=== PATIENT | female | born 1955 | race Caucasian/White ===

== ENCOUNTER 2019-06-19 05:43 | Day surgery (SDC) | payer OTHER, SELFPAY ==
[2019-06-12 08:03] VITALS: BMI 41.0
[2019-06-19] VITALS (7 sets, daily range): BP systolic 152–163; BP diastolic 71–91; PULSE 64–69; RESP 16; TEMP 36.1–36.6; O2SAT 92–96; BMI 41.2
[2019-06-19 06:16] LABS: Bedside Glucose 227 mg/dL (70-110)
[2019-06-19] MEDS: Lactated Ringers 1,000 ML 100 ML IV (06:30)
--- NOTE | 2019-06-19 06:43 | HP.PCM_ITS ---
History and Physical Date of Admission: 06/19/19 [facility] [address] [place] [address] OFFICE VISIT Date of Service: 06/12/19 MR#: [id number] Acct: [id number] Name: JAME TREJO Rep #: [id number] : [id number] Provider: Jose diaz MD Age/Sex: 64/F Location: [facility] Status: Signed Intake Vital Signs 06/12/19 Body Mass Index (BMI) 41.0 06/12/19 Height 5 ft 06/12/19 Weight: 210 lb 3 oz 06/12/19 Body Mass Index (BMI) 41.0 06/12/19 Blood Pressure 162/97 H 06/12/19 Blood Pressure Location Lt brachial 06/12/19 Blood Pressure Position Sitting 06/12/19 Respiratory Rate 20 H 06/12/19 Pulse Rate 70 06/12/19 Pulse Ox 94 Intake Visit Reasons: PORT PLACEMENT Chief Complaint: port consult--melanoma Painting Manager Required: No Is patient in pain?: No Allergies metformin [From Glucophage] Adverse Reaction (Verified 06/17/19 13:16) Nausea Medications Albuterol Inhaler [Ventolin Hfa] 2 inhaler INHALATION Q4H PRN PRN 10/17/16 [History Confirmed 06/17/19] Fluticasone Propionate 1 spray NASAL DAILY PRN 10/17/16 [History Confirmed 06/17/19] Glimepiride 4 mg PO BID 10/17/16 [History Confirmed 06/17/19] Lisinopril [Zestril] 20 mg PO BID 10/17/16 [History Confirmed 06/17/19] Pantoprazole Sodium [Protonix] 40 mg PO DAILY 10/17/16 [History Confirmed 06/17/19] Triamcinolone Acetonide 2 spry NASAL DAILY PRN 10/17/16 [History Confirmed 06/17/19] Aspirin E.C. [Ecotrin] 81 mg PO DAILY@0800 06/11/19 [History Confirmed 06/17/19] Cyclobenzaprine HCl 10 mg PO TID PRN 06/11/19 [History Confirmed 06/17/19] Gabapentin [Neurontin] 300 mg PO BIDCM 06/11/19 [History Confirmed 06/17/19] Insulin Aspart [Novolog Flexpen ([facility])] 10 units SUBCUT BIDCM 06/11/19 [History Confirmed 06/17/19] Insulin Detemir [Levemir ([facility])] 40 units SUBCUT QHS 06/11/19 [History Confirmed 06/17/19] Ipratropium/Albuterol Sulfate [Duoneb] 3 ml INHALATION Q6H.RT PRN 06/11/19 [History Confirmed 06/17/19] Meloxicam [Mobic] 15 mg PO DAILY 06/11/19 [History Confirmed 06/17/19] Metoprolol Tartrate 50 mg PO BID 06/11/19 [History Confirmed 06/17/19] Nitroglycerin [Nitrostat] 0.4 mg SL PRN PRN 06/11/19 [History Confirmed 06/17/19] Pravastatin [Pravachol] 80 mg PO DAILY 06/11/19 [History Confirmed 06/17/19] Verapamil HCl [Verapamil ER] 240 mg PO DAILY 06/11/19 [History Confirmed 06/17/19] Vitamin B Complex [B Complex] 1 ea PO 06/11/19 [History Confirmed 06/12/19] buPROPion SR [Wellbutrin Sr] 200 mg PO BID 06/11/19 [History Confirmed 06/17/19] traZODone [Desyrel] 50 mg PO QHS 06/11/19 [History Confirmed 06/17/19] Is last menstrual period known: No Post menopausal: Yes Patient : No PFSH Medical History Anhedonia (Acute) Anxiety (Acute) B12 deficiency (Acute) Breast cancer, left (Acute) CAD (coronary artery disease) (Acute) COPD (chronic obstructive pulmonary disease) (Acute) Carpal tunnel syndrome (Acute) Depression (Acute) Diabetes mellitus (Acute) Emphysema lung (Acute) Hyperlipidemia (Acute) Hyponatremia (Acute) Melanoma (Acute) Peripheral edema (Acute) Hypertension (Chronic) Surgical History H/O melanoma excision (Acute) History of cholecystectomy (Acute) History of excision of pilonidal cyst (Acute) History of lumpectomy (Acute) Status post trigger finger release (Acute) Family History Mother Skin cancer Hypertension Heart disease Father Diabetes Social History (Updated 06/18/19 @ 09:27 by Jose Stephens MD) Smoking Status: Current every day smoker HPI HPI HPI: JAME TREJO, is a 64 F who presents to the office today for HPI HPI Surgical H&P: Yes HPI: JAME TREJO, 64y.o.woman was diagnosed with breast cancer in 2007 she was treated with surgery, adjuvant chemotherapy and radiation [facility]. 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 She was referred to Dr. Jackson, she had wide resection and sentinel lymph node biopsy on 02/16/2016. Biopsy showed nodular melanoma 2.4 mm depth, sentinel nodes of right axilla 3 lymph nodes negative, pT3b pN0. She was seen on 03/21/2016 for consideration of adjuvant therapy and elected to do surveillance. She presented to [facility], was found to have multiple bilateral nodules, CT of the chest on 05/06/2019 showed multiple bilateral lung nodule's, CT of the abdomen was negative. She had CT-guided biopsy of the lung on 05/27/2019, pathology showed metastatic melanoma. ROS General General: Yes breast cancer; no weight change, appetite, fatigue, colon cancer or weakness HEENT HEENT: No difficulty swallowing, eye injury, eye surgery, swollen glands or hoarseness Endo Endocrine: Yes diabetes mellitus; no thyroid disease, thyroid cancer, Hair loss, heat intolerance or cold intolerance Cardio Cardiovascular: Yes high blood pressure; no murmur, pacemaker, heart disease, atrial fibrillation, heart attack, heart stent, palpitations, shortness of breat with exertion or chest pain Psych Psychiatric: Yes depression and anxiety; no hearing voices Resp Respiratory: No shortness of breath, No sleep apnea, No cough, Yes COPD, No asthma, No emphysema, No wheezing Gastro Gastrointestinal: No abdominal pain, No nausea or vomiting, No diarrhea, No constipation, No blood in stool, No acid reflux, No hemorrhoids, No ulcers, No gallbladder problem, No black,tarry stools Tk Hematologic: No blood thinners, No blood disorders, No bleeding, No anemia, No blood clots Neuro Neurologic: No weakness Exam Const General: no acute distress, well developed, well hydrated Orientation: oriented to person, oriented to place, oriented to time [facility] Head: normocephalic, atraumatic Ears: external ears normal Mouth: moist mucous membranes Eyes Sclera: sclerae normal Pupils: normal by confrontation Neck Neck: no lymphadenopathy noted Neck mass: No Thyroid: thyroid normal, symmetrical Chest Chest palpation & inspection: normal inspection of the chest Resp Effort & Inspection: normal respiratory effort Auscultation: clear to auscultation bilaterally Percussion: percussion normal Cardio Rate: regular rate Rhythm: regular rhythm Heart Sounds: no murmurs GI Inspection: obesity Palpation: soft, no hepatosplenomegaly, no masses, nontender Rectal Exam: other Other: Rectal exam deferred. Extrem General: normal to inspection, no clubbing, cyanosis or edema Assessment & Plan Problems 1. Vascular catheter fitting or adjustment Z45.2 Plan I plan to perform a Right internal jugular port a cath placement. The planned surgical procedure was discussed extensively with the patient. The risks, benefits, anticipated outcomes and possible complication were mentioned. My staff has also explained the procedure in understandable terms and the patient was given the option to take printed material concerning the planned procedure. The patient had the opportunity to ask questions concerning the planned procedure. The patient freely consents to the planned procedure. Coding Level of Care Code Off vis,new,level 3 Diagnoses Vascular catheter fitting or adjustment Z45.2 06/18/19 0927 <Electronically signed by Jose alvarez MD> Date _ Jose Stephens MD Cosigner Signature: Date (if applicable) CC: Yemi Ramos MD; Catherine Taveras, ~ I have re-examined the patient. There are no clinical changes since date of exam.
[2019-06-19] MEDS: Cefazolin 2 GM in 0.9% Normal Saline 100 ML IV (07:13)
[2019-06-19] MEDS: Bupivacaine Mpf 0.5% 30 ML VIAL (07:28)
--- NOTE | 2019-06-19 07:44 | PCM.OPRPT ---
Problem List (1) Vascular catheter fitting or adjustment Status: Acute Report of Operation Date of Procedure: 06/19/19 Pre-Operative Diagnosis: Vascular catheter fitting and adjustment Post-Operative Diagnosis: Same Surgery/Procedure Performed:: Placement of a right IJ PowerPort Type of Anesthesia:: Local MAC Anesthesiologist: Chad Barksdale Estimated Blood Loss (mL): < 25 cc Fluids Replaced: 300 cc Description of Procedure: Patient was brought into the operating room. Placed in the supine position. Under excellent MAC anesthetic placed her in the headdown position I ultrasound her neck identify the internal jugular vein. I marked the neck and chest appropriately it was then sterilely prepped and draped in usual fashion. Local was injected into the neck. Seldinger's technique was used to gain access to the right internal jugular vein without difficulty. Guidewire was placed to the needle the needle was removed. Fluoroscopy was used to confirm placement of the guidewire. It was in the superior vena cava. I injected local on the chest. An incision was made electrocautery was used to create a pocket for the port. A skin jacquie was made in the neck dilator and sheath were placed over the guidewire I removed the dilator and guidewire I placed a single lumen catheter through the sheath and removed the sheath. I used fluoroscopy to confirm proper length. I tunneled from the pocket over the collarbone into the neck and brought the catheter down cut at the length placed the locking hub under the catheter the port under the catheter and secured the 2 with a locking hub. It flushed and irrigated well it was flushed with 5 cc of Hepflush it was sutured into the pocket created with 2 sutures of 2-0 Prolene. Skin incisions were brought together with deep dermal stitches of 3-0 Vicryl. Dermabond was applied. Sterile dressings were applied. Patient tolerated the procedure well. Portable chest x-ray was obtained showing the catheter to be in the superior vena cava no pneumothorax. - Admit VTE Documentation VTE Present on Admission: No VTE Mechan Device Prophylaxis: SCD's VTE Pharm Prophylaxis ordered?: No Reason prophylaxis not ordered:: Treatment Not Indicated
--- NOTE | 2019-06-19 07:47 | PCM.DC.POR ---
Discharge Diet: No Restrictions - Pain medication may cause nausea. You should typically eat light foods as you take your pain medication. Discharge Activity: May Shower - with the bandage in place 1-2 days after surgery. DO NOT SHOWER WHEN YOUR PORT IS ACCESSED. Additional Activity Instructions:: May not drive, work with heavy equipment, or sign legal documents for [address] if you are no longer taking narcotic pain medications. You may drive when you are no longer taking pain medications. Additional Dressing/Incision Instructions:: Leave the bandage on for 2-3 days. When you remove the bandage, leave the steri-strips intact until they fall off. Allergies/Adverse Reactions: Allergies metformin [From Glucophage] Adverse Reaction (Verified 06/19/19 06:15) Nausea Medications to take at Discharge Albuterol Inhaler [Ventolin Hfa] 2 inhaler INHALATION Q4H PRN PRN 10/17/16 Fluticasone Propionate 1 spray NASAL DAILY PRN 10/17/16 Glimepiride 4 mg PO BID 10/17/16 Lisinopril [Zestril] 20 mg PO BID 10/17/16 Pantoprazole Sodium [Protonix] 40 mg PO DAILY 10/17/16 Triamcinolone Acetonide 2 spry NASAL DAILY PRN 10/17/16 Aspirin E.C. [Ecotrin] 81 mg PO DAILY@0800 06/11/19 Cyclobenzaprine HCl 10 mg PO TID PRN 06/11/19 Gabapentin [Neurontin] 300 mg PO BIDCM 06/11/19 Insulin Aspart [Novolog Flexpen ([facility])] 10 units SUBCUT BIDCM 06/11/19 Insulin Detemir [Levemir ([facility])] 40 units SUBCUT QHS 06/11/19 Ipratropium/Albuterol Sulfate [Duoneb] 3 ml INHALATION Q6H.RT PRN 06/11/19 Meloxicam [Mobic] 15 mg PO DAILY 06/11/19 Metoprolol Tartrate 50 mg PO BID 06/11/19 Nitroglycerin [Nitrostat] 0.4 mg SL PRN PRN 06/11/19 Pravastatin [Pravachol] 80 mg PO DAILY 06/11/19 Verapamil HCl [Verapamil ER] 240 mg PO DAILY 06/11/19 Vitamin B Complex [B Complex] 1 ea PO 06/11/19 buPROPion SR [Wellbutrin Sr] 200 mg PO BID 06/11/19 traZODone [Desyrel] 50 mg PO QHS 06/11/19 Oxycodone HCl/Acetaminophen [Percocet 5/325] 1 - 2 tablet PO Q4H PRN PRN 7 Days #30 tablet 06/19/19 The following prescriptions were given: Oxycodone HCl/Acetaminophen [Percocet 5/325] 1 - 2 tablet PO Q4H PRN PRN 7 Days #30 tablet PRN Reason: Pain Transmission Status: Sent to [facility] Primary Care Physician: Catherine Taveras DO [Primary Care Provider] - Test Results: Test results from this visit will be discussed in further detail at your follow-up appointment, if applicable. Please Follow Up With: Yemi Ramos MD - [phone] When: Please plan to follow up in 7 days in the office.
--- NOTE | 2019-06-19 08:17 | RAD_ITS ---
STUDY: X-RAY CHEST REASON FOR EXAM: Female, 64 years old. TECHNIQUE: COMPARISON: None. FINDINGS: There is a Port-A-Cath with the tip in the superior vena cava. The lungs are clear and expanded. There is no demonstrated pleural abnormality. Normal size heart. Normal mediastinum and lorena. Normal visualized pulmonary arteries. Normal visualized aortic arch and descending thoracic aorta. Normal visualized thoracic spine. Normal visualized ribs, clavicles, and shoulders. There is no demonstrated abnormality of the visualized soft tissue structures of the upper abdomen. RAD/CXR for Line Placement IMPRESSION: Normal x-ray examination of the chest. Electronically Signed: Milton Weathers, at 8:42 EST Tel , Service support ,
[2019-06-19] MEDS: oxyCODONE 5 MG Tablet PO (09:25)
[2019-06-19] MEDS: Acetaminophen 325 MG Tablet PO (09:25)
== END 2019-06-19 09:30 | disposition home or self-care (01) ==
LOC: SDC 05:44 → AC 05:45
PROVIDERS: Family Provider Family Medicine; PCP Family Medicine; Referring Provider Surgery; Visit Provider Surgery
PROC: (CPT 36561; principal; 2019-06-19 07:15)
DX: Z45.2 Encounter for adjustment and management of vascular access device (principal); C43.9 Malignant melanoma of skin, unspecified; C78.00 Secondary malignant neoplasm of unspecified lung; I25.10 Atherosclerotic heart disease of native coronary artery without angina pectoris; F41.9 Anxiety disorder, unspecified; F32.9 Major depressive disorder, single episode, unspecified; E11.9 Type 2 diabetes mellitus without complications; J43.9 Emphysema, unspecified; E78.00 Pure hypercholesterolemia, unspecified; I10 Essential (primary) hypertension; G56.00 Carpal tunnel syndrome, unspecified upper limb; K21.9 Gastro-esophageal reflux disease without esophagitis; Z85.3 Personal history of malignant neoplasm of breast; Z78.0 Asymptomatic menopausal state; Z79.4 Long term (current) use of insulin; Z79.82 Long term (current) use of aspirin; Z79.899 Other long term (current) drug therapy; F17.200 Nicotine dependence, unspecified, uncomplicated
CPT/HCPCS: 36561; 71045; 77001; 82962; J7120; C1788

== ENCOUNTER → 2019-06-23 12:25 | Outpatient (CLI) | payer OTHER, SELFPAY ==
[2019-06-11 15:37] VITALS: BMI 41.0
[2019-06-23 10:21] VITALS: BMI 42.0
--- NOTE | 2019-06-23 12:27 | MRI_ITS ---
We are attempting to reach an attending provider to discuss findings. An addendum with communication details will be sent when the communication is complete. STUDY: MRI BRAIN WITH AND WITHOUT CONTRAST REASON FOR EXAM: Female, 64 years old. History of metastatic melanoma and breast carcinoma. TECHNIQUE: Standardized multiplanar fat and water weighted pulse sequences were obtained. 20ml Dotarem thru port was administered for the contrast portion of the examination. COMPARISON: 07/11/2016. FINDINGS: No restricted diffusion to suspect acute or subacute ischemic infarct. Multiple enhancing brain metastatic mass lesions: 2 in the left cerebellar hemisphere, one in the left lingual gyrus, one in the right cuneus, one in the caudal aspect of the right central lobe, one in the posterior aspect of the left superior frontal gyrus and one in the left precentral gyrus. Several are hyperintense on T1 which are characteristic of metastatic melanoma. 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 Normal size of the ventricles and extra-axial spaces for the patient's age. Normal white matter tracts of the supratentorial brain. Normal bilateral basal ganglia. Normal thalami. There is no extra-axial fluid accumulation. Normal flow voids within the major intracranial circulation suggesting patency by spin echo criteria. Normal venous enhancement. No enhancing extra-axial abnormality. Normal sella turcica, pituitary gland, infundibular stalk, optic chiasm and hypothalamus. Normal tectal plate and pineal gland. Normal midbrain, miguelina and medulla. Normal right cerebellum. Normal basal cisterns. Normal bilateral temporal bones. Normal bilateral internal auditory canals. No demonstrated orbital abnormality, within the constraints of a routine brain study. Normal visualized paranasal sinuses. Normal calvarium and skull base. Normal visualized soft tissue structures. Normal visualized upper cervical spine. MRI/Brain W/WO Contrast IMPRESSION: 1. Multiple enhancing brain metastatic melanoma, 2 in the left cerebellar hemisphere, one in the left lingual gyrus, one in the right cutaneous, one in the caudal aspect of the right central lobe, one in the posterior aspect of the left superior frontal gyrus and one in the left precentral gyrus. 2. Focal cystic atrophy in the left inferior occipital gyrus. 3. The above are new when compared to 07/11/2016. Electronically Signed: Enrique Sanchez MD at 16:08 EST , Service support ,
[2019-06-23 13:10] LABS: CREATININE FINGERSTICK 0.9 mg/dL (0.55-1.02); EGFR FINGERSTICK > 60.0000 mL/min (>60)
== END ==
PROVIDERS: Family Provider Family Medicine; PCP Family Medicine; Referring Provider Internal Medicine Medical Oncology; Visit Provider Internal Medicine Medical Oncology
DX: C43.59 Malignant melanoma of other part of trunk (principal)
CPT/HCPCS: 70553

== ENCOUNTER → 2019-08-11 15:14 | Outpatient (CLI) | payer MEDICAID, SELFPAY ==
[2019-07-03 10:02] VITALS: BMI 40.8
[2019-08-06 11:38] VITALS: BMI 40.2
--- NOTE | 2019-08-11 15:29 | CT_ITS ---
STUDY: CT ABDOMEN AND PELVIS WITH CONTRAST REASON FOR EXAM: Female, 64 years old. RLQ pain, constipation, diarrhea, on immunotherapy for multiple myeloma. Prior cholecystectomy. RADIATION DOSAGE (If Supplied By Facility): CTDIvol = ( 19.85 ) mGy, DLP = ( 1147.19 ) mGycm TECHNIQUE: Transaxial images were obtained from the dome of the diaphragm to the symphysis pubis without oral contrast. Oral and amp; IV Readi-CAT and amp; 100mL Isovue-300 was administered. Sagittal and coronal images were reconstructed. Individualized dose optimization techniques were used for this CT. COMPARISON: None. FINDINGS: There are multiple small nodules within the lung bases, largest seen on the right and measuring 0.8 cm most compatible with metastatic disease. Heart maintains normal size. Coronary artery calcifications noted. There are 2 small low-attenuation structure within the right liver lobe measuring 9 mm and 6 at the level of the gallbladder fossa into small to be adequately characterize. Otherwise normal liver. There are surgical clips in the gallbladder fossa consistent with a prior cholecystectomy. Normal spleen. Normal pancreas. Normal bilateral adrenal glands. No specific bilateral perinephric stranding, otherwise normal right kidney. Small low-attenuation structure within the lower pole of the left kidney, too small to be adequately characterized and measuring 6.4 mm, statistically consistent with a cyst. Otherwise normal left kidney. Decompressed stomach otherwise unremarkable. No hiatal hernia. Normal small intestine. Multilevel diverticulosis throughout the colon with no signs of diverticulitis. The appendix is visualized and appears normal. There is diffuse atherosclerotic calcification of the abdominal aorta, without a demonstrated aneurysm. Normal inferior vena cava. Normal retroperitoneum. The urinary bladder is decompressed otherwise unremarkable. There is atrophy of the uterus. Normal abdominal wall. There are diffuse degenerative changes of the visualized lumbar spine. Minimal anterolisthesis of L4 on L5 with no pars defect. CT/Abdomen/Pelvis WITH Contrast IMPRESSION: 2 small low-attenuation liver lesions of indeterminate etiology, comparison to prior exam recommended to evaluate stability. Nonspecific bilateral perinephric stranding with small left-sided renal cysts, remainder of abdominal viscera are unremarkable. Diverticulosis with no signs of diverticulitis. No bowel obstruction or focal inflammatory process or gastrointestinal tract. No distinct lymphadenopathy or mass. Multiple bilateral lung nodules compatible with metastatic disease. Electronically Signed: Marcia Rojas MD at 4:00 EST , Service support ,
[2019-08-11] MEDS: 0.9% Saline Lock 10 ML Syringe IV (15:50)
== END ==
PROVIDERS: PCP Family Medicine; Referring Provider Nurse Practitioner Family; Visit Provider Nurse Practitioner Family
DX: K76.89 Other specified diseases of liver (principal); N28.1 Cyst of kidney, acquired; K57.30 Diverticulosis of large intestine without perforation or abscess without bleeding; R91.8 Other nonspecific abnormal finding of lung field
CPT/HCPCS: 74177; Q9967; A4216

== ENCOUNTER 2019-09-05 17:30 | Emergency (ER) | payer MEDICAID, SELFPAY ==
[2019-07-03 10:02] VITALS: BMI 40.8
[2019-08-24 11:02] VITALS: BMI 41.0
[2019-09-05 17:31] VITALS: BP 140/84; PULSE 78; RESP 15; TEMP 36.2; O2SAT 95; BMI 40.2
--- NOTE | 2019-09-05 17:57 | CT_ITS ---
STUDY: CT BRAIN WITHOUT CONTRAST REASON FOR EXAM: Female, 64 years old. Tremors slurred speech RADIATION DOSAGE (If Supplied By Facility): CTDIvol = ( 44.99 ) mGy, DLP = ( 779.24 ) mGycm TECHNIQUE: Transaxial CT imaging of the brain was performed without administration of intravenous contrast material. Individualized dose optimization techniques were used for this CT. COMPARISON: No relevant priors. FINDINGS: There are multiple hyperdense, partially calcified metastases bilaterally in the cerebral hemispheres and cerebellum. There is a remote left occipital infarct. There is no acute intracranial hemorrhage, hydrocephalus, herniation or extra parenchymal fluid collections. Appearance is similar to recent MR. The skull is intact. CT/Brain/Head without Contrast IMPRESSION: 1. No acute findings or change since prior. 2. Multiple brain metastases. Electronically Signed: Julia Cordova, at 19:28 EST Tel , Service support ,
--- NOTE | 2019-09-05 18:00 | ED.VIS.GEN ---
History of Present Illness Chief Complaint: Numb/Ting Narrative: Patient presents with intermittent right arm shaking. This is been ongoing for 3 days. She is worried because she thinks her brain metastases from melanoma may be getting worse. She was seen at an outside ED had an unremarkable CT at the time, she is here for an MRI. She has no current symptoms. She has no speech difficulties although she says at times her voice is shaky, she has no vision changes she has no weakness in her right arm or weakness in her lower extremities or left arm. No paresthesias. Past Medical History - Allergies and Home Meds Allergies/Adverse Reactions: Allergies metformin [From Glucophage] Adverse Reaction (Severe, Verified 09/05/19 17:31) Nausea Primary Care Physician: Catherine Taveras DO [Primary Care Provider] - 3-5 Days Past Medical History: - - Breast cancer, melanoma with brain metastases otherwise her medications and medical history was reviewed Smoking Status: Light Smoker (<10/day) Review of Systems General: Denies: Fever Eyes: Denies: Visual changes - bilaterally ENT: Denies: Rhinorrhea, Sore throat Cardiovascular: Denies: Chest pain Respiratory: Denies: Dyspnea Gastrointestinal: Denies: Abdominal pain, Nausea, Vomiting Musculoskeletal: Reports: - - Remittent right arm shaking. Denies: Myalgias, Arthralgias Skin: Denies: Rash, Abscess, Wounds Neurological: Denies: Headache, - - Intermittent right arm shaking Psych: Denies: Depression Hematologic: Denies: Easy bruising Allergy: Denies: Uticaria Physical Exam Vital Signs/Narrative: Vital Signs Temp Pulse Resp BP Pulse Ox 09/05/19 17:31 97.1 F L 78 15 140/84 H 95 General: Well nourished. Negative for: Acute Distress Head: Normocephalic Eyes: Perrl, EOMI ENT: Moist mucous membranes Neck: Supple Cardiovascular: Regular rate, Regular rhythm Respiratory: No distress, CTA bilaterally Abdomen: Soft, Nontender Back: Nontender, Normal Inspection Extremities: Nontender, No edema Skin: Normal color Neurological: Alert, Oriented x3, Cranial nerves II-XII grossly intact, Normal Strength, Normal Sensation Psychological: Normal affect Diagnostic/Tx/Re-eval - Medical Decision Making Patient has a CT consistent with multiple metastases, however these are unchanged her blood work is unremarkable. There is no visible edema therefore no steroids will be given. She is to follow-up with her physician it is Saturday night MRI is not available, she does not meet criteria for an emergent MRI. She may have partial seizures from her metastases, she is on Neurontin twice a day we increased it to 3 times a day. If anything changes she will return otherwise I told her she has not allowed to drive. ED Disposition - Plan for ED Patient: Disposition: Home or Assisted Living Diagnosis: Malignant melanoma metastatic to brain Instructions: Cancer of the Brain Referrals: Catherine Taveras DO [Primary Care Provider] - 3-5 Days Additional Instructions: Follow Up with your neurosurgeon as scheduled
[2019-09-05 20:14] LABS: Absolute Lymphocyte Count 3.19 X10^3/uL (0.83-4.51); Absolute Neutrophil Count 6.3 X10^3/uL (2.0-7.7); Basophil# 0.05 X10^3/uL; Basophil% 0.5 % (0-1); Eosinophil# 0.26 X10^3/uL; Eosinophils% 2.4 % (0-5); Hematocrit 40.1 % (37-47); Lymphocyte # 3.19 X10^3/ul (4.0); Lymphocyte % 29.6 % (19-41); Mean Corp Hgb Conc 32.4 g/dL (32-36); Mean Corpuscular Hgb 32.2 pg (27.0-32.0); Mean Corpuscular Volume 99.3 fL (81-99); Mean Platelet Vol. 11.1 fl (6.2-12.0); Monocyte# 0.85 X10^3/uL; Monocyte% 7.9 % (0-10); NRBC Flagged by Analyzer 0 % (0-5); Neutrophil # 6.29 X10^3/uL (2.7-7.7); Neutrophil % 58.3 % (47-70); POSITIVE COUNT YES; Platelet Count 168 K/mm3 (150-450); RBC Distribution Width CV 13.3 % (11.6-14.6); RBC Distribution Width SD 48.5 fl (35.1-43.9); Red Blood Count 4.04 M/mm3 (4.2-5.4); White Blood Count 10.8 K/mm3 (4.4-11.0)
[2019-09-05 20:18] LABS: Differential Indicated SCAN CRITERIA MET
[2019-09-05 20:27] VITALS: BP 119/61; PULSE 77; RESP 16; O2SAT 92
[2019-09-05 20:46] LABS: Differential Comment SCANNED
[2019-09-05 20:47] LABS: ALB/GLOB Ratio 0.8 RATIO (0.9-2.4); AST(SGOT) 7 U/L (15-37); Alanine Aminotransfer ALT/SGPT 23 U/L (13-56); Albumin, Serum 2.8 g/dL (3.2-5.0); Alkaline Phosphatase 83 U/L (45-117); Anion Gap 3 (5-15); BUN 15 mg/dL (7-18); Calcium,Total 8.3 mg/dL (8.5-10.1); Chloride 108 mmol/L (98-107); EST Glomerular Filtration Rate 59 mL/min (>60); Est Glom Filt Rate - Afr Amer 72 mL/min (>60); Estimated Creatinine Clearance 40.82 ml/min; Globulin 3.5 g/dL (2.2-4.2); Glucose 438 mg/dL (74-106); Potassium 4.5 mmol/L (3.5-5.1); Protein, Total 6.3 g/dL (6.4-8.2); Sodium Level 135 mmol/L (136-145); Total Bilirubin < 0.10 mg/dL (0.20-1.00)
[2019-09-05 22:19] VITALS: BP 119/61
== END 2019-09-05 22:20 | disposition home or self-care (01) ==
PROVIDERS: Emergency Provider Emergency Medicine; PCP Family Medicine
DX: C79.31 Secondary malignant neoplasm of brain (principal); C43.9 Malignant melanoma of skin, unspecified; Z85.3 Personal history of malignant neoplasm of breast; Z79.82 Long term (current) use of aspirin; Z79.899 Other long term (current) drug therapy; F17.200 Nicotine dependence, unspecified, uncomplicated
CPT/HCPCS: 36415; 70450; 80053; 85025; 99285; A4216

== ENCOUNTER 2019-09-07 09:49 | Emergency (ER) | payer MEDICAID, SELFPAY ==
[2019-07-03 10:02] VITALS: BMI 40.8
[2019-09-07 09:51] VITALS: BP 112/33; PULSE 72; RESP 17; TEMP 36.4; O2SAT 95; BMI 41.0
--- NOTE | 2019-09-07 10:01 | MRI_ITS ---
STUDY: MRI BRAIN WITH AND WITHOUT CONTRAST REASON FOR EXAM: Female, 64 years old. metastatic melanoma with new tremors -- gamma knife 1 month ago, immunotherapy TECHNIQUE: Standardized multiplanar fat and water weighted pulse sequences were obtained. IV 18ML DOTAREM was administered for the contrast portion of the examination. COMPARISON: CT 09/05/2019, MRI 06/23/2019 FINDINGS: There is mild cerebral atrophy with widening of the extra-axial spaces and ventricular dilatation. There are a limited number of small white matter hyperintensities, distributed throughout the deep white matter tracts of the cerebral hemispheres, consistent with mild chronic white matter ischemic changes. There is no evidence for recent intracranial ischemia or other cause of cytotoxic edema on diffusion weighted imaging (DWI). Normal T2* images of the brain without demonstrated susceptibility artifact. There is no demonstrated hemosiderin stain. Interval decrease in the size and number of multiple enhancing lesions consistent with improving melanoma metastases. The lesion in the inferior aspect left hemisphere of the cerebellum have resolved. The lesion periphery of the left hemisphere of the cerebellum has decreased in size from 10 mm in diameter to 7 mm in diameter. The lesion in the left occipital lobe has decreased in size from 10 mm in diameter to 7 mm in diameter. The lesion in the right occipital lobe has decreased in size from 14 mm to 10 mm in diameter. The lesion the right parietal lobe has resolved. The more anterior lesion in the left parietal lobe has resolved. The lesion in the posterior left parietal lobe has decreased in size from 16 mm in diameter to 10 mm in diameter. No change in small infarct in the left occipital lobe. Normal bilateral basal ganglia. Normal thalami. There is no extra-axial fluid accumulation. Normal flow voids within the major intracranial circulation suggesting patency by spin echo criteria. Normal venous enhancement. Normal sella turcica, pituitary gland, infundibular stalk, optic chiasm and hypothalamus. Normal tectal plate and pineal gland. Normal midbrain, miguelina and medulla. Normal cerebellum. Normal basal cisterns. Normal bilateral temporal bones. Normal bilateral internal auditory canals. No demonstrated orbital abnormality, within the constraints of a routine brain study. Normal visualized paranasal sinuses. Normal calvarium and skull base. Normal visualized soft tissue structures. Normal visualized upper cervical spine. MRI/Brain W/WO Contrast IMPRESSION: Improved metastatic malignant melanoma Electronically Signed: Loc Valdez MD at 12:53 EST Tel , Service support ,
--- NOTE | 2019-09-07 10:04 | ED.DCSUM_ITS ---
History of Present Illness Chief Complaint: Neuro S/Sx Informant: Patient Onset: Days Context: Gradual Onset Timing: Continuous Quality: Difficulty ambulating, tremor, unsteadiness headache Location: Neuro Current Severity: Mild Maximum Severity: Moderate Worsened by: Attempt to move or ambulate Relieved by: Nothing Associated Symptoms: Headache, diplopia, problems with balance Narrative: Patient is a 64-year-old woman with history hypertension and diabetes who was diagnosed approximately 3 months ago with metastatic melanoma. She states she has mets to the brain and underwent gamma knife therapy. She also has mets to lung. She was sent in by her oncologist because of neuro symptoms that have progressed rapidly. He does report headache. She does report diplopia which is gotten worse over the past several days. She also reports tremor, problems with balance and walking. She does have history of COPD and reports dyspnea with exertion. This is not new. She continues to smoke. She denies nausea or vomiting. She denies trouble with speech or swallowing. She denies urologic symptoms. She has not checked her blood sugar recently. Prior similar symptoms: Yes - Some symptoms are new and some are not Recent Illness/Hospitalization: Yes - Past Medical History (1) Metastatic melanoma to lung Status: Acute (2) Peau d'orange over breast Status: Acute (3) Malignant melanoma metastatic to brain Status: Chronic (4) Hypokalemia Status: Resolved Past Medical History - Allergies and Home Meds Allergies/Adverse Reactions: Allergies metformin [From Glucophage] Adverse Reaction (Severe, Verified 09/07/19 09:51) Nausea Primary Care Physician: Catherine Taveras DO [Primary Care Provider] - Prior records reviewed: Yes Surgical History: noncontributory, - - She states she had gamma knife therapy at [facility] facility located at [facility]. Lives: Alone Smoking Status: Current every day smoker Alcohol: None Drugs: None Review of Systems General: Reports: Malaise. Denies: Chills, Fever, Sweats Eyes: Reports: Diplopia. Denies: Visual changes - bilaterally, Blurred Vision - bilaterally ENT: Denies: Bilateral ear pain, Rhinorrhea, Sore throat Cardiovascular: Denies: Chest pain, Palpitations Respiratory: Reports: Dyspnea, Cough, Dyspnea on exertion. Denies: Sputum, Orthopnea Gastrointestinal: Denies: Abdominal pain, Nausea, Vomiting, Diarrhea, Melena, Hematochezia Genitourinary: Denies: Dysuria, Hematuria, Frequency Musculoskeletal: Denies: Myalgias, Arthralgias, Neck pain, Back pain, Swelling Skin: Denies: Rash, Wounds Neurological: Reports: Headache. Denies: Weakness, Parasthesia Endocrine: Denies: Polyuria, Polydipsia Physical Exam Vital Signs/Narrative: Vital Signs Temp Pulse Resp BP Pulse Ox 09/07/19 09:51 97.5 F L 72 17 112/33 L 95 Inital Vital Signs reviewed: Yes General: Well nourished, Well developed, Obese, Unkempt Head: Normocephalic, Atraumatic Eyes: Perrl, - - There is no APD. There is no stain or hemorrhage noted. Difficult to see optic nerve. Patient's gaze is disconjugate with with certain movement. She reports diplopia. She denies loss of blurred vision.. Negative for: EOMI, Pale conjunctiva, Scleral icterus ENT: Moist mucous membranes, No rhinorrhea, TM's clear Neck: Supple, Nontender, No lymphadenopathy, No JVD Cardiovascular: Regular rate, Regular rhythm, No murmurs, Normal S1, Normal S2 Respiratory: No distress, Chest nontender, Wheezing - Patient states she has chronic wheezing.. Negative for: CTA bilaterally Abdomen: Soft, Nontender, Nondistended, Normal bowel sounds, - - Is a large mid line well-healed incision. Rectal: Deferred Back: Nontender. Negative for: Normal Inspection - There is a large scar noted. This is the site of the melanoma that was removed. Extremities: Nontender, Edema Skin: Normal color, No rash Neurological: Alert, Oriented x3, Normal Strength, - - Franz has past-pointing on the right with finger-nose to finger.. Negative for: Cranial nerves II-XII grossly intact, Normal Sensation, Normal DTR, Normal Gait Psychological: Normal affect Diagnostic/Tx/Re-eval Impressions Brain MRI 09/07/19 10:01 IMPRESSION: Improved metastatic malignant melanoma Electronically Signed: Loc Valdez MD at 12:53 EST Tel , Service support , 09/07/19 10:01 MRI Brain [Brain W/WO Contrast] [MRI] Stat Laboratory Results 09/07/19 09/07/19 09/07/19 10:50 10:54 10:54 WBC 10.7 RBC 4.06 L Hgb 13.1 Hct 39.8 MCV 98.0 MCH 32.3 H MCHC 32.9 RDW Std Deviation 47.5 H RDW Coeff of Kosta 13.2 Plt Count 245 MPV 10.5 Immature Gran % (Auto) 0.700 Neut % (Auto) 77.6 H Lymph % (Auto) 12.8 L Wilkinson % (Auto) 6.7 Eos % (Auto) 1.7 Baso % (Auto) 0.5 Absolute Neuts (auto) 8.3 H Absolute Lymphs (auto) 1.37 Nucleated RBC % 0 Sodium 136 Potassium 5.1 Chloride 102 Carbon Dioxide 28.0 Anion Gap 6 BUN 15 Creatinine 1.07 H Estim Creat Clear Calc 38.15 Est GFR (MDRD) Af Amer 66 Est GFR (MDRD) Non-Af 55 L BUN/Creatinine Ratio 14.0 Glucose 508 H* Calcium 9.1 Total Bilirubin 0.20 AST 6 L ALT 23 Alkaline Phosphatase 94 Total Protein 6.9 Albumin 3.1 L Globulin 3.8 Albumin/Globulin Ratio 0.8 L POC Glucose > 500 H* - Medical Decision Making Complaint of headache, new and worsening neurologic symptoms will obtain MRI of the brain to assess for swelling and or new lesions. Since patient is diabetic will assess PTT prior to administration of Decadron. Basic metabolic panel was obtained to assess renal function as well as blood sugar. She was treated with normal saline and insulin for elevated blood sugar. Case was discussed with oncology. Agree outpatient follow-up for her neurologic symptoms is appropriate. ED Disposition - Plan for ED Patient: Disposition: Home or Assisted Living Diagnosis: Tremor due to disorder of central nervous system, Malignant melanoma metastatic to brain Instructions: Essential Tremor Disorder, ED Diabetic Hyperglycemia Referrals: Catherine Taveras DO [Primary Care Provider] - As Needed Yemi Ramos MD [NON-STAFF] - Keep Shayne appointment
[2019-09-07] MEDS: 0.9% Normal Saline 1,000 ML 150 ML IV (10:29)
[2019-09-07 11:00] LABS: Absolute Lymphocyte Count 1.37 X10^3/uL (0.83-4.51); Absolute Neutrophil Count 8.3 X10^3/uL (2.0-7.7); Basophil# 0.05 X10^3/uL; Basophil% 0.5 % (0-1); Eosinophil# 0.18 X10^3/uL; Eosinophils% 1.7 % (0-5); Hematocrit 39.8 % (37-47); Hemoglobin 13.1 g/dL (12.0-15.0); Lymphocyte # 1.37 X10^3/ul (4.0); Lymphocyte % 12.8 % (19-41); Mean Corp Hgb Conc 32.9 g/dL (32-36); Mean Corpuscular Hgb 32.3 pg (27.0-32.0); Mean Platelet Vol. 10.5 fl (6.2-12.0); Monocyte# 0.72 X10^3/uL; Monocyte% 6.7 % (0-10); NRBC Flagged by Analyzer 0 % (0-5); Neutrophil # 8.32 X10^3/uL (2.7-7.7); Neutrophil % 77.6 % (47-70); Platelet Count 245 K/mm3 (150-450); RBC Distribution Width CV 13.2 % (11.6-14.6); RBC Distribution Width SD 47.5 fl (35.1-43.9); Red Blood Count 4.06 M/mm3 (4.2-5.4); White Blood Count 10.7 K/mm3 (4.4-11.0)
[2019-09-07 11:19] LABS: ALB/GLOB Ratio 0.8 RATIO (0.9-2.4); AST(SGOT) 6 U/L (15-37); Alanine Aminotransfer ALT/SGPT 23 U/L (13-56); Albumin, Serum 3.1 g/dL (3.2-5.0); Alkaline Phosphatase 94 U/L (45-117); Anion Gap 6 (5-15); BUN 15 mg/dL (7-18); Calcium,Total 9.1 mg/dL (8.5-10.1); Chloride 102 mmol/L (98-107); Creatinine, Serum 1.07 mg/dL (0.55-1.02); EST Glomerular Filtration Rate 55 mL/min (>60); Est Glom Filt Rate - Afr Amer 66 mL/min (>60); Estimated Creatinine Clearance 38.15 ml/min; Globulin 3.8 g/dL (2.2-4.2); Glucose 508 mg/dL (74-106); Potassium 5.1 mmol/L (3.5-5.1); Protein, Total 6.9 g/dL (6.4-8.2); Sodium Level 136 mmol/L (136-145)
--- NOTE | 2019-09-07 11:49 | NURSING ---
UNABLE TO OBTAIN BLOOD RETURN FROM RT CHEST PORT. MRI CONTRAST GIVEN VIA BUTTERFLY IN LT AC X3 ATTEMPTS.
[2019-09-07] MEDS: 0.9% Normal Saline 1,000 ML 1000 ML IV (12:28)
[2019-09-07] MEDS: Insulin Lispro 100 UNIT/ML INSULN.PEN 10 UNIT SC (12:28)
[2019-09-07 12:29] VITALS: BMI 40.7
[2019-09-07 12:36] LABS: Bedside Glucose > 500 mg/dL (70-110)
[2019-09-07 15:20] VITALS: PULSE 77; RESP 17; O2SAT 97
== END 2019-09-07 15:21 | disposition home or self-care (01) ==
PROVIDERS: Emergency Provider Emergency Medicine; PCP Family Medicine
DX: R25.1 Tremor, unspecified (principal); G96.9 Disorder of central nervous system, unspecified; C43.9 Malignant melanoma of skin, unspecified; C79.31 Secondary malignant neoplasm of brain; C78.00 Secondary malignant neoplasm of unspecified lung; E66.9 Obesity, unspecified; I10 Essential (primary) hypertension; E11.9 Type 2 diabetes mellitus without complications; J44.9 Chronic obstructive pulmonary disease, unspecified; Z79.82 Long term (current) use of aspirin; Z79.4 Long term (current) use of insulin; Z79.899 Other long term (current) drug therapy; F17.200 Nicotine dependence, unspecified, uncomplicated
CPT/HCPCS: 70553; 80053; 82962; 85025; 96360; 96361; 96372; 99283; A9575; J7030; A4216

== ENCOUNTER 2019-09-18 14:30 | Observation (INO) | payer MEDICAID, SELFPAY ==
[2019-07-03 10:02] VITALS: BMI 40.8
[2019-09-14 11:06] VITALS: BMI 39.6
[2019-09-18] VITALS (10 sets, daily range): BP systolic 132–165; BP diastolic 71–81; PULSE 71–86; RESP 14–24; TEMP 36.4–37.2; O2SAT 88–97; BMI 39.6
--- NOTE | 2019-09-18 15:05 | ED.VIS.GEN ---
History of Present Illness Chief Complaint: Weakness Informant: Patient Onset: Today Narrative: Patient has a history of metastatic melanoma with lesions to her brain, lung, spine. She has been in the ER a few times recently with shaking episodes to her upper extremities. She had CT scan followed by MRI that showed multiple metastatic lesions that were unchanged when compared to prior studies. Patient states her shakes stopped in mid August but then recurred again a couple days ago. She is now states that she has shakes in her legs as well and is unable to stand. She states when she tries to stand she gets diffuse leg pain and weakness and she starts to fall. She is followed by Dr. Ramos from oncology. She is reportedly on immunotherapy. - Past Medical History (1) Metastatic melanoma to lung Status: Chronic (2) Peau d'orange over breast Status: Chronic (3) Malignant melanoma metastatic to brain Status: Chronic (4) Malignant melanoma metastatic to lung Status: Chronic (5) Melanoma Status: Resolved Comment: right upper back, stage IIB Past Medical History - Allergies and Home Meds Allergies/Adverse Reactions: Allergies metformin [From Glucophage] Adverse Reaction (Severe, Verified 09/14/19 11:06) Nausea Primary Care Physician: Catherine Taveras DO [Primary Care Provider] - Doctors: Dr. Ramos Prior records reviewed: Yes Surgical History: noncontributory, - - She states she had gamma knife therapy at [facility] facility located at [facility]. Smoking Status: Current every day smoker Review of Systems General: Denies: Chills, Fever Eyes: Denies: Visual changes - bilaterally ENT: Denies: Bilateral ear pain Cardiovascular: Denies: Chest pain Respiratory: Denies: Dyspnea, Cough Gastrointestinal: Denies: Abdominal pain, Nausea, Vomiting, Diarrhea Genitourinary: Denies: Dysuria Musculoskeletal: Reports: Extremity Pain Skin: Denies: Rash Neurological: Reports: Weakness. Denies: Headache, Numbness Allergy: Denies: Uticaria Physical Exam Vital Signs/Narrative: Vital Signs Temp Pulse Resp BP Pulse Ox 09/18/19 14:32 98.9 F 74 14 142/71 H 93 Inital Vital Signs reviewed: Yes General: Well nourished, Well developed Head: Normocephalic ENT: Moist mucous membranes Neck: Supple Cardiovascular: Regular rate, Regular rhythm Respiratory: No distress, CTA bilaterally Abdomen: Soft, Nontender Back: Nontender Extremities: Nontender Neurological: Alert, Oriented x3, - - Normal strength and sensation in the upper extremities. Patient is able to lift her lower extremities off the bed, however has jerking motions and they do fall to the bed. Psychological: Normal affect Diagnostic/Tx/Re-eval Laboratory Results 09/18/19 09/18/19 09/18/19 15:15 15:15 15:50 WBC 8.1 RBC 4.35 Hgb 13.8 Hct 43.2 MCV 99.3 H MCH 31.7 MCHC 31.9 L RDW Std Deviation 47.0 H RDW Coeff of Kosta 12.8 Plt Count 283 MPV 10.6 Immature Gran % (Auto) 0.600 Neut % (Auto) 61.1 Lymph % (Auto) 25.0 Graham % (Auto) 10.2 H Eos % (Auto) 2.1 Baso % (Auto) 1.0 Absolute Neuts (auto) 5.0 Absolute Lymphs (auto) 2.03 Nucleated RBC % 0 Sodium 132 L Potassium 7.4 H* Chloride 107 Carbon Dioxide 23.0 Anion Gap 2 L BUN 11 Creatinine 0.90 Estim Creat Clear Calc 45.36 Est GFR (MDRD) Af Amer 81 Est GFR (MDRD) Non-Af 67 BUN/Creatinine Ratio 12.2 Glucose 333 H Calcium 9.6 Urine Color Yellow Urine Clarity Clear Urine pH 6.0 Ur Specific [place] 1.010 Urine Protein 30 H Urine Glucose (UA) 1000 H Urine Ketones 5 H Urine Occult Blood Negative Urine Nitrite Negative Urine Bilirubin Negative Urine Urobilinogen Normal Ur Leukocyte Esterase Negative Urine RBC 0 SEEN Urine WBC 0 SEEN Ur Squamous Epith Cells 0-5 SEEN Urine Bacteria RARE Urine Mucus 0 SEEN 09/18/19 16:30 WBC RBC Hgb Hct MCV MCH MCHC RDW Std Deviation RDW Coeff of Kosta Plt Count MPV Immature Gran % (Auto) Neut % (Auto) Lymph % (Auto) Graham % (Auto) Eos % (Auto) Baso % (Auto) Absolute Neuts (auto) Absolute Lymphs (auto) Nucleated RBC % Sodium Potassium 6.7 H* Chloride Carbon Dioxide Anion Gap BUN Creatinine Estim Creat Clear Calc Est GFR (MDRD) Af Amer Est GFR (MDRD) Non-Af BUN/Creatinine Ratio Glucose Calcium Urine Color Urine Clarity Urine pH Ur Specific [place] Urine Protein Urine Glucose (UA) Urine Ketones Urine Occult Blood Urine Nitrite Urine Bilirubin Urine Urobilinogen Ur Leukocyte Esterase Urine RBC Urine WBC Ur Squamous Epith Cells Urine Bacteria Urine Mucus - EKG Initial EKG Interpretation: Sinus Rhythm - Sinus at 74. No acute ischemia. - Medical Decision Making Work-up was initiated. Potassium today returns at 7.4. This was repeated and is 6.7. EKG is okay at this point. She will be ordered albuterol, insulin, dextrose, and Kayexalate. Patient now states that she has been taking potassium supplements for the past 4 days. She states her primary care doctor wrote her for 20 mEq tabs. She states that Dr. Ramos wanted her to take more than this so she has been taking it 4 times a day. I spoke with hospitalist and patient will be admitted to PCU. ED Disposition - Plan for ED Patient: Disposition: Acute [facility] Diagnosis: Hyperkalemia Referrals: Catherine Taveras DO [Primary Care Provider] -
[2019-09-18 15:54] LABS: Mucous, Urine 0 SEEN /hpf (<or=2+); Red Blood Cells-Urine 0 SEEN /hpf (0-5); White Blood Cells 0 SEEN /hpf (0-5)
[2019-09-18] MEDS: 0.9% Normal Saline 1,000 ML 150 ML IV (15:54)
[2019-09-18 15:58] LABS: Absolute Lymphocyte Count 2.03 X10^3/uL (0.83-4.51); Basophil# 0.08 X10^3/uL; Eosinophil# 0.17 X10^3/uL; Eosinophils% 2.1 % (0-5); Hematocrit 43.2 % (37-47); Hemoglobin 13.8 g/dL (12.0-15.0); Lymphocyte # 2.03 X10^3/ul (4.0); Mean Corp Hgb Conc 31.9 g/dL (32-36); Mean Corpuscular Hgb 31.7 pg (27.0-32.0); Mean Corpuscular Volume 99.3 fL (81-99); Mean Platelet Vol. 10.6 fl (6.2-12.0); Monocyte# 0.83 X10^3/uL; Monocyte% 10.2 % (0-10); NRBC Flagged by Analyzer 0 % (0-5); Neutrophil # 4.95 X10^3/uL (2.7-7.7); Neutrophil % 61.1 % (47-70); Platelet Count 283 K/mm3 (150-450); RBC Distribution Width CV 12.8 % (11.6-14.6); Red Blood Count 4.35 M/mm3 (4.2-5.4); White Blood Count 8.1 K/mm3 (4.4-11.0)
[2019-09-18 15:59] LABS: Color, Urine Yellow (Yellow); Glucose, Dipstick 1000 mg/dl (Normal); Ketone-Dipstick 5 mg/dl (Negative); Leukocyte Esterase-Dipstick Negative /ul (Negative); Nitrite-Dipstick Negative (Negative); Occult Blood-Urine Negative /ul (Negative); Protein-Dipstick 30 mg/dl (Negative); Urine Bilirubin Dipstick Negative (Negative); Urine Clarity Clear (Clear); Urine Urobilinogen Normal (Normal)
[2019-09-18 16:05] LABS: Anion Gap 2 (5-15); BUN 11 mg/dL (7-18); BUN/Creat Ratio 12.2 RATIO (10-20); Calcium,Total 9.6 mg/dL (8.5-10.1); Chloride 107 mmol/L (98-107); EST Glomerular Filtration Rate 67 mL/min (>60); Est Glom Filt Rate - Afr Amer 81 mL/min (>60); Estimated Creatinine Clearance 45.36 ml/min; Glucose 333 mg/dL (74-106); Potassium 7.4 mmol/L (3.5-5.1); Sodium Level 132 mmol/L (136-145)
--- NOTE | 2019-09-18 16:07 | EKG12_ITS ---
Test Reason : ABNL LABS Blood Pressure : / mmHG Vent. Rate : 074 BPM Atrial Rate : 074 BPM P-R Int : 172 ms QRS Dur : 096 ms QT Int : 382 ms P-R-T Axes : 040 026 056 degrees QTc Int : 424 ms Normal sinus rhythm Low voltage QRS Borderline ECG Confirmed by RADHA VICK, MOO ([id number]), manuscript editor MERVAT KAPOOR ([id number]) on 09/21/2019 9:57:12 AM Referred By: JENA Confirmed By:MOO GARCIA MD
[2019-09-18 16:17] LABS: Bacteria RARE /hpf (None Seen); Squamous Epithelial Cells - UA 0-5 SEEN /hpf (5-10)
[2019-09-18 17:16] LABS: Potassium 6.7 mmol/L (3.5-5.1)
--- NOTE | 2019-09-18 17:21 | ED.RN ---
ATTEMPTED TO CALL [facility] TWICE. NEITHER TIME DID I REACH A PERSON OR A VOICEMAIL.
--- NOTE | 2019-09-18 17:25 | HP.PCM_ITS ---
Problem List (1) Hyperkalemia Status: Acute (2) COPD (chronic obstructive pulmonary disease) Status: Chronic Qualifiers: COPD type: unspecified COPD Qualified Code(s): J44.9 - Chronic obstructive pulmonary disease, unspecified (3) Tobacco use Status: Chronic (4) HTN (hypertension) Status: Chronic Qualifiers: Hypertension type: essential hypertension Qualified Code(s): I10 - Essential (primary) hypertension (5) HLD (hyperlipidemia) Status: Chronic Qualifiers: Hyperlipidemia type: unspecified Qualified Code(s): E78.5 - Hyperlipidemia, unspecified (6) CAD (coronary artery disease) Status: Chronic Qualifiers: Coronary Disease-Associated Artery/Lesion type: unspecified vessel or lesion type [place] vs. transplanted heart: unspecified whether [place] or transplanted heart Associated angina: angina presence unspecified Qualified Code(s): I25.10 - Atherosclerotic heart disease of [place] coronary artery without angina pectoris (7) Obesity Status: Acute (8) Diabetes mellitus, type II Status: Chronic Qualifiers: Diabetes mellitus extermination supervisor insulin use: with fdc use Diabetes mellitus complication status: with other specified complication Qualified Code(s): E11.69 - Type 2 diabetes mellitus with other specified complication; Z79.4 - terminal supervisor (current) use of insulin (9) History of breast cancer Status: Chronic (10) Metastatic melanoma Status: Chronic (11) Anxiety and depression Status: Chronic (12) History of left breast cancer Status: Chronic History of Present Illness Date of Admission: 09/18/19 Chief Complaint: Weakness, fatigue The patient is a 64 y/o F w/ PMHx: Chronic COPD, Chronic anemia, Depression and Anxiety, Obesity, Diabetes mellitus type II, CAD, History of L Breast CA, History of Metastatic Melanoma RU back diagnosed 01/24/2016 s/p wide resection w/ CT of the chest 05/06/2019 w/ multiple bilateral lung nodules w/ pathology showed metastatic melanoma 06/22/19 PET scan identifying increased glucose metabolism manifest in the left frontal cerebral cortex and left cerebellar hemisphere concerning for VISCOSITY TESTER metastatic disease w/ 06/23/19 demonstrated multiple enhancing lesions including 2 in the left cerebellar hemisphere, one in the left lingual gyrus, 1 in the right cuneus, 1 in the caudal aspect of the right central lobe, one in the posterior aspect of the left superior frontal gyrus and one in the left precentral gyrus suggestive metastatic melanoma s/p Opdivo and Yervoy 06/25/19, 2nd cycle on 07/20/2019 w/ onset severe diarrhea starting 07/24/2019 with prednisone start with taper now s/p SBRT to the brain w/ ongoing tremors and abnormal movement of BL upper extremity with recent o utpatient noted mild hypokalemia with start on potassium supplementation who now presents to the [facility] ED on 09/18/19 with onset severe fatigue, malaise prompting ED presentation in addition to onset x 3-4 days now onset BL LE tremors. Work-up in the ED included T 97.2, HR 75, BP 105/70, RR 16, 95% on RA, CBC w/ WBC 8.1, Hgb 13.8, Plts 283 without marked shift, BMP w/ Na 132, K 7.4 with repeat 6.7, E KG with SR without any acute findings, glucose 133, UA w/ SG 1.010, protein 30, glucose 1000, ketones 5 otherwise unremarkable appearing. In the ED patient administered albuterol, dextrose, insulin, Kayexalate and MiraLAX. 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) [place] over breast (Chronic) Medical History: Medical History (Last Reviewed 09/14/19 @ 11:06 by Blanche Braga) Anhedonia R45.84 Anxiety F41.9 B12 deficiency E53.8 Breast cancer, left C50.912 CAD (coronary artery disease) I25.10 COPD (chronic obstructive pulmonary disease) J44.9 Carpal tunnel syndrome G56.00 Depression F32.9 Diabetes mellitus E11.9 Emphysema lung J43.9 Hyperlipidemia E78.5 Hyponatremia E87.1 Melanoma C43.9 Peripheral edema R60.9 Hypertension I10 Allergies metformin [From Glucophage] Adverse Reaction (Severe, Verified 09/14/19 11:06) Nausea Home Medications: Ambulatory Orders Medication Instructions Recorded Albuterol Inhaler [Ventolin Hfa] 2 inhaler INHALATION Q4H PRN PRN 10/17/16 Lisinopril [Zestril] 40 mg PO QHS 10/17/16 Pantoprazole Sodium [Protonix] 40 mg PO DAILY 10/17/16 Aspirin E.C. [Ecotrin] 81 mg PO DAILY@0800 06/11/19 Cyclobenzaprine HCl 10 mg PO TID PRN PRN 06/11/19 Gabapentin [Neurontin] 300 mg PO TIDCM 06/11/19 Insulin Aspart [Novolog Flexpen 10 units SUBCUT BIDCM 06/11/19 ([facility])] Insulin Detemir [Levemir ([facility])] 50 units SUBCUT QHS 06/11/19 Meloxicam [Mobic] 15 mg PO DAILY 06/11/19 Nitroglycerin [Nitrostat] 0.4 mg SL PRN PRN 06/11/19 Pravastatin [Pravachol] 80 mg PO QHS 06/11/19 Verapamil HCl [Verapamil ER] 240 mg PO DAILY 06/11/19 buPROPion SR [Wellbutrin Sr] 200 mg PO BID 06/11/19 Nystatin Powder [Mycostatin Powder] 1 applic TOPICAL TID 30 Days #1 07/09/19 bottle Fluticasone 0.05% [Flonase Nasal 1 spray NASAL DAILY PRN PRN 09/18/19 [place]] Glimepiride 4 mg PO BID 09/18/19 Metoprolol Tartrate 50 mg PO BID 09/18/19 Potassium Chloride [Klor-Con M20] 40 meq PO TID 09/18/19 Surgical History: Surgical History (Last Reviewed 09/14/19 @ 11:06 by Blanche Braga) H/O melanoma excision Z98.890, Z85.820 back. [facility] 04/2019 History of cholecystectomy Z98.890, Z90.49 History of excision of pilonidal cyst Z98.890 History of lumpectomy Z98.890 History of lymph node excision Z98.890 Status post trigger finger release Z98.890 port placement Surgical History: noncontributory, - - Gamma knife therapy, left breast ectomy surgery, back melanoma wide excision, cholecystectomy. 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 Tobacco Use: Cigarettes Alcohol: None Drugs: None - *Family History Maternal Family History: Family History (Last Reviewed 09/14/19 @ 11:06 by Blanche Braga) Mother Heart disease Hypertension Father Diabetes Sister Lung cancer History Items: High Cholesterol, Heart Disease, Hypertension Paternal Family History: Family History (Last Reviewed 09/14/19 @ 11:06 by Blanche Braga) Mother Heart disease Hypertension Father Diabetes Sister Lung cancer History Items: Diabetes Review of Systems Constitutional: Reports: Malaise, Weakness, Fatigue. Denies: Anorexia, Chills, Fever, Weight Change HEENT: Denies: Head Aches, Sinus Congestion, Sinus Drainage Cardiovascular: Denies: Chest Pain, Palpitations Respiratory: Denies: Cough, Shortness of breath at rest, Sputum production Gastrointestinal: Denies: Abdominal Pain, Nausea, Vomiting Genitourinary: Denies: Dysuria Musculoskeletal: Reports: Back Pain, Joint Pain. Denies: Joint Tenderness Skin: Denies: Rash, Wounds Neurological: Reports: Tremor. Denies: Focal weakness, Numbness, Tingling Psychiatric: Reports: Anxiety, Depression. Denies: Homicidal Ideations, S uicidal Ideations Hematologic/ Lymphatic: Reports: Anemia. Denies: Easy Bruising, Easy Bleeding VTE Information - Inpt Only VTE Present on Admission: No VTE Mechan Device Prophylaxis: SCD's VTE Pharm Prophylaxis ordered?: Yes Patient Problems: Active and Suspected Problems (Last Reviewed 09/14/19 @ 11:06 by Blanche Braga) Hyperkalemia (Acute) Hyperkalemia (Acute) Obesity (Acute) Subjective: Seated upright in ED bed, fatigued appearance, initially sleeping but awakens with stimuli. Objective: Physical Examination: General: Initially sleeping but awakens to stimuli, alert, oriented x 3 putting person, place, recent events, remains cooperative, seated upright in bed in no apparent distress. Skin: normal color, turgor, no icterus, cyanosis. HEENT: AT/NC, EOMI, PERRLA, mildly dry MM, no carotid bruits or JVD noted. Lungs: Diminished breath sounds throughout, greater bases, moderate effort, no rales, ronchi or wheezing. Heart: Regular rate and rhythm; no gallop, rub audible. Abdomen: soft, obese, NTTP, ND, normal BS, no HSM. Extremities: no cyanosis, clubbing, or edema. Neurological: patient awake, alert, oriented as noted; cognitive function appears baseline intact; pupils equally reactive to light and accomodation; cranial nerves II-XII grossly normal, moving all 4 extremities, no focal deficits, strength moderately to severely global decrease likely secondary to acute presentation, no current tremors noted. Psychiatric: affect appears fatigued, no acute evidence of depressive or anxiety feelings. - Physical Exam Vitals/I&O's: Vital Signs Temp Pulse Resp BP Pulse Ox 98.9 F 74 24 H 140/74 H 92 09/18/19 14:32 09/18/19 16:38 09/18/19 16:38 09/18/19 16:38 09/18/19 16:38 Oxygen Delivery Method Room Air Weight: 203 lb Body Mass Index (BMI) 39.6 Finger Stick Blood Glucose 514 Laboratory Results 09/18/19 15:15: WBC 8.1, RBC 4.35, Hgb 13.8, Hct 43.2, MCV 99.3 H, MCH 31.7, MCHC 31.9 L, RDW Std Deviation 47.0 H, RDW Coeff of [place] 12.8, Plt Count 283, MPV 10.6, Immature Gran % (Auto) 0.600, Neut % (Auto) 61.1, Lymph % (Auto) 25.0, Elbert % (Auto) 10.2 H, Eos % (Auto) 2.1, Baso % (Auto) 1.0, Absolute Neuts (auto) 5.0, Absolute Lymphs (auto) 2.03, Nucleated RBC % 0 09/18/19 15:15: Sodium 132 L, Potassium 7.4 H*, Chloride 107, Carbon Dioxide 23.0, Anion Gap 2 L, BUN 11, Creatinine 0.90, Estim Creat Clear Calc 45.36, Est GFR (MDRD) Af Amer 81, Est GFR (MDRD) Non-Af 67, BUN/Creatinine Ratio 12.2, Glucose 333 H, Calcium 9.6 09/18/19 15:50: Urine Color Yellow, Urine Clarity Clear, Urine pH 6.0, Ur Specific [place] 1.010, Urine Protein 30 H, Urine Glucose (UA) 1000 H, Urine Ketones 5 H, Urine Occult Blood Negative, Urine Nitrite Negative, Urine Bilirubin Negative, Urine Urobilinogen Normal, Ur Leukocyte Esterase Negative, Urine RBC 0 SEEN, Urine WBC 0 SEEN, Ur Squamous Epith Cells 0-5 SEEN, Urine Bacteria RARE, Urine Mucus 0 SEEN 09/18/19 16:30: Potassium 6.7 H* Current Medications Sodium Chloride () 1,000 mls @ 150 mls/hr IV .Q6H40M JOSE Last Admin: 09/18/19 15:54 Dose: 150 mls/hr Documented by: Polyethylene Glycol (Miralax) 34 gm PO X1 PRN PRN Reason: Bowel Movement Assessment/Plan All Active Problems (Last Reviewed 09/14/19 @ 11:06 by Blanche Braga) RLQ abdominal pain (Acute) Diarrhea (Acute) Hyperglycemia (Acute) Fatigue (Acute) Hyperkalemia (Acute) Hyperkalemia (Acute) Obesity (Acute) Melanoma (Resolved) Vascular catheter fitting or adjustment (Acute) Encounter for education (Acute) Candidiasis of breast (Acute) Bloody diarrhea (Resolved) Hypokalemia (Resolved) The patient is a 64 y/o F w/ PMHx: Chronic COPD, Chronic anemia, Depression and Anxiety, Obesity, Diabetes mellitus type II, CAD, History of L Breast CA, Metastatic Melanoma to the lung and brain who presents to the [facility] ED on 09/18/19 with onset severe fatigue, malaise prompting ED presentation in addition to onset x 3-4 days now onset BL LE tremors. 1. Iatrogenic hyperkalemia with fatigue, malaise, tremors: Given ED presentation with level 7.4 although suspected mild analysis, repeat 6.7, admit to PCU, maintain on telemetry monitoring, EKG with no acute significant peak T waves or acute evidence of ischemia, administered albuterol, Kayexalate, MiraLAX, dextrose and insulin in the ED, will repeat BMP serially and continue to dose as needed to normalize potassium level, discussed strongly avoidance of taking her potassium supplementations above recommended. 2. Metastatic melanoma: Diagnosed 01/24/2016 s/p wide resection w/ CT of the chest 05/06/2019 w/ multiple bilateral lung nodules w/ pathology showed metastatic melanoma 06/22/19 PET scan identifying increased glucose metabolism manifest in the left frontal cerebral cortex and left cerebellar hemisphere concerning for VISCOSITY TESTER metastatic disease w06/23/19 demonstrated multiple enhancing lesions including 2 in the left cerebellar hemisphere, one in the left lingual gyrus, 1 in the right cuneus, 1 in the caudal aspect of the right central lobe, one in the posterior aspect of the left superior frontal gyrus and one in the left precentral gyrus suggestive metastatic melanoma s/p Opdivo and Yervoy 06/25/19, 2nd cycle on 07/20/2019 w/ onset severe diarrhea starting 07/24/2019 with prednisone start with taper now s/p SBRT to the brain w/ ongoing tremors. 3. Depression and anxiety: We will continue patient home Wellbutrin regimen. 4. Chronic anemia: Admission hemoglobin 13.8, stable, continue to trend. 5. Chronic COPD: ATC duonebs, PRN albuterol, HOB, IS parameters. 6. Tobacco Abuse: Encouraged cessation, inpatient consultation per RT, NR if desired. 7. Diabetes mellitus type II with neuropathy: Will continue home insulin regimen, will hold oral regimen, ADA diet, accu checks w/ ISS, continue home gabapentin regimen. 8. Hypertension: Continue home regimen including verapamil, metoprolol, lisinopril, PRN hydralazine. 9. Hyperlipidemia: We will continue home statin regimen. 10. Obesity: Weight loss and lifestyle changes encouraged. 11. CAD: Nonobstructive, continue aspirin, statin, metoprolol, ROBIN inhibitor therapy. 12. History of left breast cancer: Diagnosed 2007, status post surgical intervention, adjuvant chemotherapy and radiation, remission. 13. GERD: We will continue home PPI. 14. DVT prophylaxis: SCDs, Lovenox. 15. CODE status: Despite significant patient underlying history and ongoing a ctive cancer she has no healthcare power of senior attorney nor living will in place, strongly encouraged her to discuss these items with case management during her admission for assistance in going about setting these up. Discussed CODE status at length including difference between FULL code, DNR-CCA and DNR-CC status. Following discussions about the differences in these status, requested full CODE STATUS. Discussed at length likely outcome if an acute cardiopulmonary event did occur requiring resuscitative efforts, noting that her significant comorbidities including active metastatic cancer would likely make these unsuccessful. Advanced Care Planning Face to Face Time: 16 minutes. Code Visit Inpatient E&M: 43408 Init Hosp L3 Procedures: 93388 Advncd Care Plan 30 Min
[2019-09-18] MEDS: Albuterol 2.5 MG/3 ML VIAL.NEB. INHALATION ×3 (17:47→17:48)
[2019-09-18] MEDS: Insulin Lispro 10 UNIT in Syringe 0 ML 6 UNIT IV (17:59)
[2019-09-18] MEDS: Sodium Polystyrene Sulfonate 15 GM/60 ML UDC 30 GM PO (17:59)
[2019-09-18] MEDS: Polyethylene Glycol 3350 17 GM PACKET 34 GM PO (18:00)
[2019-09-18] MEDS: Dextrose 50%-Water 25 GM/50 ML DISP.SYRIN IV (18:00)
[2019-09-18] MEDS: 0.9% Normal Saline 1,000 ML 125 ML IV (20:13)
[2019-09-18 20:15] LABS: Magnesium 1.8 mg/dL (1.6-2.6); Phosphorus 3.1 mg/dL (2.5-4.9)
[2019-09-18] MEDS: Insulin Lispro 100 UNIT/ML INSULN.PEN SC (21:30)
[2019-09-18] MEDS: buPROPion (SR) 100 MG TABLET.SA 200 MG PO (21:31)
[2019-09-18] MEDS: Pravastatin 80 MG Tablet PO (21:32)
[2019-09-18] MEDS: Metoprolol Tartrate 50 MG Tablet PO (21:32)
[2019-09-18] MEDS: Lisinopril 40 MG Tablet PO (21:32)
[2019-09-18 21:46] LABS: Bedside Glucose 339 mg/dL (70-110)
[2019-09-18] MEDS: Ipratropium/Albuterol Sulfate 3 ML AMPUL.NEB INHALATION (23:14)
[2019-09-18 23:34] LABS: Anion Gap 4 (5-15); BUN 11 mg/dL (7-18); BUN/Creat Ratio 11.5 RATIO (10-20); Calcium,Total 9.2 mg/dL (8.5-10.1); Chloride 109 mmol/L (98-107); Creatinine, Serum 0.96 mg/dL (0.55-1.02); EST Glomerular Filtration Rate 62 mL/min (>60); Est Glom Filt Rate - Afr Amer 76 mL/min (>60); Estimated Creatinine Clearance 42.52 ml/min; Glucose 408 mg/dL (74-106); Potassium 5.6 mmol/L (3.5-5.1); Sodium Level 137 mmol/L (136-145)
[2019-09-19 03:13] VITALS: PULSE 82
[2019-09-19 03:30] VITALS: BP 137/87; PULSE 70; RESP 16; TEMP 36.6; O2SAT 96
[2019-09-19 03:56] LABS: Absolute Lymphocyte Count 2.23 X10^3/uL (0.83-4.51); Absolute Neutrophil Count 3.5 X10^3/uL (2.0-7.7); Basophil# 0.07 X10^3/uL; Eosinophil# 0.18 X10^3/uL; Eosinophils% 2.7 % (0-5); Hematocrit 39.6 % (37-47); Hemoglobin 12.4 g/dL (12.0-15.0); Lymphocyte # 2.23 X10^3/ul (4.0); Lymphocyte % 32.8 % (19-41); Mean Corp Hgb Conc 31.3 g/dL (32-36); Mean Corpuscular Hgb 31.2 pg (27.0-32.0); Mean Corpuscular Volume 99.7 fL (81-99); Mean Platelet Vol. 10.2 fl (6.2-12.0); Monocyte# 0.74 X10^3/uL; Monocyte% 10.9 % (0-10); NRBC Flagged by Analyzer 0 % (0-5); Neutrophil # 3.54 X10^3/uL (2.7-7.7); Neutrophil % 52.2 % (47-70); Platelet Count 224 K/mm3 (150-450); RBC Distribution Width CV 12.9 % (11.6-14.6); Red Blood Count 3.97 M/mm3 (4.2-5.4); White Blood Count 6.8 K/mm3 (4.4-11.0)
[2019-09-19 04:14] LABS: Anion Gap 6 (5-15); BUN 10 mg/dL (7-18); BUN/Creat Ratio 11.4 RATIO (10-20); Calcium,Total 8.6 mg/dL (8.5-10.1); Chloride 107 mmol/L (98-107); Creatinine, Serum 0.88 mg/dL (0.55-1.02); EST Glomerular Filtration Rate 69 mL/min (>60); Est Glom Filt Rate - Afr Amer 84 mL/min (>60); Estimated Creatinine Clearance 46.39 ml/min; Glucose 309 mg/dL (74-106); Potassium 4.7 mmol/L (3.5-5.1); Sodium Level 137 mmol/L (136-145)
[2019-09-19 07:07] VITALS: PULSE 75
[2019-09-19] MEDS: Insulin Lispro 100 UNIT/ML INSULN.PEN 10 UNIT SC (08:01)
[2019-09-19] MEDS: Insulin Lispro 100 UNIT/ML INSULN.PEN SC (08:02)
[2019-09-19] MEDS: Aspirin E.C. 81 MG Tablet PO (08:02)
[2019-09-19] MEDS: Gabapentin 300 MG Capsule PO (08:03)
[2019-09-19 08:16] LABS: Bedside Glucose 247 mg/dL (70-110)
[2019-09-19 08:33] VITALS: BP 136/72; PULSE 78; RESP 18; TEMP 36.6; O2SAT 94
[2019-09-19 09:24] LABS: Anion Gap 4 (5-15); BUN 9 mg/dL (7-18); BUN/Creat Ratio 10.6 RATIO (10-20); Calcium,Total 9.2 mg/dL (8.5-10.1); Chloride 110 mmol/L (98-107); Creatinine, Serum 0.85 mg/dL (0.55-1.02); EST Glomerular Filtration Rate 71 mL/min (>60); Est Glom Filt Rate - Afr Amer 86 mL/min (>60); Estimated Creatinine Clearance 48.03 ml/min; Glucose 248 mg/dL (74-106); Potassium 4.8 mmol/L (3.5-5.1); Sodium Level 137 mmol/L (136-145)
[2019-09-19] MEDS: Enoxaparin 40 MG/0.4 ML Syringe SC (09:47)
[2019-09-19] MEDS: Pantoprazole Sodium 40 MG Tablet PO (09:47)
[2019-09-19] MEDS: Meloxicam 15 MG Tablet PO (09:47)
[2019-09-19] MEDS: buPROPion (SR) 100 MG TABLET.SA 200 MG PO (09:47)
[2019-09-19] MEDS: Verapamil SR 240 MG Tablet PO (09:47)
[2019-09-19 09:48] VITALS: BP 136/72; PULSE 78
[2019-09-19] MEDS: Metoprolol Tartrate 50 MG Tablet PO (09:48)
--- NOTE | 2019-09-19 11:30 | DCINST_ITS ---
- Discharge Diagnoses Current Active Problems: Current Active and Chronic Problems (Last Reviewed 09/14/19 @ 11:06 by Blanche Barga) Hyperkalemia (Acute) Hyperkalemia (Acute) COPD (chronic obstructive pulmonary disease) (Chronic) Tobacco use (Chronic) HTN (hypertension) (Chronic) HLD (hyperlipidemia) (Chronic) CAD (coronary artery disease) (Chronic) Obesity (Acute) Diabetes mellitus, type II (Chronic) History of breast cancer (Chronic) Metastatic melanoma (Chronic) Anxiety and depression (Chronic) History of left breast cancer (Chronic) You will use the following diet at home:: No restrictions Discharge Activity: Return to Normal Activity Call your doctor if you observe: Shortness of breath, Dizziness, Fainting spells, Chest pain Additional Instructions: Recommend repeat BMP saturday to re-check potassium. Allergies/Adverse Reactions: Allergies metformin [From Glucophage] Adverse Reaction (Severe, Verified 09/14/19 11:06) Nausea Medications to take at Discharge Albuterol Inhaler [Ventolin Hfa] 2 inhaler INHALATION Q4H PRN PRN 10/17/16 Lisinopril [Zestril] 40 mg PO QHS 10/17/16 Pantoprazole Sodium [Protonix] 40 mg PO DAILY 10/17/16 Aspirin E.C. [Ecotrin] 81 mg PO DAILY@0800 06/11/19 Cyclobenzaprine HCl 10 mg PO TID PRN PRN 06/11/19 Gabapentin [Neurontin] 300 mg PO TIDCM 06/11/19 Insulin Aspart [Novolog Flexpen] 10 units SUBCUT BIDCM 06/11/19 Insulin Detemir [Levemir FlexPen] 50 units SUBCUT QHS 06/11/19 Meloxicam [Mobic] 15 mg PO DAILY 06/11/19 Nitroglycerin [Nitrostat] 0.4 mg SL PRN PRN 06/11/19 Pravastatin [Pravachol] 80 mg PO QHS 06/11/19 Verapamil HCl [Verapamil ER] 240 mg PO DAILY 06/11/19 buPROPion SR [Wellbutrin Sr] 200 mg PO BID 06/11/19 Nystatin Powder [Mycostatin Powder] 1 applic TOPICAL TID 30 Days #1 bottle 07/09/19 Fluticasone 0.05% [Flonase Nasal [place]] 1 spray NASAL DAILY PRN PRN 09/18/19 Glimepiride 4 mg PO BID 09/18/19 Metoprolol Tartrate 50 mg PO BID 09/18/19 Primary Care Physician: Catherine Taveras DO [Primary Care Provider] - Please follow up with your Primary Care Physician in: As scheduled, Saturday09/20/2019 Test Results: Test results from this visit will be discussed in further detail at your follow- up appointment, if applicable. Proposed Discharge Date: 09/19/19
[2019-09-19 11:56] LABS: Bedside Glucose 241 mg/dL (70-110)
--- NOTE | 2019-09-19 12:53 | DS.PCM_ITS ---
<Desiree Morse - Last Filed: 09/19/19 13:01> Discharge Date and Diagnosis Date of Admission: 09/18/19 Date of Discharge: 09/19/19 - Primary Discharge Diagnosis 1. Iatrogenic hyperkalemia 2. Metastatic melanoma 3. Depression with anxiety 4. Chronic anemia 5. Chronic COPD 6. Tobacco dependence 7. Type 2 diabetes mellitus with neuropathy 8. Hypertension 9. Hyperlipidemia 10. Obesity 11. CAD 12. History of left breast cancer 13. GERD - Secondary Discharge Diagnosis Chronic Problems (Last Reviewed 09/14/19 @ 11:06 by Blanche Braga) COPD (chronic obstructive pulmonary disease) (Chronic) Tobacco use (Chronic) HTN (hypertension) (Chronic) HLD (hyperlipidemia) (Chronic) CAD (coronary artery disease) (Chronic) Diabetes mellitus, type II (Chronic) History of breast cancer (Chronic) Metastatic melanoma (Chronic) Anxiety and depression (Chronic) History of left breast cancer (Chronic) Metastatic melanoma to lung (Chronic) Malignant melanoma metastatic to lung (Chronic) Malignant melanoma metastatic to brain (Chronic) Peau d'orange over breast (Chronic) Hospital Course and Treatment Operations: None Procedures: None Summary of Care Provided: The patient is a 64 year old F admitted 09/18/2019 due to weakness and fatigue. Following correction of potassium, patient feels significantly improved. Denies further tremors or weakness. 1. Iatrogenic hyperkalemia-patient reports recent low potassium which she has been supplementing at home. Potassium on admission 7.4, repeat 6.7. Patient received albuterol, Kayexalate, MiraLAX, dextrose and insulin. Potassium at discharge 4.8. Patient's home potassium supplement discontinued. Recommend repeat BMP on Saturday-patient reports she has follow-up with primary care physician on Saturday which she will continue. 2. Metastatic melanoma-following with [facility]. Upcoming bone scan. Continue outpatient treatment and follow-up. 3. Depression with anxiety-continue home Wellbutrin regimen. 4. Chronic anemia-stable. 5. Chronic COPD-no exacerbation. 6. Tobacco dependence-encouraged cessation. 7. Type 2 diabetes mellitus with neuropathy-continue home insulin regimen and oral regimen. 8. Hypertension-stable, continue verapamil, metoprolol, lisinopril. 9. Hyperlipidemia-continue statin. 10. Obesity-encouraged diet lifestyle modifications. 11. CAD-continue aspirin, statin, beta-camacho, ROBIN inhibitor. 12. History of left breast cancer-status post surgical intervention, chemotherapy and radiation-in remission. 13. GERD- continue PPI. Patient seen and examined prior to discharge. Physical assessment as noted below. Patient is stable for discharge with follow up recommendations as noted above. This patient was seen by KURT Mcknight under the supervision of Dr. Rodriguez. - Physical Exam Vitals/I&O's: Vital Signs Temp Pulse Resp BP Pulse Ox 98 F 78 18 136/72 H 94 09/19/19 08:33 09/19/19 09:48 09/19/19 08:33 09/19/19 09:48 09/19/19 08:33 Oxygen Flow Rate (L/min) 2 Oxygen Delivery Method Room Air Weight: 203 lb Body Mass Index (BMI) 39.6 Finger Stick Blood Glucose 514 Intake and Output for Last 24 Hours 09/17/19 09/18/19 09/19/19 23:59 23:59 23:59 Intake Total 1145 / 1145 4.17 / 2123.17 Balance 1145 / 1145 2123.17 / 2123.17 General: Alert, Oriented x3, Cooperative HEENT: Atraumatic, PERRLA, EOMI, Normocephalic Neck: Supple, No JVD, Negative Carotid Bruits Lungs: Clear to auscultation, Normal air movement Cardiovascular: Regular rate, Regular Rhythm, Normal S1, Normal S2, No murmurs Abdomen: Bowel Sounds Present, Soft, Non Tender, Non-Distended Extremities: No clubbing, No cyanosis, No edema, Capillary Refill Less than 3 Seconds Skin: No rashes, No breakdown Musculoskeletal: No Tenderness to Palpation of Joints or Extremities Neurological: Cranial nerves II-XII grossly intact, Neuro grossly intact Psych/Mental Status: Normal Affect, Appropriate Laboratory Results 09/18/19 15:15: WBC 8.1, RBC 4.35, Hgb 13.8, Hct 43.2, MCV 99.3 H, MCH 31.7, MCHC 31.9 L, RDW Std Deviation 47.0 H, RDW Coeff of K[place] 12.8, Plt Count 283, MPV 10.6, Immature Gran % (Auto) 0.600, Neut % (Auto) 61.1, Lymph % (Auto) 25.0, [place] % (Auto) 10.2 H, Eos % (Auto) 2.1, Baso % (Auto) 1.0, Absolute Neuts (auto) 5.0, Absolute Lymphs (auto) 2.03, Nucleated RBC % 0 09/18/19 15:15: Sodium 132 L, Potassium 7.4 H*, Chloride 107, Carbon Dioxide 23.0, Anion Gap 2 L, BUN 11, Creatinine 0.90, Estim Creat Clear Calc 45.36, Est GFR (MDRD) Af Amer 81, Est GFR (MDRD) Non-Af 67, BUN/Creatinine Ratio 12.2, Glucose 333 H, Calcium 9.6 09/18/19 15:50: Urine Color Yellow, Urine Clarity Clear, Urine pH 6.0, Ur Specific [place] 1.010, Urine Protein 30 H, Urine Glucose (UA) 1000 H, Urine Ketones 5 H, Urine Occult Blood Negative, Urine Nitrite Negative, Urine Bilirubin Negative, Urine Urobilinogen Normal, Ur Leukocyte Esterase Negative, Urine RBC 0 SEEN, Urine WBC 0 SEEN, Ur Squamous Epith Cells 0-5 SEEN, Urine Bacteria RARE, Urine Mucus 0 SEEN 09/18/19 16:30: Potassium 6.7 H* 09/18/19 16:30: Sodium Cancelled, Potassium Cancelled, Chloride Cancelled, Carbon Dioxide Cancelled, Anion Gap Cancelled, BUN Cancelled, Creatinine Cancelled, Est GFR (MDRD) Af Amer Cancelled, Est GFR (MDRD) Non-Af Cancelled, BUN/Creatinine Ratio Cancelled, Glucose Cancelled, Calcium Cancelled, Phosphorus 3.1, Magnesium 1.8 09/18/19 21:25: POC Glucose 339 H 09/18/19 23:02: Sodium 137, Potassium 5.6 H, Chloride 109 H, Carbon Dioxide 24.0, Anion Gap 4 L, BUN 11, Creatinine 0.96, Estim Creat Clear Calc 42.52, Est GFR (MDRD) Af Amer 76, Est GFR (MDRD) Non-Af 62, BUN/Creatinine Ratio 11.5, Glucose 408 H, Calcium 9.2 09/19/19 03:45: Sodium 137, Potassium 4.7, Chloride 107, Carbon Dioxide 24.0, Anion Gap 6, BUN 10, Creatinine 0.88, Estim Creat Clear Calc 46.39, Est GFR (MDRD) Af Amer 84, Est GFR (MDRD) Non-Af 69, BUN/Creatinine Ratio 11.4, Glucose 309 H, Calcium 8.6 09/19/19 03:45: WBC 6.8, RBC 3.97 L, Hgb 12.4, Hct 39.6, MCV 99.7 H, MCH 31.2, MCHC 31.3 L, RDW Std Deviation 47.0 H, RDW Coeff of [place] 12.9, Plt Count 224, MPV 10.2, Immature Gran % (Auto) 0.400, Neut % (Auto) 52.2, Lymph % (Auto) 32.8, [place] % (Auto) 10.9 H, Eos % (Auto) 2.7, Baso % (Auto) 1.0, Absolute Neuts (auto) 3.5, Absolute Lymphs (auto) 2.23, Nucleated RBC % 0 09/19/19 07:57: POC Glucose 247 H 09/19/19 08:06: Sodium 137, Potassium 4.8, Chloride 110 H, Carbon Dioxide 23.0, Anion Gap 4 L, BUN 9, Creatinine 0.85, Estim Creat Clear Calc 48.03, Est GFR (MDRD) Af Amer 86, Est GFR (MDRD) Non-Af 71, BUN/Creatinine Ratio 10.6, Glucose 248 H, Calcium 9.2 09/19/19 11:50: POC Glucose 241 H Discharge Diet: No Restrictions Discharge Activity: Return to Normal Activity Call your doctor if you observe: Shortness of breath, Dizziness, Fainting spells, Chest pain Home Medications: Medications to take at Discharge Albuterol Inhaler [Ventolin Hfa] 2 inhaler INHALATION Q4H PRN PRN 10/17/16 Lisinopril [Zestril] 40 mg PO QHS 10/17/16 Pantoprazole Sodium [Protonix] 40 mg PO DAILY 10/17/16 Aspirin E.C. [Ecotrin] 81 mg PO DAILY@0800 06/11/19 Cyclobenzaprine HCl 10 mg PO TID PRN PRN 06/11/19 Gabapentin [Neurontin] 300 mg PO TIDCM 06/11/19 Insulin Aspart [Novolog Flexpen] 10 units SUBCUT BIDCM 06/11/19 Insulin Detemir [Levemir FlexPen] 50 units SUBCUT QHS 06/11/19 Meloxicam [Mobic] 15 mg PO DAILY 06/11/19 Nitroglycerin [Nitrostat] 0.4 mg SL PRN PRN 06/11/19 Pravastatin [Pravachol] 80 mg PO QHS 06/11/19 Verapamil HCl [Verapamil ER] 240 mg PO DAILY 06/11/19 buPROPion SR [Wellbutrin Sr] 200 mg PO BID 06/11/19 Nystatin Powder [Mycostatin Powder] 1 applic TOPICAL TID 30 Days #1 bottle 07/09/19 Fluticasone 0.05% [Flonase Nasal [place]] 1 spray NASAL DAILY PRN PRN 09/18/19 Glimepiride 4 mg PO BID 09/18/19 Metoprolol Tartrate 50 mg PO BID 09/18/19 Primary Care Physician: Catherine Taveras DO [Primary Care Provider] - Please follow up with your Primary Care Physician in: As scheduled, Saturday09/20/2019 Disposition: Home Minutes spent on discharge:: 35 Patient Condition:: Stable Medical Necessity - Tobacco Use Smoking Status: Current every day smoker Tobacco Use: Cigarettes Meaningful Use Info Meaningful Use Diagnoses (Choose all that apply): None applicable <Jason Rodriguez - Last Filed: 09/19/19 14:23> Discharge Date and Diagnosis - Secondary Discharge Diagnosis Chronic Problems (Last Reviewed 09/14/19 @ 11:06 by Blanche Braga) COPD (chronic obstructive pulmonary disease) (Chronic) Tobacco use (Chronic) HTN (hypertension) (Chronic) HLD (hyperlipidemia) (Chronic) CAD (coronary artery disease) (Chronic) Diabetes mellitus, type II (Chronic) History of breast cancer (Chronic) Metastatic melanoma (Chronic) Anxiety and depression (Chronic) History of left breast cancer (Chronic) Metastatic melanoma to lung (Chronic) Malignant melanoma metastatic to lung (Chronic) Malignant melanoma metastatic to brain (Chronic) Peau d'orange over breast (Chronic) Hospital Course and Treatment Summary of Care Provided: This patient was seen in conjunction with KURT Mcknight . I have independently interviewed and examined the patient and reviewed pertinent historical, laboratory, and other data. Please refer to KURT Mcknight note for details of this patient's presentation, findings, and recommendations. I have reviewed KURT Mcknight note and concur with documented findings. In brief, patient is a 64-year-old lady with history of metastatic melanoma who presented with tremors found to have hyperkalemia. Admitted to monitored bed for further management Hospital course: As documented above - Physical Exam Vitals/I&O's: Vital Signs Temp Pulse Resp BP Pulse Ox 98 F 78 18 136/72 H 94 09/19/19 08:33 09/19/19 09:48 09/19/19 08:33 09/19/19 09:48 09/19/19 08:33 Oxygen Flow Rate (L/min) 2 Oxygen Delivery Method Room Air Weight: 92.079 kg Body Mass Index (BMI) 39.6 Finger Stick Blood Glucose 514 Intake and Output for Last 24 Hours 09/17/19 09/18/19 09/19/19 23:59 23:59 23:59 Intake Total 1145 / 1145 2123.17 / 2123.17 Balance 1145 / 1145 2123. / 2123. Laboratory Results 09/18/19 15:15: WBC 8.1, RBC 4.35, Hgb 13.8, Hct 43.2, MCV 99.3 H, MCH 31.7, MCHC 31.9 L, RDW Std Deviation 47.0 H, RDW Coeff of [place] 12.8, Plt Count 283, MPV 10.6, Immature Gran % (Auto) 0.600, Neut % (Auto) 61.1, Lymph % (Auto) 25.0, [place] % (Auto) 10.2 H, Eos % (Auto) 2.1, Baso % (Auto) 1.0, Absolute Neuts (auto) 5.0, Absolute Lymphs (auto) 2.03, Nucleated RBC % 0 09/18/19 15:15: Sodium 132 L, Potassium 7.4 H*, Chloride 107, Carbon Dioxide 23.0, Anion Gap 2 L, BUN 11, Creatinine 0.90, Estim Creat Clear Calc 45.36, Est GFR (MDRD) Af Amer 81, Est GFR (MDRD) Non-Af 67, BUN/Creatinine Ratio 12.2, Glucose 333 H, Calcium 9.6 09/18/19 15:50: Urine Color Yellow, Urine Clarity Clear, Urine pH 6.0, Ur Specific [place] 1.010, Urine Protein 30 H, Urine Glucose (UA) 1000 H, Urine Ketones 5 H, Urine Occult Blood Negative, Urine Nitrite Negative, Urine Bilirubin Negative, Urine Urobilinogen Normal, Ur Leukocyte Esterase Negative, Urine RBC 0 SEEN, Urine WBC 0 SEEN, Ur Squamous Epith Cells 0-5 SEEN, Urine Bacteria RARE, Urine Mucus 0 SEEN 09/18/19 16:30: Potassium 6.7 H* 09/18/19 16:30: Sodium Cancelled, Potassium Cancelled, Chloride Cancelled, Carbon Dioxide Cancelled, Anion Gap Cancelled, BUN Cancelled, Creatinine Cancelled, Est GFR (MDRD) Af Amer Cancelled, Est GFR (MDRD) Non-Af Cancelled, BUN/Creatinine Ratio Cancelled, Glucose Cancelled, Calcium Cancelled, Phosphorus 3.1, Magnesium 1.8 09/18/19 21:25: POC Glucose 339 H 09/18/19 23:02: Sodium 137, Potassium 5.6 H, Chloride 109 H, Carbon Dioxide 24.0, Anion Gap 4 L, BUN 11, Creatinine 0.96, Estim Creat Clear Calc 42.52, Est GFR (MDRD) Af Amer 76, Est GFR (MDRD) Non-Af 62, BUN/Creatinine Ratio 11.5, Glucose 408 H, Calcium 9.2 09/19/19 03:45: Sodium 137, Potassium 4.7, Chloride 107, Carbon Dioxide 24.0, Anion Gap 6, BUN 10, Creatinine 0.88, Estim Creat Clear Calc 46.39, Est GFR (MDRD) Af Amer 84, Est GFR (MDRD) Non-Af 69, BUN/Creatinine Ratio 11.4, Glucose 309 H, Calcium 8.6 09/19/19 03:45: WBC 6.8, RBC 3.97 L, Hgb 12.4, Hct 39.6, MCV 99.7 H, MCH 31.2, MCHC 31.3 L, RDW Std Deviation 47.0 H, RDW Coeff of [place] 12.9, Plt Count 224, MPV 10.2, Immature Gran % (Auto) 0.400, Neut % (Auto) 52.2, Lymph % (Auto) 32.8, [place] % (Auto) 10.9 H, Eos % (Auto) 2.7, Baso % (Auto) 1.0, Absolute Neuts (auto) 3.5, Absolute Lymphs (auto) 2.23, Nucleated RBC % 0 09/19/19 07:57: POC Glucose 247 H 09/19/19 08:06: Sodium 137, Potassium 4.8, Chloride 110 H, Carbon Dioxide 23.0, Anion Gap 4 L, BUN 9, Creatinine 0.85, Estim Creat Clear Calc 48.03, Est GFR (MDRD) Af Amer 86, Est GFR (MDRD) Non-Af 71, BUN/Creatinine Ratio 10.6, Glucose 248 H, Calcium 9.2 09/19/19 11:50: POC Glucose 241 H Code Visit Inpatient E&M: 34003 Disch Hosp
== END 2019-09-19 12:47 | disposition home or self-care (01) ==
LOC: ED 17:21 → PCU 09-19 07:24
PROVIDERS: Admitting Provider Family Medicine; Emergency Provider Emergency Medicine; PCP Family Medicine; Visit Provider Internal Medicine
DX: E87.5 Hyperkalemia (principal); C43.9 Malignant melanoma of skin, unspecified; C78.00 Secondary malignant neoplasm of unspecified lung; E11.40 Type 2 diabetes mellitus with diabetic neuropathy, unspecified; Z23 Encounter for immunization; J44.9 Chronic obstructive pulmonary disease, unspecified; C79.31 Secondary malignant neoplasm of brain; F41.8 Other specified anxiety disorders; I10 Essential (primary) hypertension; E78.5 Hyperlipidemia, unspecified; F17.210 Nicotine dependence, cigarettes, uncomplicated; I25.10 Atherosclerotic heart disease of native coronary artery without angina pectoris; K21.9 Gastro-esophageal reflux disease without esophagitis; E66.9 Obesity, unspecified; Z79.899 Other long term (current) drug therapy; Z79.82 Long term (current) use of aspirin; Z79.4 Long term (current) use of insulin; Z68.39 Body mass index [BMI] 39.0-39.9, adult; Z71.3 Dietary counseling and surveillance; Z85.3 Personal history of malignant neoplasm of breast
CPT/HCPCS: 36415; 80048; 81001; 82962; 83735; 84100; 84132; 85025; 93005; 94640; 96361; 96372; 96374; 96375; 99218; 99251; 99285; 99406; J7030; 90686; G0378; G0463

== ENCOUNTER → 2019-09-22 14:11 | Outpatient (CLI) | payer MEDICAID, SELFPAY ==
[2019-07-03 10:02] VITALS: BMI 40.8
[2019-09-14 11:06] VITALS: BMI 39.6
[2019-09-18 14:32] VITALS: BMI 39.6
--- NOTE | 2019-09-22 14:17 | CT_ITS ---
We are attempting to reach an attending provider to discuss findings. An addendum with communication details will be sent when the communication is complete. STUDY: CT CHEST WITH CONTRAST REASON FOR EXAM: Female, 64 years old. Malignant melanoma with lung metastases. RADIATION DOSAGE (If Supplied By Facility): CTDIvol = ( 14.81 ) mGy, DLP = ( 638.33 ) mGycm TECHNIQUE: Transaxial imaging was performed following intravenous administration of IV 100mL Isovue-300. Multiplanar coronal and sagittal images were reformatted. Individualized dose optimization techniques were used for this CT. COMPARISON: PET/CT scan, July 12, 2019. FINDINGS: Lungs well-expanded. There are numerous bilateral pulmonary nodules. These range between between 2 and 8 mm in size. These are overall smaller in size when compared to the PET/CT scan. There is no demonstrated pleural abnormality. Normal heart and pericardium. There are calcifications of the coronary arteries. Stable mediastinal lymphadenopathy. Normal hilar regions. There is pulmonary embolus in peripheral vessels to the posterior right upper lobe. No other evidence of pulmonary embolus is noted. There is atherosclerotic calcification of the aortic arch with tortuosity and elongation of the aortic arch and descending thoracic aorta. There are multi-level degenerative changes of the thoracic spine. There is a spiculated soft tissue mass in the left breast with uncovering of the overlying skin. There is nonspecific right axillary lymph nodes. There is no demonstrated abnormality of the visualized upper abdomen. CT/Chest WITH Contrast IMPRESSION: 1. Multiple bilateral pulmonary nodules. These appear smaller in size when compared to the PET scan of June 22, 2019. 2. Pulmonary embolus in the peripheral vessels of the posterior right upper lobe. 3. Atherosclerotic changes of the coronary arteries and thoracic aorta. Electronically Signed: Anup Carpenter DO at 19:56 EST Tel [phone], Service support ,
[2019-09-22 14:49] VITALS: BMI 39.0
[2019-09-22] MEDS: Alteplase 2 MG/2 ML Vial IV (15:09)
== END ==
PROVIDERS: PCP Family Medicine; Referring Provider Internal Medicine Medical Oncology; Visit Provider Internal Medicine Medical Oncology
DX: C78.00 Secondary malignant neoplasm of unspecified lung (principal); C43.9 Malignant melanoma of skin, unspecified; I26.99 Other pulmonary embolism without acute cor pulmonale; I25.10 Atherosclerotic heart disease of native coronary artery without angina pectoris
CPT/HCPCS: 36593; 71260; J2997; Q9967; A4216

== ENCOUNTER → 2019-09-23 07:19 | Outpatient (CLI) | payer MEDICAID, SELFPAY ==
[2019-07-03 10:02] VITALS: BMI 40.8
[2019-09-14 11:06] VITALS: BMI 39.6
[2019-09-22 14:49] VITALS: BMI 39.0
--- NOTE | 2019-09-23 07:20 | NM_ITS ---
CLINICAL: 64-year-old female with history of malignant melanoma. WHOLE BODY 99m Tc MDP RADIONUCLIDE BONE SCINTIGRAPHY COMPARISON: [facility] PET/CT report 06/22/2019, CT of the chest report 09/22/2019, CT of the abdomen-pelvis report 08/11/2019 FINDINGS: Following the intravenous administration of 25.0 mCi of 99m Tc MDP, whole body bone images reveal: 1. Increased radiopharmaceutical concentration is identified in the mid cervical spine posteriorly on the left, ninth thoracic vertebra posteriorly on the left, third lumbar vertebra posteriorly on the left and right, fifth lumbar vertebra posteriorly on the right, the acromioclavicular and sternoclavicular compartments of both shoulders, knees bilaterally. 2. The remaining skeletal structures are scintigraphically unremarkable with normal-appearing renal images and urinary bladder activity identified. Enhanced tracer concentration is apparent in the periosseous soft tissue at the level of the right iliac crest most consistent with probable posttraumatic soft tissue calcification. Facilitated uptake is noted in the bilateral mandible and maxilla most consistent with periodontal disease and/or periostitis. NM/Bone Scan Whole Body IMPRESSION: 1. The increase in radiopharmaceutical concentration identified in the cervical, thoracic and lumbar spine, bilateral shoulders, right and left knees is most consistent with degenerative arthritis. 2. There is no definitive typical scintigraphic evidence of skeletal metastatic disease on the current examination. Electronically Signed: Loc Oliver DO at 10:18 EST Tel , Service support ,
== END ==
PROVIDERS: PCP Family Medicine; Referring Provider Internal Medicine Medical Oncology; Visit Provider Internal Medicine Medical Oncology
DX: C78.00 Secondary malignant neoplasm of unspecified lung (principal); C43.9 Malignant melanoma of skin, unspecified; C79.51 Secondary malignant neoplasm of bone
CPT/HCPCS: 78306

== ENCOUNTER 2019-10-07 16:50 | Observation (INO) | payer MEDICAID, SELFPAY ==
[2019-07-03 10:02] VITALS: BMI 40.8
[2019-09-24 14:35] VITALS: BMI 39.5
[2019-10-07] VITALS (22 sets, daily range): BP systolic 118–207; BP diastolic 66–114; PULSE 76–100; RESP 15–26; TEMP 35.9–37; O2SAT 92–100; BMI 40.2; BMI 39.9; BMI 40.0
[2019-10-07 17:01] LABS: Bedside Glucose 400 mg/dL (70-110)
--- NOTE | 2019-10-07 17:03 | CT_ITS ---
We are attempting to reach an attending provider to discuss findings. An addendum with communication details will be sent when the communication is complete. STUDY: CT BRAIN WITHOUT CONTRAST REASON FOR EXAM: Female, 64 years old. CVA, right arm/leg numbness and tingling. Hx malignant melanoma with brain mets, immunotherapy, diabetes. RADIATION DOSAGE (If Supplied By Facility): CTDIvol = ( 44.99 ) mGy, DLP = ( 762.36 ) mGycm TECHNIQUE: Transaxial CT imaging of the brain was performed without administration of intravenous contrast material. Individualized dose optimization techniques were used for this CT. COMPARISON: 09/05/2019 FINDINGS: Normal soft tissue structures. Normal calvarium. Normal size ventricles and extra-axial spaces for the patient''s age. Once again, multiple hyperdense brain masses are present compatible with the given history of malignant melanoma. Overall, conspicuity of individual lesions has decreased somewhat compared to prior study. The largest visible lesion is in the high left frontal lobe, measuring 14 x 11 mm on image 33 of series 2. Normal basal ganglia and thalami. Normal brainstem. There is no intracranial hemorrhage. There are no findings of an acute ischemic infarction. Stable left occipital encephalomalacia. Stable deformity of the right maxillary sinus. CT/Brain/Head without Contrast IMPRESSION: No CT evidence of acute infarct. Once again, multiple hyperdense brain masses are present compatible with the given history of malignant melanoma. Overall, conspicuity of individual lesions has decreased somewhat compared to prior study. Comment: If there is clinical concern for hyperacute ischemia that is not yet apparent by CT, MRI should be considered if possible. Electronically Signed: Harry Benson MD at 17:17 EDT Tel , Service support ,
--- NOTE | 2019-10-07 17:08 | CM.ED ---
Social Work Responding to stroke alert. Support provided to patient family. Jonas KAUFMAN, LUL
--- NOTE | 2019-10-07 17:41 | EKG12_ITS ---
Test Reason : STROKETEAM Blood Pressure : / mmHG Vent. Rate : 091 BPM Atrial Rate : 091 BPM P-R Int : 146 ms QRS Dur : 088 ms QT Int : 376 ms P-R-T Axes : 048 020 059 degrees QTc Int : 462 ms Normal sinus rhythm Low voltage QRS Borderline ECG Confirmed by FADIA VICK, ELSA ([id number]), editor managing newspaper MISAEL PEREZ ([id number]) on 10/12/2019 11:26:28 AM Referred By: ROHITH Confirmed By:GREGG LOAIZA MD
--- NOTE | 2019-10-07 17:42 | ED.DCSUM_ITS ---
- ER Visit Summary Date of Service: 10/07/19 Chief Complaint: Stroke History of Present Illness: The patient is a 64 F who presents with right upper and lower extremity weakness that began today when she woke up from a nap. Patient states that she had difficulty moving her right arm and leg when she woke up from her nap at approximately 1600 hrs. Patient laid down for her nap at approximately 1500 hrs. Patient denies any difficulty swallowing difficulty talking. Patient denies any visual deficits. Patient denies any facial weakness. Patient states her weakness in her right arm and leg are improving. Patient is on Eliquis for a pulmonary embolism. Patient also has a history of melanoma with metastases to the lung and brain. Physical Examination: Vital signs are stable. Patient is afebrile. Patient is in no acute distress. Cranial nerves II through XII are grossly intact. Pupils are equal, round, and reactive to light bilaterally. Extraocular muscles are intact. There are no visual field deficits noted. Strength is 4/5 in the right upper and lower extremity and 5/5 in the left upper and lower extremity. There are no sensory deficits noted. Ckin-am-kvpo and dwylme-jm-elbo are intact. Neck is supple. Trachea is midline. Heart was regular rate and rhythm. Lungs are clear and equal bilaterally. Abdomen is soft. Bowel sounds are normal. There is no tenderness. Test Results: CT scan of the brain was obtained. There are metastatic lesions noted which are similar to previous CT. There is no acute intracranial infarct or hemorrhage. This was interpreted by the radiologist and reviewed by myself. EKG showed a normal sinus rhythm with a rate of 91. There are no acute ST or T wave changes. This was unchanged compared to previous EKG dated 09/18/2019. CBC and metabolic profile were obtained and were essentially within normal limits. Glucose was elevated at 399. Troponin was normal. PT with INR and PTT were normal. Emergency Department Course and Treatment: NIH stroke scale was 2 on my exam. Stroke neurologist from [facility] evaluated patient via the robot. She reviewed the CT scan and feels that her weakness is due to 1 of the metastatic lesions. Patient is not a candidate for thrombolytic therapy due to her metastatic brain lesions as well as being on Eliquis. She recommended giving the patient Decadron and keeping her blood pressure below 140 systolic. She did not want the patient to have a CTA of the head neck since she felt the weakness is due to a metastatic lesion. Patient was given labetalol and Decadron here. Patient's blood pressure improved. Case was discussed with Dr. Ramirez, the hospitalist. He did not want to admit the patient here because the stroke neurologist thought that there was some mild bleeding around the meta static lesion in the left parietal area. I discussed the case with the radiologist again who did not report any bleeding on the original CT scan. He stated that the metastatic lesion from melanoma is similar to blood on a CT scan. However, compared to the prior CT scan the brightness of the lesion was less on today's exam and he did not feel this was bleeding. He did recommend obtaining an MRI to compare to the previous MRI in August to evaluate for bleeding. MRI was obtained. There is no hemorrhage. There is increasing edema around the metastatic lesion in the left parietal area. Case was discussed with the hospitalist, Dr. Iverson. He recommended consulting tele-neurology and asking them if the patient should be on aspirin instead of Eliquis, what the blood pressure recommendations would be, and recommendations for MRA of the head and neck. He recommended continuing the Eliquis and does not feel the patient requires aspirin. He also recommended permissive hypertension and does not feel the patient's blood pressure needs to be treated at this time. He did also recommend an MRA of the head and neck. Hospitalist will admit the patient to PCU for observation. Patient understood and was agreeable with the plan. All questions were answered. Disposition: Admit to hospital Impression: 1. Acute stroke This note was generated with [employer] dictation software. It may contain incorrect words, spelling, and punctuation that were not noted in review of the chart prior to signing ED Disposition - Plan for ED Patient: Disposition: Acute Care Hospital [facility] Diagnosis: Weakness due to acute stroke Referrals: Catherine Taveras DO [Primary Care Provider] -
[2019-10-07] MEDS: dexAMETHasone 10 MG/ML Vial IV (17:45)
--- NOTE | 2019-10-07 17:49 | RAD_ITS ---
STUDY: X-RAY CHEST REASON FOR EXAM: Female, 64 years old. 4 pm sudden onset of rt arm weakness. Pt having difficulty walking on rt side TECHNIQUE: Single frontal view of the chest. COMPARISON: None. FINDINGS: Right chest wall port. Chronic interstitial lung changes without superimposed acute alveolar disease. There is no demonstrated pleural abnormality. Normal size heart. Normal mediastinum and lore[place]. Normal visualized pulmonary arteries. Normal visualized aortic arch and descending thoracic aorta. Normal visualized thoracic spine. Normal visualized ribs, clavicles, and shoulders. There is no demonstrated abnormality of the visualized soft tissue structures of the upper abdomen. RAD/Chest 1 View IMPRESSION: Chronic interstitial lung changes without superimposed acute alveolar disease. Electronically Signed: Harry Benson MD at 18:00 EDT Tel , Service support ,
[2019-10-07 18:11] LABS: Absolute Lymphocyte Count 1.95 X10^3/uL (0.83-4.51); Absolute Neutrophil Count 4.7 X10^3/uL (2.0-7.7); Basophil# 0.08 X10^3/uL; Eosinophil# 0.21 X10^3/uL; Eosinophils% 2.7 % (0-5); Hematocrit 42.4 % (37-47); Hemoglobin 13.8 g/dL (12.0-15.0); Lymphocyte # 1.95 X10^3/ul (4.0); Lymphocyte % 25.4 % (19-41); Mean Corp Hgb Conc 32.5 g/dL (32-36); Mean Corpuscular Hgb 31.2 pg (27.0-32.0); Mean Corpuscular Volume 95.9 fL (81-99); Mean Platelet Vol. 10.6 fl (6.2-12.0); Monocyte# 0.74 X10^3/uL; Monocyte% 9.6 % (0-10); NRBC Flagged by Analyzer 0 % (0-5); Neutrophil # 4.68 X10^3/uL (2.7-7.7); Neutrophil % 60.9 % (47-70); Platelet Count 257 K/mm3 (150-450); RBC Distribution Width CV 12.6 % (11.6-14.6); RBC Distribution Width SD 44.5 fl (35.1-43.9); Red Blood Count 4.42 M/mm3 (4.2-5.4); White Blood Count 7.7 K/mm3 (4.4-11.0)
[2019-10-07 18:16] LABS: Prothrombin Time (Protime)PT. 13.1 SECONDS (11.7-14.9)
[2019-10-07 18:25] LABS: Anion Gap 6 (5-15); BUN 14 mg/dL (7-18); Calcium,Total 9.3 mg/dL (8.5-10.1); Chloride 103 mmol/L (98-107); Creatinine, Serum 0.88 mg/dL (0.55-1.02); EST Glomerular Filtration Rate 69 mL/min (>60); Est Glom Filt Rate - Afr Amer 83 mL/min (>60); Estimated Creatinine Clearance 46.39 ml/min; Glucose 399 mg/dL (74-106); Potassium 4.4 mmol/L (3.5-5.1); Sodium Level 136 mmol/L (136-145)
--- NOTE | 2019-10-07 19:01 | MRI_ITS ---
STUDY: MRI BRAIN WITH AND WITHOUT CONTRAST REASON FOR EXAM: Female, [address] -- rt sided weakness started today, hx metastatic melanoma , gamma knife done 08/2019 TECHNIQUE: Standardized multiplanar fat and water weighted pulse sequences were obtained. IV doteram 18ml was administered for the contrast portion of the examination. COMPARISON: CT same day, MRI 09/07/2019 FINDINGS: Normal size of the ventricles and extra-axial spaces for the patient''s age. Focal restricted diffusion is present in the deep right frontal lobe white matter. A small acute infarct cannot be excluded. Normal bilateral basal ganglia. Normal thalami. There is no extra-axial fluid accumulation. Normal flow voids within the major intracranial circulation suggesting patency by spin echo criteria. Multiple T1 hyperintense, T2 hypointense, and enhancing brain lesions are present compatible with the clinical history of metastatic melanoma. Although most of these lesions were less conspicuous on concomitant CT, MRI reveals that most of the lesions have slightly increased in size compared to prior MRI exam. The following index lesions are noted, with measurements given in the transverse plane: Left parietal cortex, 19 x 16 mm, right temporal cortex, subcentimeter, right occipital lobe, 18 x 16 mm, left occipital lobe, 12 mm, left cerebellum, 9 mm. Vasogenic edema adjacent to the left parietal lesion has progressed compared to prior MRI. Stable left occipital encephalomalacia. Normal sella turcica, pituitary gland, infundibular stalk, optic chiasm and hypothalamus. Normal tectal plate and pineal gland. Normal midbrain, miguelina and medulla. Normal basal cisterns. Normal bilateral temporal bones. Normal bilateral internal auditory canals. No demonstrated orbital abnormality, within the constraints of a routine brain study. Normal visualized paranasal sinuses. Normal calvarium and skull base. Normal visualized soft tissue structures. Normal visualized upper cervical spine. MRI/Brain W/WO Contrast IMPRESSION: Focal restricted diffusion is present in the deep right frontal lobe white matter. A small acute infarct cannot be excluded. When compared to prior MRI, there has been interval enlargement of several parenchymal metastatic lesions. Progressing vasogenic edema adjacent to the largest lesion in the left parietal cortex. No evidence of new hemorrhage. Electronically Signed: Harry Benson MD at 20:54 EDT Tel , Service support ,
--- NOTE | 2019-10-07 21:07 | HP.PCM_ITS ---
Problem List (1) Stroke-like symptoms Status: Acute (2) Hyperglycemia Status: Acute (3) COPD (chronic obstructive pulmonary disease) Status: Chronic Qualifiers: COPD type: unspecified COPD Qualified Code(s): J44.9 - Chronic obstructive pulmonary disease, unspecified (4) Tobacco use Status: Chronic (5) HTN (hypertension) Status: Chronic Qualifiers: Hypertension type: essential hypertension Qualified Code(s): I10 - Essential (primary) hypertension (6) HLD (hyperlipidemia) Status: Chronic Qualifiers: Hyperlipidemia type: unspecified Qualified Code(s): E78.5 - Hyperlipidemia, unspecified (7) CAD (coronary artery disease) Status: Chronic Qualifiers: Coronary Disease-Associated Artery/Lesion type: unspecified vessel or lesion type [place] vs. transplanted heart: unspecified whether [place] or transplanted heart Associated angina: angina presence unspecified Qualified Code(s): I25.10 - Atherosclerotic heart disease of [place] coronary artery without angina pectoris (8) Obesity Status: Chronic (9) Diabetes mellitus, type II Status: Chronic Qualifiers: Diabetes mellitus mcc insulin use: with mcc use Diabetes mellitus complication status: with other specified complication Qualified Code(s): E11.69 - Type 2 diabetes mellitus with other specified complication; Z79.4 - shaper setter (current) use of insulin (10) History of breast cancer Status: Chronic (11) Metastatic melanoma Status: Chronic (12) Anxiety and depression Status: Chronic (13) History of left breast cancer Status: Chronic (14) Pulmonary embolism Status: Chronic Qualifiers: Pulmonary embolism type: unspecified Chronicity: acute (15) Weakness due to acute stroke Status: Acute (16) Melanoma Status: Chronic Qualifiers: Laterality: right Comment: right upper back, stage IIB (17) Metastatic melanoma to lung Status: Chronic (18) Malignant melanoma metastatic to lung Status: Chronic (19) 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 Patient woke up from the nap and she had tremors of her right arm. The tremors subsided and then she realized she could not move her right arm. She called her girlfriend to come see her and then patient realized that she could not move her right leg. Emergency department discussed the case with tele-neurology at [facility] who felt that patient may be having hemorrhagic bleed and so recommended that blood pressure be maintained below 140 and then patient be given Decadron for vasogenic edema. Emergent department doctor discussed the case with radiologist who did not see any bleed. MRI was subsequently done. MRI showed possible small acute infarct. In the deep right frontal lobe white matter. Of note patient symptoms is in the right side. Emergency department doctor then discussed the case with [facility] neurologist who recommended imaging of neck vessels and said it is okay to continue Eliquis. Past Medical History Past Medical History (Chronic Problems): Chronic Problems (Last Reviewed 10/07/19 @ 22:[address] Yemi Iverson MD) COPD (chronic obstructive pulmonary disease) (Chronic) Tobacco use (Chronic) HTN (hypertension) (Chronic) HLD (hyperlipidemia) (Chronic) CAD (coronary artery disease) (Chronic) Obesity (Chronic) Diabetes mellitus, type II (Chronic) History of breast cancer (Chronic) Metastatic melanoma (Chronic) Anxiety and depression (Chronic) History of left breast cancer (Chronic) Pulmonary embolism (Chronic) Melanoma (Chronic) right upper back, stage IIB Metastatic melanoma to lung (Chronic) Malignant melanoma metastatic to lung (Chronic) Malignant melanoma metastatic to brain (Chronic) [place]au [place]orange over breast (Chronic) Medical History: Medical History (Last Reviewed 10/07/19 @ 22:[address] Yemi Iverson MD) Anhedonia R45.84 Anxiety F41.9 B12 deficiency E53.8 Breast cancer, left C50.912 CAD (coronary artery disease) I25.10 COPD (chronic obstructive pulmonary disease) J44.9 Carpal tunnel syndrome G56.00 Depression F32.9 Diabetes mellitus E11.9 Emphysema lung J43.9 Hyperlipidemia E78.5 Hyponatremia E87.1 Melanoma C43.9 Peripheral edema R60.9 Hypertension I10 Allergies metformin [From Glucophage] Adverse Reaction (Severe, Verified 10/07/19 16:58) Nausea Home Medications: Ambulatory Orders Medication Instructions Recorded Albuterol Inhaler [Ventolin Hfa] 2 inhaler INHALATION Q4H PRN PRN 10/17/16 Lisinopril [Zestril] 40 mg PO QHS 10/17/16 Pantoprazole Sodium [Protonix] 40 mg PO DAILY 10/17/16 Aspirin E.C. [Ecotrin] 81 mg PO DAILY@0800 06/11/19 Cyclobenzaprine HCl 10 mg PO TID PRN PRN 06/11/19 Gabapentin [Neurontin] 300 mg PO TIDCM 06/11/19 Insulin Aspart [Novolog Flexpen] 12 units SUBCUT BIDCM 06/11/19 Insulin Detemir [Levemir FlexPen] 50 units SUBCUT QHS 06/11/19 Meloxicam [Mobic] 15 mg PO DAILY 06/11/19 Nitroglycerin [Nitrostat] 0.4 mg SL PRN PRN 06/11/19 Pravastatin [Pravachol] 80 mg PO QHS 06/11/19 Verapamil HCl [Verapamil ER] 240 mg PO DAILY 06/11/19 buPROPion SR [Wellbutrin Sr] 200 mg PO BID 06/11/19 Fluticasone 0.05% [Flonase Nasal 1 spray NASAL DAILY PRN PRN 09/18/19 [place]] Glimepiride 4 mg PO BID 09/18/19 Metoprolol Tartrate 50 mg PO BID 09/18/19 Apixaban [Eliquis] 5 mg PO BID #60 tab 09/24/19 Surgical History: Surgical History (Last Reviewed 10/07/19 @ 22:[address] Yemi Iverson MD) H/O melanoma excision Z98.890, Z85.820 back. [facility] [place] 04/2019 History of cholecystectomy Z98.890, Z90.49 History of excision of pilonidal cyst Z98.890 History of lumpectomy Z98.890 History of lymph node excision Z98.890 Status post trigger finger release Z98.890 port placement Surgical History: noncontributory, - - Gamma knife therapy, left breast ectomy surgery, back melanoma wide excision, cholecystectomy. Psychiatric History: Anxiety, Depression CLINICAL NURSE OCCUPATIONAL MEDICINE History: No pertinent CLINICAL NURSE OCCUPATIONAL MEDICINE history Smoking Status: Current every day smoker - *Family History Maternal Family History: Family History (Last Reviewed 10/07/19 @ 22:[address] Yemi Iverson MD) Mother Heart disease Hypertension Father Diabetes Sister Lung cancer History Items: High Cholesterol, Heart Disease, Hypertension Paternal Family History: Family History (Last Reviewed 10/07/19 @ 22:[address] Yemi Iverson MD) Mother Heart disease Hypertension Father Diabetes Sister Lung cancer History Items: Diabetes Review of Systems Constitutional: Denies: Chills, Fever, Weight Change HEENT: Denies: Head Aches, Sinus Congestion, Sinus Drainage Cardiovascular: Denies: Chest Pain, Palpitations Respiratory: Denies: Shortness of Breath, Wheezing Gastrointestinal: Denies: Abdominal Pain, Nausea, Vomiting Genitourinary: Denies: Dysuria Musculoskeletal: Denies: Joint Pain, Joint Tenderness Skin: Denies: Rash, Wounds Neurological: Reports: Focal weakness, Tremor. Denies: Numbness, Tingling Psychiatric: Denies: Anxiety, Depression, Homicidal Ideations, Suicidal Ideations Hematologic/ Lymphatic: Denies: Easy Bruising, Easy Bleeding VTE Information - Inpt Only VTE Present on Admission: No VTE Mechan Device Prophylaxis: None VTE Pharm Prophylaxis ordered?: No Reason prophylaxis not ordered:: Treatment Not Indicated - Eliquis for history of PE continued Patient Problems: Active and Suspected Problems (Last Reviewed 10/07/19 @ 22:[address] Yemi Iverson MD) Weakness due to acute stroke (Acute) Stroke-like symptoms (Acute) - Physical Exam Vitals/I&O's: Vital Signs Temp Pulse Resp BP Pulse Ox 98.6 F 82 18 176/93 H 92 10/07/19 21:06 10/07/19 21:02 10/07/19 21:02 10/07/19 21:02 10/07/19 21:02 Oxygen Flow Rate (L/min) 2 Oxygen Delivery Method Nasal Cannula Weight: 93.5 kg Body Mass Index (BMI) 40.2 Finger Stick Blood Glucose 400 General: Alert, Oriented x3, Cooperative HEENT: Atraumatic, PERRLA, EOMI, Normocephalic Neck: Supple, No JVD, Negative Carotid Bruits Lungs: Clear to auscultation, Normal air movement, No rhonchi, No wheeze, No rales Cardiovascular: Regular rate, Regular Rhythm, Normal S1, Normal S2, No murmurs Abdomen: Bowel Sounds Present, Soft, Non Tender Extremities: No edema, Capillary Refill Less than 3 Seconds Skin: No rashes, No breakdown Musculoskeletal: No Tenderness to Palpation of Joints or Extremities Neurological: Cranial nerves II-XII grossly intact, Deep Tendon Reflexes 2+/4 and Symmetrical, - - Right upper extremity strength 3 out of 5; right lower extremity strength 4 out of 5. Left upper and left lower extremity strength 5 out of 5. No dysmetria. Psych/Mental Status: Normal Affect, Appropriate Laboratory Results 10/07/19 16:58: POC Glucose 400 H 10/07/19 17:10: WBC 7.7, RBC 4.42, Hgb 13.8, Hct 42.4, MCV 95.9, MCH 31.2, MCHC 32.5, RDW Std Deviation 44.5 H, RDW Coeff of [place] 12.6, Plt Count 257, MPV 10.6, Immature Gran % (Auto) 0.400, Neut % (Auto) 60.9, Lymph % (Auto) 25.4, [place] % (Auto) 9.6, Eos % (Auto) 2.7, Baso % (Auto) 1.0, Absolute Neuts (auto) 4.7, Absolute Lymphs (auto) 1.95, Nucleated RBC % 0 10/07/19 17:10: PT 13.1, INR 1.0, APTT 33.0 10/07/19 17:10: Sodium 136, Potassium 4.4, Chloride 103, Carbon Dioxide 27.0, Anion Gap 6, BUN 14, Creatinine 0.88, Estim Creat Clear Calc 46.39, Est GFR (MDRD) Af Amer 83, Est GFR (MDRD) Non-Af 69, BUN/Creatinine Ratio 16.0, Glucose 399 H, Calcium 9.3, Troponin I < 0.015 Assessment/Plan All Active Problems (Last Reviewed 10/07/19 @ 22:[address] Yemi Iverson MD) Hyperglycemia (Acute) Weakness due to acute stroke (Acute) Stroke-like symptoms (Acute) The patient is a 64 year old F with a significant history of COPD; metastatic melanoma to spine; lungs and brain who presented with right upper extremity weakness and right lower extremity weakness that started about 1 hour prior to presentation to the emergency department consistent with a probable metastatic melanoma or CVA. Strokelike symptoms Strokelike symptoms could be due to infarct or could be due to enlarging metastatic melanoma. We will continue patient on home aspirin and Eliquis. Patient received Decadron in the emergency department. We will continue patient on Decadron. PT and OT to work with patient. Permissive hypertension with labetalol IV and hydralazine IV for the next 24 hours. Give labetalol or hydralazine if systolic blood pressure is more than 220 or diastolic blood pressure is more than 120. Get lipid level and A1c. Patient is on home pravastatin 80 mg daily. Because patient reports that both her father and her mother had a severe allergic reaction to Lipitor patient will like to be kept on pravastatin; and not initiated on other statins. We will continue patient on pravastatin. Will get CTA of head and neck. We will get an echocardiogram. PT and OT to work with patient. Placed on telemetry at the PCU. We will get an echocardiogram. Metastatic melanoma. Decadron as above. Patient sees Dr. Kenney. Will consult oncologist. Diabetes mellitus. Patient with hyperglycemia on presentation. Continue home basal insulin. Amaryl continued. Adjust home prandial insulin. Add correction scale insulin. Accu-Chek q. ACHS. Hypertension: On presentation blood pressure was not within goal. Because of possible stroke home blood pressure medication held. Permissive hypertension as above. COPD: PRN albuterol continued. Tobacco abuse: Counseled. Declined nicotine patch. History of PE: Eliquis continued Morbid obesity: BMI of 40.3. Complicates care. Lifestyle modification recommended. Depression: Wellbutrin continued DVT prophylaxis: On Eliquis for history of PE. Eliquis continued. OBSV E&M: [id number] Initial observation care L2
--- NOTE | 2019-10-07 21:30 | ED.RN ---
[facility] NEUROLOGY CONTACT BY THIS NURSE FOR DR NEWBERRY
--- NOTE | 2019-10-07 21:53 | ED.RN ---
discussed BP with ED MD. PER neurologist at [facility] [place], okay to keep BP above 140/x.
--- NOTE | 2019-10-07 22:10 | ECHOCS_ITS ---
Version 2 Reason For Study: TIA/CVA Procedure This was a 2D Doppler, Color Flow transthoracic echocardiogram. The study was technically difficult. Contrast injection was performed. Exam performed portable in patient room. Left Ventricle Normal LV size. The estimated ejection fraction is 65 %. Normal diastology for age. No regional wall motion abnormalities noted. Right Ventricle Normal RV size. Normal systolic function. Atria Normal left atrium. Normal right atrium. No doppler evidence for ASD. Bubble contrast study negative for right to left interatrial shunt. Mitral Valve There is no mitral valve stenosis. No mitral valve insufficiency. Tricuspid Valve There is no tricuspid stenosis. No tricuspid valve insufficiency. Unable to estimate RV systolic pressure due to inadequate jet, pulmonary artery pressure probably normal. Aortic Valve Trisinus/trileaflet aortic valve. Aortic sclerosis, no stenosis. There is no aortic stenosis. No aortic valve insufficiency. Pulmonic Valve There is no pulmonic valvular stenosis. No pulmonic valve insufficiency. Great Vessels Normal aortic root. Pericardium/Pleural No pericardial effusion. Medication Diluted definity 2.0ml given slow IV push to enhance endocardial definition. Performed a rapid injection of agitated mix of 9 cc saline and 1cc air to assess for atrial septal defect. MMode/2D Measurements & Calculations LVIDd: 3.7 cm IVSd: 1.1 cm Ao root diam: 3.4 cm LVIDs: 2.2 cm LVPWd: 1.2 cm RVDd: 3.0 cm FS: 39.9 % LAV(MOD-bp): 30.0 ml LVAd ap4: 27.0 cm2 SV(MOD-sp4): 50.7 ml LAV(MOD-bp) Indexed: 15.9 ml/m2 EDV(MOD-sp4): 74.6 ml LAV(MOD-sp2): 27.0 ml EDV(sp4-el): 77.9 ml LAV(MOD-sp4): 30.7 ml LVAs ap4: 12.9 cm2 ESV(MOD-sp4): 23.9 ml ESV(sp4-el): 21.8 ml EF(MOD-sp4): 67.9 % EF(sp4-el): 72.0 % SV(sp4-el): 56.0 ml LA A4 area: 13.4 cm2 LA dimension(2D): 3.4 cm RA A4 area: 11.0 cm2 Doppler Measurements & Calculations MV E max alexandr: 75.1 cm/sec Lat Peak E' Alexandr: 9.6 cm/sec Med Peak E' Alexandr: 7.1 cm/sec MV A max alexandr: 164.0 cm/sec E/E' lat: 7.9 E/E' med: 10.6 MV E/A: 0.46 Ao V2 max: 180.0 cm/sec LV V1 max: 139.7 cm/sec PA V2 max: 121.2 cm/sec Ao max P.0 mmHg LV V1 max P.8 mmHg Interpretation Summary The estimated ejection fraction is 65 %. Normal diastology for age. Bubble contrast study negative for right to left interatrial shunt. The study was technically difficult. Contrast injection was performed. Ordering Physician: Yemi Iverson Referring Physician: TAMMY ROGER Performed By: Alix Robledo RDCS, RVT
--- NOTE | 2019-10-07 22:10 | CT_ITS ---
STUDY: CTA HEAD AND NECK WITH CONTRAST REASON FOR EXAM: Female, 64 years old. STROKE LIKE SYMPTOMS, SUDDEN ONSET RIGHT ARM WEAKNESS AT 4PM, TROUBLE WALKING RADIATION DOSAGE (If Supplied By Facility): CTDIvol = ( 24.82 ) mGy, DLP = ( 786.44 ) mGycm TECHNIQUE: CT angiography was performed with a multi-detector CT scanner. Data acquisition was obtained from the skull base through the vertex following intravenous administration of IV 100mL [id number]-[id number]. MIP images were reconstructed from the axial data set. Post-processing of the angiographic images was performed, with multiplanar reformation and 3D reconstruction. Individualized dose optimization techniques were used for this CT. COMPARISON: Brain MRI same day FINDINGS: Normal bilateral petrous carotid arteries. Normal right cavernous carotid artery with a normal supraclinoid bifurcation. Normal left cavernous carotid artery with a normal supraclinoid bifurcation. Normal right A1 segments of the anterior cerebral artery. Normal left A1 segments of the anterior cerebral artery. Normal intact anterior communicating artery (ACOM). Normal bilateral A2 segments of the anterior cerebral arteries. Normal right M1 and M2 segments of the middle cerebral arteries, with a normal M1 bifurcation. Normal left M1 and M2 segments of the middle cerebral arteries, with a normal M1 bifurcation. Normal right posterior communicating artery (PCOM). Normal left posterior communicating artery (PCOM). Normal bilateral vertebral arteries. Normal basilar artery with a normal basilar bifurcation. The visualized bilateral superior cerebellar (SCA) arteries are normal. Normal bilateral P1, P2 and visualized P3 segments of the posterior cerebral arteries. There is no demonstrated aneurysm of the [place]. There is no demonstrated abnormality of the visualized brain. AORTIC ARCH: Normal visualized aortic arch. Normal origins of the brachiocephalic, left common carotid, and left subclavian arteries. RIGHT CAROTID ARTERIES: Normal right common carotid artery (CCA). Normal right common carotid bulb. Normal origin of the right internal carotid (ICA) artery without a hemodynamically significant stenosis. Normal visualized cervical portion of the right internal carotid artery. Normal origin of the right external carotid artery (ECA). LEFT CAROTID ARTERIES: Normal left common carotid artery (CCA). Normal left common carotid bulb. Normal origin of the left internal carotid (ICA) artery without a hemodynamically significant stenosis. Normal visualized cervical portion of the left internal carotid artery. Normal origin of the left external carotid artery (ECA). VERTEBRAL ARTERIES: Normal bilateral vertebral arteries. Right jugular catheter. CT/CTA Head AND Neck W/ Contrast IMPRESSION: No CTA evidence of significant intracranial arterial pathology. No CTA evidence of significant arterial pathology in the neck. NASCET criteria was used. Electronically Signed: Harry Benson MD at 22:45 EDT Tel , Service support ,
[2019-10-07 23:26] LABS: Bedside Glucose 444 mg/dL (70-110)
[2019-10-07 23:34] LABS: Hemoglobin A1c 10.9 % (4.2-6.3)
[2019-10-07] MEDS: Pravastatin 80 MG Tablet PO (23:43)
[2019-10-07] MEDS: APIXABAN 5 MG TABLET PO (23:43)
[2019-10-07] MEDS: Glimepiride 4 MG Tablet PO (23:43)
[2019-10-07] MEDS: buPROPion (SR) 100 MG TABLET.SA 200 MG PO (23:43)
[2019-10-07] MEDS: Insulin Lispro 100 UNIT/ML INSULN.PEN SC (23:44)
[2019-10-07] MEDS: Insulin Lispro 100 UNIT/ML INSULN.PEN 8 UNIT SC (23:47)
[2019-10-08] VITALS (14 sets, daily range): BP systolic 151–179; BP diastolic 84–99; PULSE 88–113; RESP 16–20; TEMP 36.5–36.8; O2SAT 92–95; BMI 39.9
[2019-10-08] MEDS: Acetaminophen 325 MG Tablet 650 MG PO ×3 (00:39→19:21)
[2019-10-08] MEDS: dexAMETHasone 4 MG Tablet PO ×4 (05:12→23:17)
[2019-10-08 05:39] LABS: Cholesterol 201 mg/dL (200); High Density Lipoprotein 50 mg/dL; Triglycerides 102 mg/dL; Very Low Density Lipoprotein 20 mg/dL (5-40)
[2019-10-08] MEDS: Insulin Lispro 100 UNIT/ML INSULN.PEN 8 UNIT SC ×3 (08:24→17:04)
[2019-10-08] MEDS: Insulin Lispro 100 UNIT/ML INSULN.PEN SC ×4 (08:25→22:01)
[2019-10-08] MEDS: Glimepiride 4 MG Tablet PO ×2 (08:29→17:03)
[2019-10-08] MEDS: Gabapentin 300 MG Capsule PO ×3 (08:29→17:03)
[2019-10-08] MEDS: Aspirin E.C. 81 MG Tablet PO (08:29)
[2019-10-08 08:41] LABS: Bedside Glucose 416 mg/dL (70-110)
[2019-10-08] MEDS: Pantoprazole Sodium 40 MG Tablet PO (10:29)
[2019-10-08] MEDS: Meloxicam 15 MG Tablet PO (10:29)
[2019-10-08] MEDS: buPROPion (SR) 100 MG TABLET.SA 200 MG PO ×2 (10:29→22:04)
[2019-10-08] MEDS: APIXABAN 5 MG TABLET PO ×2 (10:29→22:01)
[2019-10-08 11:35] LABS: Bedside Glucose 367 mg/dL (70-110)
--- NOTE | 2019-10-08 12:53 | PCM.PN.HOSP ---
<Aleks Cedeño - Last Filed: 10/08/19 12:53> Patient Problems: Active and Suspected Problems (Last Reviewed 10/07/19 @ 22:[address] Yemi Iverson MD) Weakness due to acute stroke (Acute) Stroke-like symptoms (Acute) Reason for Visit: right sided weakness Subjective: Patient with ongoing right-sided weakness, upper and lower extremities. No dizziness or lightheadedness, no slurred speech, no swallowing difficulties. Patient is anxious to get home to be with her dogs however she did poorly with PT and OT. She is not interested in rehab at this time. Vitals/I&O's: Vital Signs Temp Pulse Resp BP Pulse Ox 98.3 F 103 H 16 177/93 H 93 10/08/19 08:20 10/08/19 08:20 10/08/19 08:20 10/08/19 08:20 10/08/19 08:20 Oxygen Flow Rate (L/min) 2 Oxygen Delivery Method Room Air Weight: 204 lb 9.423 oz Body Mass Index (BMI) 39.9 Finger Stick Blood Glucose 400 Intake and Output for Last 24 Hours 10/06/19 10/07/19 10/08/19 23:59 23:59 23:59 Intake Total 560 / 560 Balance 560 / 560 General: Alert, Oriented x3, Cooperative HEENT: Atraumatic, PERRLA, EOMI, Normocephalic Neck: Supple, No JVD, Negative Carotid Bruits Lungs: Clear to auscultation, Normal air movement Cardiovascular: Regular rate, No murmurs Abdomen: Bowel Sounds Present, Soft, Non Tender Extremities: No edema, Capillary Refill Less than 3 Seconds Skin: No rashes, No breakdown Musculoskeletal: No Tenderness to Palpation of Joints or Extremities Neurological: Cranial nerves II-XII grossly intact, - - Right upper and lower extremity weakness. Psych/Mental Status: Normal Affect, Appropriate Laboratory Results 10/07/19 16:58: POC Glucose 400 H 10/07/19 17:10: WBC 7.7, RBC 4.42, Hgb 13.8, Hct 42.4, MCV 95.9, MCH 31.2, MCHC 32.5, RDW Std Deviation 44.5 H, RDW Coeff of Kosta 12.6, Plt Count 257, MPV 10.6, Immature Gran % (Auto) 0.400, Neut % (Auto) 60.9, Lymph % (Auto) 25.4, Tyrrell % (Auto) 9.6, Eos % (Auto) 2.7, Baso % (Auto) 1.0, Absolute Neuts (auto) 4.7, Absolute Lymphs (auto) 1.95, Nucleated RBC % 0 10/07/19 17:10: PT 13.1, INR 1.0, APTT 33.0 10/07/19 17:10: Sodium 136, Potassium 4.4, Chloride 103, Carbon Dioxide 27.0, Anion Gap 6, BUN 14, Creatinine 0.88, Estim Creat Clear Calc 46.39, Est GFR (MDRD) Af Amer 83, Est GFR (MDRD) Non-Af 69, BUN/Creatinine Ratio 16.0, Glucose 399 H, Calcium 9.3, Troponin I < 0.015 10/07/19 17:10: Hemoglobin A1c 10.9 H 10/07/19 23:21: POC Glucose 444 H 10/08/19 05:02: Triglycerides 102, Cholesterol 201 H, LDL Cholesterol 131 H, VLDL Cholesterol 20, HDL Cholesterol 50 10/08/19 08:21: POC Glucose 416 H 10/08/19 11:28: POC Glucose 367 H Current Medications Acetaminophen (Tylenol) 650 mg PO Q6H PRN PRN PRN Reason: Pain Score 1-10/10 or T >100.4 Last Admin: 10/08/19 06:48 Dose: 650 mg Documented by: Albuterol Sulfate (Ventolin Aerosols) 2.5 mg INHALATION Q2H PRN PRN PRN Reason: sob/wheezing Apixaban (Eliquis) 5 mg PO BID [facility] Last Admin: 10/08/19 10:29 Dose: 5 mg Documented by: Aspirin (Ecotrin) 81 mg PO DAILY@0800 [facility] Last Admin: 10/08/19 08:29 Dose: 81 mg Documented by: Bupropion HCl (Wellbutrin Sr (100mg Tablets)) 200 mg PO BID [facility] Last Admin: 10/08/19 10:29 Dose: 200 mg Documented by: Cyclobenzaprine HCl (Flexeril) 10 mg PO TID PRN PRN PRN Reason: SPASMS Dexamethasone (Decadron) 4 mg PO Q6 [facility] Last Admin: 10/08/19 05:12 Dose: 4 mg Documented by: Fluticasone Propionate (Flonase Nasal [place]) 1 spray NASAL DAILY PRN PRN PRN Reason: ALLERGIES Gabapentin (Neurontin) 300 mg PO TIDCM [facility] Last Admin: 10/08/19 08:29 Dose: 300 mg Documented by: Glimepiride (Amaryl) 4 mg PO BIDCM [facility] Last Admin: 10/08/19 08:29 Dose: 4 mg Documented by: Glucagon () 1 mg IM .X1 PRN PRN Reason: Hypoglycemia Hydralazine HCl (Apresoline Iv) 5 mg IV Q30M PRN PRN Reason: to maintain BP goals Dextrose (Dextrose 10%-Water) 250 mls @ 999 mls/hr IV .Q16M PRN; Protocol PRN Reason: HYPOGLYCEMIA Sodium Chloride () 250 mls @ 15 mls/hr IV .[id number] PRN PRN Reason: Saline Flush Sodium Chloride () 250 mls @ 15 mls/hr IV .[id number] PRN PRN Reason: Additional IVPB Infusion Insulin Glargine (Lantus (Bkc)) 50 units SC QHS [facility] Last Admin: 10/07/19 23:44 Dose: 50 u Documented by: Insulin Human Lispro (Humalog Kwikpen (Bkc)) 0 unit SC [facility]; Protocol Last Admin: 10/08/19 08:25 Dose: 11 unit Documented by: Insulin Human Lispro (Humalog Kwikpen (Bkc)) 8 unit SC TIDAC [facility] Last Admin: 10/08/19 08:24 Dose: 8 u Documented by: Labetalol HCl (Trandate) 10 mg IV Q10M PRN PRN PRN Reason: to maintain BP goals Melatonin (Melatonin) 3 mg PO QHS PRN PRN PRN Reason: INSOMNIA Meloxicam (Mobic) 15 mg PO DAILY [facility] Last Admin: 10/08/19 10:29 Dose: 15 mg Documented by: Ondansetron HCl (Zofran) 4 mg IV Q8H PRN PRN PRN Reason: NAUSEA/VOMITING Pantoprazole Sodium (Protonix) 40 mg PO DAILY [facility] Last Admin: 10/08/19 10:29 Dose: 40 mg Documented by: Pravastatin Sodium (Pravachol) 80 mg PO QHS [facility] Last Admin: 10/07/19 23:43 Dose: 80 mg Documented by: Medical Necessity - Tobacco Use Smoking Status: Current every day smoker Tobacco Use: Cigarettes Assessment/Plan All Active Problems (Last Reviewed 10/07/19 @ 22:[address] Yemi Iverson MD) Hyperglycemia (Acute) Weakness due to acute stroke (Acute) Stroke-like symptoms (Acute) 1. Right-sided weakness, stroke versus mass-effect from mets-MRI shows possible small acute infarct in the deep right frontal lobe, but there is also enlargement of several parenchymal metastatic lesions and vasogenic edema adjacent to the largest lesion in the left parietal cortex which may actually be accounting for her right-sided weakness. She has been started on Decadron. Will monitor to see if the Decadron is able to improve the edema and possibly her associated right-sided weakness. Continue aspirin, Eliquis, pravastatin. CTA of the head and neck showed no significant stenosis. 2. 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 3. Type 2 diabetes with morbid obesity-continue Lantus, mealtime insulin, sliding scale insulin, Amaryl. Gabapentin for this associated neuropathy. 4. History of CAD-aspirin, statin. DVT prophylaxis: Eliquis DC planning: Ideally she would go to rehab before going home, she is reluctant to consider this, she will be monitored overnight to look for improvement in her right-sided weakness with the Decadron therapy. This patient was seen by Aleks Cedeño PA-C under the supervision of Doctor Carlos. <David Gonzalez F - Last Filed: 10/08/19 13:17> Vitals/I&O's: Vital Signs Temp Pulse Resp BP Pulse Ox 98.3 F 103 H 16 177/93 H 93 10/08/19 08:20 10/08/19 08:20 10/08/19 08:20 10/08/19 08:20 10/08/19 08:20 Oxygen Flow Rate (L/min) 2 Oxygen Delivery Method Room Air Weight: 204 lb 9.423 oz Body Mass Index (BMI) 39.9 Finger Stick Blood Glucose 400 Intake and Output for Last 24 Hours 10/06/19 10/07/19 10/08/19 23:59 23:59 23:59 Intake Total 560 / 560 Balance 560 / 560 Laboratory Results 10/07/19 16:58: POC Glucose 400 H 10/07/19 17:10: WBC 7.7, RBC 4.42, Hgb 13.8, Hct 42.4, MCV 95.9, MCH 31.2, MCHC 32.5, RDW Std Deviation 44.5 H, RDW Coeff of Kosta 12.6, Plt Count 257, MPV 10.6, Immature Gran % (Auto) 0.400, Neut % (Auto) 60.9, Lymph % (Auto) 25.4, Tyrrell % (Auto) 9.6, Eos % (Auto) 2.7, Baso % (Auto) 1.0, Absolute Neuts (auto) 4.7, Absolute Lymphs (auto) 1.95, Nucleated RBC % 0 10/07/19 17:10: PT 13.1, INR 1.0, APTT 33.0 10/07/19 17:10: Sodium 136, Potassium 4.4, Chloride 103, Carbon Dioxide 27.0, Anion Gap 6, BUN 14, Creatinine 0.88, Estim Creat Clear Calc 46.39, Est GFR (MDRD) Af Amer 83, Est GFR (MDRD) Non-Af 69, BUN/Creatinine Ratio 16.0, Glucose 399 H, Calcium 9.3, Troponin I < 0.015 10/07/19 17:10: Hemoglobin A1c 10.9 H 10/07/19 23:21: POC Glucose 444 H 10/08/19 05:02: Triglycerides 102, Cholesterol 201 H, LDL Cholesterol 131 H, VLDL Cholesterol 20, HDL Cholesterol 50 10/08/19 08:21: POC Glucose 416 H 10/08/19 11:28: POC Glucose 367 H Current Medications Acetaminophen (Tylenol) 650 mg PO Q6H PRN PRN PRN Reason: Pain Score 1-10/10 or T >100.4 Last Admin: 10/08/19 06:48 Dose: 650 mg Documented by: Albuterol Sulfate (Ventolin Aerosols) 2.5 mg INHALATION Q2H PRN PRN PRN Reason: sob/wheezing Apixaban (Eliquis) 5 mg PO BID [facility] Last Admin: 10/08/19 10:29 Dose: 5 mg Documented by: Aspirin (Ecotrin) 81 mg PO DAILY@0800 [facility] Last Admin: 10/08/19 08:29 Dose: 81 mg Documented by: Bupropion HCl (Wellbutrin Sr (100mg Tablets)) 200 mg PO BID [facility] Last Admin: 10/08/19 10:29 Dose: 200 mg Documented by: Cyclobenzaprine HCl (Flexeril) 10 mg PO TID PRN PRN PRN Reason: SPASMS Dexamethasone (Decadron) 4 mg PO Q6 [facility] Last Admin: 10/08/19 05:12 Dose: 4 mg Documented by: Fluticasone Propionate (Flonase Nasal [place]) 1 spray NASAL DAILY PRN PRN PRN Reason: ALLERGIES Gabapentin (Neurontin) 300 mg PO TIDCM [facility] Last Admin: 10/08/19 08:29 Dose: 300 mg Documented by: [facility] Last Admin: 10/08/19 08:29 Dose: 4 mg Documented by: Glucagon () 1 mg IM .X1 PRN PRN Reason: Hypoglycemia Hydralazine HCl (Apresoline Iv) 5 mg IV Q30M PRN PRN Reason: to maintain BP goals Dextrose (Dextrose 10%-Water) 250 mls @ 999 mls/hr IV .Q16M PRN; Protocol PRN Reason: HYPOGLYCEMIA Sodium Chloride () 250 mls @ 15 mls/hr IV .[id number] PRN PRN Reason: Saline Flush Sodium Chloride () 250 mls @ 15 mls/hr IV .[id number] PRN PRN Reason: Additional IVPB Infusion Insulin Glargine (Lantus (Bkc)) 50 units SC QHS [facility] Last Admin: 10/07/19 23:44 Dose: 50 u Documented by: Insulin Human Lispro (Humalog Kwikpen (Bkc)) 0 unit SC ACHS [facility]; Protocol Last Admin: 10/08/19 08:25 Dose: 11 unit Documented by: Insulin Human Lispro (Humalog Kwikpen (Bkc)) 8 unit SC TIDAC [facility] Last Admin: 10/08/19 08:24 Dose: 8 u Documented by: Labetalol HCl (Trandate) 10 mg IV Q10M PRN PRN PRN Reason: to maintain BP goals Melatonin (Melatonin) 3 mg PO QHS PRN PRN PRN Reason: INSOMNIA Meloxicam (Mobic) 15 mg PO DAILY [facility] Last Admin: 10/08/19 10:29 Dose: 15 mg Documented by: Ondansetron HCl (Zofran) 4 mg IV Q8H PRN PRN PRN Reason: NAUSEA/VOMITING Pantoprazole Sodium (Protonix) 40 mg PO DAILY [facility] Last Admin: 10/08/19 10:29 Dose: 40 mg Documented by: Pravastatin Sodium (Pravachol) 80 mg PO QHS [facility] Last Admin: 10/07/19 23:43 Dose: 80 mg Documented by: Addendum: Dr. Gonzalez I personally examined the patient and reviewed the chart. I agree with the above. 64-year-old female with metastatic melanoma presenting with right-sided weakness consistent with stroke. MRI shows a right frontal potential infarct which is unlikely to be causing the symptoms however there is an increased metastatic lesion in the left parietal lobe with increasing vasogenic edema which is likely the culprit for her strokelike symptoms. We will continue with Decadron to attempt to decrease swelling and in the meantime work to get her into rehab so she can be discharged home as independent as possible. I did discuss with her the clinical stage of her cancer, she stated that she was told since she was diagnosed with a stage II that she would always be a stage II. I did express to her that she is stage IV melanoma since it has metastasized from its original location. We did discuss advanced care planning for 20 minutes as well as the difference between palliative care and hospice. At this time she does not feel that she is end-stage enough to warrant a hospice consultation. She states that she is supposed to try a different immunotherapy and see if she can get any results. Her oncologist Dr. Ramos, was consulted to talk with her and for any further recommendations for the enlarging metastatic lesions. OBSV E&M: [id number] Subsequent observation care L2 Procedures: [id number] Advncd Care Plan 30 Min
--- NOTE | 2019-10-08 13:00 | CASEMGMT ---
SW completed PHQ-9 w/pt, pt scored an 11. Pt denies wanting to harm self, denies being suicidal. Pt states has struggled w/depression in the past. Pt states her cancer has a lot to do with how she is feeling. She explains that her health is not good, and this leads to her feeling down. Pt has been in counseling in the past, is not in counseling now. Pt states it was helpful at times. Pt open to taking information regarding counseling resources. SW gave pt a list of counseling agencies that take her insurance, from the [facility] website. Pt will follow up if needed. PASHA Marsh
--- NOTE | 2019-10-08 13:06 | CASEMGMT ---
SW spoke w/pt about Meals on Wheels(MOW) and about palliative care. Pt may be interested in both, would like information on both. SW gave pt the number for MOW, and gave a brochure to pt on palliative care. Pt states she is not ready for palliative now, but may be at some point. SW available for any additional social service needs. PASHA Marsh
[2019-10-08 16:46] LABS: Bedside Glucose 423 mg/dL (70-110)
--- NOTE | 2019-10-08 17:36 | CON.PCM_ITS ---
Subjective Date of Service:: 10/08/19 Chief Complaint: Metastatic melanoma History of Present Illness: Ms. Nazia Carmona is a pleasant 64 year old woman with a past medical history significant for COPD, diabetes, and metastatic melanoma who developed right upper extremity pain followed by weakness and immobility and right lower extremity immobility. She presented to [facility] emergency department on 10/07/2019. Brain imaging by way of MRI showed possible small acute infarct and interval enlargement of several parenchymal metastatic lesions, as well as progressing vasogenic edema adjacent to the largest lesion in the left parietal cortex. Patient was evaluated by neurology at [facility] via telehealth technologies and started on dexamethasone 4 mg every 6 hours. Oncologic history: 2007- Diagnosed with breast cancer. She was treated with surgery, adjuvant chemotherapy and radiation [facility]. 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 Underwent wide resection and sentinel lymph node biopsy 02/16/2016. Biopsy showed nodular melanoma 2.4 mm depth sentinel nodes of right axilla 09/21 LN negative (pT3b pN0.) Declined adjuvant therapy and elected surveillance, however was lost to follow-up until April 2019. 05/06/2019?she presented to [facility] underwent CT chest which revealed multiple bilateral lung nodules. CT abdomen negative 05/27/2019?underwent CT-guided biopsy of lung nodule pathology confirmed metastatic melanoma. 06/22/2019?PET/CT demonstrated newly identified uptake in the left frontal cerebral cortex and left cerebellar hemisphere concerning for REHAB LIAISON disease and multiple nodular foci of uptake newly apparent in the bilateral sam-thorax pulmonary parenchyma, too many to individually articulate with a maximum calculated SUV of 3 with the largest being 1.6 cm and new avidity in the first lumbar vertebrae. 06/23/2019 MRI brain demonstrated multiple enhancing lesions including 2 in the left cerebellar hemisphere, one in the left lingual gyrus, 1 in the right cuneus, 1 in the caudal aspect of the right central lobe, one in the posterior aspect of the left superior frontal gyrus and one in the left precentral gyrus. Several of these lesions are hyperintense on T1 suggesting metastatic melanoma 06/25/2019?received cycle 1 duplet immunotherapy with ipilimumab and nivolumab. 07/20/2019?received cycle 2 ipilimumab and nivolumab. Developed immunotherapy mediated colitis with diarrhea, began corticosteroids and systemic therapy suspended. 08/13/2019?underwent SBRT to the brain at [facility]. 09/07/2019?patient experienced tremors and abnormal movement of right upper extremity presented to [place] [facility] underwent MRI brain which was reported as improved metastatic disease. 09/22/2019-CT chest with contrast demonstrates bilateral pulmonary nodules, reported as smaller in size when compared to PET from June 2019. Also reveals pulmonary embolus in the peripheral vessels of the posterior right upper lobe. Patient began Eliquis 5 mg twice daily. Patient was tentatively scheduled to restart systemic immunotherapy with single agent pembrolizumab on 10/12/2019 Past Medical History: Chronic Problems (Last Reviewed 10/07/19 @ 22:[address] Yemi Iverson MD) COPD (chronic obstructive pulmonary disease) (Chronic) Tobacco use (Chronic) HTN (hypertension) (Chronic) HLD (hyperlipidemia) (Chronic) CAD (coronary artery disease) (Chronic) Obesity (Chronic) Diabetes mellitus, type II (Chronic) History of breast cancer (Chronic) Metastatic melanoma (Chronic) Anxiety and depression (Chronic) History of left breast cancer (Chronic) Pulmonary embolism (Chronic) Melanoma (Chronic) right upper back, stage IIB Metastatic melanoma to lung (Chronic) Malignant melanoma metastatic to lung (Chronic) Malignant melanoma metastatic to brain (Chronic) Peau d'orange over breast (Chronic) Past Medical/Surgical History: Past Medical History - Most Recent Inpatient Visit Past Medical History Start: 10/07/19 23:08 Text: Status: Complete Freq: ONCE Protocol: Document 10/07/19 23:08 KATHY (Rec: 10/07/19 23:39 [facility] [id number]) BMI Required to complete PMH What is Patient's BMI 40.0 Past Medical History Unable History Recalled No Query Text:Pt Unable/Family Not Present Neurologic Medical History Hx Stroke/TIA No Hx Dementia/Alzheimer's No Hx Parkinson's Disease No Hx Seizures No Hx Multiple Sclerosis No Hx Migraines No Cardiac Medical History VTE Present on Admission No Hx of Deep Vein Thrombosis/VTE/PE No Hx Hypertension Yes: ON MED Hx Chest Pain/Angina No Hx Heart Attack No Hx Cardiac Surgery/Stents/Etc. 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 Hx Anticoagulant Therapy Yes Query Text:(Coumadin, Aspirin, Plavix, Xarelto, etc.) Hx Pain in Legs when Walking/Leg Cramps No Respiratory Medical History Hx COPD Yes Hx Emphysema No Hx Smoking Yes Smoking Status Current every day smoker Hx Smoking Cessation Counseling Yes Hx Smoking Exposure No Hx Tobacco Use in last 12 months Yes Sent to [facility] Yes Hx of Pipe Smoking No Hx Sleep Apnea Yes CPAP No BIPAP No STOP Results Positive GI Medical History Hx Ulcer No Hx Hepatitis No Hx Cirrhosis No Hx GI Bleed No Hx Unplanned Weight Loss No Genitourinary Medical History Indwelling Catheter in Place on Arrival/ No Admission Hx Renal Disease No Hx Dialysis No Musculoskeletal History Hx Arthritis Yes Hx Rheumatoid Arthritis No Endocrine Medical History Hx Diabetes Yes Hx Thyroid Disease No Hematologic Medical History Hx of Blood Transfusion No Hx of Transfusion in last 3 Months No Ever experience any problems with No transfusion(s)? Hx of Preganancy in last 3 Months N/A Nurse Filling Out Transfusion & [id number] Questions: Date: 10/07/19 Time: 23:39 Psycho/Social Medical History Hx Depression Yes Hx Anxiety Yes Hx Behavior Disorder No Hx Alcohol Use No Hx Substance Use No Other Medical History Hx Blood Disorders No Hx Anemia No Hx Cancer Yes: BREAST & MELANOMA-METS TO BRAIN,LUNG,SPINE Hx Drug Resistant Organism No Wound/Pressure Injury Present on Arrival No /Admission Query Text:If yes, chart assessment in Shift/Clinical Findings Central Line/PICC/VAD Present on Arrival No /Admission Antibiotics within last 7 days? No Methicillin Resistant Staphylococcus aureus Screening Active MRSA No Risk for Readmission Number of Risk Factors 6 At Risk for Readmission Patient is At Risk For Readmission Patient is eligible for Call Back Y Past Medical History (Last Reviewed 10/07/19 @ 22:[address] Yemi Iverson MD) Anhedonia (Acute) Anxiety (Acute) B12 deficiency (Acute) Breast cancer, left (Acute) CAD (coronary artery disease) (Acute) COPD (chronic obstructive pulmonary disease) (Acute) Carpal tunnel syndrome (Acute) Depression (Acute) Diabetes mellitus (Acute) Emphysema lung (Acute) Hyperlipidemia (Acute) Hyponatremia (Acute) Melanoma (Acute) Peripheral edema (Acute) Hypertension (Chronic) Past Surgical History (Last Reviewed 10/07/19 @ 22:[address] Yemi Iverson MD) H/O melanoma excision (Acute) History of cholecystectomy (Acute) History of excision of pilonidal cyst (Acute) History of lumpectomy (Acute) History of lymph node excision (Acute) Status post trigger finger release (Acute) port placement (Acute) Maternal Family History: Family History (Last Reviewed 10/07/19 @ 22:[address] Yemi Iverson MD) Mother Heart disease Hypertension Father Diabetes Sister Lung cancer Family History: High Cholesterol, Heart Disease, Hypertension Paternal Family History: Family History (Last Reviewed 10/07/19 @ 22:[address] Yemi Iverson MD) Mother Heart disease Hypertension Father Diabetes Sister Lung cancer Family History: Diabetes - Social History Smoking Status: Current every day smoker Tobacco Use: Cigarettes Allergies/Adverse Reactions: Allergy/AdvReac Type Severity Reaction Status Date / Time metformin [From Glucophage] AdvReac Severe Nausea Verified 10/07/19 16:58 Review of Systems Constitutional:: Reports: Weakness, Fatigue. Denies: Fever, Sweats, Weight loss, Appetite change, Chills Cardiovascular:: Reports: Dyspnea on exertion. Denies: Chest pain, Palpitations, Orthopnea, PND Respiratory: Reports: Cough, Shortness of Breath, Wheezing. Denies: Hemoptysis Gastrointestinal:: Denies: Abdominal pain, Nausea, Vomiting, Diarrhea, Constipation, Melena, Hematochezia Genitourinary: Denies: Dysuria, Hematuria, 15, Flank pain Musculoskeletal:: Denies: Back pain, Myalgia, Arthralgia Skin: Denies: Rash, Skin Changes, Wounds Neurological:: Reports: Headache, Muscle weakness. Denies: Dizziness, Visual changes, Tinnitus, Hearing loss Psychiatric: Reports: Depression - Well-controlled on current medications. Denies: Anxiety, Homicidal Ideations, Suicidal Ideations Vital Signs Height 5 ft Weight: 204 lb 9.423 oz Weight in Pounds 204.6 lbs BMI 40.8 Pulse Ox 92 Temperature 98.2 F Pulse Rate 113 Respiratory Rate 18 Blood Pressure 151/95 Blood Pressure Position Semi-Fowlers - Physical Exam General: Alert, Oriented x3, No apparent distress HEENT: Atraumatic, PERRLA, EOMI, Normocephalic Oropharynx:: Negative for: Dry mucosa, Ulcerated lesions Neck:: Supple, Trachea midline. Negative for: JVD, bilateral Cardiac:: Regular rate, Regular rhythm, Normal S1, Normal S2. Negative for: Murmur Lungs: Wheezes, Diminished, Excusion symmetrical. Negative for: Rhonchi, Increased respiratory effort Abdomen:: Bowel sounds x 4, Soft, Non-tender, Non-distended, Obese. Negative for: Hepatosplenomegaly Extremities:: Negative for: Cyanosis, Edema Neurological: Neuro grossly intact, - - Right upper and right lower extremity weakness Skin:: Negative for: Lesions, Rash, Petechiae, Ecchymosis Psychiatric:: Appropriate affect, Euthymic Lymphatics:: Negative for: Cervical lymphadenopathy Laboratory Data: Laboratory Tests 10/08/19 10/08/19 10/08/19 Range/Units 16:41 11:28 08:21 WBC (4.4-11.0) K/mm3 RBC (4.2-5.4) M/mm3 Hgb (12.0-15.0) g/dL Hct (37-47) % MCV (81-99) fL MCH (27.0-32.0) pg MCHC (32-36) g/dL RDW Std Deviation (35.1-43.9) fl RDW Coeff of Kosta (11.6-14.6) % Plt Count (150-450) K/mm3 MPV (6.2-12.0) fl Immature Gran % (Auto) (0.0-0.9) % Neut % (Auto) (47-70) % Lymph % (Auto) (19-41) % [place] % (Auto) (0-10) % Eos % (Auto) (0-5) % Baso % (Auto) (0-1) % Absolute Neuts (auto) (2.0-7.7) X10^3/uL Absolute Lymphs (auto) (0.83-4.51) X10^3/uL Nucleated RBC % (0-5) % PT (11.7-14.9) SECONDS INR APTT (24.1-36.2) Seconds Sodium (136-145) mmol/L Potassium (3.5-5.1) mmol/L Chloride (98-107) mmol/L Carbon Dioxide (21.0-32.0) mmol/L Anion Gap (5-15) BUN (7-18) mg/dL Creatinine (0.55-1.02) mg/dL Estim Creat Clear Calc ml/min Est GFR (MDRD) Af Amer (>60) mL/min Est GFR (MDRD) Non-Af (>60) mL/min BUN/Creatinine Ratio (10-20) RATIO Glucose (74-106) mg/dL Hemoglobin A1c (4.2-6.3) % Calcium (8.5-10.1) mg/dL Troponin I (<0.045) ng/mL Triglycerides ( - 199) mg/dL Cholesterol (200) mg/dL LDL Cholesterol (0-130) mg/dL VLDL Cholesterol (5-40) mg/dL HDL Cholesterol (40 - ) mg/dL POC Glucose 423 H 367 H 416 H (70-110) mg/dL 10/08/19 10/07/19 10/07/19 Range/Units 05:02 23:21 17:10 WBC (4.4-11.0) K/mm3 RBC (4.2-5.4) M/mm3 Hgb (12.0-15.0) g/dL Hct (37-47) % MCV (81-99) fL MCH (27.0-32.0) pg MCHC (32-36) g/dL RDW Std Deviation (35.1-43.9) fl RDW Coeff of Kosta (11.6-14.6) % Plt Count (150-450) K/mm3 MPV (6.2-12.0) fl Immature Gran % (Auto) (0.0-0.9) % Neut % (Auto) (47-70) % Lymph % (Auto) (19-41) % [place] % (Auto) (0-10) % Eos % (Auto) (0-5) % Baso % (Auto) (0-1) % Absolute Neuts (auto) (2.0-7.7) X10^3/uL Absolute Lymphs (auto) (0.83-4.51) X10^3/uL Nucleated RBC % (0-5) % PT (11.7-14.9) SECONDS INR APTT (24.1-36.2) Seconds Sodium (136-145) mmol/L Potassium (3.5-5.1) mmol/L Chloride (98-107) mmol/L Carbon Dioxide (21.0-32.0) mmol/L Anion Gap (5-15) BUN (7-18) mg/dL Creatinine (0.55-1.02) mg/dL Estim Creat Clear Calc ml/min Est GFR (MDRD) Af Amer (>60) mL/min Est GFR (MDRD) Non-Af (>60) mL/min BUN/Creatinine Ratio (10-20) RATIO Glucose (74-106) mg/dL Hemoglobin A1c 10.9 H (4.2-6.3) % Calcium (8.5-10.1) mg/dL Troponin I (<0.045) ng/mL Triglycerides 102 ( - 199) mg/dL Cholesterol 201 H (200) mg/dL LDL Cholesterol 131 H (0-130) mg/dL VLDL Cholesterol 20 (5-40) mg/dL HDL Cholesterol 50 (40 - ) mg/dL POC Glucose 444 H (70-110) mg/dL 10/07/19 10/07/19 10/07/19 Range/Units 17:10 17:10 17:10 WBC 7.7 (4.4-11.0) K/mm3 RBC 4.42 (4.2-5.4) M/mm3 Hgb 13.8 (12.0-15.0) g/dL Hct 42.4 (37-47) % MCV 95.9 (81-99) fL MCH 31.2 (27.0-32.0) pg MCHC 32.5 (32-36) g/dL RDW Std Deviation 44.5 H (35.1-43.9) fl RDW Coeff of Kosta 12.6 (11.6-14.6) % Plt Count 257 (150-450) K/mm3 MPV 10.6 (6.2-12.0) fl Immature Gran % (Auto) 0.400 (0.0-0.9) % Neut % (Auto) 60.9 (47-70) % Lymph % (Auto) 25.4 (19-41) % [place] % (Auto) 9.6 (0-10) % Eos % (Auto) 2.7 (0-5) % Baso % (Auto) 1.0 (0-1) % Absolute Neuts (auto) 4.7 (2.0-7.7) X10^3/uL Absolute Lymphs (auto) 1.95 (0.83-4.51) X10^3/uL Nucleated RBC % 0 (0-5) % PT 13.1 (11.7-14.9) SECONDS INR 1.0 APTT 33.0 (24.1-36.2) Seconds Sodium 136 (136-145) mmol/L Potassium 4.4 (3.5-5.1) mmol/L Chloride 103 (98-107) mmol/L Carbon Dioxide 27.0 (21.0-32.0) mmol/L Anion Gap 6 (5-15) BUN 14 (7-18) mg/dL Creatinine 0.88 (0.55-1.02) mg/dL Estim Creat Clear Calc 46.39 ml/min Est GFR (MDRD) Af Amer 83 (>60) mL/min Est GFR (MDRD) Non-Af 69 (>60) mL/min BUN/Creatinine Ratio 16.0 (10-20) RATIO Glucose 399 H (74-106) mg/dL Hemoglobin A1c (4.2-6.3) % Calcium 9.3 (8.5-10.1) mg/dL Troponin I < 0.015 (<0.045) ng/mL Triglycerides ( - 199) mg/dL Cholesterol (200) mg/dL LDL Cholesterol (0-130) mg/dL VLDL Cholesterol (5-40) mg/dL HDL Cholesterol (40 - ) mg/dL POC Glucose (70-110) mg/dL Diagnostic Data: Diagnostic Data Brain CT 10/07/19 17:03 IMPRESSION: No CT evidence of acute infarct. Once again, multiple hyperdense brain masses are present compatible with the given history of malignant melanoma. Overall, conspicuity of individual lesions has decreased somewhat compared to prior study. Comment: If there is clinical concern for hyperacute ischemia that is not yet apparent by CT, MRI should be considered if possible. Electronically Signed: Harry Benson MD at 17:17 EDT Tel , Service support , ADDENDUM: 10/07/19 9100 IMPRESSION: No CT evidence of acute infarct. Once again, multiple hyperdense brain masses are present compatible with the given history of malignant melanoma. Overall, conspicuity of individual lesions has decreased somewhat compared to prior study. Comment: If there is clinical concern for hyperacute ischemia that is not yet apparent by CT, MRI should be considered if possible. N.B. : The above information has been verbally conveyed by Harry Benson MD to Chad Lawson DO on 10/07/2019 17:24:37 (ET). Electronically Signed: Harry Benson MD at 17:17 EDT Tel , Service support , ADDENDUM: 10/07/19 1905 Chest X-Ray 10/07/19 17:49 IMPRESSION: Chronic interstitial lung changes without superimposed acute alveolar disease. Electronically Signed: Harry Benson MD at 18:00 EDT Tel , Service support , Brain MRI 10/07/19 19:01 IMPRESSION: Focal restricted diffusion is present in the deep right frontal lobe white matter. A small acute infarct cannot be excluded. When compared to prior MRI, there has been interval enlargement of several parenchymal metastatic lesions. Progressing vasogenic edema adjacent to the largest lesion in the left parietal cortex. No evidence of new hemorrhage. Electronically Signed: Harry Benson MD at 20:54 EDT Tel , Service support , Head/Neck CTA 10/07/19 22:10 IMPRESSION: No CTA evidence of significant intracranial arterial pathology. No CTA evidence of significant arterial pathology in the neck. NASCET criteria was used. Electronically Signed: Harry Benson MD at 22:45 EDT Tel , Service support , Assessment and Plan Ms. Afshan Carmona is a pleasant 64-year-old woman with stage IV melanoma with metastatic disease in the lungs and brain admitted to [facility] for right upper and lower extremity weakness, stroke versus mass-effect associated with REHAB LIAISON involvement. 1. Metastatic melanoma?disease in the lungs is stable per CT chest obtained 09/22/2019. Tentatively she is scheduled to restart systemic immunotherapy with single agent pembrolizumab on 10/12/2019. 2. Cancer metastatic to brain?MRI obtained 10/07/2019 demonstrates enlargement of brain lesions. Patient underwent SBRT to several lesions 08/13/2019 in [place]. Unfortunately I do not have treatment records from [place] to confirm that the brain lesions visualized on MRI yesterday were previously treated with focal radiation. I will have [place] cancer care staff obtain those records immediately. I briefly discussed with patient the utility of whole brain irradiation but a formal discussion about whole brain irradiation with radiation oncologist would be best. Recommend rad onc referral. In the interim, continue dexamethasone at current dose. 3. PE-continue Eliquis. We engaged in a lengthy conversation about the differences between palliative medicine and hospice care. I thoroughly reviewed options for care moving forward inclusive of continuance of systemic therapy?exploration of additional radiation to control REHAB LIAISON disease versus hospice care. At this time patient elects to pursue treatment but would like to discuss with a friend before making a formal decision. Thus, I believe a palliative referral is appropriate and the patient is amenable to that upon discharge. This case was discussed with Dr. Ramos who was in agreement with aforementioned plan. Siria Britt, MSN, WO[employer]ER, AOCNP Medications: Medications Added to Medication List This Visit Category Date Time Status Meloxicam [Mobic] Med 10/08/19 10:00 Active 15 mg PO DAILY Pantoprazole Sodium [Protonix] Med 10/08/19 10:00 Active 40 mg PO DAILY Primary Care Provider: Catherine Taveras DO Referring Provider:
[2019-10-08] MEDS: Pravastatin 80 MG Tablet PO (22:03)
[2019-10-08 22:56] LABS: Bedside Glucose 493 mg/dL (70-110)
[2019-10-08] MEDS: Benzonatate 100 MG Capsule PO (23:17)
[2019-10-09] VITALS (9 sets, daily range): BP systolic 155–183; BP diastolic 82–102; PULSE 63–98; RESP 16–20; TEMP 36.2–36.7; O2SAT 92–95
[2019-10-09 03:26] LABS: Bedside Glucose 377 mg/dL (70-110)
[2019-10-09] MEDS: dexAMETHasone 4 MG Tablet PO ×2 (06:45→11:33)
[2019-10-09] MEDS: Benzonatate 100 MG Capsule PO (06:48)
[2019-10-09] MEDS: Insulin Lispro 100 UNIT/ML INSULN.PEN SC ×2 (07:56→11:30)
[2019-10-09] MEDS: Aspirin E.C. 81 MG Tablet PO (07:57)
[2019-10-09] MEDS: Insulin Lispro 100 UNIT/ML INSULN.PEN 8 UNIT SC (07:57)
[2019-10-09] MEDS: Glimepiride 4 MG Tablet PO (07:57)
[2019-10-09] MEDS: Gabapentin 300 MG Capsule PO ×2 (07:57→11:33)
[2019-10-09 08:50] LABS: Bedside Glucose 444 mg/dL (70-110)
[2019-10-09] MEDS: APIXABAN 5 MG TABLET PO (09:31)
[2019-10-09] MEDS: Metoprolol Tartrate 50 MG Tablet PO (09:31)
[2019-10-09] MEDS: Verapamil SR 240 MG Tablet PO (09:31)
[2019-10-09] MEDS: Lisinopril 40 MG Tablet PO (09:32)
[2019-10-09] MEDS: Meloxicam 15 MG Tablet PO (09:32)
[2019-10-09] MEDS: Pantoprazole Sodium 40 MG Tablet PO (09:32)
[2019-10-09] MEDS: buPROPion (SR) 100 MG TABLET.SA 200 MG PO (09:32)
[2019-10-09] MEDS: Acetaminophen 325 MG Tablet 650 MG PO (09:34)
--- NOTE | 2019-10-09 09:56 | CASEMGMT ---
RN CM assessment: Face to Face with patient for initial transition planning/care coordination assessment. RN CM introduced self and role at [facility], pt voices understanding and consents to assessment at this time. Pt is lying in bed in no distress at this time. Pt is A/Ox4 at this time and answers all questions appropriately at this time. Care providers, pharmacy, and demographics verified at this time. Presentation: Sudden onset right arm weakness at 1600 and pt having difficulty walking with right leg. Admitting dx: Stroke-like symptoms PCP: [facility] Specialists: nancy Ramos; stephanie Traylor onc Preferred Pharmacy: [facility] Insurance: [facility] Prescription Benefit: [facility] Living Will/HPOA: Pt states does not have LW/HPOA but she is interested in completing at this time. Maritza BUTLER aware, voices understanding. LNOK: Corry Yao, friend/HPOA now; Rosita Kruger, sis-in-law Living Arrangements: Pt states lives alone in home with her dogs and with 2-3 steps in and states no concerns at home at this time. Pt states is normally independent with ADL's. Transportation: Pt states normally drives self but states will be having friends drive at this point until she feels its safe for her to drive and/or physician agrees. Pt states no transportation concerns. DME/HHC: Pt states has a walker, grab bars and shower bench at home and states no further DME needed at this time. Pt states no hx of HHC or SNF in the past. Therapy recommends pt home with HHC at discharge at this time. Pt picks [facility] and then [facility] as secondary choice. Call to [facility] and they state they do not service the [place] area, so call to [facility] and per intake, they should be able to take pt at this time. Referral faxed to [facility] at this time. Radiation oncology to bedside at the end of this RN CM's assessment and state they would like to start pt on radiation treatments on Saturday10/12/19 and pt is agreeable at this time. Pt states no concerns with going home at discharge. Pt states is retired. Pt states smokes 1/2pk/day and does not drink ETOH. Pt states she is aware that she should stop smoking. Pt states no further concerns/needs at this time. CM to follow for any further discharge planning/needs. Advised pt to ask for CM if any further questions/concerns/needs arise, voices understanding. Pt Goal: Home w/ HHC Plan: Home w/ HHC. Ignacia SAMPSON CM
--- NOTE | 2019-10-09 11:07 | CASEMGMT ---
SW completed a Healthcare Power of Rehabilitation Services Director and a Healthcare Living Will with patient. Copies were made and given to patient along with originals. A copy of each was also placed in patient's chart. Sheba KAUFMAN
--- NOTE | 2019-10-09 11:13 | PCM.DC ---
- Discharge Diagnoses Current Active Problems: Current Active and Chronic Problems (Last Reviewed 10/07/19 @ 22:[address] Yemi Iverson MD) Weakness due to acute stroke (Acute) Stroke-like symptoms (Acute) You will use the following diet at home:: Calorie/Carbohydrate Controlled (specify 1200, 1400, etc) - 1800 jossue / day, Cardiac Your food should be the consistency of: Regular Your liquids should be the consistency of: Regular/Thin Discharge Activity: Return to Normal Activity Additional Instructions: Discuss with your oncologist whether you need to extend your treatment of dexamethasone after you run out. Allergies/Adverse Reactions: Allergies metformin [From Glucophage] Adverse Reaction (Severe, Verified 10/07/19 16:58) Nausea Medications to take at Discharge Albuterol Inhaler [Ventolin Hfa] 2 inhaler INHALATION Q4H PRN PRN 10/17/16 Lisinopril [Zestril] 40 mg PO QHS 10/17/16 Pantoprazole Sodium [Protonix] 40 mg PO DAILY 10/17/16 Aspirin E.C. [Ecotrin] 81 mg PO DAILY@0800 06/11/19 Cyclobenzaprine HCl 10 mg PO TID PRN PRN 06/11/19 Gabapentin [Neurontin] 300 mg PO TIDCM 06/11/19 Meloxicam [Mobic] 15 mg PO DAILY 06/11/19 Nitroglycerin [Nitrostat] 0.4 mg SL PRN PRN 06/11/19 Pravastatin [Pravachol] 80 mg PO QHS 06/11/19 Verapamil HCl [Verapamil ER] 240 mg PO DAILY 06/11/19 buPROPion SR [Wellbutrin Sr] 200 mg PO BID 06/11/19 Fluticasone 0.05% [Flonase Nasal [place]] 1 spray NASAL DAILY PRN PRN 09/18/19 Glimepiride 4 mg PO BID 09/18/19 Metoprolol Tartrate 50 mg PO BID 09/18/19 Apixaban [Eliquis] 5 mg PO BID #60 tab 09/24/19 Dexamethasone [Decadron] 4 mg PO Q6 #28 tab 10/09/19 Insulin Glargine [Lantus SoloStar Pen] 28 units SC BID pen 10/09/19 Insulin Lispro [Humalog KwikPen] 10 unit SC TIDAC insuln.pen 10/09/19 The following prescriptions were given: Dexamethasone [Decadron] 4 mg PO Q6 #28 tab Transmission Status: Pending to [id number] Orders to be completed after discharge: RAD ONC: CT Sim [RAD[facility]ONC[facility]] Facility: [facility], Location: [facility] Primary Care Physician: Catherine Taveras DO [Primary Care Provider] - Please follow up with your Primary Care Physician in: 1-2 weeks Test Results: Test results from this visit will be discussed in further detail at your follow-up appointment, if applicable. Please Follow Up With: Radiation oncology When: Saturday, 10/11 Proposed Discharge Date: 10/09/19
[2019-10-09] MEDS: cycloBENZAPRine HCl 10 MG Tablet PO (11:20)
[2019-10-09] MEDS: Insulin Lispro 100 UNIT/ML INSULN.PEN 10 UNIT SC (11:30)
--- NOTE | 2019-10-09 11:54 | CASEMGMT ---
Pt is now interested in speaking w/palliative care once she goes home. SW called palliative care, message left and referral faxed. PASHA Marsh
--- NOTE | 2019-10-09 12:04 | CON.PCM_ITS ---
Date of Service: 10/09/19 Referring Provider: Name: NAZIA TREJO Date of : 1955 Patient Status: Observation Attending Provider: Tiff Chapman Date: 10/09/19 09:30 Initialization Date: 10/09/19 09:30 Subjective Date of Service:: 10/09/19 Chief Complaint: Metastatic melanoma History of Present Illness: Ms. Nazia Trejo is a pleasant 64 year old woman with a past medical history significant for COPD, diabetes, and metastatic melanoma who developed right upper extremity pain followed by weakness and immobility and right lower extremity immobility. She presented to [facility] emergency department on 10/07/2019. Brain imaging by way of MRI(10/07/2019) showed possible small acute infarct and interval enlargement of several parenchymal metastatic lesions, iwona. the left parietal currently measuring [id number], as well as progressing vasogenic edema adjacent to the largest lesion in the left parietal cortex, and as possible rt frontal infarct, unrelated to her present admitting symptoms of right sided upper and lower ext weakness. She recently received Brain SRS to 8 lesions in the brain(dated 08/13/2019@[facility]). Patient was evaluated by neurology at [facility] via telehealth technologies and started on dexamethasone 4 mg every 6 hours, currently with improvement of her weakness. Oncologic history: 2008- Diagnosed with breast cancer. She was treated with surgery, adjuvant chemotherapy and radiation [facility]. 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 Underwent wide resection and sentinel lymph node biopsy 02/16/2016. Biopsy cedrick wed nodular melanoma 2.4 mm depth sentinel nodes of right axilla 3/3 LN negative (pT3b pN0.) Declined adjuvant therapy and elected surveillance, however was lost to follow-up until April 2019. 05/06/2019?she presented to [facility] underwent CT chest which revealed multiple bilateral lung nodules. CT abdomen negative 05/27/2019?underwent CT-guided biopsy of lung nodule pathology confirmed metastatic melanoma. 06/22/2019?PET/CT demonstrated newly identified uptake in the left frontal cerebral cortex and left cerebellar hemisphere concerning for [employer] disease and multiple nodular foci of uptake newly apparent in the bilateral sam-thorax pulmonary parenchyma, too many to individually articulate with a maximum calculated SUV of 3 with the largest being 1.6 cm and new avidity in the first lumbar vertebrae. 06/23/2019 MRI brain demonstrated multiple enhancing lesions including 2 in the left cerebellar hemisphere, one in the left lingual gyrus, 1 in the right cuneus, 1 in the caudal aspect of the right central lobe, one in the posterior aspect of the left superior frontal gyrus and one in the left precentral gyrus. Several of these lesions are hyperintense on T1 suggesting metastatic melanoma 06/25/2019?received cycle 1 duplet immunotherapy with ipilimumab and nivolumab. 07/20/2019?received cycle 2 ipilimumab and nivolumab. Developed immunotherapy mediated colitis with diarrhea, began corticosteroids and systemic therapy suspended. 08/13/2019?underwent SBRT to the brain at [facility]. 09/07/2019?patient experienced tremors and abnormal movement of right upper extremity presented to [place] ER underwent MRI brain which was reported as improved metastatic disease. 09/22/2019-CT chest with contrast demonstrates bilateral pulmonary nodules, reported as smaller in size when compared to PET from June 2019. Also reveals pulmonary embolus in the peripheral vessels of the posterior right upper lobe. Patient began Eliquis 5 mg twice daily. Patient was tentatively scheduled to restart systemic immunotherapy with single agent pembrolizumab on 10/12/2019 Past Medical History: Chronic Problems (Last Reviewed 10/07/19 @ 22:[address] Yemi Iverson MD) COPD (chronic obstructive pulmonary disease) (Chronic) Tobacco use (Chronic) HTN (hypertension) (Chronic) HLD (hyperlipidemia) (Chronic) CAD (coronary artery disease) (Chronic) Obesity (Chronic) Diabetes mellitus, type II (Chronic) History of breast cancer (Chronic) Metastatic melanoma (Chronic) Anxiety and depression (Chronic) History of left breast cancer (Chronic) Pulmonary embolism (Chronic) Melanoma (Chronic) right upper back, stage IIB Metastatic melanoma to lung (Chronic) Malignant melanoma metastatic to lung (Chronic) Malignant melanoma metastatic to brain (Chronic) Peau d'orange over breast (Chronic) Past Medical/Surgical History: Past Medical History - Most Recent Inpatient Visit Past Medical History Start: 10/07/19 23:08 Text: Status: Complete Freq: ONCE Protocol: Document 10/07/19 23:08 KATHY (Rec: 10/07/19 23:39 KATHY [id number]) BMI Required to complete PMH What is Patient's BMI 40.0 Past Medical History Unable History Recalled No Query Text:Pt Unable/Family Not Present Neurologic Medical History Hx Stroke/TIA No Hx Dementia/Alzheimer's No Hx Parkinson's Disease No Hx Seizures No Hx Multiple Sclerosis No Hx Migraines No Cardiac Medical History VTE Present on Admission No Hx of Deep Vein Thrombosis/VTE/PE No Hx Hypertension Yes: ON MED Hx Chest Pain/Angina No Hx Heart Attack No Hx Cardiac Surgery/Stents/Etc. 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 Hx Anticoagulant Therapy Yes Query Text:(Coumadin, Aspirin, Plavix, Xarelto, etc.) Hx Pain in Legs when Walking/Leg Cramps No Respiratory Medical History Hx COPD Yes Hx Emphysema No Hx Smoking Yes Smoking Status Current every day smoker Hx Smoking Cessation Counseling Yes Hx Smoking Exposure No Hx Tobacco Use in last 12 months Yes Sent to [facility] Yes Hx of Pipe Smoking No Hx Sleep Apnea Yes CPAP No BIPAP No STOP Results Positive GI Medical History Hx Ulcer No Hx Hepatitis No Hx Cirrhosis No Hx GI Bleed No Hx Unplanned Weight Loss No Genitourinary Medical History Indwelling Catheter in Place on Arrival/ No Admission Hx Renal Disease No Hx Dialysis No Musculoskeletal History Hx Arthritis Yes Hx Rheumatoid Arthritis No Endocrine Medical History Hx Diabetes Yes Hx Thyroid Disease No Hematologic Medical History Hx of Blood Transfusion No Hx of Transfusion in last 3 Months No Ever experience any problems with No transfusion(s)? Hx of Preganancy in last 3 Months N/A Nurse Filling Out Transfusion & [id number] Questions: Date: 10/07/19 Time: 23:39 Psycho/Social Medical History Hx Depression Yes Hx Anxiety Yes Hx Behavior Disorder No Hx Alcohol Use No Hx Substance Use No Other Medical History Hx Blood Disorders No Hx Anemia No Hx Cancer Yes: BREAST & MELANOMA-METS TO BRAIN,LUNG,SPINE Hx Drug Resistant Organism No Wound/Pressure Injury Present on Arrival No /Admission Query Text:If yes, chart assessment in Shift/Clinical Findings Central Line/PICC/VAD Present on Arrival No /Admission Antibiotics within last 7 days? No Methicillin Resistant Staphylococcus aureus Screening Active MRSA No Risk for Readmission Number of Risk Factors 6 At Risk for Readmission Patient is At Risk For Readmission Patient is eligible for Call Back Y Past Medical History (Last Reviewed 10/07/19 @ 22:[address] Yemi Iverson MD) Anhedonia (Acute) Anxiety (Acute) B12 deficiency (Acute) Breast cancer, left (Acute) CAD (coronary artery disease) (Acute) COPD (chronic obstructive pulmonary disease) (Acute) Carpal tunnel syndrome (Acute) Depression (Acute) Diabetes mellitus (Acute) Emphysema lung (Acute) Hyperlipidemia (Acute) Hyponatremia (Acute) Melanoma (Acute) Peripheral edema (Acute) Hypertension (Chronic) Past Surgical History (Last Reviewed 10/07/19 @ 22:[address] Yemi Iverson MD) H/O melanoma excision (Acute) History of cholecystectomy (Acute) History of excision of pilonidal cyst (Acute) History of lumpectomy (Acute) History of lymph node excision (Acute) Status post trigger finger release (Acute) port placement (Acute) Maternal Family History: Family History (Last Reviewed 10/07/19 @ 22:[address] Yemi Iverson MD) Mother Heart disease Hypertension Father Diabetes Sister Lung cancer Family History: High Cholesterol, Heart Disease, Hypertension Paternal Family History: Family History (Last Reviewed 10/07/19 @ 22:[address] Yemi Iverson MD) Mother Heart disease Hypertension Father Diabetes Sister Lung cancer Family History: Diabetes - Social History Smoking Status: Current every day smoker Tobacco Use: Cigarettes Allergies/Adverse Reactions: Allergy/AdvReac Type Severity Reaction Status Date / Time metformin [From Glucophage] AdvReac Severe Nausea Verified 10/07/19 16:58 Review of Systems Constitutional:: Reports: Weakness, Fatigue. Denies: Fever, Sweats, Weight loss, Appetite change, Chills Cardiovascular:: Reports: Dyspnea on exertion. Denies: Chest pain, Palpitations, Orthopnea, PND Respiratory: Reports: Cough, Shortness of Breath, Wheezing. Denies: Hemoptysis Gastrointestinal:: Denies: Abdominal pain, Nausea, Vomiting, Diarrhea, Constipation, Melena, Hematochezia Genitourinary: Denies: Dysuria, Hematuria, 15, Flank pain Musculoskeletal:: Denies: Back pain, Myalgia, Arthralgia Skin: Denies: Rash, Skin Changes, Wounds Neurological:: Reports: Headache, Muscle weakness. Denies: Dizziness, Visual changes, Tinnitus, Hearing loss Psychiatric: Reports: Depression - Well-controlled on current medications. Denies: Anxiety, Homicidal Ideations, Suicidal Ideations Vital Signs Height 5 ft Weight: 204 lb 9.423 oz Weight in Pounds 204.6 lbs BMI 40.8 Pulse Ox 92 Temperature 98.2 F Pulse Rate 113 Respiratory Rate 18 Blood Pressure 181/85 Blood Pressure Position Semi-Fowlers - Physical Exam: General: Alert, Oriented x3, No apparent distress ECO KAR[place]FSKY: 60% HEENT: Atraumatic, PERRLA, EOMI, Normocephalic Oropharynx:: Negative for: Dry mucosa, Ulcerated lesions Neck:: Supple, Trachea midline. Negative for: JVD, bilateral Cardiac:: Regular rate, Regular rhythm, Normal S1, Normal S2. Negative for: Murmur Lungs: Wheezes, Diminished, Excusion symmetrical. Negative for: Rhonchi, Increased respiratory effort Abdomen:: Bowel sounds x 4, Soft, Non-tender, Non-distended, Obese. Negative for: Hepatosplenomegaly Extremities:: Negative for: Cyanosis, Edema Neurological: Neuro grossly intact, - - Right upper and right lower extremity weakness Skin:: Negative for: Lesions, Rash, Petechiae, Ecchymosis Psychiatric:: Appropriate affect, Euthymic Lymphatics:: Negative for: Cervical lymphadenopathy Laboratory Data: Laboratory Tests 10/08/19 10/08/19 10/08/19 Range/Units 16:41 11:28 08:21 WBC (4.4-11.0) K/mm3 RBC (4.2-5.4) M/mm3 Hgb (12.0-15.0) g/dL Hct (37-47) % MCV (81-99) fL MCH (27.0-32.0) pg MCHC (32-36) g/dL RDW Std Deviation (35.1-43.9) fl RDW Coeff of Kosta (11.6-14.6) % Plt Count (150-450) K/mm3 MPV (6.2-12.0) fl Immature Gran % (Auto) (0.0-0.9) % Neut % (Auto) (47-70) % Lymph % (Auto) (19-41) % [place] % (Auto) (0-10) % Eos % (Auto) (0-5) % Baso % (Auto) (0-1) % Absolute Neuts (auto) (2.0-7.7) X10^3/uL Absolute Lymphs (auto) (0.83-4.51) X10^3/uL Nucleated RBC % (0-5) % PT (11.7-14.9) SECONDS INR APTT (24.1-36.2) Seconds Sodium (136-145) mmol/L Potassium (3.5-5.1) mmol/L Chloride (98-107) mmol/L Carbon Dioxide (21.0-32.0) mmol/L Anion Gap (5-15) BUN (7-18) mg/dL Creatinine (0.55-1.02) mg/dL Estim Creat Clear Calc ml/min Est GFR (MDRD) Af Amer (>60) mL/min Est GFR (MDRD) Non-Af (>60) mL/min BUN/Creatinine Ratio (10-20) RATIO Glucose (74-106) mg/dL Hemoglobin A1c (4.2-6.3) % Calcium (8.5-10.1) mg/dL Troponin I (<0.045) ng/mL Triglycerides ( - 199) mg/dL Cholesterol (200) mg/dL LDL Cholesterol (0-130) mg/dL VLDL Cholesterol (5-40) mg/dL HDL Cholesterol (40 - ) mg/dL POC Glucose 423 H 367 H 416 H (70-110) mg/dL 10/08/19 10/07/19 10/07/19 Range/Units 05:02 23:21 17:10 WBC (4.4-11.0) K/mm3 RBC (4.2-5.4) M/mm3 Hgb (12.0-15.0) g/dL Hct (37-47) % MCV (81-99) fL MCH (27.0-32.0) pg MCHC (32-36) g/dL RDW Std Deviation (35.1-43.9) fl RDW Coeff of Kosta (11.6-14.6) % Plt Count (150-450) K/mm3 MPV (6.2-12.0) fl Immature Gran % (Auto) (0.0-0.9) % Neut % (Auto) (47-70) % Lymph % (Auto) (19-41) % [place] % (Auto) (0-10) % Eos % (Auto) (0-5) % Baso % (Auto) (0-1) % Absolute Neuts (auto) (2.0-7.7) X10^3/uL Absolute Lymphs (auto) (0.83-4.51) X10^3/uL Nucleated RBC % (0-5) % PT (11.7-14.9) SECONDS INR APTT (24.1-36.2) Seconds Sodium (136-145) mmol/L Potassium (3.5-5.1) mmol/L Chloride (98-107) mmol/L Carbon Dioxide (21.0-32.0) mmol/L Anion Gap (5-15) BUN (7-18) mg/dL Creatinine (0.55-1.02) mg/dL Estim Creat Clear Calc ml/min Est GFR (MDRD) Af Amer (>60) mL/min Est GFR (MDRD) Non-Af (>60) mL/min BUN/Creatinine Ratio (10-20) RATIO Glucose (74-106) mg/dL Hemoglobin A1c 10.9 H (4.2-6.3) % Calcium (8.5-10.1) mg/dL Troponin I (<0.045) ng/mL Triglycerides 102 ( - 199) mg/dL Cholesterol 201 H (200) mg/dL LDL Cholesterol 131 H (0-130) mg/dL VLDL Cholesterol 20 (5-40) mg/dL HDL Cholesterol 50 (40 - ) mg/dL POC Glucose 444 H (70-110) mg/dL 10/07/19 10/07/19 10/07/19 Range/Units 17:10 17:10 17:10 WBC 7.7 (4.4-11.0) K/mm3 RBC 4.42 (4.2-5.4) M/mm3 Hgb 13.8 (12.0-15.0) g/dL Hct 42.4 (37-47) % MCV 95.9 (81-99) fL MCH 31.2 (27.0-32.0) pg MCHC 32.5 (32-36) g/dL RDW Std Deviation 44.5 H (35.1-43.9) fl RDW Coeff of Kosta 12.6 (11.6-14.6) % Plt Count 257 (150-450) K/mm3 MPV 10.6 (6.2-12.0) fl Immature Gran % (Auto) 0.400 (0.0-0.9) % Neut % (Auto) 60.9 (47-70) % Lymph % (Auto) 25.4 (19-41) % [place] % (Auto) 9.6 (0-10) % Eos % (Auto) 2.7 (0-5) % Baso % (Auto) 1.0 (0-1) % Absolute Neuts (auto) 4.7 (2.0-7.7) X10^3/uL Absolute Lymphs (auto) 1.95 (0.83-4.51) X10^3/uL Nucleated RBC % 0 (0-5) % PT 13.1 (11.7-14.9) SECONDS INR 1.0 APTT 33.0 (24.1-36.2) Seconds Sodium 136 (136-145) mmol/L Potassium 4.4 (3.5-5.1) mmol/L Chloride 103 (98-107) mmol/L Carbon Dioxide 27.0 (21.0-32.0) mmol/L Anion Gap 6 (5-15) BUN 14 (7-18) mg/dL Creatinine 0.88 (0.55-1.02) mg/dL Estim Creat Clear Calc 46.39 ml/min Est GFR (MDRD) Af Amer 83 (>60) mL/min Est GFR (MDRD) Non-Af 69 (>60) mL/min BUN/Creatinine Ratio 16.0 (10-20) RATIO Glucose 399 H (74-106) mg/dL Hemoglobin A1c (4.2-6.3) % Calcium 9.3 (8.5-10.1) mg/dL Troponin I < 0.015 (<0.045) ng/mL Triglycerides ( - 199) mg/dL Cholesterol (200) mg/dL LDL Cholesterol (0-130) mg/dL VLDL Cholesterol (5-40) mg/dL HDL Cholesterol (40 - ) mg/dL POC Glucose (70-110) mg/dL POC Glucose: 10/09/2019@1200: 427 mg/dL H Diagnostic Data Brain CT 10/07/19 17:03 IMPRESSION: No CT evidence of acute infarct. Once again, multiple hyperdense brain masses are present compatible with the given history of malignant melanoma. Overall, conspicuity of individual lesions has decreased somewhat compared to prior study. Comment: If there is clinical concern for hyperacute ischemia that is not yet apparent by CT, MRI should be considered if possible. Electronically Signed: Harry Benson MD at 17:17 EDT Tel , Service support , ADDENDUM: 10/07/19 1731 IMPRESSION: No CT evidence of acute infarct. Once again, multiple hyperdense brain masses are present compatible with the given history of malignant melanoma. Overall, conspicuity of individual lesions has decreased somewhat compared to prior study. Comment: If there is clinical concern for hyperacute ischemia that is not yet apparent by CT, MRI should be considered if possible. N.B. : The above information has been verbally conveyed by Harry Benson MD to Chad Lawson DO on 10/07/2019 17:24:37 (ET). Electronically Signed: Harry Benson MD at 17:17 EDT Tel , Service support , Chest X-Ray 10/07/19 17:49 IMPRESSION: Chronic interstitial lung changes without superimposed acute alveolar disease. Electronically Signed: Harry Benson MD at 18:00 EDT Tel , Service support , Brain MRI 10/07/19 19:01 IMPRESSION: Focal restricted diffusion is present in the deep right frontal lobe white matter. A small acute infarct cannot be excluded. When compared to prior MRI, there has been interval enlargement of several parenchymal metastatic lesions. Progressing vasogenic edema adjacent to the largest lesion in the left parietal cortex. No evidence of new hemorrhage. Assessment and Plan Ms. Afshan Trejo is a pleasant 64-year-old woman with stage IV melanoma with metastatic disease in the lungs and brain admitted to [facility] for right upper and lower extremity weakness, stroke versus mass-effect associated with [employer] involvement. 1. Metastatic melanoma?disease in the lungs is stable per CT chest obtained 09/22/2019. Tentatively she is scheduled to restart systemic immunotherapy with single agent pembrolizumab on 10/12/2019. 2. Cancer metastatic to brain?MRI obtained 10/07/2019 demonstrates enlargement of brain lesions. Patient S/P SRS Gamma Knife to eight lesions 08/13/2019 in [facility]. 3. PE-continue Eliquis. 4. We discussed palliative whole brain radiation as she has deferred Hospice care at this time, and she has agreed to palliative treatments to begin 10/12/2019. We will simulate today in preparation for treatments. All risks and benefits were discuseed as well, which she agreed, and she has also agreed to concomitant Memantine to palliative cognitive issues, in addition to her treatments. Medications: Medications Added to Medication List This Visit Category Date Time Status Meloxicam [Mobic] Med 10/08/19 10:00 Active 15 mg PO DAILY Pantoprazole Sodium [Protonix] Med 10/08/19 10:00 Active 40 mg PO DAILY PCP: Cc: Catherine Taveras DO, Chad Lawson DO Thank you for allowing me to participate in the management and care of your patient. If I may answer any questions in the interim, please do not hesitate to contact me at any time. Garry Christopher MD for Will Traylor DO, MS Business Banking Manager, Department of Radiation Oncology [facility]
[2019-10-09 12:11] LABS: Bedside Glucose 427 mg/dL (70-110)
--- NOTE | 2019-10-09 12:45 | PCM.DC.SUM ---
<Aleks Cedeño - Last Filed: 10/09/19 12:45> Discharge Date and Diagnosis Date of Admission: 10/07/19 Date of Discharge: 10/09/19 - Primary Discharge Diagnosis Active and Suspected Problems (Last Reviewed 10/07/19 @ 22:[address] Yemi Iverson MD) Right-sided weakness, stroke versus affect of metastatic brain disease Malignant melanoma Type 2 diabetes History of CAD - Secondary Discharge Diagnosis Chronic Problems (Last Reviewed 10/07/19 @ 22:[address] Yemi Iverson MD) COPD (chronic obstructive pulmonary disease) (Chronic) Tobacco use (Chronic) HTN (hypertension) (Chronic) HLD (hyperlipidemia) (Chronic) CAD (coronary artery disease) (Chronic) Obesity (Chronic) Diabetes mellitus, type II (Chronic) History of breast cancer (Chronic) Metastatic melanoma (Chronic) Anxiety and depression (Chronic) History of left breast cancer (Chronic) Pulmonary embolism (Chronic) Melanoma (Chronic) right upper back, stage IIB Metastatic melanoma to lung (Chronic) Malignant melanoma metastatic to lung (Chronic) Malignant melanoma metastatic to brain (Chronic) Peau d'orange over breast (Chronic) Hospital Course and Treatment Imaging Results: IMPRESSION: No CT evidence of acute infarct. Once again, multiple hyperdense brain masses are present compatible with the given history of malignant melanoma. Overall, conspicuity of individual lesions has decreased somewhat compared to prior study. Comment: If there is clinical concern for hyperacute ischemia that is not yet apparent by CT, MRI should be considered if possible. Addendum: I discussed this case with Dr. Lawson in the ER at 6:54 PM EST on 10/07/2019. There was some question by neurology of acute hemorrhage associated with one of the larger brain lesions on the current study. Although a small amount of acute superimposed hemorrhage cannot be entirely excluded, the overall size and number of intracranial lesions has remained stable or slightly improved compared to prior CT from 09/05/2019. This suggests that melanoma metastases are more likely than acute hemorrhage. Consider repeat pre and postcontrast brain MRI, which could be compared with MRI obtained on 09/07/2019. RAD/Chest 1 View IMPRESSION: Chronic interstitial lung changes without superimposed acute alveolar disease. MRI/Brain W/WO Contrast IMPRESSION: Focal restricted diffusion is present in the deep right frontal lobe white matter. A small acute infarct cannot be excluded. When compared to prior MRI, there has been interval enlargement of several parenchymal metastatic lesions. Progressing vasogenic edema adjacent to the largest lesion in the left parietal cortex. No evidence of new hemorrhage. Echo: Interpretation Summary The estimated ejection fraction is 65 %. Normal diastology for age. Bubble contrast study negative for right to left interatrial shunt. The study was technically difficult. Contrast injection was performed. Consults: Tele neuro Operations: None Procedures: 2-D Echocardiogram Summary of Care Provided: Hospital Course: The patient is a 64 year old F past medical history of malignant melanoma with metastatic disease of the brain, prior gamma knife, history of CAD, type 2 diabetes, obesity, who presented to the emergency room with complaints of new right-sided weakness. [facility] stroke neurologist evaluated the patient via the robot and felt that her weakness was due to her metastatic lesions. Patient was not considered a candidate for TPA. There is question about bleeding around the mats so this was discussed with the radiologist by the ER physician and it was noted that there was not any bleeding on the CT scan. The patient was admitted with concern for new right-sided weakness from mets versus stroke. She was started on Decadron. MRI was obtained which showed questionable stroke on the right side, mets were on the left side more consistent with the symptoms she was demonstrating. It was felt that her symptoms were secondary to mets and not acute stroke. She had some fluctuations in her blood sugars with the Decadron therapy, her insulin therapies were increased. She is to continue aspirin and Eliquis. Regarding her brain mets oncology was consulted and met with the patient, determined that the next step would be whole brain radiation. She will start this on Saturday. The patient worked with PT and OT and was able to ambulate without assistance, initially we recommended rehab however she was not interested in this option and wanted to go home with home health care. She was discharged home with home health care in stable condition. She will need to follow-up on Saturday for radiation. She will need to follow-up with her PCP in 1 to 2 weeks. She will need to discuss duration of Decadron therapy with her oncologist, and will need to closely monitor her blood sugars and possibly need further adjustments to her insulin regimen particularly while on Decadron. This patient was seen by Aleks Cedeño PA-C under the supervision of Doctor Chapman. [] - Physical Exam Vitals/I&O's: Vital Signs Temp Pulse Resp BP Pulse Ox 97.2 F L 92 18 183/85 H 94 10/09/19 08:05 10/09/19 09:31 10/09/19 08:05 10/09/19 09:38 10/09/19 08:05 Oxygen Flow Rate (L/min) 2 Oxygen Delivery Method Room Air Weight: 204 lb 9.423 oz Body Mass Index (BMI) 39.9 Finger Stick Blood Glucose 400 Intake and Output for Last 24 Hours 10/07/19 10/08/19 10/09/19 23:59 23:59 23:59 Intake Total 1959 340 / 340 Balance 1959 340 / 340 General: Alert, Oriented x3, Cooperative HEENT: Atraumatic, PERRLA, EOMI, Normocephalic Neck: Supple, No JVD, Negative Carotid Bruits Lungs: Clear to auscultation, Normal air movement Cardiovascular: Regular rate, No murmurs Abdomen: Bowel Sounds Present, Soft, Non Tender Extremities: No edema, Capillary Refill Less than 3 Seconds Skin: No rashes, No breakdown Musculoskeletal: No Tenderness to Palpation of Joints or Extremities Neurological: Cranial nerves II-XII grossly intact, - - mild residual right upp/lower ext weakness, improved Psych/Mental Status: Normal Affect, Appropriate, Alert and oriented to time, place, person, mood and affect Laboratory Results 10/08/19 16:41: POC Glucose 423 H 10/08/19 21:55: POC Glucose 493 H* 10/09/19 03:20: POC Glucose 377 H 10/09/19 07:50: POC Glucose 444 H 10/09/19 12:07: POC Glucose 427 H Current Medications Acetaminophen (Tylenol) 650 mg PO Q6H PRN PRN PRN Reason: Pain Score 1-10/10 or T >100.4 Last Admin: 10/09/19 09:34 Dose: 650 mg Documented by: Albuterol Sulfate (Ventolin Aerosols) 2.5 mg INHALATION Q2H PRN PRN PRN Reason: sob/wheezing Apixaban (Eliquis) 5 mg PO BID [facility] Last Admin: 10/09/19 09:31 Dose: 5 mg Documented by: Aspirin (Ecotrin) 81 mg PO DAILY@0800 [facility] Last Admin: 10/09/19 07:57 Dose: 81 mg Documented by: Benzonatate (Tessalon Perle) 100 mg PO Q8H PRN PRN PRN Reason: COUGH Last Admin: 10/09/19 06:48 Dose: 100 mg Documented by: Bupropion HCl (Wellbutrin Sr (100mg Tablets)) 200 mg PO BID [facility] Last Admin: 10/09/19 09:32 Dose: 200 mg Documented by: Cyclobenzaprine HCl (Flexeril) 10 mg PO TID PRN PRN PRN Reason: SPASMS Last Admin: 10/09/19 11:20 Dose: 10 mg Documented by: Dexamethasone (Decadron) 4 mg PO Q6 [facility] Last Admin: 10/09/19 11:33 Dose: 4 mg Documented by: Fluticasone Propionate (Flonase Nasal [place]) 1 spray NASAL DAILY PRN PRN PRN Reason: ALLERGIES Gabapentin (Neurontin) 300 mg PO TIDCM [facility] Last Admin: 10/09/19 11:33 Dose: 300 mg Documented by: [facility] Last Admin: 10/09/19 07:57 Dose: 4 mg Documented by: Glucagon () 1 mg IM .X1 PRN PRN Reason: Hypoglycemia Hydralazine HCl (Apresoline Iv) 5 mg IV Q30M PRN PRN Reason: to maintain BP goals Dextrose (Dextrose 10%-Water) 250 mls @ 999 mls/hr IV .Q16M PRN; Protocol PRN Reason: HYPOGLYCEMIA Sodium Chloride () 250 mls @ 15 mls/hr IV .[id number] PRN PRN Reason: Additional IVPB Infusion Insulin Glargine (Lantus (Bkc)) 28 units SC BID [facility] Last Admin: 10/09/19 11:31 Dose: 28 u Documented by: Insulin Human Lispro (Humalog Kwikpen (Bkc)) 0 unit SC ACHS [facility]; Protocol Last Admin: 10/09/19 11:30 Dose: 16 unit Documented by: Insulin Human Lispro (Humalog Kwikpen (Bkc)) 10 unit SC TIDAC [facility] Last Admin: 10/09/19 11:30 Dose: 10 u Documented by: Lisinopril (Zestril) 40 mg PO DAILY [facility] Last Admin: 10/09/19 09:32 Dose: 40 mg Documented by: Melatonin (Melatonin) 3 mg PO QHS PRN PRN PRN Reason: INSOMNIA Meloxicam (Mobic) 15 mg PO DAILY [facility] Last Admin: 10/09/19 09:32 Dose: 15 mg Documented by: Metoprolol Tartrate (Lopressor (Beta Gissell)) 50 mg PO BID [facility] Last Admin: 10/09/19 09:31 Dose: 50 mg Documented by: Ondansetron HCl (Zofran) 4 mg IV Q8H PRN PRN PRN Reason: NAUSEA/VOMITING Pantoprazole Sodium (Protonix) 40 mg PO DAILY [facility] Last Admin: 10/09/19 09:32 Dose: 40 mg Documented by: Pravastatin Sodium (Pravachol) 80 mg PO QHS [facility] Last Admin: 10/08/19 22:03 Dose: 80 mg Documented by: Sodium Chloride () 10 - 40 ml IV UD PRN PRN Reason: SALINE FLUSH Verapamil HCl (Calan Sr) 240 mg PO DAILY [facility] Last Admin: 10/09/19 09:31 Dose: 240 mg Documented by: Discharge Diet: Low fat/ Low Cholesterol, 1800 Calorie Control Diet, 2000 mg Sodium Diet Discharge Activity: Return to Normal Activity Home Medications: Medications to take at Discharge Albuterol Inhaler [Ventolin Hfa] 2 inhaler INHALATION Q4H PRN PRN 10/17/16 Lisinopril [Zestril] 40 mg PO QHS 10/17/16 Pantoprazole Sodium [Protonix] 40 mg PO DAILY 10/17/16 Aspirin E.C. [Ecotrin] 81 mg PO DAILY@0800 06/11/19 Cyclobenzaprine HCl 10 mg PO TID PRN PRN 06/11/19 Gabapentin [Neurontin] 300 mg PO TIDCM 06/11/19 Meloxicam [Mobic] 15 mg PO DAILY 06/11/19 Nitroglycerin [Nitrostat] 0.4 mg SL PRN PRN 06/11/19 Pravastatin [Pravachol] 80 mg PO QHS 06/11/19 Verapamil HCl [Verapamil ER] 240 mg PO DAILY 06/11/19 buPROPion SR [Wellbutrin Sr] 200 mg PO BID 06/11/19 Fluticasone 0.05% [Flonase Nasal [place]] 1 spray NASAL DAILY PRN PRN 09/18/19 Glimepiride 4 mg PO BID 09/18/19 Metoprolol Tartrate 50 mg PO BID 09/18/19 Apixaban [Eliquis] 5 mg PO BID #60 tab 09/24/19 Dexamethasone [Decadron] 4 mg PO Q6 #28 tab 10/09/19 Insulin Glargine [Lantus SoloStar Pen] 28 units SUBCUT BID pen 10/09/19 Insulin Lispro [Humalog KwikPen] 10 unit SUBCUT TIDAC insuln.pen 10/09/19 Insulin Lispro [Humalog KwikPen] See Protocol SUBCUT ACHS #0 insuln.pen 10/09/19 Memantine HCl 5 mg PO DAILY #30 tab 10/09/19 Following Prescrptions Were Given to Patient: Dexamethasone [Decadron] 4 mg PO Q6 #28 tab Transmission Status: Received by [facility] Memantine HCl 5 mg PO DAILY #30 tab Transmission Status: Received by [facility] Other Amb Orders: RAD ONC: CT Sim [RAD.ONC.WO] Facility: [facility], Location: [facility] Primary Care Physician: Catherine Taveras DO [Primary Care Provider] - Please follow up with your Primary Care Physician in: 1-2 weeks Please Follow Up With: Radiation oncology When: Saturday, 10/11 Disposition: Home with Home Health Minutes spent on discharge:: 40 Patient Condition:: Stable Medical Necessity - Tobacco Use Smoking Status: Current every day smoker Tobacco Use: Cigarettes Meaningful Use Info Meaningful Use Diagnoses (Choose all that apply): None applicable <Tiff Chapman - Last Filed: 10/09/19 16:15> Discharge Date and Diagnosis - Secondary Discharge Diagnosis Chronic Problems (Last Reviewed 10/07/19 @ 22:[address] Yemi Iverson MD) COPD (chronic obstructive pulmonary disease) (Chronic) Tobacco use (Chronic) HTN (hypertension) (Chronic) HLD (hyperlipidemia) (Chronic) CAD (coronary artery disease) (Chronic) Obesity (Chronic) Diabetes mellitus, type II (Chronic) History of breast cancer (Chronic) Metastatic melanoma (Chronic) Anxiety and depression (Chronic) History of left breast cancer (Chronic) Pulmonary embolism (Chronic) Melanoma (Chronic) right upper back, stage IIB Metastatic melanoma to lung (Chronic) Malignant melanoma metastatic to lung (Chronic) Malignant melanoma metastatic to brain (Chronic) Peau d'orange over breast (Chronic) Hospital Course and Treatment Summary of Care Provided: Patient seen by Aleks Cedeño PA-C The patient is a 64 year old F with a past medical history as outlined which includes malignant melanoma with metastasis to the brain in., Knife surgery. She was admitted through the ED on 10/07/2019 with a complaint of new onset right-sided weakness. She was brought into the emergency room; CT of the brain done showed multiple hypodense brain masses compatible with malignant melanoma. And the case was discussed with [facility]-neurology who were concerned the patient may be having a brain bleed is recommended a blood pressure be maintained below 140 systolic and patient be given Decadron for vasogenic edema. MRI was done on account of concern for brain bleed which showed interval enlargement of several parenchymal metastatic lesions and progressing vasogenic edema adjacent to the largest lesion of the left parietal cortex with no evidence of new hemorrhage. Patient was started on Decadron and symptoms improved. Oncology was consulted and determined that the next up would be whole brain radiation for the brain mets. Patient was evaluated by physical and Occupational Therapy. Rehab was recommended but patient was not interested in going to a rehab facility and wanted to go home with home therapy. She was also reviewed by radiation oncology in preparation for starting radiation therapy on 10/12/2019. Patient remained stable and was discharged home on 10/09/2019. She is to follow-up with her primary care doctor and with radiation college. She was discharged home with a prescription for Decadron p.o 4 mg every 6 hours for a total of 28 tablets. Patient seen and examined prior to discharge. She looked well and had no complaints. She said her right-sided weakness had improved. She denied any blurred vision, headache, fever or chills, nausea vomiting or diarrhea. Review of symptoms otherwise negative. Labs and vitals reviewed. Home medication reviewed and reconciled. o/e: Vital Signs Height 5 ft Weight: 204 lb 9.423 oz Weight in Pounds 204.6 lbs BMI 40.8 Pulse Ox 95 Temperature 97.7 F Pulse Rate 63 Respiratory Rate 16 Blood Pressure [BP] 183/85 Blood Pressure 155/82 Blood Pressure Position [BP] Sitting Blood Pressure Position Sitting [] General: Alert, Oriented x3, Cooperative HEENT: Atraumatic, PERRLA, EOMI, Normocephalic Neck: Supple, No JVD, Negative Carotid Bruits Lungs: Clear to auscultation, Normal air movement Cardiovascular: Regular rate, No murmurs Abdomen: Bowel Sounds Present, Soft, Non Tender Extremities: No edema, Capillary Refill Less than 3 Seconds Skin: No rashes, No breakdown Musculoskeletal: No Tenderness to Palpation of Joints or Extremities Neurological: Cranial nerves II-XII grossly intact, - -minimal RUE and RLE weakness Psych/Mental Status: Normal Affect, Appropriate, Alert and oriented to time, place, person, mood and affect Plan is for discharge home today. Rest as per Aleks Cedeño PA-C's note, which I have reviewed and endorsed. - Physical Exam Vitals/I&O's: Vital Signs Temp Pulse Resp BP Pulse Ox 97.7 F L 63 16 155/82 H 95 10/09/19 13:10 10/09/19 13:10 10/09/19 13:10 10/09/19 13:10 10/09/19 13:10 Oxygen Flow Rate (L/min) 2 Oxygen Delivery Method Room Air Weight: 204 lb 9.423 oz Body Mass Index (BMI) 39.9 Finger Stick Blood Glucose 400 Intake and Output for Last 24 Hours 10/07/19 10/08/19 10/09/19 23:59 23:59 23:59 Intake Total 1959 340 / 340 Balance 1959 340 / 340 Laboratory Results 10/08/19 16:41: POC Glucose 423 H 10/08/19 21:55: POC Glucose 493 H* 10/09/19 03:20: POC Glucose 377 H 10/09/19 07:50: POC Glucose 444 H 10/09/19 11:17: POC Glucose 500 H* 10/09/19 11:19: POC Glucose > 500 H* 10/09/19 12:07: POC Glucose 427 H 10/09/19 13:05: POC Glucose 371 H OBSV E&M: [id number] Observation care discharge
[2019-10-09 13:16] LABS: Bedside Glucose 371 mg/dL (70-110)
--- NOTE | 2019-10-09 13:54 | CASEMGMT ---
D/C summ/instructions obtained and faxed to [facility] at this time. Call to [facility] intake and they state they are just waiting communications equipment supervisor back from pt's PCP to make sure they will write orders and they are aware that pt to discharge today. [facility] number:[phone] Ignacia SAMPSON CM
[2019-10-09 15:31] LABS: Bedside Glucose 500 mg/dL (70-110)
[2019-10-09 15:31] LABS: Bedside Glucose > 500 mg/dL (70-110)
== END 2019-10-09 11:13 | disposition home or self-care (01) ==
LOC: ED 18:47 → PCU 22:07
PROVIDERS: Family Medicine; Admitting Provider Hospitalist; Emergency Provider Emergency Medicine; PCP Family Medicine; Visit Provider Student in an Organized Health Care Education/Training Program
DX: R53.1 Weakness (principal); I25.10 Atherosclerotic heart disease of native coronary artery without angina pectoris; E11.65 Type 2 diabetes mellitus with hyperglycemia; C79.31 Secondary malignant neoplasm of brain; C78.00 Secondary malignant neoplasm of unspecified lung; R29.702 NIHSS score 2; J44.9 Chronic obstructive pulmonary disease, unspecified; I10 Essential (primary) hypertension; E78.5 Hyperlipidemia, unspecified; E11.40 Type 2 diabetes mellitus with diabetic neuropathy, unspecified; C43.9 Malignant melanoma of skin, unspecified; F41.9 Anxiety disorder, unspecified; F32.9 Major depressive disorder, single episode, unspecified; E66.01 Morbid (severe) obesity due to excess calories; Z79.899 Other long term (current) drug therapy; Z79.82 Long term (current) use of aspirin; Z79.4 Long term (current) use of insulin; Z86.711 Personal history of pulmonary embolism; Z79.01 Long term (current) use of anticoagulants; Z68.41 Body mass index [BMI] 40.0-44.9, adult; Z71.3 Dietary counseling and surveillance; F17.210 Nicotine dependence, cigarettes, uncomplicated
CPT/HCPCS: 36415; 70450; 70496; 70498; 70553; 71045; 80048; 80061; 82962; 83036; 84484; 85025; 85610; 85730; 93005; 93306; 94762; 96374; 96375; 96376; 97116; 97162; 97167; 97530; 97535; 99218; 99251; 99284; 99406; A9575; Q9957; Q9967; A4216; C8929; G0378; G0463

== ENCOUNTER 2019-10-14 10:48 | Emergency (ER) | payer MEDICAID, SELFPAY ==
[2019-07-03 10:02] VITALS: BMI 40.8
[2019-10-14 10:48] VITALS: BMI 39.9
[2019-10-14 10:51] VITALS: BP 171/90; PULSE 70; RESP 17; TEMP 37.1; O2SAT 94; BMI 42.5
[2019-10-14] MEDS: cloNIDine HCl 0.1 MG Tablet PO (11:10)
--- NOTE | 2019-10-14 11:25 | ED.DCSUM_ITS ---
- ER Visit Summary Date of Service: 10/14/19 Chief Complaint: Hypertension History of Present Illness: The patient is a 64 F who was at the hospital today for radiation therapy. She has metastatic cancer to her brain and a history of melanoma. She presented to therapy and her blood pressure was high so she was referred to the ED. She said she is taking her blood pressure medicines. In triage she said she had a headache, but she denies headache for me. She says she has a headache all the time and this is not new. She said if she was not instructed to come here, she would not have come here. Extensive review of systems showed no other problems. Physical Examination: Blood pressure 171/90 and otherwise vitals unremarkable. HEENT exam unremarkable. Cranial nerves normal. Heart regular lungs clear. Moves all extremities. Good strength sensation, gait. Test Results: None indicated. Emergency Department Course and Treatment: Repeat blood pressure at the bedside was 205 systolic. Patient was treated with a dose of Catapres. Will observe the patient. Repeat 180/94, requesting discharge. No symptoms. She may need to increase her medications, and is advised to follow-up with her PCP. She should return if she has any new or worsening issues, headache, neurologic symptoms, chest pain, or any other unexplained issues. Treatment Plan: As above Disposition: Discharge Impression: Hypertension, established diagnosis This note was generated with [employer] dictation software. It may contain incorrect words, spelling, and punctuation that were not noted in review of the chart prior to signing ED Disposition - Plan for ED Patient: Referrals: Catherine Taveras DO [Primary Care Provider] -
[2019-10-14 11:50] VITALS: BP 195/98; PULSE 65; RESP 16; O2SAT 94
--- NOTE | 2019-10-14 12:00 | ED.DEP ---
ED Disposition - Plan for ED Patient: Instructions: ED Hypertension Established Referrals: Catherine Taveras DO [Primary Care Provider] -
[2019-10-14 12:03] VITALS: BP 182/94; PULSE 65; RESP 17; O2SAT 93
== END 2019-10-14 12:19 | disposition home or self-care (01) ==
LOC: ED 11:25
PROVIDERS: Emergency Provider Emergency Medicine; PCP Family Medicine
DX: I10 Essential (primary) hypertension (principal); I25.10 Atherosclerotic heart disease of native coronary artery without angina pectoris; E11.9 Type 2 diabetes mellitus without complications; J44.9 Chronic obstructive pulmonary disease, unspecified; C79.31 Secondary malignant neoplasm of brain; Z85.820 Personal history of malignant melanoma of skin; Z79.82 Long term (current) use of aspirin; Z79.01 Long term (current) use of anticoagulants; Z79.4 Long term (current) use of insulin; Z72.0 Tobacco use
CPT/HCPCS: 99283

== ENCOUNTER 2019-10-19 22:41 | Inpatient (IN) | payer MEDICAID, SELFPAY ==
[2019-07-03 10:02] VITALS: BMI 40.8
[2019-10-19] VITALS (7 sets, daily range): BP systolic 75–130; BP diastolic 42–93; PULSE 76–83; RESP 18–21; TEMP 36.6; O2SAT 93–98; BMI 39.9
--- NOTE | 2019-10-19 21:20 | NURSING ---
Kaity Roberts notified Dianne Ball of pt. coming to PCU from [facility] with sepsis, CA with mets, and was swabbed for COVID19 at [facility]. Questioned whether pt. needed to be on COVID isolation unit. Also notified that Dr. Hyde did not think it necessary to isolate pt. for COVID19 . Dianne stated OK to keep pt. on PCU with no isolation.
--- NOTE | 2019-10-19 22:30 | PCM.HP.STD ---
Problem List (1) COPD (chronic obstructive pulmonary disease) Status: Chronic Qualifiers: (2) Tobacco use Status: Chronic (3) HTN (hypertension) Status: Chronic Qualifiers: (4) HLD (hyperlipidemia) Status: Chronic Qualifiers: (5) CAD (coronary artery disease) Status: Chronic Qualifiers: (6) Obesity Status: Chronic (7) Diabetes mellitus, type II Status: Chronic Qualifiers: (8) History of breast cancer Status: Chronic (9) Metastatic melanoma Status: Chronic (10) Anxiety and depression Status: Chronic (11) Metastatic melanoma to lung Status: Chronic (12) UTI (urinary tract infection) Status: Acute History of Present Illness Date of Admission: 10/19/19 Chief Complaint: change in mental status The patient is a 64 year old female patient with a significant past medical history of melanoma with metastatic disease to lungs and brain, history of breast cancer 2007, pulmonary hypertension with diabetes type 2, COPD who presents to the emergency room from [facility] due to change in mental status. Earlier today the patient had radiation therapy and was seen by her power of head of global strategic partnerships and was acting her normal baseline status however when she went to check on her again later in the day she was found to be confused and disoriented. Due to her agitated state they used Ativan to sedate her to get a CT scan done of the head neck and spine which were negative for acute findings. Laboratory studies reveal a white blood cell count of 13.1, hemoglobin 14.9, hematocrit 45.1 platelets 154, sodium 136 potassium 4.2, chloride 99 bicarb 26, BUN 24, creatinine 0.78, blood sugar 353, total bilirubin 6.3 AST 25 ALT 41, lactic acid elevated at 2.6, troponin negative, urinalysis positive nitrites positive leukocytes positive bacteria. Per ER physician at [facility] the patient was DNR Com[facility] Care arrest as he has had a long conversation with her power of head of global strategic partnerships there. The patient was admitted to progressive care unit for treatment of urinary tract infection with sepsis. Past Medical History Past Medical History (Chronic Problems): Chronic Problems (Last Reviewed 10/07/19 @ 22:[address] Yemi Iverson MD) COPD (chronic obstructive pulmonary disease) (Chronic) Tobacco use (Chronic) HTN (hypertension) (Chronic) HLD (hyperlipidemia) (Chronic) CAD (coronary artery disease) (Chronic) Obesity (Chronic) Diabetes mellitus, type II (Chronic) History of breast cancer (Chronic) Metastatic melanoma (Chronic) Anxiety and depression (Chronic) History of left breast cancer (Chronic) Pulmonary embolism (Chronic) Melanoma (Chronic) right upper back, stage IIB Metastatic melanoma to lung (Chronic) Malignant melanoma metastatic to lung (Chronic) Malignant melanoma metastatic to brain (Chronic) Peau d'orange over breast (Chronic) Medical History: Medical History (Last Reviewed 10/07/19 @ 22:[address] Yemi Iverson MD) Anhedonia R45.84 Anxiety F41.9 B12 deficiency E53.8 Breast cancer, left C50.912 CAD (coronary artery disease) I25.10 COPD (chronic obstructive pulmonary disease) J44.9 Carpal tunnel syndrome G56.00 Depression F32.9 Diabetes mellitus E11.9 Emphysema lung J43.9 Hyperlipidemia E78.5 Hyponatremia E87.1 Melanoma C43.9 Peripheral edema R60.9 Hypertension I10 Allergies metformin [From Glucophage] Adverse Reaction (Severe, Verified 10/14/19 10:50) Nausea Home Medications: Ambulatory Orders Medication Instructions Recorded Albuterol Inhaler [Ventolin Hfa] 2 inhaler INHALATION Q4H PRN PRN 10/17/16 Lisinopril [Zestril] 40 mg PO QHS 10/17/16 Pantoprazole Sodium [Protonix] 40 mg PO DAILY 10/17/16 Aspirin E.C. [Ecotrin] 81 mg PO DAILY@0800 06/11/19 Cyclobenzaprine HCl 10 mg PO TID PRN PRN 06/11/19 Gabapentin [Neurontin] 300 mg PO TIDCM 06/11/19 Meloxicam [Mobic] 15 mg PO DAILY 06/11/19 Nitroglycerin [Nitrostat] 0.4 mg SL PRN PRN 06/11/19 Pravastatin [Pravachol] 80 mg PO QHS 06/11/19 Verapamil HCl [Verapamil ER] 240 mg PO DAILY 06/11/19 buPROPion SR [Wellbutrin Sr] 200 mg PO BID 06/11/19 Fluticasone 0.05% [Flonase Nasal 1 spray NASAL DAILY PRN PRN 09/18/19 Maunie] Glimepiride 4 mg PO BID 09/18/19 Metoprolol Tartrate 50 mg PO BID 09/18/19 Apixaban [Eliquis] 5 mg PO BID #60 tab 09/24/19 Dexamethasone [Decadron] 4 mg PO Q6 #28 tab 10/09/19 Insulin Glargine [Lantus SoloStar 28 units SUBCUT BID pen 10/09/19 Pen] Insulin Lispro [Humalog KwikPen] 10 unit SUBCUT TIDAC insuln.pen 10/09/19 Insulin Lispro [Humalog KwikPen] See Protocol SUBCUT ACHS #0 10/09/19 insuln.pen Memantine HCl 5 mg PO DAILY #30 tab 10/09/19 Surgical History: Surgical History (Last Reviewed 10/07/19 @ 22:[address] Yemi Iverson MD) H/O melanoma excision Z98.890, Z85.820 back. [facility] 04/2019 History of cholecystectomy Z98.890, Z90.49 History of excision of pilonidal cyst Z98.890 History of lumpectomy Z98.890 History of lymph node excision Z98.890 Status post trigger finger release Z98.890 port placement Surgical History: noncontributory, - - Gamma knife therapy, left breast ectomy surgery, back melanoma wide excision, cholecystectomy. 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 Yemi Iverson MD) Mother Heart disease Hypertension Father Diabetes Sister Lung cancer History Items: High Cholesterol, Heart Disease, Hypertension Paternal Family History: Family History (Last Reviewed 10/07/19 @ 22:[address] Yemi Iverson MD) Mother Heart disease Hypertension Father Diabetes Sister Lung cancer History Items: Diabetes Review of Systems Constitutional: Reports: Fever. Denies: Chills, Weight Change HEENT: Denies: Head Aches, Sinus Congestion, Sinus Drainage Cardiovascular: Denies: Chest Pain, Palpitations Respiratory: Denies: Cough, Shortness of breath at rest, Sputum production Gastrointestinal: Denies: Abdominal Pain, Nausea, Vomiting Genitourinary: Reports: Dysuria Musculoskeletal: Denies: Joint Pain, Joint Tenderness Skin: Denies: Rash, Wounds Neurological: Reports: Confusion. Denies: Focal weakness, Numbness, Tingling Psychiatric: Denies: Anxiety, Depression, Homicidal Ideations, Suicidal Ideations Hematologic/ Lymphatic: Denies: Easy Bruising, Easy Bleeding VTE Information - Inpt Only VTE Present on Admission: No VTE Mechan Device Prophylaxis: None VTE Pharm Prophylaxis ordered?: Yes Patient Problems: Active and Suspected Problems (Last Reviewed 10/07/19 @ 22:[address] Yemi Iverson MD) UTI (urinary tract infection) (Acute) - Physical Exam Vitals/I&O's: Body Mass Index (BMI) 42.5 Finger Stick Blood Glucose 400 General: Confused, Lethargic HEENT: Atraumatic, PERRLA, Normocephalic Neck: Supple Lungs: Clear to auscultation, Normal air movement Cardiovascular: Regular rate, Normal S1, Normal S2, No murmurs Abdomen: Bowel Sounds Present, Soft, Non Tender, Obese Extremities: No edema Skin: No rashes, No breakdown Musculoskeletal: No Tenderness to Palpation of Joints or Extremities Neurological: Neuro grossly intact Psych/Mental Status: Normal Affect, Appropriate Assessment/Plan All Active Problems (Last Reviewed 10/07/19 @ 22:[address] Yemi Iverson MD) Hyperglycemia (Acute) Weakness due to acute stroke (Acute) Stroke-like symptoms (Acute) UTI (urinary tract infection) (Acute) Chronic Problems (Last Reviewed 10/07/19 @ 22:[address] Yemi Iverson MD) COPD (chronic obstructive pulmonary disease) (Chronic) Tobacco use (Chronic) HTN (hypertension) (Chronic) HLD (hyperlipidemia) (Chronic) CAD (coronary artery disease) (Chronic) Obesity (Chronic) Diabetes mellitus, type II (Chronic) History of breast cancer (Chronic) Metastatic melanoma (Chronic) Anxiety and depression (Chronic) History of left breast cancer (Chronic) Pulmonary embolism (Chronic) Melanoma (Chronic) right upper back, stage IIB Metastatic melanoma to lung (Chronic) Malignant melanoma metastatic to lung (Chronic) Malignant melanoma metastatic to brain (Chronic) Peau d'orange over breast (Chronic) Plan 1. UTI with sepsis?admit to progressive care unit, start sepsis protocol, start Rocephin 1 g IV every 24 hours repeat CBC BMP, lactic acid level upon arrival. And as appropriate in the a.m. 2. Hypertension hold p.o. medications until patient is more alert 3. Hyperlipidemia?hold p.o. medications for now 4. Diabetes?blood sugars every 6 hours along with sliding scale insulin 5. DVT prophylaxis?low molecular weight heparin Would review home medications for chronic medical conditions when patient is more alert Inpatient E&M: 39700 Init Hosp L3
--- NOTE | 2019-10-19 22:45 | NURSING ---
Pt. arrived to room 102 PCU , not responding verbally. BP low, second NS bolus infusing. Unable to complete admission questions due to pt. not responding.
[2019-10-19 23:17] LABS: Hematocrit 36.4 % (37-47); Mean Corpuscular Hgb 32.6 pg (27.0-32.0); Mean Corpuscular Volume 98.9 fL (81-99); Mean Platelet Vol. 10.5 fl (6.2-12.0); POSITIVE COUNT YES; Platelet Count 121 K/mm3 (150-450); RBC Distribution Width CV 13.2 % (11.6-14.6); RBC Distribution Width SD 46.7 fl (35.1-43.9); Red Blood Count 3.68 M/mm3 (4.2-5.4)
[2019-10-19 23:19] LABS: White Blood Count 30.9 K/mm3 (4.4-11.0)
[2019-10-19 23:20] LABS: Scan Indicated on CBC? Y/N YES- FLAGS NOTED
[2019-10-19 23:36] LABS: Bedside Glucose 313 mg/dL (70-110)
[2019-10-19 23:37] LABS: Anion Gap 6 (5-15); BUN 28 mg/dL (7-18); BUN/Creat Ratio 20.9 RATIO (10-20); Calcium,Total 7.7 mg/dL (8.5-10.1); Chloride 110 mmol/L (98-107); Creatinine, Serum 1.34 mg/dL (0.55-1.02); EST Glomerular Filtration Rate 42 mL/min (>60); Est Glom Filt Rate - Afr Amer 51 mL/min (>60); Glucose 322 mg/dL (74-106); Potassium 4.5 mmol/L (3.5-5.1); Sodium Level 140 mmol/L (136-145)
[2019-10-19 23:45] LABS: Lactic Acid 3.9 mmol/L (0.4-1.9)
[2019-10-20] VITALS (18 sets, daily range): BP systolic 83–167; BP diastolic 56–94; PULSE 76–105; RESP 14–20; TEMP 36.4–36.8; O2SAT 93–98; BMI 40.8
[2019-10-20 03:14] LABS: Reflex Lactate? Y
[2019-10-20 03:46] LABS: Hematocrit 37.9 % (37-47); Hemoglobin 12.6 g/dL (12.0-15.0); Mean Corp Hgb Conc 33.2 g/dL (32-36); Mean Corpuscular Hgb 32.2 pg (27.0-32.0); Mean Corpuscular Volume 96.9 fL (81-99); Mean Platelet Vol. 10.6 fl (6.2-12.0); POSITIVE COUNT YES; POSITIVE DIFFERENTIAL YES; POSITIVE MORPHOLOGY YES; Platelet Count 117 K/mm3 (150-450); RBC Distribution Width SD 46.4 fl (35.1-43.9); Red Blood Count 3.91 M/mm3 (4.2-5.4)
[2019-10-20 03:47] LABS: Differential Indicated MANUAL DIFF; White Blood Count 34.9 K/mm3 (4.4-11.0)
[2019-10-20 04:14] LABS: Anion Gap 9 (5-15); BUN 30 mg/dL (7-18); BUN/Creat Ratio 24.8 RATIO (10-20); Calcium,Total 7.7 mg/dL (8.5-10.1); Chloride 106 mmol/L (98-107); Creatinine, Serum 1.21 mg/dL (0.55-1.02); EST Glomerular Filtration Rate 48 mL/min (>60); Est Glom Filt Rate - Afr Amer 58 mL/min (>60); Glucose 369 mg/dL (74-106); Potassium 5.1 mmol/L (3.5-5.1); Sodium Level 138 mmol/L (136-145)
[2019-10-20 04:36] LABS: Lymphocyte 1 % (19-41); Monocyte 3 % (0-10); Neutrophil-Band 7 % (0-5); Neutrophil-Segmented 89 % (47-70); Total Cells Counted 100 (MANUAL DIFF)
[2019-10-20 04:37] LABS: Absolute Lymphocyte Count 0.35 X10^3/uL (0.83-4.51); Absolute Neutrophil Count 33.5 X10^3/uL (2.0-7.7); Lymphocyte # 0.35 X10^3/ul (4.0); Monocyte# 1.05 X10^3/uL; Neutrophil # 33.48 X10^3/uL (2.7-7.7)
[2019-10-20 07:00] LABS: Bedside Glucose 316 mg/dL (70-110)
[2019-10-20] MEDS: Insulin Lispro 100 UNIT/ML INSULN.PEN 10 UNIT SC ×2 (08:37→12:50)
[2019-10-20] MEDS: Insulin Lispro 100 UNIT/ML INSULN.PEN SC ×4 (08:38→21:09)
--- NOTE | 2019-10-20 08:55 | CASEMGMT ---
CARRIE made a referral to Palliative Care for patient on last admission. (10-09-2019). CARRIE called Palliative Care and spoke with Lin. She said they scheduled and appt to meet and sign papers for Saturday 4-3 at 1p. CARRIE told Lin we will keep them up to date. Sheba MCCARTY MSW
--- NOTE | 2019-10-20 10:05 | PN_ITS ---
Patient Problems: Active and Suspected Problems (Last Reviewed 10/07/19 @ 22:[address] Yemi Iverson MD) UTI (urinary tract infection) (Acute) Subjective: Patient seen and examined. Reports significant headache. Denies fever, chills. Denies other complaints - Physical Exam Vitals/I&O's: Vital Signs Temp Pulse Resp BP Pulse Ox 98.0 F 82 14 129/79 H 97 10/20/19 08:03 10/20/19 08:03 10/20/19 08:03 10/20/19 08:03 10/20/19 08:03 Oxygen Flow Rate (L/min) 3 Oxygen Delivery Method Nasal Cannula Weight: 208 lb 1.862 oz Body Mass Index (BMI) 40.8 Finger Stick Blood Glucose 400 Intake and Output for Last 24 Hours 10/18/19 10/19/19 10/20/19 23:59 23:59 23:59 Intake Total 0 / 0 Output Total 750 / 750 Balance -750 / -750 General: Alert, Oriented x3, Cooperative HEENT: Atraumatic, PERRLA, EOMI, Normocephalic Neck: Supple, No JVD, Negative Carotid Bruits Lungs: Diminished, Wheezes Cardiovascular: Regular rate, Regular Rhythm, Normal S1, Normal S2, No murmurs Abdomen: Bowel Sounds Present, Soft, Non Tender, Non-Distended, Obese Extremities: No clubbing, No cyanosis, No edema, Capillary Refill Less than 3 Seconds Skin: No rashes, No breakdown Musculoskeletal: No Tenderness to Palpation of Joints or Extremities Neurological: Cranial nerves II-XII grossly intact, Neuro grossly intact Psych/Mental Status: Normal Affect, Appropriate Laboratory Results 10/19/19 23:00: WBC 30.9 H*, RBC 3.68 L, Hgb 12.0, Hct 36.4 L, MCV 98.9, MCH 32.6 H, MCHC 33.0, RDW Std Deviation 46.7 H, RDW Coeff of Kosta 13.2, Plt Count 121 L, MPV 10.5, Differential Comment COMMENT, Diff Path Review November10/19/19 23:00: Sodium 140, Potassium 4.5, Chloride 110 H, Carbon Dioxide 24.0, Anion Gap 6, BUN 28 H, Creatinine 1.34 H, Est GFR (MDRD) Af Amer 51 L, Est GFR (MDRD) Non-Af 42 L, BUN/Creatinine Ratio 20.9 H, Glucose 322 H, Calcium 7.7 L 10/19/19 23:00: Lactic Acid 3.9 H* 10/19/19 23:29: POC Glucose 313 H 10/20/19 03:35: WBC 34.9 H*, RBC 3.91 L, Hgb 12.6, Hct 37.9, MCV 96.9, MCH 32.2 H, MCHC 33.2, RDW Std Deviation 46.4 H, RDW Coeff of Kosta 13.0, Plt Count 117 L, MPV 10.6, Neut % (Auto) Not Reportable, Absolute Neuts (auto) 33.5 H, Absolute Lymphs (auto) 0.35 L, Total Counted 100, Neutrophils % (Manual) 89 H, Band Neutrophils % 7 H, Lymphocytes % (Manual) 1 L, Monocytes % (Manual) 3, Diff Path Review November10/20/19 03:35: Sodium 138, Potassium 5.1, Chloride 106, Carbon Dioxide 23.0, Anion Gap 9, BUN 30 H, Creatinine 1.21 H, Estim Creat Clear Calc 70.00, Est GFR (MDRD) Af Amer 58 L, Est GFR (MDRD) Non-Af 48 L, BUN/Creatinine Ratio 24.8 H, Glucose 369 H, Calcium 7.7 L 10/20/19 03:35: Lactic Acid 2.0 10/20/19 06:38: POC Glucose 316 H Current Medications Apixaban (Eliquis) 5 mg PO BID JOSE Aspirin (Ecotrin) 81 mg PO DAILY@0800 JOSE Bupropion HCl (Wellbutrin Sr (100mg Tablets)) 200 mg PO BID JOSE Cyclobenzaprine HCl (Flexeril) 10 mg PO TID PRN PRN PRN Reason: SPASMS Dextrose (D50w Syringe) 0 gm IV X1 PRN; Protocol PRN Reason: Hypoglycemia Gabapentin (Neurontin) 300 mg PO TIDCM JOSE Glucagon () 1 mg IM .X1 PRN PRN Reason: Hypoglycemia Sodium Chloride () 250 mls @ 15 mls/hr IV .[id number] PRN PRN Reason: Saline Flush Sodium Chloride () 250 mls @ 15 mls/hr IV .[id number] PRN PRN Reason: Additional IVPB Infusion Ceftriaxone Sodium (Rocephin) 1 gm in 50 mls @ 100 mls/hr IV Q24 [facility] Insulin Human Lispro (Humalog Kwikpen (Bkc)) 10 unit SC TIDAC [facility] Last Admin: 10/20/19 08:37 Dose: 10 units Documented by: Insulin Human Lispro (Humalog Kwikpen (Bkc)) 0 unit SC ACHS [facility]; Protocol Last Admin: 10/20/19 08:38 Dose: 9 units Documented by: Lisinopril (Zestril) 40 mg PO QHS [facility] Memantine (Namenda) 5 mg PO BID [facility] Metoprolol Tartrate (Lopressor (Beta Gissell)) 50 mg PO BID [facility] Last Admin: 10/20/19 09:46 Dose: Not Given Documented by: Pantoprazole Sodium (Protonix) 40 mg PO DAILY [facility] Pravastatin Sodium (Pravachol) 80 mg PO QHS [facility] Sodium Chloride () 10 - 40 ml IV UD PRN PRN Reason: SALINE FLUSH Verapamil HCl (Calan Sr) 240 mg PO DAILY [facility] Last Admin: 10/20/19 09:46 Dose: Not Given Documented by: Medical Necessity - Tobacco Use Smoking Status: Current every day smoker Assessment/Plan All Active Problems (Last Reviewed 10/07/19 @ 22:[address] Yemi Iverson MD) Hyperglycemia (Acute) Weakness due to acute stroke (Acute) Stroke-like symptoms (Acute) UTI (urinary tract infection) (Acute) 1. Severe sepsis secondary to acute UTI-on IV Rocephin. Urine culture and blood culture obtained from [facility], pending. Preliminary to be faxed when results are available. 2. Metastatic melanoma-following with [facility]. Undergoing brain radiation, last treatment scheduled for Saturday. On Decadron. 3. Acute kidney injury on chronic kidney disease stage III-improving, continue IV fluids. Trend BMP. 4. Chronic anemia-stable. 5. Chronic COPD-no exacerbation. 6. Tobacco dependence-encouraged cessation. 7. Type 2 diabetes mellitus with neuropathy-continue home insulin regimen and oral regimen. 8. Hypertension-Hold BP regimen given hypotension. Patient on verapamil, metoprolol, lisinopril. 9. Hyperlipidemia-continue statin. 10. Obesity-encouraged diet lifestyle modifications. 11. CAD-continue aspirin, statin, beta-gissell, ROBIN inhibitor. 12. History of left breast cancer-status post surgical intervention, chemotherapy and radiation-in remission. 13. GERD- continue PPI. 14. Depression with anxiety-continue home Wellbutrin regimen. DVT prophylaxis- Lovenox sc This patient was seen by KURT Mcknight under the supervision of Dr. Valladares.
[2019-10-20] MEDS: APIXABAN 5 MG TABLET PO ×2 (10:18→21:13)
[2019-10-20] MEDS: Pantoprazole Sodium 40 MG Tablet PO (10:18)
[2019-10-20] MEDS: buPROPion (SR) 100 MG TABLET.SA 200 MG PO ×2 (10:18→21:07)
[2019-10-20] MEDS: Ceftriaxone 1 GM/50 ML BAG IV (10:19)
--- NOTE | 2019-10-20 11:07 | CASEMGMT ---
Patient has a Healthcare Power of Medical Review Specialist and a Healthcare Living will on file at [facility]. Sheba MCCARTY MSW
[2019-10-20 11:18] LABS: Pathologist Review Reviewed
[2019-10-20 11:18] LABS: Pathologist Review Reviewed
[2019-10-20] MEDS: Gabapentin 300 MG Capsule PO ×2 (12:53→16:26)
[2019-10-20 13:41] LABS: Bedside Glucose > 500 mg/dL (70-110)
[2019-10-20 14:16] LABS: Bedside Glucose > 500 mg/dL (70-110)
[2019-10-20] MEDS: Insulin Lispro 100 UNIT/ML INSULN.PEN 15 UNIT SC (14:24)
--- NOTE | 2019-10-20 15:17 | CASEMGMT ---
Readmission chart review: Pt admitted as OBS 09/18-09/19/19 for Hyperkalemia and then readmitted as OBS on 10/06-10/09/2019 for Stroke-like sx's but pt had new brain mets lesions with swelling noted and placed on decadron and sent home with [facility]. Pt then started brain radiation on 10/12/2019 at [facility]. Pt then was direct admit from [facility] for UTI w/ sepsis on 10/19/2019. Pt has hx breast CA and metastatic melanoma with mult bilat lung nodules/brain lesions. CM to follow PT/OT evals for any further discharge planning/needs. Pt has 3 more radiation treatments left at this time which are being continued while inpt at this time. Ignacia SAMPSON CM
[2019-10-20] MEDS: Insulin Lispro 100 UNIT/ML INSULN.PEN 20 UNIT SC (16:24)
[2019-10-20] MEDS: dexAMETHasone 4 MG Tablet PO (16:29)
[2019-10-20 16:55] LABS: Bedside Glucose 391 mg/dL (70-110)
--- NOTE | 2019-10-20 17:50 | NURSING ---
This RN received phone call from [facility] BAGGAGE CLERK giving results that Resp panel, rapid Flu and COVID 19 Test were all three negative.
[2019-10-20] MEDS: Memantine Hydrochloride 5 MG Tablet 10 MG PO (21:07)
[2019-10-20] MEDS: Pravastatin 80 MG Tablet PO (21:08)
[2019-10-20] MEDS: Metoprolol Tartrate 50 MG Tablet PO (21:08)
[2019-10-20] MEDS: Lisinopril 40 MG Tablet PO (21:08)
[2019-10-20 21:50] LABS: Bedside Glucose 209 mg/dL (70-110)
[2019-10-21] VITALS (13 sets, daily range): BP systolic 122–209; BP diastolic 65–109; PULSE 52–92; RESP 16–20; TEMP 36.3–36.7; O2SAT 94–97
[2019-10-21 06:31] LABS: Hematocrit 35.7 % (37-47); Hemoglobin 12.1 g/dL (12.0-15.0); Mean Corp Hgb Conc 33.9 g/dL (32-36); Mean Corpuscular Hgb 32.8 pg (27.0-32.0); Mean Corpuscular Volume 96.7 fL (81-99); Mean Platelet Vol. 11.5 fl (6.2-12.0); POSITIVE COUNT YES; Platelet Count 93 K/mm3 (150-450); RBC Distribution Width CV 13.2 % (11.6-14.6); RBC Distribution Width SD 46.9 fl (35.1-43.9); Red Blood Count 3.69 M/mm3 (4.2-5.4); White Blood Count 26.8 K/mm3 (4.4-11.0)
[2019-10-21 06:54] LABS: Anion Gap 7 (5-15); BUN 30 mg/dL (7-18); BUN/Creat Ratio 32.1 RATIO (10-20); Chloride 102 mmol/L (98-107); Creatinine, Serum 0.94 mg/dL (0.55-1.02); EST Glomerular Filtration Rate 64 mL/min (>60); Est Glom Filt Rate - Afr Amer 77 mL/min (>60); Glucose 338 mg/dL (74-106); Sodium Level 134 mmol/L (136-145)
[2019-10-21] MEDS: Insulin Lispro 100 UNIT/ML INSULN.PEN SC ×4 (08:09→21:32)
[2019-10-21] MEDS: Insulin Lispro 100 UNIT/ML INSULN.PEN 20 UNIT SC ×3 (08:10→17:07)
[2019-10-21] MEDS: Aspirin E.C. 81 MG Tablet PO (08:13)
[2019-10-21] MEDS: Gabapentin 300 MG Capsule PO ×3 (08:13→17:07)
[2019-10-21] MEDS: dexAMETHasone 4 MG Tablet PO ×2 (08:13→17:07)
[2019-10-21] MEDS: Metoprolol Tartrate 50 MG Tablet PO ×2 (08:14→21:34)
[2019-10-21] MEDS: APIXABAN 5 MG TABLET PO ×2 (08:14→21:31)
[2019-10-21] MEDS: Verapamil SR 240 MG Tablet PO (08:14)
[2019-10-21] MEDS: Memantine Hydrochloride 5 MG Tablet 10 MG PO (08:14)
[2019-10-21] MEDS: buPROPion (SR) 100 MG TABLET.SA 200 MG PO ×2 (08:15→21:32)
[2019-10-21] MEDS: Pantoprazole Sodium 40 MG Tablet PO (08:15)
[2019-10-21] MEDS: 0.9% Saline Lock 10 ML Syringe IV (08:16)
[2019-10-21] MEDS: Ceftriaxone 1 GM/50 ML BAG IV (08:16)
[2019-10-21 08:31] LABS: Bedside Glucose 351 mg/dL (70-110)
[2019-10-21] MEDS: Acetaminophen/Butalbital/Caffe 1 Tablet 2 TABLET PO (10:36)
--- NOTE | 2019-10-21 12:01 | PCM.PROGNOTE ---
<Desiree Morse - Last Filed: 10/21/19 12:04> Patient Problems: Active and Suspected Problems (Last Reviewed 10/07/19 @ 22:[address] Yemi Iverson MD) UTI (urinary tract infection) (Acute) Subjective: Patient seen and examined. Feeling improved. Awaiting final urine and blood cultures. PT recommending SNF, patient like to return home with home therapy at discharge. - Physical Exam Vitals/I&O's: Vital Signs Temp Pulse Resp BP Pulse Ox 97.4 F L 61 20 H 209/109 H 94 10/21/19 08:00 10/21/19 11:08 10/21/19 08:28 10/21/19 08:14 10/21/19 08:00 Oxygen Flow Rate (L/min) 2 Oxygen Delivery Method Room Air Weight: 208 lb 1.862 oz Body Mass Index (BMI) 40.8 Finger Stick Blood Glucose 400 Intake and Output for Last 24 Hours 10/19/19 10/20/19 10/21/19 23:59 23:59 23:59 Intake Total 550 / 550 450 / 450 Output Total 2800 / 2800 1600 / 1600 Balance -2250 / -2250 -1150 / -1150 General: Alert, Oriented x3, Cooperative HEENT: Atraumatic, PERRLA, EOMI, Normocephalic Neck: Supple, No JVD, Negative Carotid Bruits Lungs: Clear to auscultation, Diminished Cardiovascular: Regular rate, Regular Rhythm, Normal S1, Normal S2, No murmurs Abdomen: Bowel Sounds Present, Soft, Non Tender, Non-Distended, Obese Extremities: No clubbing, No cyanosis, No edema Skin: No rashes, No breakdown Musculoskeletal: No Tenderness to Palpation of Joints or Extremities Neurological: Cranial nerves II-XII grossly intact, Neuro grossly intact Psych/Mental Status: Normal Affect, Appropriate Laboratory Results 10/20/19 11:59: POC Glucose > 500 H* 10/20/19 14:07: POC Glucose > 500 H* 10/20/19 16:22: POC Glucose 391 H 10/20/19 21:05: POC Glucose 209 H 10/21/19 06:14: WBC 26.8 H, RBC 3.69 L, Hgb 12.1, Hct 35.7 L, MCV 96.7, MCH 32.8 H, MCHC 33.9, RDW Std Deviation 46.9 H, RDW Coeff of Kosta 13.2, Plt Count 93 L, MPV 11.5 10/21/19 06:14: Sodium 134 L, Potassium 5.0, Chloride 102, Carbon Dioxide 25.0, Anion Gap 7, BUN 30 H, Creatinine 0.94, Estim Creat Clear Calc 90.10, Est GFR (MDRD) Af Amer 77, Est GFR (MDRD) Non-Af 64, BUN/Creatinine Ratio 32.1 H, Glucose 338 H, Calcium 9.0 10/21/19 08:00: POC Glucose 351 H Current Medications Acetaminophen/Butalbital/Caffeine (Fioricet) 2 tablet PO Q4H PRN PRN PRN Reason: HEADACHE Last Admin: 10/21/19 10:36 Dose: 2 tablet Documented by: Apixaban (Eliquis) 5 mg PO BID [facility] Last Admin: 10/21/19 08:14 Dose: 5 mg Documented by: Aspirin (Ecotrin) 81 mg PO DAILY@0800 [facility] Last Admin: 10/21/19 08:13 Dose: 81 mg Documented by: Bupropion HCl (Wellbutrin Sr (100mg Tablets)) 200 mg PO BID [facility] Last Admin: 10/21/19 08:15 Dose: 200 mg Documented by: Cyclobenzaprine HCl (Flexeril) 10 mg PO TID PRN PRN PRN Reason: SPASMS Dexamethasone (Decadron) 4 mg PO BIDCM [facility] Last Admin: 10/21/19 08:13 Dose: 4 mg Documented by: Dextrose (D50w Syringe) 0 gm IV X1 PRN; Protocol PRN Reason: Hypoglycemia Gabapentin (Neurontin) 300 mg PO TIDCM [facility] Last Admin: 10/21/19 11:58 Dose: 300 mg Documented by: Glucagon () 1 mg IM .X1 PRN PRN Reason: Hypoglycemia Sodium Chloride () 250 mls @ 15 mls/hr IV .[id number] PRN PRN Reason: Saline Flush Sodium Chloride () 250 mls @ 15 mls/hr IV .[id number] PRN PRN Reason: Additional IVPB Infusion Ceftriaxone Sodium (Rocephin) 1 gm in 50 mls @ 100 mls/hr IV Q24 [facility] Last Infusion: 10/21/19 08:46 Dose: Infused Documented by: Insulin Glargine (Lantus (Bkc)) 35 units SC BID [facility] Last Admin: 10/21/19 08:11 Dose: 35 units Documented by: Insulin Human Lispro (Humalog Kwikpen (Bkc)) 0 unit SC ACHS [facility]; Protocol Last Admin: 10/21/19 11:58 Dose: 16 units Documented by: Insulin Human Lispro (Humalog Kwikpen (Bkc)) 20 unit SC TIDAC [facility] Last Admin: 10/21/19 11:59 Dose: 20 units Documented by: Lisinopril (Zestril) 40 mg PO QHS [facility] Last Admin: 10/20/19 21:08 Dose: 40 mg Documented by: Memantine (Namenda) 5 mg PO BID [facility] Metoprolol Tartrate (Lopressor (Beta Gissell)) 50 mg PO BID [facility] Last Admin: 10/21/19 08:14 Dose: 50 mg Documented by: Pantoprazole Sodium (Protonix) 40 mg PO DAILY [facility] Last Admin: 10/21/19 08:15 Dose: 40 mg Documented by: Pravastatin Sodium (Pravachol) 80 mg PO QHS [facility] Last Admin: 10/20/19 21:08 Dose: 80 mg Documented by: Sodium Chloride () 10 - 40 ml IV UD PRN PRN Reason: SALINE FLUSH Last Admin: 10/21/19 08:16 Dose: 10 ml Documented by: Verapamil HCl (Calan Sr) 240 mg PO DAILY [facility] Last Admin: 10/21/19 08:14 Dose: 240 mg Documented by: Medical Necessity - Tobacco Use Smoking Status: Current every day smoker Assessment/Plan All Active Problems (Last Reviewed 10/07/19 @ 22:[address] Yemi Iverson MD) Hyperglycemia (Acute) Weakness due to acute stroke (Acute) Stroke-like symptoms (Acute) UTI (urinary tract infection) (Acute) 1. Severe sepsis secondary to acute UTI with gram-negative bacteremia-on IV Rocephin. Urine culture and blood culture obtained from [facility], pending. Will call to follow-up with any updated results. Plan for transition to oral antibiotics pending final cultures. Suspect ongoing leukocytosis related to dexamethasone use. Patient is otherwise clinically improved. Afebrile. 2. Metastatic melanoma-following with [facility]. Undergoing brain radiation, last treatment scheduled for Saturday. On Decadron. 3. Acute kidney injury on chronic kidney disease stage III-improving, continue IV fluids. Trend BMP. 4. Chronic anemia-stable. 5. Chronic COPD-no exacerbation. 6. Tobacco dependence-encouraged cessation. 7. Type 2 diabetes mellitus with neuropathy-continue home insulin regimen and oral regimen. 8. Hypertension-Hold BP regimen given hypotension. Patient on verapamil, metoprolol, lisinopril. 9. Hyperlipidemia-continue statin. 10. Obesity-encouraged diet lifestyle modifications. 11. CAD-continue aspirin, statin, beta-gissell, ROBIN inhibitor. 12. History of left breast cancer-status post surgical intervention, chemotherapy and radiation-in remission. 13. GERD- continue PPI. 14. Depression with anxiety-continue home Wellbutrin regimen. DVT prophylaxis- Lovenox sc This patient was seen by KURT Mcknight under the supervision of Dr. Gonzalez. <David Gonzalez F - Last Filed: 10/21/19 12:28> - Physical Exam Vitals/I&O's: Vital Signs Temp Pulse Resp BP Pulse Ox 97.6 F L 59 L 18 122/65 H 94 10/21/19 12:02 10/21/19 12:02 10/21/19 12:02 10/21/19 12:02 10/21/19 12:02 Oxygen Flow Rate (L/min) 2 Oxygen Delivery Method Room Air Weight: 208 lb 1.862 oz Body Mass Index (BMI) 40.8 Finger Stick Blood Glucose 400 Intake and Output for Last 24 Hours 10/19/19 10/20/19 10/21/19 23:59 23:59 23:59 Intake Total 550 / 550 810 / 810 Output Total 2800 / 2800 1600 / 1600 Balance -2250 / -2250 -790 / -790 Laboratory Results 10/20/19 11:59: POC Glucose > 500 H* 10/20/19 14:07: POC Glucose > 500 H* 10/20/19 16:22: POC Glucose 391 H 10/20/19 21:05: POC Glucose 209 H 10/21/19 06:14: WBC 26.8 H, RBC 3.69 L, Hgb 12.1, Hct 35.7 L, MCV 96.7, MCH 32.8 H, MCHC 33.9, RDW Std Deviation 46.9 H, RDW Coeff of Kosta 13.2, Plt Count 93 L, MPV 11.5 10/21/19 06:14: Sodium 134 L, Potassium 5.0, Chloride 102, Carbon Dioxide 25.0, Anion Gap 7, BUN 30 H, Creatinine 0.94, Estim Creat Clear Calc 90.10, Est GFR (MDRD) Af Amer 77, Est GFR (MDRD) Non-Af 64, BUN/Creatinine Ratio 32.1 H, Glucose 338 H, Calcium 9.0 10/21/19 08:00: POC Glucose 351 H Current Medications Acetaminophen/Butalbital/Caffeine (Fioricet) 2 tablet PO Q4H PRN PRN PRN Reason: HEADACHE Last Admin: 10/21/19 10:36 Dose: 2 tablet Documented by: Apixaban (Eliquis) 5 mg PO BID [facility] Last Admin: 10/21/19 08:14 Dose: 5 mg Documented by: Aspirin (Ecotrin) 81 mg PO DAILY@0800 [facility] Last Admin: 10/21/19 08:13 Dose: 81 mg Documented by: Bupropion HCl (Wellbutrin Sr (100mg Tablets)) 200 mg PO BID [facility] Last Admin: 10/21/19 08:15 Dose: 200 mg Documented by: Cyclobenzaprine HCl (Flexeril) 10 mg PO TID PRN PRN PRN Reason: SPASMS Dexamethasone (Decadron) 4 mg PO BIDCM [facility] Last Admin: 10/21/19 08:13 Dose: 4 mg Documented by: Dextrose (D50w Syringe) 0 gm IV X1 PRN; Protocol PRN Reason: Hypoglycemia Gabapentin (Neurontin) 300 mg PO TIDCM [facility] Last Admin: 10/21/19 11:58 Dose: 300 mg Documented by: Glucagon () 1 mg IM .X1 PRN PRN Reason: Hypoglycemia Sodium Chloride () 250 mls @ 15 mls/hr IV .[id number] PRN PRN Reason: Saline Flush Sodium Chloride () 250 mls @ 15 mls/hr IV .[id number] PRN PRN Reason: Additional IVPB Infusion Ceftriaxone Sodium (Rocephin) 1 gm in 50 mls @ 100 mls/hr IV Q24 [facility] Last Infusion: 10/21/19 08:46 Dose: Infused Documented by: Insulin Glargine (Lantus (Bkc)) 35 units SC BID [facility] Last Admin: 10/21/19 08:11 Dose: 35 units Documented by: Insulin Human Lispro (Humalog Kwikpen (Bk)) 0 unit SC ACHS [facility]; Protocol Last Admin: 10/21/19 11:58 Dose: 16 units Documented by: Insulin Human Lispro (Humalog Kwikpen (Bk)) 20 unit SC TIDAC [facility] Last Admin: 10/21/19 11:59 Dose: 20 units Documented by: Lisinopril (Zestril) 40 mg PO QHS [facility] Last Admin: 10/20/19 21:08 Dose: 40 mg Documented by: Memantine (Namenda) 5 mg PO BID [facility] Metoprolol Tartrate (Lopressor (Beta Gissell)) 50 mg PO BID [facility] Last Admin: 10/21/19 08:14 Dose: 50 mg Documented by: Pantoprazole Sodium (Protonix) 40 mg PO DAILY [facility] Last Admin: 10/21/19 08:15 Dose: 40 mg Documented by: Pravastatin Sodium (Pravachol) 80 mg PO QHS [facility] Last Admin: 10/20/19 21:08 Dose: 80 mg Documented by: Sodium Chloride () 10 - 40 ml IV UD PRN PRN Reason: SALINE FLUSH Last Admin: 10/21/19 08:16 Dose: 10 ml Documented by: Verapamil HCl (Calan Sr) 240 mg PO DAILY [facility] Last Admin: 10/21/19 08:14 Dose: 240 mg Documented by: Addendum: Dr. Gonzalez I personally examined the patient and reviewed the chart. I agree with the above. 64-year-old female with stage IV melanoma with metastatic lesions to the brain and swallowing. She was started on Decadron a few weeks ago and has had some improvement in her strokelike symptoms, however she now presents with a UTI. She presented an outside hospital first and third blood cultures came back positive. We are attempting to contact them to get updated information on the results of her cultures so as to be able to narrow down the antibacterial spectrum. She will proceed with brain radiation on Saturday as well as meet with palliative care at that time. Radiation oncology said that they would help manage the taper down of her Decadron as well as tapering up of her Namenda. She is doing much better compared to when she came in and hopefully will be able to be discharged home soon, she does not want to go to a [facility] facility and likely will need home health care. Inpatient E&M: [id number] Subs Hosp L2
[2019-10-21 12:36] LABS: Bedside Glucose 414 mg/dL (70-110)
[2019-10-21 17:15] LABS: Bedside Glucose 250 mg/dL (70-110)
[2019-10-21] MEDS: Glucerna Shake 120 ML LIQUID PO (21:31)
[2019-10-21] MEDS: Memantine Hydrochloride 5 MG Tablet PO (21:33)
[2019-10-21] MEDS: Lisinopril 40 MG Tablet PO (21:33)
[2019-10-21] MEDS: Pravastatin 80 MG Tablet PO (21:34)
[2019-10-21 23:11] LABS: Bedside Glucose 202 mg/dL (70-110)
[2019-10-22 00:05] VITALS: PULSE 61
[2019-10-22 07:10] VITALS: PULSE 80
[2019-10-22] MEDS: hydrALAZINE 20 MG/ML Vial 10 MG IV (07:10)
[2019-10-22 08:00] VITALS: BP 163/88; PULSE 80; RESP 18; TEMP 36.6; O2SAT 94
[2019-10-22 08:10] VITALS: BP 163/88; PULSE 80
[2019-10-22] MEDS: Memantine Hydrochloride 5 MG Tablet PO (08:10)
[2019-10-22] MEDS: APIXABAN 5 MG TABLET PO (08:10)
[2019-10-22] MEDS: Insulin Lispro 100 UNIT/ML INSULN.PEN 20 UNIT SC ×2 (08:10→12:13)
[2019-10-22] MEDS: buPROPion (SR) 100 MG TABLET.SA 200 MG PO (08:10)
[2019-10-22] MEDS: Aspirin E.C. 81 MG Tablet PO (08:10)
[2019-10-22] MEDS: Metoprolol Tartrate 50 MG Tablet PO (08:10)
[2019-10-22] MEDS: dexAMETHasone 4 MG Tablet PO (08:10)
[2019-10-22] MEDS: Pantoprazole Sodium 40 MG Tablet PO (08:10)
[2019-10-22] MEDS: Glucerna Shake 120 ML LIQUID PO (08:10)
[2019-10-22] MEDS: Gabapentin 300 MG Capsule PO ×2 (08:10→12:12)
[2019-10-22] MEDS: Verapamil SR 240 MG Tablet PO (08:10)
[2019-10-22 08:26] LABS: Bedside Glucose 135 mg/dL (70-110)
[2019-10-22] MEDS: Ceftriaxone 1 GM/50 ML BAG IV (09:25)
--- NOTE | 2019-10-22 10:54 | DCINST_ITS ---
- Discharge Diagnoses Current Active Problems: Current Active and Chronic Problems (Last Reviewed 10/07/19 @ 22:[address] Yemi Iverson MD) UTI (urinary tract infection) (Acute) You will use the following diet at home:: No restrictions Your food should be the consistency of: Regular Your liquids should be the consistency of: Regular/Thin Discharge Activity: Return to Normal Activity Allergies/Adverse Reactions: Allergies metformin [From Glucophage] Adverse Reaction (Severe, Verified 10/21/19 10:28) Nausea Medications to take at Discharge Albuterol Inhaler [Ventolin Hfa] 2 inhaler INHALATION Q4H PRN PRN 10/17/16 Lisinopril [Zestril] 40 mg PO QHS 10/17/16 Pantoprazole Sodium [Protonix] 40 mg PO DAILY 10/17/16 Aspirin E.C. [Ecotrin] 81 mg PO DAILY@0800 06/11/19 Cyclobenzaprine HCl 10 mg PO TID PRN PRN 06/11/19 Gabapentin [Neurontin] 300 mg PO TIDCM 06/11/19 Nitroglycerin [Nitrostat] 0.4 mg SL PRN PRN 06/11/19 Pravastatin [Pravachol] 80 mg PO QHS 06/11/19 Verapamil HCl [Verapamil ER] 240 mg PO DAILY 06/11/19 buPROPion SR [Wellbutrin Sr] 200 mg PO BID 06/11/19 Fluticasone 0.05% [Flonase Nasal [place]] 1 spray NASAL DAILY PRN PRN 09/18/19 Glimepiride 4 mg PO BID 09/18/19 Metoprolol Tartrate 50 mg PO BID 09/18/19 Apixaban [Eliquis] 5 mg PO BID 10/20/19 Cefdinir [Omnicef [equiv]] 300 mg PO Q12H #22 cap 10/22/19 Dexamethasone [Decadron] 4 mg PO BIDCM tab 10/22/19 Insulin Glargine [Lantus SoloStar Pen] 35 units SUBCUT BID #0 pen 10/22/19 Insulin Lispro [Humalog KwikPen] 20 unit SUBCUT TIDAC insuln.pen 10/22/19 Memantine HCl 5 mg PO DAILY #30 tab 10/22/19 The following prescriptions were given: Cefdinir [Omnicef [equiv]] 300 mg PO Q12H #22 cap Transmission Status: Pending to [facility] Primary Care Physician: Catherine Taveras DO [Primary Care Provider] - Please follow up with your Primary Care Physician in: 1-2 weeks Test Results: Test results from this visit will be discussed in further detail at your follow- up appointment, if applicable. Please Follow Up With: Will Traylor DO When: as directed Proposed Discharge Date: 10/22/19
[2019-10-22] MEDS: 0.9% Saline Lock 10 ML Syringe IV ×2 (11:15→13:11)
--- NOTE | 2019-10-22 11:36 | CASEMGMT ---
Addendum entered by Sydni Norris 10/22/19 14:28: D/C summ faxed to [facility] to [facility] at this time. Ignacia SAMPSON CM Original Note: This RN CM to room to discuss discharge plan with pt at this time. Pt states that she would like to still go home with Heart to [facility] at this time. Pt is aware of therapy recommendations and she states that her friend, Corry, will be staying with her 'for awhile.' Pt states 'I know I can't be home alone.' D/C instructions and PEDRO order faxed to [facility] to [facility] at this time. D/C summ will be faxed once obtained. Call to [facility] to [facility] to notify of discharge, voices understanding. Pt voices no further questions/concerns/needs at this time. Ignacia SAMPSON CM
[2019-10-22] MEDS: Insulin Lispro 100 UNIT/ML INSULN.PEN SC (12:13)
[2019-10-22 12:21] LABS: Bedside Glucose 187 mg/dL (70-110)
--- NOTE | 2019-10-22 12:29 | DS.PCM_ITS ---
<Aleks Cedeño - Last Filed: 10/22/19 12:29> Discharge Date and Diagnosis - Problem List Patient Problems: Active and Suspected Problems (Last Reviewed 10/07/19 @ 22:[address] Yemi Iverson MD) UTI (urinary tract infection) (Acute) Date of Admission: 10/19/19 Date of Discharge: 10/22/19 - Primary Discharge Diagnosis Active and Suspected Problems (Last Reviewed 10/07/19 @ 22:[address] Yemi Iverson MD) UTI, bacteremia 2/2 E coli metastatic melanoma, brain mets ISIDRO on CKDIII chronic anemia COPD no exacerbation T2DM with neuropathy HTN HLD Obesity CAD Hx L Breast cancer GERD Depression - Secondary Discharge Diagnosis Chronic Problems (Last Reviewed 10/07/19 @ 22:[address] Yemi Iverson MD) COPD (chronic obstructive pulmonary disease) (Chronic) Tobacco use (Chronic) HTN (hypertension) (Chronic) HLD (hyperlipidemia) (Chronic) CAD (coronary artery disease) (Chronic) Obesity (Chronic) Diabetes mellitus, type II (Chronic) History of breast cancer (Chronic) Metastatic melanoma (Chronic) Anxiety and depression (Chronic) History of left breast cancer (Chronic) Pulmonary embolism (Chronic) Melanoma (Chronic) right upper back, stage IIB Metastatic melanoma to lung (Chronic) Malignant melanoma metastatic to lung (Chronic) Malignant melanoma metastatic to brain (Chronic) Peau d'orange over breast (Chronic) Hospital Course and Treatment Operations: None Procedures: None Summary of Care Provided: Hospital course: The patient is a 64 year old F with pmhx as above notably melanoma with brain mets on high dose decadron who presented to the ER with c/o AMS. Pt had underwent radiation that day, later was confused with her POA. She was brought to the ER and found to have a UTI and ISIDRO. She was admitted and placed on rocephin and IV fluids. She responded well to abx. She had had blood cultures taken at [facility] and these were positive for E coli. Final C&S are pending. She had no further symptoms on rocephin with resolution of her ISIDRO and normalization of her vitals and behavior. She was transitioned to omnicef and will complete 14 days of therapy. We will need to obtain the final C&S to ensure proper therapy once it is available. She was discharged home in stable condition. She will need to follow up with radiation oncology as directed and with her PCP in 1-2 weeks. Also of note her insulin therapy was adjusted while here as she had hyperglycemia, and she is on an up tapering dose of namenda given her brain mets and radiation. This patient was seen by Aleks Cedeño PA-C under the supervision of Doctor Gonzalez. [] Patient Problems: Active and Suspected Problems (Last Reviewed 10/07/19 @ 22:[address] Yemi Iverson MD) UTI (urinary tract infection) (Acute) - Physical Exam Vitals/I&O's: Vital Signs Temp Pulse Resp BP Pulse Ox 97.9 F 80 18 163/88 H 94 10/22/19 08:00 10/22/19 08:10 10/22/19 08:00 10/22/19 08:10 10/22/19 08:00 Oxygen Flow Rate (L/min) 2 Oxygen Delivery Method Room Air Weight: 208 lb 1.862 oz Body Mass Index (BMI) 40.8 Finger Stick Blood Glucose 400 Intake and Output for Last 24 Hours 10/20/19 10/21/19 10/22/19 23:59 23:59 23:59 Intake Total 550 / 550 1170 / 1170 770 / 770 Output Total 2800 / 2800 1999 / 1999 Balance -2250 / -2250 -830 / -830 770 / 770 General: Alert, Oriented x3, Cooperative HEENT: Atraumatic, PERRLA, EOMI, Normocephalic Neck: Supple, No JVD, Negative Carotid Bruits Lungs: Clear to auscultation, Normal air movement Cardiovascular: Regular rate, No murmurs Abdomen: Bowel Sounds Present, Soft, Non Tender Extremities: No edema, Capillary Refill Less than 3 Seconds Skin: No rashes, No breakdown Musculoskeletal: No Tenderness to Palpation of Joints or Extremities Neurological: Cranial nerves II-XII grossly intact Psych/Mental Status: Normal Affect, Appropriate, Alert and oriented to time, place, person, mood and affect Laboratory Results 10/21/19 11:56: POC Glucose 414 H 10/21/19 17:01: POC Glucose 250 H 10/21/19 21:21: POC Glucose 202 H 10/22/19 08:00: POC Glucose 135 H 10/22/19 12:10: POC Glucose 187 H Current Medications Acetaminophen/Butalbital/Caffeine (Fioricet) 2 tablet PO Q4H PRN PRN PRN Reason: HEADACHE Last Admin: 10/21/19 10:36 Dose: 2 tablet Documented by: Apixaban (Eliquis) 5 mg PO BID [facility] Last Admin: 10/22/19 08:10 Dose: 5 mg Documented by: Aspirin (Ecotrin) 81 mg PO DAILY@0800 [facility] Last Admin: 10/22/19 08:10 Dose: 81 mg Documented by: Bupropion HCl (Wellbutrin Sr (100mg Tablets)) 200 mg PO BID [facility] Last Admin: 10/22/19 08:10 Dose: 200 mg Documented by: Cyclobenzaprine HCl (Flexeril) 10 mg PO TID PRN PRN PRN Reason: SPASMS [facility]) [facility] Last Admin: 10/22/19 08:10 Dose: 4 mg Documented by: Dextrose (D50w Syringe) 0 gm IV X1 PRN; Protocol PRN Reason: Hypoglycemia Gabapentin (Neurontin) 300 mg PO TIDCM [facility] Last Admin: 10/22/19 12:12 Dose: 300 mg Documented by: Glucagon () 1 mg IM .X1 PRN PRN Reason: Hypoglycemia Hydralazine HCl (Apresoline Iv) 10 mg IV Q4H PRN PRN PRN Reason: SBP >160 Last Admin: 10/22/19 07:10 Dose: 10 mg Documented by: Sodium Chloride () 250 mls @ 15 mls/hr IV .[id number] PRN PRN Reason: Saline Flush Sodium Chloride () 250 mls @ 15 mls/hr IV .[id number] PRN PRN Reason: Additional IVPB Infusion Ceftriaxone Sodium (Rocephin) 1 gm in 50 mls @ 100 mls/hr IV Q24 [facility] Last Infusion: 10/22/19 11:14 Dose: Infused Documented by: Insulin Glargine (Lantus (Bkc)) 35 units SC BID [facility] Last Admin: 10/22/19 08:10 Dose: 35 units Documented by: Insulin Human Lispro (Humalog Kwikpen (Bkc)) 0 unit SC ACHS [facility]; Protocol Last Admin: 10/22/19 12:13 Dose: 3 units Documented by: Insulin Human Lispro (Humalog Kwikpen (Bkc)) 20 unit SC TIDAC [facility] Last Admin: 10/22/19 12:13 Dose: 20 units Documented by: Lisinopril (Zestril) 40 mg PO QHS [facility] Last Admin: 10/21/19 21:33 Dose: 40 mg Documented by: Memantine (Namenda) 5 mg PO BID [facility] Last Admin: 10/22/19 08:10 Dose: 5 mg Documented by: Metoprolol Tartrate (Lopressor (Beta Gissell)) 50 mg PO BID [facility] Last Admin: 10/22/19 08:10 Dose: 50 mg Documented by: Nutritional Formula (Lactose Free) (Glucerna Shake) 120 ml PO 4X/DAY [facility] Last Admin: 10/22/19 08:10 Dose: 120 ml Documented by: Pantoprazole Sodium (Protonix) 40 mg PO DAILY [facility] Last Admin: 10/22/19 08:10 Dose: 40 mg Documented by: Pravastatin Sodium (Pravachol) 80 mg PO QHS [facility] Last Admin: 10/21/19 21:34 Dose: 80 mg Documented by: Sodium Chloride () 10 - 40 ml IV UD PRN PRN Reason: SALINE FLUSH Last Admin: 10/22/19 11:15 Dose: 20 ml Documented by: Verapamil HCl (Calan Sr) 240 mg PO DAILY [facility] Last Admin: 10/22/19 08:10 Dose: 240 mg Documented by: Discharge Diet: No Restrictions Discharge Activity: Return to Normal Activity Home Medications: Medications to take at Discharge Albuterol Inhaler [Ventolin Hfa] 2 inhaler INHALATION Q4H PRN PRN 10/17/16 Lisinopril [Zestril] 40 mg PO QHS 10/17/16 Pantoprazole Sodium [Protonix] 40 mg PO DAILY 10/17/16 Aspirin E.C. [Ecotrin] 81 mg PO DAILY@0800 06/11/19 Cyclobenzaprine HCl 10 mg PO TID PRN PRN 06/11/19 Gabapentin [Neurontin] 300 mg PO TIDCM 06/11/19 Nitroglycerin [Nitrostat] 0.4 mg SL PRN PRN 06/11/19 Pravastatin [Pravachol] 80 mg PO QHS 06/11/19 Verapamil HCl [Verapamil ER] 240 mg PO DAILY 06/11/19 buPROPion SR [Wellbutrin Sr] 200 mg PO BID 06/11/19 Fluticasone 0.05% [Flonase Nasal [place]] 1 spray NASAL DAILY PRN PRN 09/18/19 Glimepiride 4 mg PO BID 09/18/19 Metoprolol Tartrate 50 mg PO BID 09/18/19 Apixaban [Eliquis] 5 mg PO BID 10/20/19 Cefdinir [Omnicef [equiv]] 300 mg PO Q12H #22 cap 10/22/19 Dexamethasone [Decadron] 4 mg PO BIDCM tab 10/22/19 Insulin Glargine [Lantus SoloStar Pen] 35 units SUBCUT BID #0 pen 10/22/19 Insulin Lispro [Humalog KwikPen] 20 unit SUBCUT TIDAC insuln.pen 10/22/19 Memantine HCl 5 mg PO DAILY #30 tab 10/22/19 Following Prescrptions Were Given to Patient: Cefdinir [Omnicef [equiv]] 300 mg PO Q12H #22 cap Transmission Status: Received by [id number] Primary Care Physician: Catherine Taveras DO [Primary Care Provider] - Please follow up with your Primary Care Physician in: 1-2 weeks Please Follow Up With: Will Traylor DO When: as directed Disposition: Home Minutes spent on discharge:: 35 Patient Condition:: Stable Medical Necessity - Tobacco Use Smoking Status: Current every day smoker Meaningful Use Info Meaningful Use Diagnoses (Choose all that apply): None applicable <David Gonzalez - Last Filed: 10/22/19 13:33> Discharge Date and Diagnosis - Primary Discharge Diagnosis Active and Suspected Problems (Last Reviewed 10/07/19 @ 22:[address] Yemi Iverson MD) UTI (urinary tract infection) (Acute) - Secondary Discharge Diagnosis Chronic Problems (Last Reviewed 10/07/19 @ 22:[address] Yemi Iverson MD) COPD (chronic obstructive pulmonary disease) (Chronic) Tobacco use (Chronic) HTN (hypertension) (Chronic) HLD (hyperlipidemia) (Chronic) CAD (coronary artery disease) (Chronic) Obesity (Chronic) Diabetes mellitus, type II (Chronic) History of breast cancer (Chronic) Metastatic melanoma (Chronic) Anxiety and depression (Chronic) History of left breast cancer (Chronic) Pulmonary embolism (Chronic) Melanoma (Chronic) right upper back, stage IIB Metastatic melanoma to lung (Chronic) Malignant melanoma metastatic to lung (Chronic) Malignant melanoma metastatic to brain (Chronic) Peau d'orange over breast (Chronic) Hospital Course and Treatment Summary of Care Provided: The patient is a 64 year old F [] - Physical Exam Vitals/I&O's: Vital Signs Temp Pulse Resp BP Pulse Ox 98 F 63 17 137/81 H 93 10/22/19 13:00 10/22/19 13:00 10/22/19 13:00 10/22/19 13:00 10/22/19 13:00 Oxygen Flow Rate (L/min) 2 Oxygen Delivery Method Room Air Weight: 208 lb 1.862 oz Body Mass Index (BMI) 40.8 Finger Stick Blood Glucose 400 Intake and Output for Last 24 Hours 10/20/19 10/21/19 10/22/19 23:59 23:59 23:59 Intake Total 550 / 550 1170 / 1170 770 / 770 Output Total 2800 / 2800 1999 / 1999 Balance -2250 / -2250 -830 / -830 770 / 770 Laboratory Results 10/21/19 17:01: POC Glucose 250 H 10/21/19 21:21: POC Glucose 202 H 10/22/19 08:00: POC Glucose 135 H 10/22/19 12:10: POC Glucose 187 H Current Medications Acetaminophen/Butalbital/Caffeine (Fioricet) 2 tablet PO Q4H PRN PRN PRN Reason: HEADACHE Last Admin: 10/21/19 10:36 Dose: 2 tablet Documented by: Apixaban (Eliquis) 5 mg PO BID [facility] Last Admin: 10/22/19 08:10 Dose: 5 mg Documented by: Aspirin (Ecotrin) 81 mg PO DAILY@0800 [facility] Last Admin: 10/22/19 08:10 Dose: 81 mg Documented by: Bupropion HCl (Wellbutrin Sr (100mg Tablets)) 200 mg PO BID [facility] Last Admin: 10/22/19 08:10 Dose: 200 mg Documented by: Cyclobenzaprine HCl (Flexeril) 10 mg PO TID PRN PRN PRN Reason: SPASMS [facility] ([facility]) [facility] Last Admin: 10/22/19 08:10 Dose: 4 mg Documented by: Dextrose (D50w Syringe) 0 gm IV X1 PRN; Protocol PRN Reason: Hypoglycemia Gabapentin (Neurontin) 300 mg PO TIDCM [facility] Last Admin: 10/22/19 12:12 Dose: 300 mg Documented by: Glucagon () 1 mg IM .X1 PRN PRN Reason: Hypoglycemia Heparin Sodium (Beef Lung) () 50 units IV UD PRN PRN Reason: Port-a-Cath (VAD)Heparin Flush Last Admin: 10/22/19 13:12 Dose: 50 units Documented by: Hydralazine HCl (Apresoline Iv) 10 mg IV Q4H PRN PRN PRN Reason: SBP >160 Last Admin: 10/22/19 07:10 Dose: 10 mg Documented by: Sodium Chloride () 250 mls @ 15 mls/hr IV .[id number] PRN PRN Reason: Saline Flush Sodium Chloride () 250 mls @ 15 mls/hr IV .[id number] PRN PRN Reason: Additional IVPB Infusion Ceftriaxone Sodium (Rocephin) 1 gm in 50 mls @ 100 mls/hr IV Q24 [facility] Last Infusion: 10/22/19 11:14 Dose: Infused Documented by: Insulin Glargine (Lantus (Bk)) 35 units SC BID [facility] Last Admin: 10/22/19 08:10 Dose: 35 units Documented by: Insulin Human Lispro (Humalog Kwikpen (Bkc)) 0 unit SC ACHS [facility]; Protocol Last Admin: 10/22/19 12:13 Dose: 3 units Documented by: Insulin Human Lispro (Humalog Kwikpen (Bk)) 20 unit SC TIDAC [facility] Last Admin: 10/22/19 12:13 Dose: 20 units Documented by: Lisinopril (Zestril) 40 mg PO QHS [facility] Last Admin: 10/21/19 21:33 Dose: 40 mg Documented by: Memantine (Namenda) 5 mg PO BID [facility] Last Admin: 10/22/19 08:10 Dose: 5 mg Documented by: Metoprolol Tartrate (Lopressor (Beta Gissell)) 50 mg PO BID [facility] Last Admin: 10/22/19 08:10 Dose: 50 mg Documented by: Nutritional Formula (Lactose Free) (Glucerna Shake) 120 ml PO 4X/DAY [facility] Last Admin: 10/22/19 08:10 Dose: 120 ml Documented by: Pantoprazole Sodium (Protonix) 40 mg PO DAILY [facility] Last Admin: 10/22/19 08:10 Dose: 40 mg Documented by: Pravastatin Sodium (Pravachol) 80 mg PO QHS [facility] Last Admin: 10/21/19 21:34 Dose: 80 mg Documented by: Sodium Chloride () 10 - 40 ml IV UD PRN PRN Reason: SALINE FLUSH Last Admin: 10/22/19 13:11 Dose: 10 ml Documented by: Sodium Chloride () 10 - 40 ml IV UD PRN PRN Reason: Port-a-Cath (VAD) Flush Sodium Chloride (0.9% Nacl (Sterile) Posiflush) 10 - 40 ml IV UD PRN PRN Reason: Port access or dressing change Verapamil HCl (Calan Sr) 240 mg PO DAILY [facility] Last Admin: 10/22/19 08:10 Dose: 240 mg Documented by: Addendum: Dr. Gonzalez I personally examined the patient and reviewed the chart. I agree with the above. 64-year-old female with metastatic melanoma to the brain with a recent lesion showing increased edema. She was started on Decadron and now she has developed a UTI with gram-negative lanette bacteremia. She had gone to an outside hospital first and they were able to fax over the culture data today, it shows that her urine and her blood are both E. coli that are fairly sensitive. She was on Rocephin while she was here in the hospital and improved significantly. She should be able to be discharged home today on Omnicef for another 11 days. She is also on a tapering dose of Decadron, however this will be managed by radiation oncology. She is also on Namenda which she is on 5 mg p.o. twice daily at the moment, on Saturday she will be increased to 10 mg in the morning and 5 mg at night for a week and then she should be increased ultimately to 10 mg p.o. twice daily. This will also be managed by radiation oncology. She does have a meeting with palliative care on Saturday which I highly recommend she continue with. I also recommend that she have continued self-isolation to his immunocompromise status with the Decadron and her current cancer. Blood pressures in the morning do become fairly significantly elevated though I do think part of this can be related to the Decadron. Once her morning medications are in her blood pressure does improve into the 120s and 130s. I did not make any changes to her blood pressure medication at this time, once her Decadron is discontinued can evaluate her blood pressure as an outpatient make any adjustments as necessary. Inpatient E&M: [id number] Disch Hosp
[2019-10-22 13:00] VITALS: BP 137/81; PULSE 63; RESP 17; TEMP 36.6; O2SAT 93
== END 2019-10-22 14:09 | disposition home or self-care (01) | DRG 463 ==
PROVIDERS: Internal Medicine; Nurse Practitioner Family; Admitting Provider Family Medicine; PCP Family Medicine; Visit Provider Family Medicine
DX: N39.0 Urinary tract infection, site not specified (principal); Z51.0 Encounter for antineoplastic radiation therapy; J44.9 Chronic obstructive pulmonary disease, unspecified; E11.22 Type 2 diabetes mellitus with diabetic chronic kidney disease; I12.9 Hypertensive chronic kidney disease with stage 1 through stage 4 chronic kidney disease, or unspecified chronic kidney disease; N18.3 Chronic kidney disease, stage 3 (moderate); N17.9 Acute kidney failure, unspecified; E78.5 Hyperlipidemia, unspecified; E66.9 Obesity, unspecified; C43.9 Malignant melanoma of skin, unspecified; Z68.41 Body mass index [BMI] 40.0-44.9, adult; I25.10 Atherosclerotic heart disease of native coronary artery without angina pectoris; Z85.3 Personal history of malignant neoplasm of breast; K21.9 Gastro-esophageal reflux disease without esophagitis; F32.9 Major depressive disorder, single episode, unspecified; C76.8 Malignant neoplasm of other specified ill-defined sites; C79.31 Secondary malignant neoplasm of brain; C78.00 Secondary malignant neoplasm of unspecified lung; Z86.711 Personal history of pulmonary embolism
CPT/HCPCS: 36415; 77336; 77412; 77417; 80048; 82962; 83605; 85025; 85027; 94762; 97116; 97162; 97166; 97535; A4216

== ENCOUNTER 2019-11-06 12:13 | Observation (INO) | payer MEDICAID, SELFPAY ==
[2019-07-03 10:02] VITALS: BMI 40.8
[2019-11-03 13:52] VITALS: BMI 38.0
[2019-11-06 12:15] VITALS: BP 136/72; PULSE 114; RESP 18; TEMP 36.6; O2SAT 98; BMI 39.0
--- NOTE | 2019-11-06 12:46 | ED.VISSUMM ---
- ER Visit Summary Date of Service: 11/06/19 Chief Complaint: Here for medical clearance for palliative care History of Present Illness: The patient is a 64 F history of lung CA with both brain and spine meds. Previously on chemo and radiation therapy and states is not working. Also prior history of stroke, diabetes and COPD. Patient was sent here today for clearance to start undergoing palliative care. She denies any recent fever. States that she does have nausea from time to time. No other significant complaints just generalized weakness and malaise. Physical Examination: Older female vital signs are stable afebrile. She is lying in bed. H EENT exam pupils are reactive eyes motions are intact. Neck nontender. Lungs clear to auscultation bilaterally. Heart tachycardic rate about 110 no murmur. Abdomen soft nontender normal bowel sounds no peritoneal signs. Remedies moves all 4. Neurovascular intact. Calves nontender without edema. Neurologically she is awake and alert. Answering questions and following commands. Test Results: CBC white count 8. Hemoglobin 14. Chemistries unremarkable normal gap. Normal creatinine. Blood glucose is elevated 331 she is a diabetic. Liver enzymes normal. Emergency Department Course and Treatment: I will discuss with administrator social welfare what we need to do specifically to have this patient set up with palliative care. Treatment Plan: Repeat exam no change. Spoke to the hospitalist and the social research assistant about admission. Patient needs hospitalization for physical therapy assessment and then will undergo penitentiary placement. Disposition: Assign 23-hour observation Impression: Generalized weakness History of lung CA with mets to her brain and spine Valuation for penitentiary placement. Acute hyperglycemia with a history of diabetes This note was generated with [employer] dictation software. It may contain incorrect words, spelling, and punctuation that were not noted in review of the chart prior to signing ED Disposition - Plan for ED Patient: Referrals: Catherine Taveras DO [Primary Care Provider] -
[2019-11-06 13:04] LABS: Absolute Lymphocyte Count 0.95 X10^3/uL (0.83-4.51); Absolute Neutrophil Count 6.6 X10^3/uL (2.0-7.7); Basophil# 0.03 X10^3/uL; Basophil% 0.4 % (0-1); Eosinophil# 0.09 X10^3/uL; Eosinophils% 1.1 % (0-5); Hematocrit 42.5 % (37-47); Hemoglobin 14.2 g/dL (12.0-15.0); Lymphocyte # 0.95 X10^3/ul (4.0); Lymphocyte % 11.2 % (19-41); Mean Corp Hgb Conc 33.4 g/dL (32-36); Mean Corpuscular Hgb 31.2 pg (27.0-32.0); Mean Corpuscular Volume 93.4 fL (81-99); Mean Platelet Vol. 10.5 fl (6.2-12.0); Monocyte# 0.74 X10^3/uL; Monocyte% 8.7 % (0-10); NRBC Flagged by Analyzer 0 % (0-5); Neutrophil # 6.55 X10^3/uL (2.7-7.7); Neutrophil % 77.4 % (47-70); Platelet Count 187 K/mm3 (150-450); RBC Distribution Width CV 12.8 % (11.6-14.6); RBC Distribution Width SD 44.1 fl (35.1-43.9); Red Blood Count 4.55 M/mm3 (4.2-5.4); White Blood Count 8.5 K/mm3 (4.4-11.0)
[2019-11-06 13:20] LABS: ALB/GLOB Ratio 0.7 RATIO (0.9-2.4); AST(SGOT) 15 U/L (15-37); Alanine Aminotransfer ALT/SGPT 30 U/L (13-56); Alkaline Phosphatase 93 U/L (45-117); Anion Gap 7 (5-15); BUN 16 mg/dL (7-18); Calcium,Total 9.3 mg/dL (8.5-10.1); Chloride 102 mmol/L (98-107); Creatinine, Serum 0.84 mg/dL (0.55-1.02); EST Glomerular Filtration Rate 72 mL/min (>60); Est Glom Filt Rate - Afr Amer 87 mL/min (>60); Globulin 4.1 g/dL (2.2-4.2); Glucose 331 mg/dL (74-106); Potassium 3.9 mmol/L (3.5-5.1); Protein, Total 7.1 g/dL (6.4-8.2); Sodium Level 136 mmol/L (136-145)
--- NOTE | 2019-11-06 13:20 | CM.ED ---
SOCIAL WORK INFORMANT: DR. MAYS REASON FOR REFERRAL: DISCHARGE PLANNING/PALLIATIVE SERVICES REFERRAL MET WITH PATIENT IN ROOM. INTRODUCED ROLE AND REASON FOR REFERRAL. PATIENT WITH HISTORY OF CANCER RECEIVING IMMUNOTHERAPY EVERY 3 WEEKS. PATIENT STATES LIVES HOME ALONE AND HAS BEEN GETTING WEAKER. PATIENT STATES CANNOT GO HOME. PATIENT STATES WANTING PALLIATIVE SERVICES AND STATES, I DO NOT WANT HOSPICE YET. I'M NOT READY TO GIVE UP. DISCUSSED JAIL PLACEMENT. PATIENT REQUESTED THIS WORKER CONTACT FRIEND, JEANETTE TO DISCUSS DISCHARGE PLANS. CALL TO JEANETTE. JEANETTE STATES CHECKS ON PATIENT EVERY DAY AND BELIEVES PATIENT WOULD BENEFIT FROM SOME REHAB PRIOR TO HOME GOING. JEANETTE STATES PATIENT IS WANTING PALLIATIVE SERVICES, BUT IS NOT READY FOR HOSPICE. JEANETTE REQUESTING REFERRAL TO [facility] IT IS CLOSE TO HOME FOR PATIENT. DISCUSSED WITH PATIENT AND PATIENT IN AGREEMENT WITH REFERRAL. PATIENT WILL NEED PRECERT. COLLABORATION WITH DR. MAYS. HOSPITALIST TO BE PAGED. PLAN: ADMIT- REFERRAL TO [facility], WILL NEED PRECERT. Parth FIORE MSW, METAL ROOFING MECHANIC.
--- NOTE | 2019-11-06 13:33 | ED.RN ---
HOSPITALIST PAGED FOR DR MAYS
--- NOTE | 2019-11-06 13:51 | HP.PCM_ITS ---
<Aleks Cedeño - Last Filed: 11/06/19 13:51> Problem List (1) Debility Status: Chronic (2) COPD (chronic obstructive pulmonary disease) Status: Chronic (3) Tobacco use Status: Chronic (4) HTN (hypertension) Status: Chronic (5) HLD (hyperlipidemia) Status: Chronic (6) CAD (coronary artery disease) Status: Chronic (7) Obesity Status: Chronic (8) Diabetes mellitus, type II Status: Chronic (9) History of breast cancer Status: Chronic (10) Metastatic melanoma Status: Chronic (11) Anxiety and depression Status: Chronic (12) Pulmonary embolism Status: Chronic History of Present Illness Date of Admission: 11/06/19 Chief Complaint: Weakness The patient is a 64 year old F with pmhx as above notably Malignant melanoma with mets to the brain, pt of dr. Ramos undergoing immunotherapy every 3 weeks, recently admitted with UTI and E coli bacteremia, discharged home, who presents to the ER with debility. The patient states other than weakness she has no complaints. She states she needs palliative care. She has progressively become weak throughout her whole body over the past several days to the point where she cannot ambulate. She denies fevers/chills, cough, SOB, dysuria, nausea, vomiting, diarrhea. [] Past Medical History Past Medical History (Chronic Problems): Chronic Problems (Last Reviewed 11/03/19 @ 13:39 by Blanche Braga) Debility (Chronic) COPD (chronic obstructive pulmonary disease) (Chronic) Tobacco use (Chronic) HTN (hypertension) (Chronic) HLD (hyperlipidemia) (Chronic) CAD (coronary artery disease) (Chronic) Obesity (Chronic) Diabetes mellitus, type II (Chronic) History of breast cancer (Chronic) Metastatic melanoma (Chronic) Anxiety and depression (Chronic) History of left breast cancer (Chronic) Pulmonary embolism (Chronic) Melanoma (Chronic) right upper back, stage IIB Metastatic melanoma to lung (Chronic) Malignant melanoma metastatic to lung (Chronic) Malignant melanoma metastatic to brain (Chronic) Peau d'orange over breast (Chronic) Medical History: Medical History (Last Reviewed 11/03/19 @ 13:39 by Blanche Braga) Anhedonia R45.84 Anxiety F41.9 B12 deficiency E53.8 Breast cancer, left C50.912 CAD (coronary artery disease) I25.10 COPD (chronic obstructive pulmonary disease) J44.9 Carpal tunnel syndrome G56.00 Depression F32.9 Diabetes mellitus E11.9 Emphysema lung J43.9 Hyperlipidemia E78.5 Hyponatremia E87.1 Melanoma C43.9 Peripheral edema R60.9 Hypertension I10 Allergies metformin [From Glucophage] Adverse Reaction (Severe, Verified 11/06/19 12:17) Nausea Home Medications: Ambulatory Orders Medication Instructions Recorded Albuterol Inhaler [Ventolin Hfa] 2 inhaler INHALATION Q4H PRN PRN 10/17/16 Lisinopril [Zestril] 40 mg PO QHS 10/17/16 Pantoprazole Sodium [Protonix] 40 mg PO DAILY 10/17/16 Aspirin E.C. [Ecotrin] 81 mg PO DAILY@0800 06/11/19 Cyclobenzaprine HCl 10 mg PO TID PRN PRN 06/11/19 Gabapentin [Neurontin] 300 mg PO TIDCM 06/11/19 Nitroglycerin [Nitrostat] 0.4 mg SL PRN PRN 06/11/19 Pravastatin [Pravachol] 80 mg PO QHS 06/11/19 Verapamil HCl [Verapamil ER] 240 mg PO DAILY 06/11/19 buPROPion SR [Wellbutrin Sr] 100 mg PO BID 06/11/19 Fluticasone 0.05% [Flonase Nasal 1 spray NASAL DAILY PRN PRN 09/18/19 [place]] Glimepiride 4 mg PO BID 09/18/19 Metoprolol Tartrate 50 mg PO BID 09/18/19 Apixaban [Eliquis] 5 mg PO BID 10/20/19 Insulin Glargine [Lantus SoloStar 35 units SUBCUT BID #0 pen 10/22/19 Pen] Insulin Lispro [Humalog KwikPen] 20 unit SUBCUT TIDAC insuln.pen 10/22/19 Memantine HCl 5 mg PO DAILY #30 tab 10/22/19 Surgical History: Surgical History (Last Reviewed 11/03/19 @ 13:39 by Blanche Braga) H/O melanoma excision Z98.890, Z85.820 back. [facility] 04/2019 History of cholecystectomy Z98.890, Z90.49 History of excision of pilonidal cyst Z98.890 History of lumpectomy Z98.890 History of lymph node excision Z98.890 Status post trigger finger release Z98.890 port placement Surgical History: noncontributory, - - Gamma knife therapy, left breast ectomy surgery, back melanoma wide excision, cholecystectomy. 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 Denies: Chills, Fever, Weight Change HEENT: Denies: Head Aches, Sinus Congestion, Sinus Drainage Cardiovascular: Denies: Chest Pain, Palpitations Respiratory: Denies: Cough, Shortness of breath at rest, Sputum production Gastrointestinal: Denies: Abdominal Pain, Nausea, Vomiting Genitourinary: Denies: Dysuria Musculoskeletal: Denies: Joint Pain, Joint Tenderness Skin: Denies: Rash, Wounds Neurological: Denies: Numbness, Tingling, Focal weakness Psychiatric: Denies: Anxiety, Depression, Homicidal Ideations, Suicidal Ideations Hematologic/ Lymphatic: Denies: Easy Bruising, Easy Bleeding VTE Information - Inpt Only VTE Present on Admission: No VTE Mechan Device Prophylaxis: None VTE Pharm Prophylaxis ordered?: Yes - Physical Exam Vitals/I&O's: Vital Signs Temp Pulse Resp BP Pulse Ox 98 F 114 H 18 136/72 H 98 11/06/19 12:15 11/06/19 12:15 11/06/19 12:15 11/06/19 12:15 11/06/19 12:15 Oxygen Delivery Method Room Air Weight: 200 lb Body Mass Index (BMI) 39.0 Finger Stick Blood Glucose 400 General: Alert, Oriented x3, Cooperative HEENT: Atraumatic, PERRLA, EOMI, Normocephalic Neck: Supple, No JVD, Negative Carotid Bruits Lungs: Clear to auscultation, Normal air movement Cardiovascular: Regular rate, No murmurs Abdomen: Bowel Sounds Present, Soft, Non Tender, Obese Extremities: No edema, Capillary Refill Less than 3 Seconds Skin: No rashes, No breakdown Musculoskeletal: No Tenderness to Palpation of Joints or Extremities Neurological: Cranial nerves II-XII grossly intact Psych/Mental Status: Normal Affect, Appropriate, Alert and oriented to time, place, person, mood and affect Laboratory Results 11/06/19 13:00: WBC 8.5, RBC 4.55, Hgb 14.2, Hct 42.5, MCV 93.4, MCH 31.2, MCHC 33.4, RDW Std Deviation 44.1 H, RDW Coeff of Kosta 12.8, Plt Count 187, MPV 10.5, Immature Gran % (Auto) 1.200 H, Neut % (Auto) 77.4 H, Lymph % (Auto) 11.2 L, [place] % (Auto) 8.7, Eos % (Auto) 1.1, Baso % (Auto) 0.4, Absolute Neuts (auto) 6.6, Absolute Lymphs (auto) 0.95, Nucleated RBC % 0 11/06/19 13:00: Sodium 136, Potassium 3.9, Chloride 102, Carbon Dioxide 27.0, A nion Gap 7, BUN 16, Creatinine 0.84, Estim Creat Clear Calc 48.60, Est GFR (MDRD) Af Amer 87, Est GFR (MDRD) Non-Af 72, BUN/Creatinine Ratio 19.0, Glucose 331 H, Calcium 9.3, Total Bilirubin 0.70, AST 15, ALT 30, Alkaline Phosphatase 93, Total Protein 7.1, Albumin 3.0 L, Globulin 4.1, Albumin/Globulin Ratio 0.7 L Assessment/Plan 1. Debility - pt is declining 2/2 multiple underlying medical conditions notably metastatic melanoma to the brain. PTOT evals. 2. Melanoma stage IV - mets to brain. on immunotherapy (keytruda) with Dr. Ramos. pt unsure if she is still on decadron. Pt on eliquis. On memantine for brain mets. 3. Recent UTI/Bacteremia - currently no evidence of acute infection 4. CKDIII - stable 5. T2DM - hyperglycemia - will adjust insulin regimen as needed + SSI. 6. COPD - no exacerbation - prn aerosols 7. CAD - home meds. 8. hx left breast cancer in remission 9. Depression - continue home meds. DVT ppx: [email or web address] LUANNE planning: SNF placement This patient was seen by Aleks Cedeño PA-C under the supervision of Dr. Rizzo. <TachoharrisErica barnett E - Last Filed: 11/06/19 14:20> Problem List (1) HTN (hypertension) Status: Chronic Qualifiers: (2) HLD (hyperlipidemia) Status: Chronic Qualifiers: (3) CAD (coronary artery disease) Status: Chronic Qualifiers: (4) Diabetes mellitus, type II Status: Chronic Qualifiers: (5) Anxiety and depression Status: Chronic (6) Pulmonary embolism Status: Chronic (7) Malignant melanoma metastatic to lung Status: Chronic (8) Malignant melanoma metastatic to brain Status: Chronic History of Present Illness The patient is a 64 year old F [] Past Medical History Medical History: Medical History (Last Reviewed 11/03/19 @ 13:39 by Blanche Braga) Anhedonia R45.84 Anxiety F41.9 B12 deficiency E53.8 Breast cancer, left C50.912 CAD (coronary artery disease) I25.10 COPD (chronic obstructive pulmonary disease) J44.9 Carpal tunnel syndrome G56.00 Depression F32.9 Diabetes mellitus E11.9 Emphysema lung J43.9 Hyperlipidemia E78.5 Hyponatremia E87.1 Melanoma C43.9 Peripheral edema R60.9 Hypertension I10 Allergies metformin [From Glucophage] Adverse Reaction (Severe, Verified 11/06/19 12:17) Nausea Surgical History: Surgical History (Last Reviewed 11/03/19 @ 13:39 by Blanche Braga) H/O melanoma excision Z98.890, Z85.820 back. [facility] 04/2019 History of cholecystectomy Z98.890, Z90.49 History of excision of pilonidal cyst Z98.890 History of lumpectomy Z98.890 History of lymph node excision Z98.890 Status post trigger finger release Z98.890 port placement - *Family History Maternal Family History: Family History (Last Reviewed 11/06/19 @ 13:54 by MARY Alva) Mother Heart disease Hypertension Father Diabetes Sister Lung cancer Paternal Family History: Family History (Last Reviewed 11/06/19 @ 13:54 by MARY Alva) Mother Heart disease Hypertension Father Diabetes Sister Lung cancer - Physical Exam Vitals/I&O's: Vital Signs Temp Pulse Resp BP Pulse Ox 97.7 F L 112 H 22 H 161/93 H 93 11/06/19 14:05 11/06/19 14:05 11/06/19 14:05 11/06/19 14:05 11/06/19 14:05 Oxygen Delivery Method Room Air Weight: 200 lb Body Mass Index (BMI) 39.0 Finger Stick Blood Glucose 400 Laboratory Results 11/06/19 13:00: WBC 8.5, RBC 4.55, Hgb 14.2, Hct 42.5, MCV 93.4, MCH 31.2, MCHC 33.4, RDW Std Deviation 44.1 H, RDW Coeff of Kosta 12.8, Plt Count 187, MPV 10.5, Immature Gran % (Auto) 1.200 H, Neut % (Auto) 77.4 H, Lymph % (Auto) 11.2 L, [place] % (Auto) 8.7, Eos % (Auto) 1.1, Baso % (Auto) 0.4, Absolute Neuts (auto) 6.6, Absolute Lymphs (auto) 0.95, Nucleated RBC % 0 11/06/19 13:00: Sodium 136, Potassium 3.9, Chloride 102, Carbon Dioxide 27.0, Anion Gap 7, BUN 16, Creatinine 0.84, Estim Creat Clear Calc 48.60, Est GFR (MDRD) Af Amer 87, Est GFR (MDRD) Non-Af 72, BUN/Creatinine Ratio 19.0, Glucose 331 H, Calcium 9.3, Total Bilirubin 0.70, AST 15, ALT 30, Alkaline Phosphatase 93, Total Protein 7.1, Albumin 3.0 L, Globulin 4.1, Albumin/Globulin Ratio 0.7 L Assessment/Plan Hospitalist note: I am seeing this patient in conjunction with Aleks Cedeño. I independently seen and examined the patient. History and physical and laboratory data reviewed and I concur with the above admission and work-up plan. Patient presented to the emergency room because of generalized weakness and fatigue and she requested to be seen by hospice and palliative care team. Apart from weakness and fatigue, she has no complaints. She was recently admitted for UTI with bacteremia and she was discharged home. She was diagnosed with metastatic stage IV melanoma with mets to the brain, bones and lungs and she has been on immunotherapy with Dr. Ramos. Her last session of immunotherapy was this past Saturday which is 3 days ago. Apparently, patient was seen by her oncologist 3 days ago and he had discussion about hospice with the patient but she stated she is not ready. Today, she mentioned that she is ready for hospice and palliative care. She will history of type 2 diabetes mellitus and she has been on insulin and apparently, her blood sugar has not been under control and her hemoglobin A1c was 10.9% on September,. She will history of pulmonary embolism and she has been on Eliquis for anticoagulation. In the emergency department, her vital signs were stable apart from mild tachycardia. Routine blood work was notable for blood glucose of 331, otherwise normal. No evidence of DKA. She is being admitted for physical debility/functional decline in context of history of metastatic melanoma with mets to brain, bone and lung and not responding to treatment and she will placement to half-way facility and eventually, will need to be seen by hospice and palliative care. - Physical Exam General: Alert, Oriented x3, Cooperative, No apparent distress. HEENT: Atraumatic, PERRLA, EOMI. Neck: Supple, No JVD, Negative Carotid Bruits, Trachea Midline, Thyroid Normal. Lungs: Diminished breath sounds bilateral, otherwise clear, No rhonchi, No wheeze, No rales. Cardiovascular: Regular rate, Regular Rhythm, Normal S1, Normal S2, PMI Normal, tachycardia. Abdomen: Bowel Sounds Present, Soft, Non Tender, Non-Distended, No Hepato- splenomegaly, obese. Extremities: No clubbing, No cyanosis, trace edema edema Skin: No rashes, No breakdown Neurological: Cranial nerves are intact, neuro grossly intact Assessment and plan: #1 physical debility/functional decline: Multifactorial mainly secondary to metastatic melanoma with mets to brain, bone and lungs in addition to other chronic medical problems. Patient lives alone at home. No evidence of acute illness. She was seen by oncology 3 days ago, had discussion about hospice and palliative care but patient stated that she is not ready at that time. Today, she states that she is ready for hospice and Perative care. Plan: Admit to [facility] floor for observation, regular diet, IV morphine PRN, Tylenol PRN, OxyIR PRN, Zofran PRN, PT OT evaluation and treatment, case management consult for placement to half-way facility. Patient will be seen by hospice and palliative care after discharge to SNF. #2 metastatic stage IV melanoma: With mets to brain, bone and lungs, was on immunotherapy, last dose was this past Saturday which was 3 days ago. Patient was deemed to be appropriate for hospice and Perative care. Hospice and palliative care team will be involved either in the hospital or after discharge to SNF. #3 CODE STATUS: DNR CCA, no intubation. I discussed different types of CODE STATUS with the patient. Clearly patient mentioned that she does not want any type of aggressive treatments, CPR, resuscitation, intubation mechanical ventilation. She stated that she still wants to be treated with simple medical problems such as pneumonia with IV antibiotics and dehydration with IV fluids. I explained to the patient that with hospice and palliative care, they will make her comfortable in terms of pain and discomfort and they can treat simple medical problems and she agreed to this approach. She will be DNR CCA, no intubation. #4 other chronic medical problems: Stable, continue current medications as above. This note was generated with TxtFeedback dictation software. It may contain incorrect words, spelling, and punctuation that were not noted in checking the note before signing. OBSV E&M: [id number] Initial observation care L3
[2019-11-06 14:05] VITALS: BP 161/93; PULSE 112; RESP 22; TEMP 36.5; O2SAT 93
[2019-11-06 14:45] VITALS: BMI 37.8
[2019-11-06 14:52] VITALS: BMI 37.8
[2019-11-06 15:14] VITALS: BP 137/67; PULSE 111; RESP 14; TEMP 36.7; O2SAT 94
--- NOTE | 2019-11-06 15:18 | CM.ED ---
SOCIAL WORK CALL TO [facility]. ADMISSION STATES WILL REVIEW REFERRAL. WILL NEED TO FAX PT/OT EVALUATION ONCE COMPLETED. WILL FOLLOW UP. CALL TO [facility]ERR[facility], SPOKE WITH MADHU. PER MADHU, PATIENT ALREADY IN SYSTEM AND PATIENT WAS SEEN ON 10/23/2019. [facility] REPORTS DID DISCUSS HOSPICE DURING VISIT WITH PATIENT AND PATIENT REPORTED, NOT READY FOR HOSPICE. UPDATED ON ANTICIPATED D/C PLAN TO ASSISTED. WILL UPDATE [facility] UPON D/C. D. MANDEEP FIORE, MANAGER OF CUSTOMER BILLING.
[2019-11-06 16:11] LABS: Bedside Glucose 394 mg/dL (70-110)
[2019-11-06] MEDS: Glimepiride 4 MG Tablet PO (16:14)
[2019-11-06] MEDS: Insulin Lispro 100 UNIT/ML INSULN.PEN 20 UNIT SC (16:14)
[2019-11-06] MEDS: Gabapentin 300 MG Capsule PO (16:14)
[2019-11-06] MEDS: Insulin Lispro 100 UNIT/ML INSULN.PEN SC ×2 (16:14→23:53)
--- NOTE | 2019-11-06 16:36 | NURSING ---
per pt, pt would like Corry Maximilian, friend, ([phone]) and Rosita Kruger, sister, ([phone]) to be updated daily by staff on pt's POC. pt stated both Corry and Rosita were contacted today.
[2019-11-06 20:25] VITALS: BP 135/66; PULSE 105; RESP 17; TEMP 37.1; O2SAT 95
[2019-11-06] MEDS: APIXABAN 5 MG TABLET PO (23:52)
[2019-11-06 23:57] VITALS: PULSE 107
[2019-11-06] MEDS: buPROPion (SR) 100 MG TABLET.SA PO (23:57)
[2019-11-06] MEDS: Memantine Hydrochloride 5 MG Tablet PO (23:57)
[2019-11-06] MEDS: Metoprolol Tartrate 50 MG Tablet PO (23:57)
[2019-11-06] MEDS: Pravastatin 80 MG Tablet PO (23:58)
[2019-11-06] MEDS: 0.9% Saline Lock 10 ML Syringe IV (23:58)
[2019-11-06] MEDS: Lisinopril 40 MG Tablet PO (23:58)
[2019-11-07] VITALS (7 sets, daily range): BP systolic 93–141; BP diastolic 51–85; PULSE 75–92; RESP 17–18; TEMP 36.8–37.5; O2SAT 92–99
[2019-11-07 00:11] LABS: Bedside Glucose 207 mg/dL (70-110)
[2019-11-07] MEDS: Insulin Lispro 100 UNIT/ML INSULN.PEN 20 UNIT SC ×3 (06:41→16:16)
[2019-11-07] MEDS: Insulin Lispro 100 UNIT/ML INSULN.PEN SC ×2 (06:41→11:18)
[2019-11-07 07:11] LABS: Bedside Glucose 185 mg/dL (70-110)
[2019-11-07] MEDS: Gabapentin 300 MG Capsule PO ×3 (08:33→16:16)
[2019-11-07] MEDS: Metoprolol Tartrate 50 MG Tablet PO ×2 (08:33→22:04)
[2019-11-07] MEDS: Glimepiride 4 MG Tablet PO ×2 (08:34→16:16)
[2019-11-07] MEDS: buPROPion (SR) 100 MG TABLET.SA PO ×2 (08:35→22:06)
[2019-11-07] MEDS: APIXABAN 5 MG TABLET PO ×2 (08:35→22:04)
[2019-11-07] MEDS: Memantine Hydrochloride 5 MG Tablet 10 MG PO (08:35)
[2019-11-07] MEDS: Aspirin E.C. 81 MG Tablet PO (08:35)
[2019-11-07] MEDS: Pantoprazole Sodium 40 MG Tablet PO (08:36)
[2019-11-07] MEDS: Verapamil SR 240 MG Tablet PO (08:36)
[2019-11-07 11:31] LABS: Bedside Glucose 258 mg/dL (70-110)
--- NOTE | 2019-11-07 13:17 | PCM.PN.HOSP ---
Reason for Visit: debility Subjective: no change overnight. c/o weakness. no fever/chills. No cough/sob. No CP/palp/LH. No LE edema. No skin changes/wounds. No nausea/vomiting/diarrhea/abd pain. Vitals/I&O's: Vital Signs Temp Pulse Resp BP Pulse Ox 98.3 F 88 18 99/58 L 95 11/07/19 08:38 11/07/19 08:38 11/07/19 08:38 11/07/19 08:38 11/07/19 10:40 Oxygen Delivery Method Room Air Weight: 193 lb 6.4 oz Body Mass Index (BMI) 37.8 Finger Stick Blood Glucose 400 Intake and Output for Last 24 Hours 11/05/19 11/06/19 11/07/19 23:59 23:59 23:59 Intake Total 600 / 900 740 / 740 Balance 600 / 900 740 / 740 General: Alert, Oriented x3, Cooperative HEENT: Atraumatic, PERRLA, EOMI, Normocephalic Neck: Supple, No JVD, Negative Carotid Bruits Lungs: Clear to auscultation, Normal air movement Cardiovascular: Regular rate, No murmurs Abdomen: Bowel Sounds Present, Soft, Non Tender Extremities: No edema, Capillary Refill Less than 3 Seconds Skin: No rashes, No breakdown Musculoskeletal: No Tenderness to Palpation of Joints or Extremities Neurological: Cranial nerves II-XII grossly intact Psych/Mental Status: Normal Affect, Appropriate, Alert and oriented to time, place, person, mood and affect Laboratory Results 11/06/19 13:00: Sodium 136, Potassium 3.9, Chloride 102, Carbon Dioxide 27.0, Anion Gap 7, BUN 16, Creatinine 0.84, Estim Creat Clear Calc 48.60, Est GFR (MDRD) Af Amer 87, Est GFR (MDRD) Non-Af 72, BUN/Creatinine Ratio 19.0, Glucose 331 H, Calcium 9.3, Total Bilirubin 0.70, AST 15, ALT 30, Alkaline Phosphatase 93, Total Protein 7.1, Albumin 3.0 L, Globulin 4.1, Albumin/Globulin Ratio 0.7 L 11/06/19 16:07: POC Glucose 394 H 11/06/19 23:51: POC Glucose 207 H 11/07/19 06:39: POC Glucose 185 H 11/07/19 11:15: POC Glucose 258 H Current Medications Acetaminophen (Tylenol) 650 mg PO Q6H PRN PRN PRN Reason: Pain Score 1-10/Temp > 100.7 F Apixaban (Eliquis) 5 mg PO BID [facility] Last Admin: 11/07/19 08:35 Dose: 5 mg Documented by: Aspirin (Ecotrin) 81 mg PO DAILY@0800 [facility] Last Admin: 11/07/19 08:35 Dose: 81 mg Documented by: Bupropion HCl (Wellbutrin Sr (100mg Tablets)) 100 mg PO BID [facility] Last Admin: 11/07/19 08:35 Dose: 100 mg Documented by: Cyclobenzaprine HCl (Flexeril) 10 mg PO TID PRN PRN PRN Reason: SPASMS Dextrose (D50w Syringe) 0 gm IV X1 PRN; Protocol PRN Reason: Hypoglycemia Gabapentin (Neurontin) 300 mg PO TIDCM [facility] Last Admin: 11/07/19 11:19 Dose: 300 mg Documented by: [facility] Last Admin: 11/07/19 08:34 Dose: 4 mg Documented by: Glucagon () 1 mg IM .X1 PRN PRN Reason: Hypoglycemia Insulin Glargine (Lantus (Bkc)) 35 units SC BID [facility] Last Admin: 11/07/19 08:34 Dose: 35 u Documented by: Insulin Human Lispro (Humalog Kwikpen (Bkc)) 0 unit SC ACHS [facility]; Protocol Last Admin: 11/07/19 11:18 Dose: 3 units Documented by: Insulin Human Lispro (Humalog Kwikpen (Bkc)) 20 unit SC TIDAC [facility] Last Admin: 11/07/19 11:17 Dose: 20 units Documented by: Lisinopril (Zestril) 40 mg PO QHS [facility] Last Admin: 11/06/19 23:58 Dose: 40 mg Documented by: Memantine (Namenda) 5 mg PO QHS [facility] Stop: 11/12/19 22:01 Last Admin: 11/06/19 23:57 Dose: 5 mg Documented by: Memantine (Namenda) 10 mg PO QAM [facility] Stop: 11/12/19 10:01 Last Admin: 11/07/19 08:35 Dose: 10 mg Documented by: Memantine (Namenda) 10 mg PO BID [facility] Metoprolol Tartrate (Lopressor (Beta Gissell)) 50 mg PO BID [facility] Last Admin: 11/07/19 08:33 Dose: 50 mg Documented by: Morphine Sulfate () 2 mg IV Q4H PRN PRN PRN Reason: Pain Score 6-10/10 Ondansetron HCl (Zofran) 4 mg IV Q8H PRN PRN PRN Reason: NAUSEA/VOMITING Oxycodone HCl (Oxyir) 5 mg PO Q6H PRN PRN PRN Reason: Pain Score 6-10/10 Pantoprazole Sodium (Protonix) 40 mg PO DAILY [facility] Last Admin: 11/07/19 08:36 Dose: 40 mg Documented by: Pravastatin Sodium (Pravachol) 80 mg PO QHS [facility] Last Admin: 11/06/19 23:58 Dose: 80 mg Documented by: Senna/Docusate Sodium (Senokot-S, Glenys-Colace) 2 tablet PO BID PRN PRN PRN Reason: Constipation Sodium Chloride () 10 - 40 ml IV UD PRN PRN Reason: SALINE FLUSH Last Admin: 11/06/19 23:58 Dose: 10 ml Documented by: Verapamil HCl (Calan Sr) 240 mg PO DAILY [facility] Last Admin: 11/07/19 08:36 Dose: 240 mg Documented by: Zolpidem Tartrate (Ambien (Generic)) 5 mg PO QHS PRN PRN PRN Reason: INSOMNIA STROKE Vital Signs/Narrative: Vital Signs Pulse Ox 11/07/19 10:40 95 Medical Necessity - Tobacco Use Smoking Status: Current every day smoker Tobacco Use: Cigarettes Assessment/Plan 1. Debility - pt is declining 2/2 multiple underlying medical conditions notably metastatic melanoma to the brain. PTOT to see today. Pt planning to go to SNF. 2. Melanoma stage IV - mets to brain. on immunotherapy (keytruda) with Dr. Ramos. pt unsure if she is still on decadron. Pt on eliquis. On memantine for brain mets. 3. Recent UTI/Bacteremia - currently no evidence of acute infection 4. CKDIII - stable 5. T2DM - inc lantus and SSI 6. COPD - no exacerbation - prn aerosols 7. CAD - home meds. 8. hx left breast cancer in remission 9. Depression - continue home meds. DVT ppx: sylvia STROUD planning: SNF placement This patient was seen by Aleks Cedeño PA-C under the supervision of Dr. Valladares
--- NOTE | 2019-11-07 16:14 | CASEMGMT ---
SOCIAL WORK PT/OT EVALS FAXED TO [facility]. CALL TO [facility] TO UPDATE EVALS FAXED. WORKER STATES WILL LEAVE MESSAGE FOR ADMISSIONS TO FOLLOW UP SATURDAY. PLAN: REFERRAL TO [facility]. AWAITING BED CONFIRMATION. WILL NEED FIDEL FIORE, TOOL CRIB MANAGER, OXYGEN THERAPIST.
[2019-11-07 16:31] LABS: Bedside Glucose 149 mg/dL (70-110)
--- NOTE | 2019-11-07 17:39 | NURSING ---
Assumed care of patient at this time
[2019-11-07] MEDS: Lisinopril 40 MG Tablet PO (22:03)
[2019-11-07] MEDS: Memantine Hydrochloride 5 MG Tablet PO (22:03)
[2019-11-07] MEDS: Pravastatin 80 MG Tablet PO (22:03)
[2019-11-07] MEDS: Acetaminophen 325 MG Tablet 650 MG PO (22:04)
[2019-11-07 22:31] LABS: Bedside Glucose 156 mg/dL (70-110)
[2019-11-07 22:31] LABS: Bedside Glucose 59 mg/dL (70-110)
[2019-11-08] VITALS (12 sets, daily range): BP systolic 91–130; BP diastolic 37–107; PULSE 56–85; RESP 16–20; TEMP 36.4–36.9; O2SAT 87–100
[2019-11-08 04:15] LABS: Bedside Glucose 167 mg/dL (70-110)
[2019-11-08] MEDS: Ipratropium/Albuterol Sulfate 3 ML AMPUL.NEB INHALATION ×4 (04:18→19:59)
[2019-11-08] MEDS: 0.9% Normal Saline 1,000 ML 100 ML IV (04:49)
[2019-11-08] MEDS: Acetaminophen 325 MG Tablet 650 MG PO (04:57)
[2019-11-08] MEDS: Insulin Lispro 100 UNIT/ML INSULN.PEN 20 UNIT SC ×2 (07:53→11:12)
[2019-11-08] MEDS: Insulin Lispro 100 UNIT/ML INSULN.PEN SC ×3 (07:54→21:43)
[2019-11-08] MEDS: Aspirin E.C. 81 MG Tablet PO (07:55)
[2019-11-08] MEDS: Memantine Hydrochloride 5 MG Tablet 10 MG PO (07:55)
[2019-11-08] MEDS: Pantoprazole Sodium 40 MG Tablet PO (07:55)
[2019-11-08] MEDS: buPROPion (SR) 100 MG TABLET.SA PO ×2 (07:55→20:23)
[2019-11-08] MEDS: Metoprolol Tartrate 50 MG Tablet PO ×2 (07:55→20:21)
[2019-11-08] MEDS: Gabapentin 300 MG Capsule PO (07:55)
[2019-11-08] MEDS: Verapamil SR 240 MG Tablet PO (07:55)
[2019-11-08] MEDS: Glimepiride 4 MG Tablet PO ×2 (07:56→16:18)
[2019-11-08] MEDS: APIXABAN 5 MG TABLET PO ×2 (07:56→20:22)
--- NOTE | 2019-11-08 07:59 | CPS ---
pt increased to 2 lpm....nurse aware
[2019-11-08 08:46] LABS: Bedside Glucose 207 mg/dL (70-110)
--- NOTE | 2019-11-08 10:51 | PCM.PN.HOSP ---
Reason for Visit: debility Subjective: c/o lethargy, weakness. No issues overnight. No complaints. Resting comfortably in chair NAD Vitals/I&O's: Vital Signs Temp Pulse Resp BP Pulse Ox 98.2 F 82 18 130/107 H 93 11/08/19 07:47 11/08/19 07:55 11/08/19 07:47 11/08/19 07:47 11/08/19 07:47 Oxygen Flow Rate (L/min) 2 Oxygen Delivery Method Nasal Cannula Weight: 193 lb 6.4 oz Body Mass Index (BMI) 37.8 Finger Stick Blood Glucose 400 Intake and Output for Last 24 Hours 11/06/19 11/07/19 11/08/19 23:59 23:59 23:59 Intake Total 600 / 900 1440 / 1440 240 / 240 Balance 600 / 900 1440 / 1440 240 / 240 General: Alert, Oriented x3, Cooperative HEENT: Atraumatic, PERRLA, EOMI, Normocephalic Neck: Supple, No JVD, Negative Carotid Bruits Lungs: Clear to auscultation, Normal air movement Cardiovascular: Regular rate, No murmurs Abdomen: Bowel Sounds Present, Soft, Non Tender Extremities: No edema, Capillary Refill Less than 3 Seconds Skin: No rashes, No breakdown Musculoskeletal: No Tenderness to Palpation of Joints or Extremities Neurological: Cranial nerves II-XII grossly intact Psych/Mental Status: Normal Affect, Appropriate, Alert and oriented to time, place, person, mood and affect Laboratory Results 11/07/19 11:15: POC Glucose 258 H 11/07/19 16:10: POC Glucose 149 H 11/07/19 21:43: POC Glucose 59 L 11/07/19 22:02: POC Glucose 156 H 11/08/19 04:05: POC Glucose 167 H 11/08/19 07:41: POC Glucose 207 H Current Medications Acetaminophen (Tylenol) 650 mg PO Q6H PRN PRN PRN Reason: Pain Score 1-10/Temp > 100.7 F Last Admin: 11/08/19 04:57 Dose: 650 mg Documented by: Albuterol/Ipratropium (Duoneb) 3 ml INHALATION Q4HWA.RT JOSE Last Admin: 11/08/19 06:58 Dose: 3 ml Documented by: Apixaban (Eliquis) 5 mg PO BID [facility] Last Admin: 11/08/19 07:56 Dose: 5 mg Documented by: Aspirin (Ecotrin) 81 mg PO DAILY@0800 [facility] Last Admin: 11/08/19 07:55 Dose: 81 mg Documented by: Bupropion HCl (Wellbutrin Sr (100mg Tablets)) 100 mg PO BID [facility] Last Admin: 11/08/19 07:55 Dose: 100 mg Documented by: Cyclobenzaprine HCl (Flexeril) 10 mg PO TID PRN PRN PRN Reason: SPASMS Dextrose (D50w Syringe) 0 gm IV X1 PRN; Protocol PRN Reason: Hypoglycemia Gabapentin (Neurontin) 300 mg PO TIDCM [facility] Last Admin: 11/08/19 07:55 Dose: 300 mg Documented by: [facility] Last Admin: 11/08/19 07:56 Dose: 4 mg Documented by: Glucagon () 1 mg IM .X1 PRN PRN Reason: Hypoglycemia Sodium Chloride () 1,000 mls @ 100 mls/hr IV .Q10H [facility] Stop: 11/08/19 14:34 Last Admin: 11/08/19 04:49 Dose: 100 mls/hr Documented by: Insulin Glargine (Lantus (Bkc)) 38 units SC BID [facility] Last Admin: 11/08/19 07:56 Dose: 38 unit Documented by: Insulin Human Lispro (Humalog Kwikpen (Bkc)) 0 unit SC ACHS [facility]; Protocol Last Admin: 11/08/19 07:54 Dose: 3 units Documented by: Insulin Human Lispro (Humalog Kwikpen (Bkc)) 20 unit SC TIDAC [facility] Last Admin: 11/08/19 07:53 Dose: 20 units Documented by: Lisinopril (Zestril) 40 mg PO QHS [facility] Last Admin: 11/07/19 22:03 Dose: 40 mg Documented by: Memantine (Namenda) 5 mg PO QHS [facility] Stop: 11/12/19 22:01 Last Admin: 11/07/19 22:03 Dose: 5 mg Documented by: Memantine (Namenda) 10 mg PO QAM [facility] Stop: 11/12/19 10:01 Last Admin: 11/08/19 07:55 Dose: 10 mg Documented by: Memantine (Namenda) 10 mg PO BID [facility] Metoprolol Tartrate (Lopressor (Beta Gissell)) 50 mg PO BID [facility] Last Admin: 11/08/19 07:55 Dose: 50 mg Documented by: Morphine Sulfate () 2 mg IV Q4H PRN PRN PRN Reason: Pain Score 6-10/10 Ondansetron HCl (Zofran) 4 mg IV Q8H PRN PRN PRN Reason: NAUSEA/VOMITING Oxycodone HCl (Oxyir) 5 mg PO Q6H PRN PRN PRN Reason: Pain Score 6-10/10 Pantoprazole Sodium (Protonix) 40 mg PO DAILY [facility] Last Admin: 11/08/19 07:55 Dose: 40 mg Documented by: Pravastatin Sodium (Pravachol) 80 mg PO QHS [facility] Last Admin: 11/07/19 22:03 Dose: 80 mg Documented by: Senna/Docusate Sodium (Senokot-S, Glenys-Colace) 2 tablet PO BID PRN PRN PRN Reason: Constipation Sodium Chloride () 10 - 40 ml IV UD PRN PRN Reason: SALINE FLUSH Last Admin: 11/06/19 23:58 Dose: 10 ml Documented by: Verapamil HCl (Calan Sr) 240 mg PO DAILY [facility] Last Admin: 11/08/19 07:55 Dose: 240 mg Documented by: Zolpidem Tartrate (Ambien (Generic)) 5 mg PO QHS PRN PRN PRN Reason: INSOMNIA STROKE Vital Signs/Narrative: Vital Signs Temp Pulse Resp BP Pulse Ox 11/08/19 07:55 82 11/08/19 07:47 98.2 F 82 18 130/107 H 93 11/08/19 06:58 58 L 16 87 Medical Necessity - Tobacco Use Smoking Status: Current every day smoker Tobacco Use: Cigarettes Assessment/Plan 1. Debility - pt is declining 2/2 multiple underlying medical conditions notably metastatic melanoma to the brain. PTOT to see today. Pt planning to go to SNF. 2. Melanoma stage IV - mets to brain. on immunotherapy (keytruda) with Dr. Ramos. pt unsure if she is still on decadron. Pt on eliquis. On memantine for brain mets. 3. Recent UTI/Bacteremia - currently no evidence of acute infection 4. CKDIII - stable 5. T2DM - inc lantus and SSI 6. COPD - no exacerbation - prn aerosols 7. CAD - home meds. 8. hx left breast cancer in remission 9. Depression - continue home meds. DVT ppx: sylvia STROUD planning: SNF placement This patient was seen by Aleks Cedeño PA-C under the supervision of Dr. Valladares
[2019-11-08] MEDS: Gabapentin 100 MG Capsule 200 MG PO (11:16)
--- NOTE | 2019-11-08 11:22 | NURSING ---
bs 553, called for lab back up, awaiting results will notify physician
[2019-11-08 11:39] LABS: Glucose 355 mg/dL (74-106)
[2019-11-08 11:50] LABS: Bedside Glucose > 500 mg/dL (70-110)
[2019-11-08 12:51] LABS: Bedside Glucose 335 mg/dL (70-110)
[2019-11-08 16:56] LABS: Bedside Glucose 96 mg/dL (70-110)
[2019-11-08] MEDS: oxyCODONE 5 MG Tablet PO (20:20)
[2019-11-08] MEDS: Memantine Hydrochloride 5 MG Tablet PO (20:21)
[2019-11-08] MEDS: Pravastatin 80 MG Tablet PO (20:21)
[2019-11-08] MEDS: Lisinopril 40 MG Tablet PO (20:23)
[2019-11-08 23:31] LABS: Bedside Glucose 168 mg/dL (70-110)
[2019-11-09 03:53] VITALS: BP 95/54; PULSE 73; RESP 20; TEMP 36.8; O2SAT 94
[2019-11-09 04:10] VITALS: RESP 20; O2SAT 94
[2019-11-09 04:10] LABS: Bedside Glucose 173 mg/dL (70-110)
[2019-11-09 07:50] LABS: Bedside Glucose 115 mg/dL (70-110)
[2019-11-09 08:04] VITALS: O2SAT 90
[2019-11-09] MEDS: Gabapentin 100 MG Capsule 200 MG PO ×2 (09:09→12:39)
[2019-11-09] MEDS: Aspirin E.C. 81 MG Tablet PO (09:10)
[2019-11-09] MEDS: Glimepiride 4 MG Tablet PO (09:10)
[2019-11-09 09:20] VITALS: BP 104/55; PULSE 76; RESP 16; TEMP 37.1; O2SAT 94
[2019-11-09] MEDS: APIXABAN 5 MG TABLET PO (10:12)
[2019-11-09] MEDS: Verapamil SR 240 MG Tablet PO (10:12)
[2019-11-09 10:13] VITALS: PULSE 76
[2019-11-09] MEDS: Metoprolol Tartrate 50 MG Tablet PO (10:13)
[2019-11-09] MEDS: buPROPion (SR) 100 MG TABLET.SA PO (10:14)
[2019-11-09] MEDS: Pantoprazole Sodium 40 MG Tablet PO (10:14)
[2019-11-09] MEDS: Memantine Hydrochloride 5 MG Tablet 10 MG PO (10:14)
--- NOTE | 2019-11-09 11:05 | CASEMGMT ---
CARRIE spoke with Barbara at [facility] and they can accept patient. CARRIE sent updates to [facility]. They will start the pre-cert. Plan: d/c to [facility] pending pre-cert. Sheba MCCARTY MSW
[2019-11-09 11:15] LABS: Bedside Glucose 329 mg/dL (70-110)
--- NOTE | 2019-11-09 11:53 | TREXTCA.CO_ITS ---
- Diet 11/06/19 13:15 Diet: Regular Diet - Routine Orders/Code Status Suppository Type: Dulcolax 10mg Suppository Frequency: Daily PRN Routine Lab Work: CBC - 5 days, BMP - 5 days [facility]ound(s) R chest Wound Type: Puncture - Therapies Physical Therapy: Eval and Treat Occupational Therapy: Eval and Treat - Problem/Diagnosis (1) Debility Status: Chronic Current Visit: Yes (2) COPD (chronic obstructive pulmonary disease) Status: Chronic Current Visit: No (3) Tobacco use Status: Chronic Current Visit: No (4) HTN (hypertension) Status: Chronic Current Visit: No (5) HLD (hyperlipidemia) Status: Chronic Current Visit: No (6) CAD (coronary artery disease) Status: Chronic Current Visit: No (7) Obesity Status: Chronic Current Visit: No (8) Diabetes mellitus, type II Status: Chronic Current Visit: No (9) History of breast cancer Status: Chronic Current Visit: No (10) Metastatic melanoma Status: Chronic Current Visit: No (11) Anxiety and depression Status: Chronic Current Visit: No (12) Pulmonary embolism Status: Chronic Current Visit: No - Allergies/Procedures Done in Hospital Allergies/Adverse Reactions: Allergies metformin [From Glucophage] Adverse Reaction (Severe, Verified 11/06/19 12:17) Nausea Procedures: None - Type of Care/Length of Stay Estimated LOS: Convalescent Care Less Than 30 days Type of Care Needed: Skilled Rehab Potential: Fair Prognosis: Fair - Additional Orders/Day of Discharge Day of Discharge: 11/09/19 - Follow Up Care Primary Care Physician: Catherine Taveras DO [Primary Care Provider] - Please follow up with your Primary Care Physician in: 2 weeks Please Follow Up With: Yemi Ramos MD When: call for appointment Please Follow Up With: Palliative Care When: this week.
[2019-11-09] MEDS: Insulin Lispro 100 UNIT/ML INSULN.PEN SC (12:39)
[2019-11-09] MEDS: Insulin Lispro 100 UNIT/ML INSULN.PEN 20 UNIT SC (12:40)
--- NOTE | 2019-11-09 13:23 | PN_ITS ---
<Aleks Cedeño - Last Filed: 11/09/19 13:23> Reason for Visit: Debility Subjective: Pt resting comfortably in bed NAD. C/o dry mouth and weakness. No nausea vomiting diarrhea or abd pain. No fever/chills. No cough/SOB. Vitals/I&O's: Vital Signs Temp Pulse Resp BP Pulse Ox 98.7 F 76 16 104/55 L 94 11/09/19 09:20 11/09/19 10:13 11/09/19 09:20 11/09/19 09:20 11/09/19 09:20 Oxygen Flow Rate (L/min) 2 Oxygen Delivery Method Room Air Weight: 193 lb 6.4 oz Body Mass Index (BMI) 37.8 Finger Stick Blood Glucose 400 Intake and Output for Last 24 Hours 11/07/19 11/08/19 11/09/19 23:59 23:59 23:59 Intake Total 1440 / 1440 2740 / 3450 970 / 970 Balance 1440 / 1440 2740 / 3450 970 / 970 General: Alert, Oriented x3, Cooperative HEENT: Atraumatic, PERRLA, EOMI, Normocephalic Neck: Supple, No JVD, Negative Carotid Bruits Lungs: Clear to auscultation, Normal air movement Cardiovascular: Regular rate, No murmurs Abdomen: Bowel Sounds Present, Soft, Non Tender Extremities: No edema, Capillary Refill Less than 3 Seconds Skin: No rashes, No breakdown Musculoskeletal: No Tenderness to Palpation of Joints or Extremities Neurological: Cranial nerves II-XII grossly intact Psych/Mental Status: Normal Affect, Appropriate, Alert and oriented to time, place, person, mood and affect Laboratory Results 11/08/19 16:15: POC Glucose 96 11/08/19 21:40: POC Glucose 168 H 11/09/19 04:06: POC Glucose 173 H 11/09/19 07:36: POC Glucose 115 H 11/09/19 11:01: POC Glucose 329 H Current Medications Acetaminophen (Tylenol) 650 mg PO Q6H PRN PRN PRN Reason: Pain Score 1-10/Temp > 100.7 F Last Admin: 11/08/19 04:57 Dose: 650 mg Documented by: Albuterol/Ipratropium (Duoneb) 3 ml INHALATION Q4HWA.RT JOSE Last Admin: 11/09/19 11:10 Dose: Not Given Documented by: Apixaban (Eliquis) 5 mg PO BID [facility] Last Admin: 11/09/19 10:12 Dose: 5 mg Documented by: Aspirin (Ecotrin) 81 mg PO DAILY@0800 [facility] Last Admin: 11/09/19 09:10 Dose: 81 mg Documented by: Bupropion HCl (Wellbutrin Sr (100mg Tablets)) 100 mg PO BID [facility] Last Admin: 11/09/19 10:14 Dose: 100 mg Documented by: Cyclobenzaprine HCl (Cyclobenzaprine Hcl) 5 mg PO TID PRN PRN PRN Reason: SPASMS Dextrose (D50w Syringe) 0 gm IV X1 PRN; Protocol PRN Reason: Hypoglycemia Gabapentin (Neurontin) 200 mg PO TIDCM [facility] Last Admin: 11/09/19 12:39 Dose: 200 mg Documented by: [facility] ([facility]l) [facility] Last Admin: 11/09/19 09:10 Dose: 4 mg Documented by: Glucagon () 1 mg IM .X1 PRN PRN Reason: Hypoglycemia Guaifenesin (Robitussin Dm) 5 ml PO Q6H PRN PRN PRN Reason: COUGH Insulin Glargine (Lantus (Bkc)) 38 units SC BID [facility] Last Admin: 11/09/19 10:12 Dose: 38 unit Documented by: Insulin Human Lispro (Humalog Kwikpen (Bkc)) 0 unit SC ACHS [facility]; Protocol Last Admin: 11/09/19 12:39 Dose: 12 units Documented by: Insulin Human Lispro (Humalog Kwikpen (Bkc)) 20 unit SC TIDAC [facility] Last Admin: 11/09/19 12:40 Dose: 20 units Documented by: Lisinopril (Zestril) 40 mg PO QHS [facility] Last Admin: 11/08/19 20:23 Dose: 40 mg Documented by: Memantine (Namenda) 5 mg PO QHS [facility] Stop: 11/12/19 22:01 Last Admin: 11/08/19 20:21 Dose: 5 mg Documented by: Memantine (Namenda) 10 mg PO QAM [facility] Stop: 11/12/19 10:01 Last Admin: 11/09/19 10:14 Dose: 10 mg Documented by: Memantine (Namenda) 10 mg PO BID [facility] Metoprolol Tartrate (Lopressor (Beta Gissell)) 50 mg PO BID [facility] Last Admin: 11/09/19 10:13 Dose: 50 mg Documented by: Morphine Sulfate () 2 mg IV Q4H PRN PRN PRN Reason: Pain Score 6-10/10 Ondansetron HCl (Zofran) 4 mg IV Q8H PRN PRN PRN Reason: NAUSEA/VOMITING Oxycodone HCl (Oxyir) 5 mg PO Q6H PRN PRN PRN Reason: Pain Score 6-10/10 Last Admin: 11/08/19 20:20 Dose: 5 mg Documented by: Pantoprazole Sodium (Protonix) 40 mg PO DAILY [facility] Last Admin: 11/09/19 10:14 Dose: 40 mg Documented by: Pravastatin Sodium (Pravachol) 80 mg PO QHS [facility] Last Admin: 11/08/19 20:21 Dose: 80 mg Documented by: Senna/Docusate Sodium (Senokot-S, Glenys-Colace) 2 tablet PO BID PRN PRN PRN Reason: Constipation Sodium Chloride () 10 - 40 ml IV UD PRN PRN Reason: SALINE FLUSH Last Admin: 11/06/19 23:58 Dose: 10 ml Documented by: Verapamil HCl (Calan Sr) 240 mg PO DAILY [facility] Last Admin: 11/09/19 10:12 Dose: 240 mg Documented by: Zolpidem Tartrate (Ambien (Generic)) 5 mg PO QHS PRN PRN PRN Reason: INSOMNIA STROKE Vital Signs/Narrative: Vital Signs Pulse 11/09/19 10:13 76 Medical Necessity - Tobacco Use Smoking Status: Current every day smoker Tobacco Use: Cigarettes Assessment/Plan 1. Debility - pt is declining 2/2 multiple underlying medical conditions notably metastatic melanoma to the brain. PTOT to see today. Pt planning to go to [facility]. -f.u Dr. Ramos as outpatient. -Palliative at follow up 2. Melanoma stage IV - mets to brain. on immunotherapy (keytruda) with Dr. Ramos. pt on longer on decadron. Pt on eliquis. On memantine for brain mets. 3. Recent UTI/Bacteremia - currently no evidence of acute infection 4. CKDIII - stable 5. T2DM - inc lantus and SSI 6. COPD - no exacerbation - prn aerosols 7. CAD - home meds. 8. hx left breast cancer in remission 9. Depression - continue home meds. DVT ppx: eliquis [place] planning: SNF placement This patient was seen by Aleks Cedeño PA-C under the supervision of Dr. Rodriguez <Jason Rodriguez - Last Filed: 11/09/19 13:44> Vitals/I&O's: Vital Signs Temp Pulse Resp BP Pulse Ox 98.7 F 76 16 104/55 L 94 11/09/19 09:20 11/09/19 10:13 11/09/19 09:20 11/09/19 09:20 11/09/19 09:20 Oxygen Flow Rate (L/min) 2 Oxygen Delivery Method Room Air Weight: 87.725 kg Body Mass Index (BMI) 37.8 Finger Stick Blood Glucose 400 Intake and Output for Last 24 Hours 11/07/19 11/08/19 11/09/19 23:59 23:59 23:59 Intake Total 1440 / 1440 2740 / 3450 970 / 970 Balance 1440 / 1440 2740 / 3450 970 / 970 Laboratory Results 11/08/19 16:15: POC Glucose 96 11/08/19 21:40: POC Glucose 168 H 11/09/19 04:06: POC Glucose 173 H 11/09/19 07:36: POC Glucose 115 H 11/09/19 11:01: POC Glucose 329 H Current Medications Acetaminophen (Tylenol) 650 mg PO Q6H PRN PRN PRN Reason: Pain Score 1-10/Temp > 100.7 F Last Admin: 11/08/19 04:57 Dose: 650 mg Documented by: Albuterol/Ipratropium (Duoneb) 3 ml INHALATION Q4HWA.RT [facility] Last Admin: 11/09/19 11:10 Dose: Not Given Documented by: Apixaban (Eliquis) 5 mg PO BID [facility] Last Admin: 11/09/19 10:12 Dose: 5 mg Documented by: Aspirin (Ecotrin) 81 mg PO DAILY@0800 [facility] Last Admin: 11/09/19 09:10 Dose: 81 mg Documented by: Bupropion HCl (Wellbutrin Sr (100mg Tablets)) 100 mg PO BID [facility] Last Admin: 11/09/19 10:14 Dose: 100 mg Documented by: Cyclobenzaprine HCl (Cyclobenzaprine Hcl) 5 mg PO TID PRN PRN PRN Reason: SPASMS Dextrose (D50w Syringe) 0 gm IV X1 PRN; Protocol PRN Reason: Hypoglycemia Gabapentin (Neurontin) 200 mg PO TIDCM [facility] Last Admin: 11/09/19 12:39 Dose: 200 mg Documented by: Gl[facility]piride (Amaryl) [facility] Last Admin: 11/09/19 09:10 Dose: 4 mg Documented by: Glucagon () 1 mg IM .X1 PRN PRN Reason: Hypoglycemia Guaifenesin (Robitussin Dm) 5 ml PO Q6H PRN PRN PRN Reason: COUGH Insulin Glargine (Lantus (Bkc)) 38 units SC BID [facility] Last Admin: 11/09/19 10:12 Dose: 38 unit Documented by: Insulin Human Lispro (Humalog Kwikpen (Bkc)) 0 unit SC ACHS [facility]; Protocol Last Admin: 11/09/19 12:39 Dose: 12 units Documented by: Insulin Human Lispro (Humalog Kwikpen (Bkc)) 20 unit SC TIDAC [facility] Last Admin: 11/09/19 12:40 Dose: 20 units Documented by: Lisinopril (Zestril) 40 mg PO QHS [facility] Last Admin: 11/08/19 20:23 Dose: 40 mg Documented by: Memantine (Namenda) 5 mg PO QHS [facility] Stop: 11/12/19 22:01 Last Admin: 11/08/19 20:21 Dose: 5 mg Documented by: Memantine (Namenda) 10 mg PO QAM [facility] Stop: 11/12/19 10:01 Last Admin: 11/09/19 10:14 Dose: 10 mg Documented by: Memantine (Namenda) 10 mg PO BID [facility] Metoprolol Tartrate (Lopressor (Beta Gissell)) 50 mg PO BID [facility] Last Admin: 11/09/19 10:13 Dose: 50 mg Documented by: Morphine Sulfate () 2 mg IV Q4H PRN PRN PRN Reason: Pain Score 6-10/10 Ondansetron HCl (Zofran) 4 mg IV Q8H PRN PRN PRN Reason: NAUSEA/VOMITING Oxycodone HCl (Oxyir) 5 mg PO Q6H PRN PRN PRN Reason: Pain Score 6-10/10 Last Admin: 11/08/19 20:20 Dose: 5 mg Documented by: Pantoprazole Sodium (Protonix) 40 mg PO DAILY [facility] Last Admin: 11/09/19 10:14 Dose: 40 mg Documented by: Pravastatin Sodium (Pravachol) 80 mg PO QHS [facility] Last Admin: 11/08/19 20:21 Dose: 80 mg Documented by: Senna/Docusate Sodium (Senokot-S, Glenys-Colace) 2 tablet PO BID PRN PRN PRN Reason: Constipation Sodium Chloride () 10 - 40 ml IV UD PRN PRN Reason: SALINE FLUSH Last Admin: 11/06/19 23:58 Dose: 10 ml Documented by: Verapamil HCl (Calan Sr) 240 mg PO DAILY [facility] Last Admin: 11/09/19 10:12 Dose: 240 mg Documented by: Zolpidem Tartrate (Ambien (Generic)) 5 mg PO QHS PRN PRN PRN Reason: INSOMNIA STROKE Vital Signs/Narrative: Vital Signs Pulse 11/09/19 10:13 76 Assessment/Plan This patient was seen in conjunction with Aleks Cedeño PA-C . I have independently interviewed and examined the patient and reviewed pertinent historical, laboratory, and other data. Please refer to Aleks Cedeño PA-C note for details of this patient's presentation, findings, and recommendations. I have reviewed Aleks Cedeño PA-C note and concur with documented findings. In brief, patient 64-year-old lady with multiple comorbidities including stage IV melanoma with brain to the brain currently on immunotherapy who presented with physical debility Physical Examination: GENERAL: cooperative HEENT: Atraumatic; EYES; Anicteric, Normal Conjunctiva NECK; supple, normal thyroid, RESPIRATORY: Diminished to auscultation CARDIOVASCULAR: Regular S1 S2, GI: soft, normoactive bowel sounds, SKIN: No Rash PSYCH; Flat affect Assessment: 1. Physical debility 2. Stage IV melanoma with mets to the brain 3. Chronic kidney disease stage III 4. COPD 5. History of breast CA involving the left breast currently remission 7. Diabetes mellitus type 2 8. Coronary artery disease 9. Depression Recommendations: 1. I have discussed the results of my overview and impressions with the patient 2. Options for management were reviewed
--- NOTE | 2019-11-09 13:41 | PCM.DC.SUM ---
<Aleks Cedeño - Last Filed: 11/09/19 13:41> Discharge Date and Diagnosis Date of Admission: 11/06/19 Date of Discharge: 11/09/19 - Primary Discharge Diagnosis Debility, failure to thrive, functional decline Malignant melanoma with brain mets CKDIII T2DM COPD CAD Hx L breast cancer in remission Depression - Secondary Discharge Diagnosis Chronic Problems (Last Reviewed 11/03/19 @ 13:39 by Blanche Braga) Debility (Chronic) COPD (chronic obstructive pulmonary disease) (Chronic) Tobacco use (Chronic) HTN (hypertension) (Chronic) HLD (hyperlipidemia) (Chronic) CAD (coronary artery disease) (Chronic) Obesity (Chronic) Diabetes mellitus, type II (Chronic) History of breast cancer (Chronic) Metastatic melanoma (Chronic) Anxiety and depression (Chronic) History of left breast cancer (Chronic) Pulmonary embolism (Chronic) Melanoma (Chronic) right upper back, stage IIB Metastatic melanoma to lung (Chronic) Malignant melanoma metastatic to lung (Chronic) Malignant melanoma metastatic to brain (Chronic) Peau d'orange over breast (Chronic) Hospital Course and Treatment Operations: None Procedures: None Summary of Care Provided: Hospital Course: The patient is a 64 year old F with pmhx as above notably for malignant melanoma with brain mets, receiving keytruda per Dr. Ramos, who presented to the ER with ongoing weakness at home and no longer able to care for herself. She desired placement in a care home for ongoing care. She was admitted to med/surg and provided with physical and occupational therapy during her stay. We made slight adjustments to her insulin regimen as her blood sugar was highly fluctuant, and will likely require more adjustment depending on her clinical course. She was accepted at [facility] and discharged there in stable condition. She will need follow up with her oncologist to determine if she is eligible for further therapy ideally this week. She should follow up with her PCP in 2 weeks and with palliative care as needed. This patient was seen by Aleks Cedeño PA-C under the supervision of Dr. Rodriguez [] - Physical Exam Vitals/I&O's: Vital Signs Temp Pulse Resp BP Pulse Ox 98.7 F 76 16 104/55 L 94 11/09/19 09:20 11/09/19 10:13 11/09/19 09:20 11/09/19 09:20 04/20/20 09:20 Oxygen Flow Rate (L/min) 2 Oxygen Delivery Method Room Air Weight: 193 lb 6.4 oz Body Mass Index (BMI) 37.8 Finger Stick Blood Glucose 400 Intake and Output for Last 24 Hours 11/07/19 11/08/19 11/09/19 23:59 23:59 23:59 Intake Total 1440 / 1440 2740 / 3450 970 / 970 Balance 1440 / 1440 2740 / 3450 970 / 970 General: Alert, Oriented x3, Cooperative HEENT: Atraumatic, PERRLA, EOMI, Normocephalic Neck: Supple, No JVD, Negative Carotid Bruits Lungs: Clear to auscultation, Normal air movement Cardiovascular: Regular rate, No murmurs Abdomen: Bowel Sounds Present, Soft, Non Tender Extremities: No edema, Capillary Refill Less than 3 Seconds Skin: No rashes, No breakdown Musculoskeletal: No Tenderness to Palpation of Joints or Extremities Neurological: Cranial nerves II-XII grossly intact Psych/Mental Status: Normal Affect, Appropriate, Alert and oriented to time, place, person, mood and affect Laboratory Results 11/08/19 16:15: POC Glucose 96 11/08/19 21:40: POC Glucose 168 H 11/09/19 04:06: POC Glucose 173 H 11/09/19 07:36: POC Glucose 115 H 11/09/19 11:01: POC Glucose 329 H Current Medications Acetaminophen (Tylenol) 650 mg PO Q6H PRN PRN PRN Reason: Pain Score 1-10/Temp > 100.7 F Last Admin: 11/08/19 04:57 Dose: 650 mg Documented by: Albuterol/Ipratropium (Duoneb) 3 ml INHALATION Q4HWA.RT [facility] Last Admin: 11/09/19 11:10 Dose: Not Given Documented by: Apixaban (Eliquis) 5 mg PO BID [facility] Last Admin: 11/09/19 10:12 Dose: 5 mg Documented by: Aspirin (Ecotrin) 81 mg PO DAILY@0800 [facility] Last Admin: 11/09/19 09:10 Dose: 81 mg Documented by: Bupropion HCl (Wellbutrin Sr (100mg Tablets)) 100 mg PO BID [facility] Last Admin: 11/09/19 10:14 Dose: 100 mg Documented by: Cyclobenzaprine HCl (Cyclobenzaprine Hcl) 5 mg PO TID PRN PRN PRN Reason: SPASMS Dextrose (D50w Syringe) 0 gm IV X1 PRN; Protocol PRN Reason: Hypoglycemia Gabapentin (Neurontin) 200 mg PO TIDCM [facility] Last Admin: 11/09/19 12:39 Dose: 200 mg Documented by: [facility]pir[facility] (Amaryl) [facility] Last Admin: 11/09/19 09:10 Dose: 4 mg Documented by: Glucagon () 1 mg IM .X1 PRN PRN Reason: Hypoglycemia Guaifenesin (Robitussin Dm) 5 ml PO Q6H PRN PRN PRN Reason: COUGH Insulin Glargine (Lantus (Bkc)) 38 units SC BID [facility] Last Admin: 11/09/19 10:12 Dose: 38 unit Documented by: Insulin Human Lispro (Humalog Kwikpen (Bk)) 0 unit SC ACHS [facility]; Protocol Last Admin: 11/09/19 12:39 Dose: 12 units Documented by: Insulin Human Lispro (Humalog Kwikpen (Bk)) 20 unit SC TIDAC [facility] Last Admin: 11/09/19 12:40 Dose: 20 units Documented by: Lisinopril (Zestril) 40 mg PO QHS [facility] Last Admin: 11/08/19 20:23 Dose: 40 mg Documented by: Memantine (Namenda) 5 mg PO QHS [facility] Stop: 11/12/19 22:01 Last Admin: 11/08/19 20:21 Dose: 5 mg Documented by: Memantine (Namenda) 10 mg PO QAM [facility] Stop: 11/12/19 10:01 Last Admin: 11/09/19 10:14 Dose: 10 mg Documented by: Memantine (Namenda) 10 mg PO BID [facility] Metoprolol Tartrate (Lopressor (Beta Gissell)) 50 mg PO BID [facility] Last Admin: 11/09/19 10:13 Dose: 50 mg Documented by: Morphine Sulfate () 2 mg IV Q4H PRN PRN PRN Reason: Pain Score 6-10/10 Ondansetron HCl (Zofran) 4 mg IV Q8H PRN PRN PRN Reason: NAUSEA/VOMITING Oxycodone HCl (Oxyir) 5 mg PO Q6H PRN PRN PRN Reason: Pain Score 6-10/10 Last Admin: 11/08/19 20:20 Dose: 5 mg Documented by: Pantoprazole Sodium (Protonix) 40 mg PO DAILY [facility] Last Admin: 11/09/19 10:14 Dose: 40 mg Documented by: Pravastatin Sodium (Pravachol) 80 mg PO QHS [facility] Last Admin: 11/08/19 20:21 Dose: 80 mg Documented by: Senna/Docusate Sodium (Senokot-S, Glenys-Colace) 2 tablet PO BID PRN PRN PRN Reason: Constipation Sodium Chloride () 10 - 40 ml IV UD PRN PRN Reason: SALINE FLUSH Last Admin: 11/06/19 23:58 Dose: 10 ml Documented by: Verapamil HCl (Calan Sr) 240 mg PO DAILY [facility] Last Admin: 11/09/19 10:12 Dose: 240 mg Documented by: Zolpidem Tartrate (Ambien (Generic)) 5 mg PO QHS PRN PRN PRN Reason: INSOMNIA Discharge Diet: Low fat/ Low Cholesterol, 1800 Calorie Control Diet, 2000 mg Sodium Diet Discharge Activity: Return to Normal Activity Home Medications: Medications to take at Discharge Albuterol Inhaler [Ventolin Hfa] 2 inhaler INHALATION Q4H PRN PRN 10/17/16 Lisinopril [Zestril] 40 mg PO QHS 10/17/16 Pantoprazole Sodium [Protonix] 40 mg PO DAILY 10/17/16 Aspirin E.C. [Ecotrin] 81 mg PO DAILY@0800 06/11/19 Cyclobenzaprine HCl 10 mg PO TID PRN PRN 06/11/19 Gabapentin [Neurontin] 300 mg PO TIDCM 06/11/19 Nitroglycerin [Nitrostat] 0.4 mg SL PRN PRN 06/11/19 Pravastatin [Pravachol] 80 mg PO QHS 06/11/19 Verapamil HCl [Verapamil ER] 240 mg PO DAILY 06/11/19 buPROPion SR [Wellbutrin Sr] 100 mg PO BID 06/11/19 Fluticasone 0.05% [Flonase Nasal [place]] 1 spray NASAL DAILY PRN PRN 09/18/19 Glimepiride 4 mg PO BID 09/18/19 Metoprolol Tartrate 50 mg PO BID 09/18/19 Apixaban [Eliquis] 5 mg PO BID 10/20/19 Insulin Lispro [Humalog KwikPen] 20 unit SUBCUT TIDAC insuln.pen 10/22/19 Acetaminophen [Tylenol Tablet] 650 mg PO Q6H PRN PRN tab 11/09/19 Guaifenesin Dm [Robitussin Dm] 5 ml PO Q6H PRN PRN udc 11/09/19 Insulin Glargine [Lantus SoloStar Pen] 38 units SUBCUT BID pen 11/09/19 Insulin Lispro [Humalog KwikPen] See Protocol SUBCUT ACHS insuln.pen 11/09/19 Ipratropium/Albuterol Sulfate [Duoneb] 3 ml INHALATION Q4HWA.RT ampul.neb 11/09/19 Memantine Hydrochloride [Namenda] 10 mg PO BID tab 11/09/19 Oxycodone [Oxyir] 5 mg PO Q6H PRN PRN 3 Days #12 tab 11/09/19 Senna/Docusate Sodium [Senokot-S] 2 tab PO BID PRN PRN tab 11/09/19 Zolpidem Tartrate [Ambien] 5 mg PO QHS PRN PRN 3 Days #3 tab 11/09/19 Following Prescrptions Were Given to Patient: Zolpidem Tartrate [Ambien] 5 mg PO QHS PRN PRN 3 Days #3 tab PRN Reason: Insomnia Prescription Printed Oxycodone [Oxyir] 5 mg PO Q6H PRN PRN 3 Days #12 tab PRN Reason: Pain Score 6-10/10 Prescription Printed Primary Care Physician: Catherine Taveras DO [Primary Care Provider] - Please follow up with your Primary Care Physician in: 2 weeks Please Follow Up With: Yemi Ramos MD When: call for appointment Please Follow Up With: Palliative Care When: this week. Disposition: Nursing Home facility Minutes spent on discharge:: 35 Patient Condition:: Stable Medical Necessity - Tobacco Use Smoking Status: Current every day smoker Tobacco Use: Cigarettes Meaningful Use Info Meaningful Use Diagnoses (Choose all that apply): None applicable <Jason Rodriguez - Last Filed: 11/09/19 16:42> Discharge Date and Diagnosis - Secondary Discharge Diagnosis Chronic Problems (Last Reviewed 11/03/19 @ 13:39 by Blanche Braga) Debility (Chronic) COPD (chronic obstructive pulmonary disease) (Chronic) Tobacco use (Chronic) HTN (hypertension) (Chronic) HLD (hyperlipidemia) (Chronic) CAD (coronary artery disease) (Chronic) Obesity (Chronic) Diabetes mellitus, type II (Chronic) History of breast cancer (Chronic) Metastatic melanoma (Chronic) Anxiety and depression (Chronic) History of left breast cancer (Chronic) Pulmonary embolism (Chronic) Melanoma (Chronic) right upper back, stage IIB Metastatic melanoma to lung (Chronic) Malignant melanoma metastatic to lung (Chronic) Malignant melanoma metastatic to brain (Chronic) Peau d'orange over breast (Chronic) Hospital Course and Treatment Summary of Care Provided: This patient was seen in conjunction with Aleks Cedeño PA-C . I have independently interviewed and examined the patient and reviewed pertinent historical, laboratory, and other data. Please refer to Aleks Cedeño PA-C note for details of this patient's presentation, findings, and recommendations. I have reviewed Aleks Cedeño PA-C note and concur with documented findings. In brief, patient 64-year-old lady with multiple comorbidities including stage IV melanoma with brain to the brain currently on immunotherapy who presented with physical debility Assessment: 1. Physical debility 2. Stage IV melanoma with mets to the brain 3. Chronic kidney disease stage III 4. COPD 5. History of breast CA involving the left breast currently remission 7. Diabetes mellitus type 2 8. Coronary artery disease 9. Depression Hospital course: As documented above - Physical Exam Vitals/I&O's: Vital Signs Temp Pulse Resp BP Pulse Ox 97.9 F 64 16 92/55 L 95 11/09/19 14:05 11/09/19 14:05 11/09/19 14:05 11/09/19 14:05 11/09/19 14:05 Oxygen Flow Rate (L/min) 2 Oxygen Delivery Method Room Air Weight: 87.725 kg Body Mass Index (BMI) 37.8 Finger Stick Blood Glucose 400 Intake and Output for Last 24 Hours 11/07/19 11/08/19 11/09/19 23:59 23:59 23:59 Intake Total 1440 / 1440 2740 / 3450 970 / 970 Balance 1440 / 1440 2740 / 3450 970 / 970 Laboratory Results 11/08/19 16:15: POC Glucose 96 11/08/19 21:40: POC Glucose 168 H 11/09/19 04:06: POC Glucose 173 H 11/09/19 07:36: POC Glucose 115 H 11/09/19 11:01: POC Glucose 329 H Inpatient E&M: 12684 Disch Hosp
[2019-11-09 14:05] VITALS: BP 92/55; PULSE 64; RESP 16; TEMP 36.6; O2SAT 95
--- NOTE | 2019-11-09 14:08 | CASEMGMT ---
Received a call from Barbara at [facility] and patient was approved. CARRIE notified RN, physician, secretary to board of commissioners, and patient. SW called [facility] about a wheelchair van and the tour driver already left for the day. SW spoke with patient and asked if she thinks her friend could take her. She said she probably could and gave SW permission to call her. SW called patient's friend Corry. She said she could transport patient. CARRIE spoke with RN and he said 2:45p would work. SW called Corry back and let her know to be at [facility] at 245 and staff will bring her down to the car. SW gave her the phone number for PCU to call when she gets here. CARRIE called Barbara at [facility] and let her know above. She gave SW instructions to give to patient's ride to get her in the building. CARRIE wrote down these instructions and put them on patient's envelope packet that goes with her to the SNF. PASRR completed on HENS. Plan: d/c to [facility] under skilled level of care on a PASRR as she was observation status in the hospital. Patient's friend transported her via car as there were no wc vans available. Sheba MCCARTY MSW
== END 2019-11-09 11:55 | disposition skilled nursing facility (03) ==
LOC: ED 13:05 → PCU 14:56
PROVIDERS: Internal Medicine; Admitting Provider Hospitalist; Emergency Provider Emergency Medicine; PCP Family Medicine; Visit Provider Internal Medicine
DX: R62.7 Adult failure to thrive (principal); Z68.37 Body mass index [BMI] 37.0-37.9, adult; C79.51 Secondary malignant neoplasm of bone; I12.9 Hypertensive chronic kidney disease with stage 1 through stage 4 chronic kidney disease, or unspecified chronic kidney disease; E11.22 Type 2 diabetes mellitus with diabetic chronic kidney disease; N18.3 Chronic kidney disease, stage 3 (moderate); J44.9 Chronic obstructive pulmonary disease, unspecified; C79.31 Secondary malignant neoplasm of brain; R00.0 Tachycardia, unspecified; E11.65 Type 2 diabetes mellitus with hyperglycemia; E78.5 Hyperlipidemia, unspecified; E66.9 Obesity, unspecified; C71.9 Malignant neoplasm of brain, unspecified; F41.9 Anxiety disorder, unspecified; F32.9 Major depressive disorder, single episode, unspecified; I25.10 Atherosclerotic heart disease of native coronary artery without angina pectoris; F17.210 Nicotine dependence, cigarettes, uncomplicated; Z79.899 Other long term (current) drug therapy; Z79.82 Long term (current) use of aspirin; Z79.4 Long term (current) use of insulin; Z85.118 Personal history of other malignant neoplasm of bronchus and lung; Z85.3 Personal history of malignant neoplasm of breast; Z86.711 Personal history of pulmonary embolism; Z79.01 Long term (current) use of anticoagulants; Z87.440 Personal history of urinary (tract) infections; Z66 Do not resuscitate
CPT/HCPCS: 36415; 80053; 82947; 82962; 85025; 94640; 96360; 96361; 97116; 97162; 97166; 97530; 99218; 99251; 99282; 99406; J7030; A4216; G0378; G0463

== ENCOUNTER → 2019-12-25 11:23 | Outpatient (CLI) | payer MEDICARE, MEDICAID, SELFPAY ==
[2019-07-03 10:02] VITALS: BMI 40.8
[2019-10-20 00:15] VITALS: BMI 40.8
[2019-12-21 14:19] VITALS: BMI 38.0
--- NOTE | 2019-12-25 11:23 | MRI_ITS ---
STUDY: MRI BRAIN WITH AND WITHOUT CONTRAST REASON FOR EXAM: Female, 64 years old. f/U FOR TREATED BRAIN METS COMPARE TO PREVIOUS, PT CONFUSED TECHNIQUE: Standardized multiplanar fat and water weighted pulse sequences were obtained. IV 18CC DOTAREM was administered for the contrast portion of the examination. COMPARISON: Head CTA dated October 07, 2019 FINDINGS: An enhancing metastatic nodule is present in the posterior lateral aspect of the left cerebellar lobe measuring 1.27 cm in diameter. A second metastatic nodule is present in the posterior aspect of the right occipital lobe measuring 8.8 mm in diameter. Abnormal enhancement is present gyrus in the anterior junction of the left parietal and occipital lobes with mild volume loss and vasogenic edema in the parenchyma posterior to this region, compatible with metastatic disease. The associated volume loss and vasogenic edema in the left occipital lobe posterior to the abnormal enhancement could be related to prior treated malignancy. A 1.58 cm enhancing metastatic mass is in the superior aspect of the left parietal lobe. Mild abnormal sulcal edema is present in the right parietal lobe/periventricular white matter junction suspicious for metastatic implant. There is mild cerebral atrophy with widening of the extra-axial spaces and ventricular dilatation. There are multiple white matter hyperintensities, distributed throughout the deep white matter tracts of the cerebral hemispheres, consistent with moderate chronic white matter ischemic changes. Normal bilateral basal ganglia. Normal thalami. There is no extra-axial fluid accumulation. Normal flow voids within the major intracranial circulation suggesting patency by spin echo criteria. Normal venous enhancement. Normal sella turcica, pituitary gland, infundibular stalk, optic chiasm and hypothalamus. Normal tectal plate and pineal gland. Normal midbrain, miguelina and medulla. Normal cerebellum. Normal basal cisterns. Normal bilateral temporal bones. Normal bilateral internal auditory canals. No demonstrated orbital abnormality, within the constraints of a routine brain study. Normal visualized paranasal sinuses. Normal calvarium and skull base. Normal visualized soft tissue structures. MRI/Brain W/WO Contrast IMPRESSION: 1. 4 metastatic nodules in the bilateral occipital lobes, left cerebellar lobe, and superior aspect of the left parietal lobe. 2. Mild abnormal sulcal edema is present in the right parietal lobe/periventricular white matter junction suspicious for metastatic implant. Electronically Signed: Corey Ca MD at 15:46 EDT , Service support ,
[2019-12-25] MEDS: 0.9% Saline Lock 10 ML Syringe IV ×2 (12:30→13:30)
--- NOTE | 2019-12-25 13:07 | CT_ITS ---
STUDY: CT CHEST WITH CONTRAST REASON FOR EXAM: Female, 64 years old. LUNG CANCER FOLLOW UP, BRAIN METS, CHOLECYSTECTOMY RADIATION DOSAGE (If Supplied By Facility): CTDIvol = ( 20.59 ) mGy, DLP = ( 2183.94 ) mGycm TECHNIQUE: Transaxial imaging was performed following intravenous administration of IV 100mL Isovue-370. Individualized dose optimization techniques were used for this CT. COMPARISON: CT of the chest dated September 22, 2019. FINDINGS: Chronic parenchymal scarring and skin thickening seen in the left breast. A tiny calcified nodule in the left breast is also reidentified. Reidentification of numerous nodules scattered throughout the right lung, without significant change in size maximally measuring 8 mm on the current study. No obvious new nodules in the right lung. There are several small scattered metastatic nodules or aspects of the left upper lobe and posterior lower half of the left lower lobe, without interval change. No consolidation is seen. No pleural effusion is present. Right IJ catheter is present. Normal heart size and pericardium. Normal mediastinum. Normal hilar regions. Normal enhanced pulmonary arteries. Normal aorta arch and descending thoracic aorta. There are multi-level degenerative changes of the thoracic spine. No demonstrated aggressive osseous lesions on the current study. There is no demonstrated abnormality of the visualized upper abdomen. CT/Chest WITH Contrast IMPRESSION: 1. Reidentification of numerous nodules scattered throughout the right lung, without significant change in size maximally measuring 8 mm on the current study. No obvious new nodules in the right lung. 2. There are several small scattered metastatic nodules or aspects of the left upper lobe and posterior lower half of the left lower lobe, without interval change. Electronically Signed: Corey Ca MD at 14:52 EDT , Service support ,
--- NOTE | 2019-12-25 13:08 | CT_ITS ---
STUDY: CT ABDOMEN AND PELVIS WITH CONTRAST REASON FOR EXAM: Female, 64 years old. LUNG CANCER FOLLOW UP, BRAIN METS, CHOLECYSTECTOMY RADIATION DOSAGE (If Supplied By Facility): CTDIvol = ( 20.59 ) mGy, DLP = ( 2183.94 ) mGycm TECHNIQUE: Transaxial images were obtained from the dome of the diaphragm to the symphysis pubis without oral contrast. IV 100mL Isovue-370 was administered. Sagittal and coronal images were reconstructed. Individualized dose optimization techniques were used for this CT. COMPARISON: August 11, 2019 FINDINGS: Nonspecific diffuse interstitial thickening in the lower lobes. Tiny 2 to 3 mm nodular opacity in the right lower lobe of uncertain significance The visualized portions of the heart are within normal limits. Small calcified density in the left breast possibly fibroadenoma. Liver is fatty infiltrated without mass or bile duct dilatation. Gallbladder has been removed surgically.. Normal spleen. Normal pancreas. Normal bilateral adrenal glands. Normal right kidney. Normal left kidney. Normal visualized stomach. Normal small intestine. Mild diverticular disease of the colon without evidence for diverticulitis. The appendix is visualized and appears normal. Mild atherosclerotic changes of the aorta without evidence for aneurysm.. Normal inferior vena cava. Normal retroperitoneum. Normal urinary bladder. Small right ovarian cyst measuring 2.4 x 1.9 cm Tiny fat-containing umbilical hernia. Lumbar spine demonstrates mild degenerative changes CT/Abdomen/Pelvis WITH Contrast IMPRESSION: Mild fatty infiltration of liver without evidence for hepatic metastasis. No evidence for retroperitoneal adenopathy.. Postop change status post cholecystectomy. Small right ovarian cyst Electronically Signed: Price Hart MD at 20:52 EDT , Service support ,
== END ==
PROVIDERS: PCP Family Medicine; Referring Provider Student in an Organized Health Care Education/Training Program; Visit Provider Student in an Organized Health Care Education/Training Program
DX: C79.31 Secondary malignant neoplasm of brain (principal)
CPT/HCPCS: 70553; 71260; 74177; A9575; Q9967; A4216

== ENCOUNTER 2019-12-27 21:51 | Emergency (ER) | payer MEDICARE, MEDICAID, SELFPAY ==
[2019-07-03 10:02] VITALS: BMI 40.8
[2019-12-21 14:19] VITALS: BMI 38.0
[2019-12-27 21:52] VITALS: PULSE 66; RESP 22; TEMP 36.8; O2SAT 93; BMI 38.0
[2019-12-27 21:55] VITALS: BP 142/67; PULSE 66; RESP 22; TEMP 36.8; O2SAT 93
--- NOTE | 2019-12-27 22:12 | EKG12_ITS ---
Test Reason : DYSRHYTHMIA Blood Pressure : / mmHG Vent. Rate : 063 BPM Atrial Rate : 063 BPM P-R Int : 148 ms QRS Dur : 080 ms QT Int : 438 ms P-R-T Axes : 052 026 067 degrees QTc Int : 448 ms Normal sinus rhythm Normal ECG Confirmed by ZARINA VICK, TATO ([id number]), loan expeditor EVELYN ALEXANDER ([id number]) on 12/29/2019 10:18:09 AM Referred By: Mayra Elliott Confirmed By:TATO SRINIVASAN MD
--- NOTE | 2019-12-27 22:12 | CT_ITS ---
STUDY: CT BRAIN WITHOUT CONTRAST REASON FOR EXAM: Female, 64 years old. HEAD TRAUMA WITH DECREASED LOC. Hx of breast cancer and melanoma with mets to brain, lungs and spine RADIATION DOSAGE (If Supplied By Facility): CTDIvol = ( 44.99 ) mGy, DLP = ( 812.98 ) mGycm TECHNIQUE: Transaxial CT imaging of the brain was performed without administration of intravenous contrast material. Individualized dose optimization techniques were used for this CT. COMPARISON: October 07, 2019 and MRI dated December 25, 2019 FINDINGS: Normal soft tissue structures. Normal calvarium. Normal size ventricles and extra-axial spaces for the patient''s age. There is a high attenuation focus within both occipital lobes corresponding to metastatic foci identified on recent MRI. In addition there is a rounded high attenuation focus within the left parietal lobe consistent with a metastatic focus as well. There are areas of decreased attenuation within the white matter tracts of the supratentorial brain, consistent with microvascular disease changes. There is a stable focus of encephalomalacia within the left occipital lobe. Normal basal ganglia and thalami. Normal brainstem. There is a round high attenuation focus within the left cerebellar lobe corresponding to a metastatic focus on the patient''s recent MRI. There is no intracranial hemorrhage. There are no findings of an acute ischemic infarction. There is a stable defect within the right lateral maxillary sinus wall may be secondary to a old injury. There is stable mild opacification of the left mastoid air cells consistent with a history of mastoiditis. CT/Brain/Head without Contrast IMPRESSION: No acute intracranial process. Round high attenuation foci within the occipital, left parietal and left cerebellar lobe corresponding to metastases identified on MRI dated December 25, 2019. Small vessel ischemia. Electronically Signed: Kusum Moran MD at 22:48 EDT Tel , Service support ,
[2019-12-27 22:23] LABS: Absolute Lymphocyte Count 1.44 X10^3/uL (0.83-4.51); Absolute Neutrophil Count 7.3 X10^3/uL (2.0-7.7); Basophil# 0.01 X10^3/uL; Basophil% 0.1 % (0-1); Eosinophil# 0.08 X10^3/uL; Eosinophils% 0.8 % (0-5); Hematocrit 45.2 % (37-47); Hemoglobin 14.6 g/dL (12.0-15.0); Lymphocyte # 1.44 X10^3/ul (4.0); Lymphocyte % 15.3 % (19-41); Mean Corp Hgb Conc 32.3 g/dL (32-36); Mean Corpuscular Hgb 31.3 pg (27.0-32.0); Mean Platelet Vol. 11.1 fl (6.2-12.0); Monocyte# 0.52 X10^3/uL; Monocyte% 5.5 % (0-10); NRBC Flagged by Analyzer 0 % (0-5); Neutrophil # 7.32 X10^3/uL (2.7-7.7); Neutrophil % 77.8 % (47-70); Platelet Count 190 K/mm3 (150-450); RBC Distribution Width CV 13.9 % (11.6-14.6); RBC Distribution Width SD 49.5 fl (35.1-43.9); Red Blood Count 4.66 M/mm3 (4.2-5.4); White Blood Count 9.4 K/mm3 (4.4-11.0)
[2019-12-27 22:27] LABS: International Normalized Ratio 1.2
[2019-12-27 22:28] LABS: Partial Thromboplast Time 30.5 Seconds (24.1-36.2)
--- NOTE | 2019-12-27 22:34 | RAD_ITS ---
STUDY: X-RAY CHEST REASON FOR EXAM: Female, 64 years old. Increasing weakness -- pt had breast cancer and melanoma with mets to brain, lungs and spine- currently on immunotherapy TECHNIQUE: Single frontal view of the chest. COMPARISON: October 07, 2019 FINDINGS: There is no focal consolidation. There are bilateral scattered faint nodules. There is a right-sided central venous catheter in place terminating within the superior vena cava. Normal size heart. Normal mediastinum and lorena. Normal visualized pulmonary arteries. Normal visualized aortic arch and descending thoracic aorta. Normal visualized thoracic spine. Normal visualized ribs, clavicles, and shoulders. There is no demonstrated abnormality of the visualized soft tissue structures of the upper abdomen. RAD/Chest 1 View (Portable) IMPRESSION: Bilateral faint pulmonary nodules concerning for underlying metastases. Electronically Signed: Kusum Moran MD at 22:55 EDT Tel , Service support ,
[2019-12-27 22:36] LABS: ALB/GLOB Ratio 0.8 RATIO (0.9-2.4); AST(SGOT) 202 U/L (15-37); Alanine Aminotransfer ALT/SGPT 295 U/L (13-56); Albumin, Serum 2.8 g/dL (3.2-5.0); Alkaline Phosphatase 73 U/L (45-117); Anion Gap 9 (5-15); BUN 39 mg/dL (7-18); BUN/Creat Ratio 38.6 RATIO (10-20); Calcium,Total 9.2 mg/dL (8.5-10.1); Chloride 100 mmol/L (98-107); Creatinine, Serum 1.01 mg/dL (0.55-1.02); EST Glomerular Filtration Rate 59 mL/min (>60); Est Glom Filt Rate - Afr Amer 71 mL/min (>60); Estimated Creatinine Clearance 40.42 ml/min; Globulin 3.3 g/dL (2.2-4.2); Glucose 416 mg/dL (74-106); Potassium 4.3 mmol/L (3.5-5.1); Protein, Total 6.1 g/dL (6.4-8.2); Sodium Level 135 mmol/L (136-145)
[2019-12-27 22:38] LABS: Lactic Acid 1.9 mmol/L (0.4-1.9)
--- NOTE | 2019-12-27 22:55 | ED.VIS.GEN ---
History of Present Illness Chief Complaint: Weakness Informant: Patient, Friend - Friend is patient's POA., Clam Shucker Onset: Today - Patient apparently fell 6 times today. Squad was called twice to go to her residence. 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 Patient does have a living will. She does not have a signed DNR Comfort Care arrest or DNR comfort care only or medical order for life-sustaining treatment. Patient does not have the capacity to make this decision at this time. History is limited because of patient's disorientation and altered mental status. Review of pharmacy records indicates patient is on Eliquis. She does report headache. She is on Decadron. Prior similar symptoms: No Recent Illness/Hospitalization: Yes - Past Medical History (1) Anxiety and depression Status: Chronic (2) CAD (coronary artery disease) Status: Chronic (3) COPD (chronic obstructive pulmonary disease) Status: Chronic (4) Debility Status: Chronic (5) Diabetes mellitus, type II Status: Chronic (6) HLD (hyperlipidemia) Status: Chronic (7) HTN (hypertension) Status: Chronic (8) History of breast cancer Status: Chronic (9) Malignant melanoma metastatic to brain Status: Chronic (10) Malignant melanoma metastatic to lung Status: Chronic (11) Metastatic melanoma to lung Status: Chronic (12) Obesity Status: Chronic (13) Pulmonary embolism Status: Chronic Past Medical History - Allergies and Home Meds Allergies/Adverse Reactions: Allergies metformin [From Glucophage] Adverse Reaction (Severe, Verified 12/27/19 22:00) Nausea Primary Care Physician: Catherine Taveras DO [Primary Care Provider] - Prior records reviewed: Yes Surgical History: noncontributory, - - Gamma knife therapy, left breast ectomy surgery, back melanoma wide excision, cholecystectomy. Lives: Alone Smoking Status: Current every day smoker Alcohol: None Drugs: None - Family History Maternal Family History: Family History (Last Reviewed 12/21/19 @ 14:18 by Vianney Sepulveda) Mother Heart disease Hypertension Father Diabetes Sister Lung cancer Family History: Reports: High Cholesterol, Heart Disease, Hypertension Paternal Family History: Family History (Last Reviewed 12/21/19 @ 14:18 by Vianney Sepulveda) Mother Heart disease Hypertension Father Diabetes Sister Lung cancer Family History: Reports: Diabetes Review of Systems ROS: Unable to Obtain Neurological: Reports: Headache Physical Exam Vital Signs/Narrative: Vital Signs Temp Pulse Resp BP Pulse Ox 12/27/19 21:55 98.3 F 66 22 H 142/67 H 93 12/27/19 21:52 98.3 F 66 22 H 93 Inital Vital Signs reviewed: Yes General: Well nourished, Well developed, Obese, - - Patient has decreased level consciousness. She needs repeated verbal and tactile stimuli to keep her eyes open. Head: Normocephalic, Trauma, Tenderness - Is evidence of trauma and tenderness over the occiput. Eyes: Perrl, Pale conjunctiva. Negative for: EOMI - She has disconjugate gaze with horizontal tracking., Scleral icterus ENT: No rhinorrhea, TM's clear, Dry mucous membranes. Negative for: Moist mucous membranes Neck: Supple, Nontender, No lymphadenopathy, No JVD Cardiovascular: Regular rate, Regular rhythm, No murmurs, Normal S1, Normal S2 Respiratory: CTA bilaterally, Chest nontender, - - There is a port noted right anterior chest midclavicular line. Negative for: No distress Abdomen: Soft, Nontender, Nondistended, Normal bowel sounds, No masses Rectal: Deferred Back: Nontender, Normal Inspection Extremities: Nontender, No edema Skin: No rash, Pallor, Trauma. Negative for: Cyanosis, Diaphoresis, Jaundice Neurological: Normal Sensation, Normal DTR - Patient withdraws on Babinski testing.. Negative for: Alert, Oriented x3, Cranial nerves II-XII grossly intact Psychological: - - Affect is flat. Diagnostic/Tx/Re-eval Chest X-Ray - ED: 1 View, - - Suboptimal film. Patient rotated. Inspiratory volume is limited. Port is noted on the right side. Cardiac silhouette appears normal. Difficult to assess size because patient is rotated and it is a portable film. There is no obvious infiltrate. There is no effusion noted. There may be nodules. There is a past history per old records of metastasis to lung. Impressions Brain CT 12/27/19 22:12 IMPRESSION: No acute intracranial process. Round high attenuation foci within the occipital, left parietal and left cerebellar lobe corresponding to metastases identified on MRI dated December 25, 2019. Small vessel ischemia. Electronically Signed: Kusum Moran MD at 22:48 EDT Tel , Service support , 12/27/19 22:12 Brain/Head without Contrast [CT] Stat 12/27/19 22:34 Chest 1 View (Portable) [RAD] Stat Laboratory Results 12/27/19 12/27/19 12/27/19 22:00 22:00 22:00 WBC 9.4 RBC 4.66 Hgb 14.6 Hct 45.2 MCV 97.0 MCH 31.3 MCHC 32.3 RDW Std Deviation 49.5 H RDW Coeff of Kosta 13.9 Plt Count 190 MPV 11.1 Immature Gran % (Auto) 0.500 Neut % (Auto) 77.8 H Lymph % (Auto) 15.3 L Tyrrell % (Auto) 5.5 Eos % (Auto) 0.8 Baso % (Auto) 0.1 Absolute Neuts (auto) 7.3 Absolute Lymphs (auto) 1.44 Nucleated RBC % 0 PT 15.0 H INR 1.2 APTT 30.5 Sodium 135 L Potassium 4.3 Chloride 100 Carbon Dioxide 26.0 Anion Gap 9 BUN 39 H Creatinine 1.01 Estim Creat Clear Calc 40.42 Est GFR (MDRD) Af Amer 71 Est GFR (MDRD) Non-Af 59 L BUN/Creatinine Ratio 38.6 H Glucose 416 H Lactic Acid Calcium 9.2 Total Bilirubin 0.30 AST 202 H ALT 295 H Alkaline Phosphatase 73 Total Protein 6.1 L Albumin 2.8 L Globulin 3.3 Albumin/Globulin Ratio 0.8 L 12/27/19 22:00 WBC RBC Hgb Hct MCV MCH MCHC RDW Std Deviation RDW Coeff of Kosta Plt Count MPV Immature Gran % (Auto) Neut % (Auto) Lymph % (Auto) Tyrrell % (Auto) Eos % (Auto) Baso % (Auto) Absolute Neuts (auto) Absolute Lymphs (auto) Nucleated RBC % PT INR APTT Sodium Potassium Chloride Carbon Dioxide Anion Gap BUN Creatinine Estim Creat Clear Calc Est GFR (MDRD) Af Amer Est GFR (MDRD) Non-Af BUN/Creatinine Ratio Glucose Lactic Acid 1.9 Calcium Total Bilirubin AST ALT Alkaline Phosphatase Total Protein Albumin Globulin Albumin/Globulin Ratio - EKG Initial EKG Interpretation: Sinus Rhythm - Normal sinus rhythm with ventricular rate of 63. PA interval 148 ms. QRS duration 80 ms. QT duration 438 ms. [employer] is normal. EKG is normal. - Medical Decision Making Frontal diagnosis includes intracranial bleed, subdural, epidural, traumatic subarachnoid, intraparenchymal contusion. This may also represent edema from metastatic lesions to brain. Need to evaluate for infectious and metabolic cause as well. To evaluate patient's presentation CT of the head was obtained, chest x-ray, appropriate labs and UA. We will need to speak with POA regarding CODE STATUS and life expectancy. Patient will require admission to the hospital. Since there is no evidence of intracranial bleed will treat with Decadron since her decreased mental status may be due to multiple brain mets. Urine is positive for blood and leukoesterase on macro. There is no pyuria microscopic hematuria on micro. There is 4+ bacteria with no epithelial cells. Nitrites were negative. Urine culture was sent and patient did receive 1 dose of Rocephin. ED Disposition - Plan for ED Patient: Disposition: Acute Care Hospital [facility] Diagnosis: Closed head injury with loss of consciousness of unknown duration, Melanoma metastatic to brain, Metastatic melanoma to lung, Bacteria in urine, Acute alteration in mental status, Frequent falls, Anticoagulant long-term use, Hyperglycemia due to type 2 diabetes mellitus Referrals: Catherine Taveras DO [Primary Care Provider] -
[2019-12-27] MEDS: dexAMETHasone 10 MG/ML Vial IV (23:10)
[2019-12-27 23:14] VITALS: BP 114/73; PULSE 63; RESP 19; TEMP 36.6; O2SAT 93
[2019-12-27 23:18] LABS: Mucous, Urine 0 SEEN /hpf (<or=2+); Squamous Epithelial Cells - UA 0 SEEN /hpf (5-10)
[2019-12-27 23:22] LABS: Color, Urine Yellow (Yellow); Glucose, Dipstick 250 mg/dl (Normal); Ketone-Dipstick Negative (Negative); Leukocyte Esterase-Dipstick 25 /ul (Negative); Nitrite-Dipstick Negative (Negative); Occult Blood-Urine 25 /ul (Negative); Protein-Dipstick 30 mg/dl (Negative); Urine Bilirubin Dipstick Negative (Negative); Urine Clarity Clear (Clear); Urine Urobilinogen Normal (Normal)
[2019-12-27 23:31] LABS: Bacteria 4+ /hpf (None Seen); Red Blood Cells-Urine 0-5 SEEN /hpf (0-5); White Blood Cells 0-5 SEEN /hpf (0-5)
[2019-12-27] MEDS: Ceftriaxone 1 GM/50 ML BAG IV (23:54)
--- NOTE | 2019-12-27 23:58 | CCHN_ITS ---
Hospitalist Note Initial plan for admission of patient given mental status change with evident diffuse metastatic disease including mets to the brain, lung, liver. Upon attempted initial assessment patient mental status rapidly declined, ongoing significant hypoxia in the 50s, ill-appearing. Contacted patient's healthcare power of assistant prosecuting attorney and discussed current presentation and patient confirmed DNR CC status and requested that patient be initiated on comfort care measures and was amenable to hospice. Discussed presentation and change of status with ED physician, Dr. Cedeño and he contacted hospice.
--- NOTE | 2019-12-27 23:58 | PCM.HP.STD ---
History of Present Illness Date of Admission: 12/27/19 The patient is a 64 year old F [] Melanoma Breast brain, liver, lung and bone Prah Fell 6 timesa a jaz, EMS called twice, altered mental status, neuro, disconjugate gaze, disorientation. Decadron. Past Medical History Past Medical History (Chronic Problems): Chronic Problems (Last Reviewed 12/21/19 @ 14:18 by Vianney Sepulveda) Debility (Chronic) COPD (chronic obstructive pulmonary disease) (Chronic) Tobacco use (Chronic) HTN (hypertension) (Chronic) HLD (hyperlipidemia) (Chronic) CAD (coronary artery disease) (Chronic) Obesity (Chronic) Diabetes mellitus, type II (Chronic) History of breast cancer (Chronic) Metastatic melanoma (Chronic) Anxiety and depression (Chronic) History of left breast cancer (Chronic) Pulmonary embolism (Chronic) Melanoma (Chronic) right upper back, stage IIB Metastatic melanoma to lung (Chronic) Malignant melanoma metastatic to lung (Chronic) Malignant melanoma metastatic to brain (Chronic) Peau d'orange over breast (Chronic) Medical History: Medical History (Last Reviewed 12/21/19 @ 14:18 by Vianney Sepulveda) Anhedonia R45.84 Anxiety F41.9 B12 deficiency E53.8 Breast cancer, left C50.912 CAD (coronary artery disease) I25.10 COPD (chronic obstructive pulmonary disease) J44.9 Carpal tunnel syndrome G56.00 Depression F32.9 Diabetes mellitus E11.9 Emphysema lung J43.9 Hyperlipidemia E78.5 Hyponatremia E87.1 Melanoma C43.9 Peripheral edema R60.9 Hypertension I10 Allergies metformin [From Glucophage] Adverse Reaction (Severe, Verified 12/27/19 22:00) Nausea Home Medications: Ambulatory Orders Medication Instructions Recorded Albuterol Inhaler [Ventolin Hfa] 2 inhaler INHALATION Q4H PRN PRN 10/17/16 Lisinopril [Zestril] 40 mg PO QHS 10/17/16 Pantoprazole Sodium [Protonix] 40 mg PO DAILY 10/17/16 Aspirin E.C. [Ecotrin] 81 mg PO DAILY@0800 06/11/19 Cyclobenzaprine HCl 10 mg PO TID PRN PRN 06/11/19 Gabapentin [Neurontin] 300 mg PO TIDCM 06/11/19 Nitroglycerin [Nitrostat] 0.4 mg SL PRN PRN 06/11/19 Pravastatin [Pravachol] 80 mg PO QHS 06/11/19 Verapamil HCl [Verapamil ER] 240 mg PO DAILY 06/11/19 Fluticasone 0.05% [Flonase Nasal 1 spray NASAL DAILY PRN PRN 09/18/19 Alpha] Glimepiride 4 mg PO BID 09/18/19 Metoprolol Tartrate 50 mg PO BID 09/18/19 Apixaban [Eliquis] 5 mg PO BID 10/20/19 Insulin Lispro [Humalog KwikPen] 20 unit SUBCUT TIDAC insuln.pen 10/22/19 Acetaminophen [Tylenol Tablet] 650 mg PO Q6H PRN PRN tab 11/09/19 Guaifenesin Dm [Robitussin Dm] 5 ml PO Q6H PRN PRN udc 11/09/19 Insulin Glargine [Lantus SoloStar 38 units SUBCUT BID pen 11/09/19 Pen] Insulin Lispro [Humalog KwikPen] See Protocol SUBCUT ACHS 11/09/19 insuln.pen Ipratropium/Albuterol Sulfate 3 ml INHALATION Q4HWA.RT ampul.neb 11/09/19 [Duoneb] Memantine Hydrochloride [Namenda] 10 mg PO BID tab 11/09/19 Senna/Docusate Sodium [Senokot-S] 2 tab PO BID PRN PRN tab 11/09/19 Surgical History: Surgical History (Last Reviewed 12/21/19 @ 14:18 by Vianney Sepulveda) H/O melanoma excision Z98.890, Z85.820 back. [facility] 04/2019 History of cholecystectomy Z98.890, Z90.49 History of excision of pilonidal cyst Z98.890 History of lumpectomy Z98.890 History of lymph node excision Z98.890 Status post trigger finger release Z98.890 port placement Surgical History: noncontributory, - - Gamma knife therapy, left breast ectomy surgery, back melanoma wide excision, cholecystectomy. 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 Lives: Alone Smoking Status: Current every day smoker Tobacco Use: Cigarettes Alcohol: None Drugs: None - *Family History Maternal Family History: Family History (Last Reviewed 12/21/19 @ 14:18 by Vianney Sepulveda) Mother Heart disease Hypertension Father Diabetes Sister Lung cancer History Items: High Cholesterol, Heart Disease, Hypertension Paternal Family History: Family History (Last Reviewed 12/21/19 @ 14:18 by Vianney Sepulveda) Mother Heart disease Hypertension Father Diabetes Sister Lung cancer History Items: Diabetes - Physical Exam Vitals/I&O's: Vital Signs Temp Pulse Resp BP Pulse Ox 97.9 F 63 19 H 114/73 93 12/27/19 23:14 12/27/19 23:14 12/27/19 23:14 12/27/19 23:14 12/27/19 23:14 Oxygen Delivery Method Room Air Weight: 194 lb 14.218 oz Body Mass Index (BMI) 38.0 Finger Stick Blood Glucose 400 Laboratory Results 12/27/19 22:00: WBC 9.4, RBC 4.66, Hgb 14.6, Hct 45.2, MCV 97.0, MCH 31.3, MCHC 32.3, RDW Std Deviation 49.5 H, RDW Coeff of Kosta 13.9, Plt Count 190, MPV 11.1, Immature Gran % (Auto) 0.500, Neut % (Auto) 77.8 H, Lymph % (Auto) 15.3 L, Miller % (Auto) 5.5, Eos % (Auto) 0.8, Baso % (Auto) 0.1, Absolute Neuts (auto) 7.3, Absolute Lymphs (auto) 1.44, Nucleated RBC % 0 12/27/19 22:00: PT 15.0 H, INR 1.2, APTT 30.5 12/27/19 22:00: Sodium 135 L, Potassium 4.3, Chloride 100, Carbon Dioxide 26.0, Anion Gap 9, BUN 39 H, Creatinine 1.01, Estim Creat Clear Calc 40.42, Est GFR (MDRD) Af Amer 71, Est GFR (MDRD) Non-Af 59 L, BUN/Creatinine Ratio 38.6 H, Glucose 416 H, Calcium 9.2, Total Bilirubin 0.30, AST 202 H, ALT 295 H, Alkaline Phosphatase 73, Total Protein 6.1 L, Albumin 2.8 L, Globulin 3.3, Albumin/Globulin Ratio 0.8 L 12/27/19 22:00: Lactic Acid 1.9 12/27/19 23:15: Urine Color Yellow, Urine Clarity Clear, Urine pH 5.0, Ur Specific Crawford 1.020, Urine Protein 30 H, Urine Glucose (UA) 250 H, Urine Ketones Negative, Urine Occult Blood 25 H, Urine Nitrite Negative, Urine Bilirubin Negative, Urine Urobilinogen Normal, Ur Leukocyte Esterase 25 H, Urine RBC 0-5 SEEN, Urine WBC 0-5 SEEN, Ur Squamous Epith Cells 0 SEEN, Urine Bacteria 4+, Urine Mucus 0 SEEN Current Medications Ceftriaxone Sodium (Rocephin) 1 gm in 50 mls @ 100 mls/hr IV X1 ONE Stop: 12/28/19 00:08 Last Admin: 12/27/19 23:54 Dose: 100 mls/hr Documented by: Sodium Chloride () 250 mls @ 15 mls/hr IV .[id number] PRN PRN Reason: Saline Flush Sodium Chloride () 250 mls @ 15 mls/hr IV .[id number] PRN PRN Reason: Additional IVPB Infusion Sodium Chloride () 10 - 40 ml IV UD PRN PRN Reason: Midline Flush Sodium Chloride (0.9% Nacl (Sterile) Posiflush) 10 - 40 ml IV UD PRN PRN Reason: Port access or dressing change Assessment/Plan All Active Problems (Last Reviewed 12/21/19 @ 14:18 by Vianney Sepulveda) Immunotherapy encounter (Acute) Immunotherapy encounter (Acute) Closed head injury with loss of consciousness of unknown duration (Acute) Bacteria in urine (Acute) Acute alteration in mental status (Acute) Frequent falls (Acute) Anticoagulant long-term use (Acute) Hyperglycemia due to type 2 diabetes mellitus (Acute)
[2019-12-28] MEDS: HYDROmorphone 0.5 MG/0.5 ML SYRINGE IV (00:29)
--- NOTE | 2019-12-28 00:51 | ED.RN ---
WHILE MOVING PT IN BED, SPO2 DROPPED INTO 50S. DAY [employer] NOTIFIED. NON-REBREATHER APPLIED AND PT STATED IT WAS UNCOMFORTABLE. MASK REMOVED. BLOW-BY APPLIED. BUSINESS SUPPORT ASSISTANT ON PHONE W/POA FOR ADDITIONAL DIRECTION.
[2019-12-28] MEDS: LORazepam 2 MG/ML Syringe 1 MG IV (01:16)
[2019-12-28 01:21] VITALS: PULSE 105; RESP 15; O2SAT 61
[2019-12-28 01:35] VITALS: BP 238/108; PULSE 142; RESP 11
--- NOTE | 2019-12-28 02:04 | ED.RN ---
AT THIS TIME, HOSPICE NOT ADMITTING THE PT. CONCERN SHE WILL NOT MAKE THE TRANSPORT. WILL MONITOR THE PT IN THE ER AND REEVALUATE AROUND 0700. PER HOSPICE, IF PT STARTS TO IMPROVE CALL THEM BACK TO ADMIT
[2019-12-28 03:00] VITALS: BP 107/61; PULSE 84; PULSE 95; RESP 13; RESP 14
[2019-12-28 04:00] VITALS: BP 107/62; PULSE 92; RESP 14; O2SAT 83
--- NOTE | 2019-12-28 04:26 | ED.RN ---
THIS NURSE CONTACTED HOSPICE WITH AN UPDATE. FAMILY AND POA UPDATED
[2019-12-28 05:49] VITALS: BP 107/62; PULSE 83; RESP 14; TEMP 36.1; O2SAT 98
== END 2019-12-28 05:52 | disposition skilled nursing facility (03) ==
LOC: ED 12-28 00:05
PROVIDERS: Emergency Provider Emergency Medicine; PCP Family Medicine; Referring Provider Family Medicine
DX: S06.9X9A Unspecified intracranial injury with loss of consciousness of unspecified duration, initial encounter (principal); W19.XXXA Unspecified fall, initial encounter; Z91.81 History of falling; Y93.9 Activity, unspecified; Y92.9 Unspecified place or not applicable; C50.919 Malignant neoplasm of unspecified site of unspecified female breast; C79.31 Secondary malignant neoplasm of brain; C78.00 Secondary malignant neoplasm of unspecified lung; C78.7 Secondary malignant neoplasm of liver and intrahepatic bile duct; C79.51 Secondary malignant neoplasm of bone; R41.82 Altered mental status, unspecified; R78.81 Bacteremia; E11.65 Type 2 diabetes mellitus with hyperglycemia; I10 Essential (primary) hypertension; F41.9 Anxiety disorder, unspecified; F32.9 Major depressive disorder, single episode, unspecified; I25.10 Atherosclerotic heart disease of native coronary artery without angina pectoris; J44.9 Chronic obstructive pulmonary disease, unspecified; E78.5 Hyperlipidemia, unspecified; E66.9 Obesity, unspecified; Z66 Do not resuscitate; Z86.711 Personal history of pulmonary embolism; Z79.4 Long term (current) use of insulin; Z79.01 Long term (current) use of anticoagulants; Z79.82 Long term (current) use of aspirin; Z79.84 Long term (current) use of oral hypoglycemic drugs; Z79.899 Other long term (current) drug therapy; F17.200 Nicotine dependence, unspecified, uncomplicated
CPT/HCPCS: 36591; 51702; 70450; 71045; 80053; 81001; 83605; 85025; 85610; 85730; 87086; 87088; 87186; 93005; 96365; 96374; 96375; 99285; J7050; A4216